=== PATIENT | female | born 1975 | race Caucasian/White ===

== ENCOUNTER → 2024-09-25 | Outpatient (CLI) | payer OTHER, SELFPAY ==
--- NOTE | 2024-09-25 10:03 | RAD_ITS ---
PROCEDURE: SHOULDER MIN 2 VIEWS 09/25/2024 REASON FOR EXAM: SHOULDER INJURY TECHNIQUE: Four views of the left shoulder COMPARISON: None FINDINGS: Bones: Unremarkable. Joints: Mild degree of joint space narrowing. Soft tissues: Soft tissues are unremarkable. Other: RAD/Shoulder min 2 Views IMPRESSION: Mild degree of joint space narrowing of the glenohumeral joint. Reading Location: [facility]
== END | disposition home or self-care (01) ==
LOC: MTRAD 10:02
PROVIDERS: Referring Provider Physician Assistant Surgical; Visit Provider Physician Assistant Surgical
DX: S49.90XA Unspecified injury of shoulder and upper arm, unspecified arm, initial encounter (principal)
CPT/HCPCS: 73030

== ENCOUNTER 2024-12-12 15:30 | Outpatient (RCR) | payer OTHER, SELFPAY ==
--- NOTE | 2024-11-10 14:57 | HP.PTEVAL ---
Patient's Visit Information Visit Information Visit Information: NABIL ROSALES is a 49 year old F referred to Physical Therapy by Dr. Boyd Lopez MD with a diagnosis of rotator cuff or rupture of left shoulder ,primary osteoarthritis ,left. Date of Evaluation: 11/10/24 Physical Therapist: Raffy Trotter, PT, Cert MDT, OCS Visit Plan Frequency: 2-3x /Week Duration: 6 Weeks Plan: SUPRASPINATUS TEAR -MRI PT INTERVENTIONS ROM ,RTC ,SCAPULAR STRENGTHENING ,POSTURAL EX'S ,ACTIVITY MODIFICATION AND MODALITIES Subjective Subjective: This 49 y/o female presents to physical therapy with left shoulder RTC tear. Patient was cooking soup and lifting 12 # bag felt pop and caused pain and paresthesia/tingling in arm. on September. [facility] and recommended MRI showed Moderate supraspinatus tendinosis with rim rent type tear involving the tendon footprint measuring approximately 1 cm time 0.3 cm medial to lateral. There is suspected focal pinhole perforation extended from this with otherwise bursal surface fraying and labral tear. Placed lifting restriction 5# and lifting above below waist. Referred to Boyd Lopez recommended PT and possible surgery but will wait after PT. Medication none and no cortisone injection. C/O paresthesia /tingling. Pain described as ache. Pain affects sleeping. Aggravating factors ADLS ,self hygiene ,activities above 90 degrees lifting and any overhead activities . Patient to RTD after PT. Patient goals to decrease pain and possible surgery SOCIAL: divorce VOCATION: [employer] Left Shoulder: Pain Intensity (Out of 10): 4 Pain Intensity Range: 10 Comment: increasing with activity /10 Objective Objective: POSTURE: rounded shoulders head forward PALAPTION: tender AC NEURO: c/o paresthesia/tingling let shoulder AROM: shoulder flexion 125 degrees ,abduction 125 degrees ,ER 90 degrees ,IR L1 PROM: shoulder flexion/abduction ~150 degrees pain MMT: ( peak force) infraspinatus 5.2 ,supraspinatus 4.2 ,subscapularis 9.9 ,deltoid 4.2 CAPSULAR RESTRICTION: WFL Special Tests L Shoulder External Rotation Lag Test - RC Tear: Negative L Shoulder Lift Off Test - Subscapular Tear: Negative L Shoulder Drop Sign - IS Test: Negative L Shoulder Empty Can - SS: Positive L Shoulder Belly Press - SupScap: Negative L Shoulder Neer - Impingement: Positive L Shoulder Alva Luis Miguel - Impingement: Positive Balance/Special Test Scores Quick DASH Score: 50.0000 Goals Goal 1:: Patient to be I with HEP for shoulder Goal Time Frame: 4-6 Weeks Goal 2:: Patient to improve AROM shoulder flexion/abduction by 150 degrees for ADL and activities above 90 degrees for job demands Goal Time Frame: 4-6 Weeks Goal 3:: Patient to improve peak force RTC by 5-10# to improve function and ADLS /job demands Goal Time Frame: 4-6 Weeks Goal 4:: Patient to quick dash by 5 points to improve QOL and function Goal Time Frame: 4-6 Weeks Goal 5:: Patient to demonstrate 50% improvement with less pain and improved function /ADLS Rehabilitation Potential Physical Therapy Diagnosis: This patient has tear of left supraspinatus with pain ,decrease ROM ,weakness RTC ,impairs ADL's and activities above 90 and self hygiene thus benefit from skilled PT Rehabilitation Potential: Fair Anticipated Interventions Patient/Client Instruction: Educate patient on: Condition and Plan of Care For the Purpose of:: To decrease pain, To increase ROM, To improve muscle performance and motor function, To improve ability to perform ADL's, To increase tolerance to activity/condition/position, To improve ability of physical actions for home/community/work/leisure, To improve health of tissue, To decrease soft tissue restriction, To increase flexibility/ROM and To improve tolerance to ADL's Therapeutic Exercise to Include: Strength training, Postural training, Flexibilty training and Active ROM Comment: RTC For the Purpose of:: To decrease pain, To increase ROM, To improve muscle performance and motor function, To improve ability to perform ADL's, To increase tolerance to activity/condition/position, To improve ability of physical actions for home/community/work/leisure, To improve health of tissue, To decrease soft tissue restriction, To increase flexibility/ROM and To improve tolerance to ADL's TENS: Yes IF ES: Yes Thermo therapy (hot pack): Yes Ultrasound (thermal/non thermal): Yes For the Purpose of:: To decrease pain, To increase ROM, To improve nutrient delivery to tissue, To increase oxygenation perfusion, To improve ability to perform ADL's, To improve health of tissue, To decrease soft tissue restriction and To improve tolerance to ADL's Text: Thank you for the opportunity to evaluate your patient. For Medicare and Medicare HMO plans, please review the plan of care and approve it. It will need to be FAXED BACK to us at [phone] for Medicare purposes. For Medicare only, by signing this I certify the plan of care. Please let me know if there are questions or concerns regarding this plan of care. Physician Signature: Date:
== END 2024-12-12 19:00 | disposition home or self-care (01) ==
LOC: PT 15:30
PROVIDERS: Referring Provider Orthopaedic Surgery Sports Medicine; Visit Provider Orthopaedic Surgery Sports Medicine
DX: M25.812 Other specified joint disorders, left shoulder (principal); M75.102 Unspecified rotator cuff tear or rupture of left shoulder, not specified as traumatic; M19.012 Primary osteoarthritis, left shoulder
CPT/HCPCS: 97014; 97110; 97140; 97162; G0283

== ENCOUNTER 2025-01-02 00:53 | Emergency (ER) | payer OTHER, SELFPAY ==
[2025-01-02 00:54] VITALS: BP 128/87; PULSE 71; RESP 16; TEMP 36.4; O2SAT 100; BMI 30.9
[2025-01-02 00:57] VITALS: BP 128/87; PULSE 71; RESP 16; TEMP 36.4; O2SAT 100
[2025-01-02] MEDS: Lidocaine 2% /Epi 1:100 (20ml) 20 ML VIAL INFILT (01:20)
--- OUTSIDE RECORDS SUMMARY | 2025-01-02 01:32 | XMS RPT_ITS | CCD ---
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 Technician Name Role Phone Cristofer Barraza Unavailable Unavailable Mary Pompa Unavailable Unavailable Cristofer Barraza Unavailable Unavailable CAMILLE MELLO Primary Care Unavailable NELL IRELAND Attending Unavailable Liang THAI MASSEUR - Nathan LINDSEY Primary Care Provid er NATHAN TAVERA Referring Unavailable NATHAN TAVERA Primary Care Unavailable SHALINI ELIZONDO Admitting Unavailable SHALINI ELIZONDO Attending Unavailable NATHAN TAVERA Primary Care Unavailable LIANGNATHAN POLLARD Primary Care Unavailable ADA NEWSOME Attending Unavailable NATHAN TAVERA Primary Care Unavailable CRISTOFER PEDERSON Consulting Unavailable CARLOS OWEN Admitting UnavailCARLOS Oakley Attending UnavailEDINSON Valentin Referring Unavailable NATHAN TAVERA Primary Care Unavailable NATHAN TAVERA Referring Unavailable NATHAN TAVERA Primary Care Unavailable NATHAN TAVERA Referring Unavailable NATHAN TAVERA Primary Care Unavailable NATHAN TAVERA Referring Unavailable NATHAN TAVERA Referring Unavailable NATHAN TAVERA Primary Care Unavailable NATHAN TAVERA Primary Care Unavailable NATHAN TAVERA Referring Unavailable APOORVA RYANYTON B Referring Unavailable NATHAN TAVERA Primary Care Unavailable TAHMINA MENDEZ Admitting Unavailable TAHMINA MENDEZ Attending Unavailable NATHAN TAVERA Primary Care Unavailable NATHAN TAVERA Primary Care Unavailable HECTOR RUVALCABA Attending Unavailable ROSANNE HERRON Attending Unavailable NATHAN TAVERA Primary Care Unavailable JAIDEN OAKLEY Attending Unavailable NATAHN TAVERA Primary Care Unavailable LIANGNATHAN Primary Care Unavailable ORALIA LOPEZ Attending Unavailable SHALINI ELIZONDO Attending Unavailable NATHAN TAVERA Referring Unavailable NATHAN TAVERA Primary Care Unavailable SHALINI ELIZONDO Attending Unavailable NATHAN TAVERA Referring Unavailable LIANG, NATHAN Primary Care Unavailable NADIA LANDON Attending Unavailable LIANG, NATHAN Referring Unavailable LIANG, NATHAN Primary Care Unavailable NADIA LANDON Attending Unavailable LIANG, NATHAN Referring Unavailable LIANG, NATHAN Primary Care Unavailable SHALINI ELIZONDO Attending Unavailable LIANG, NATHAN Referring Unavailable LIANG, NATHAN Primary Care Unavailable NADIA LANDON Attending Unavailable LIANG, NATHAN Referring Unavailable LIANG, NATHAN Primary Care Unavailable Unavailable Primary Care Provider Unavailkhushbu lugo Liang THAI MASSEUR-DRY WALL APPLICATOR, Nathan Primary Care Provider PHYSICIAN, NONE Primary Care Physician Unavailab le PHYSICIAN, NONE Primary Care Unavailable CORONA TEJADA Attending Unavailable Corona Tejada Attending Provider [phone] Care Physician, No Primary Primary Care Provider Unavailable Corona Tejada Referring Provider [phone] Care Physician, No Primary Referring Provider Un available Boyd Lopez MD Attending Provider Boyd Lopez MD Referring Provider Estrella Akbar Attending Provider Unavailable Care Physician, No Primary Primary Care Unava ilable Corona Tejada Referring Unavailable Corona Tejada Attending Unavailable Care Physician, No Primary Referring Unava ilable Corona Tejada Attending Unavailable Care Physician, No Primary Primary Care Unava ilable Boyd Lopez Attending Unavailable Care Physician, No Primary Referring Unava ilable Care Physician, No Primary Primary Care Unava ilBoyd Nolasco Attending Unavailable Care Physician, No Primary Primary Care Unava ilable Care Physician, No Primary Referring Unava ilable Corona Tejada Attending Unavailable Care Physician, No Primary Primary Care Unava ilable Care Physician, No Primary Referring Unava ilable Corona Tejada Attending Unavailable Estrella Akbar Attending Unavailable Care Physician, No Primary Primary Care Unava ilable Corona Tejada Attending Unavailable Care Physician, No Primary Primary Care Unava ilable Care Physician, No Primary Referring Unava ilable Boyd Lopez Referring Unavailable Boyd Lopez Attending Unavailable Care Physician, No Primary Primary Care Unava ilBoyd Nolasco Attending Unavailable Care Physician, No Primary Primary Care Unava ilable Allergies Allergy Classification Reported Allergen(s) Allergy Type Date of Onset Reaction(s) Facility (10 sources) buPROPion; Translations: [BUPROPION] Drug Allergy 5 Anaphylaxis, Hives, Swelling [facility] Repository (19 sources) Cephalexin; Translations: [CEPHALEXIN] Drug Allergy 3 Hives [facility] Repository (1 source) Penicillin; Translations: [PENICILLIN V] Drug Allergy 4 [facility] Repository (19 sources) Penicillins; Translations: [PENICILLINS] Propensity to adverse reactions to drug (disorder) 3 Hives, Intolerance [facility] Repository (9 sources) Promethazine; Translations: [PROMETHAZINE] Drug Allergy 4 Other (See Comments) [facility] Repository (13 sources) Tranexamic Acid; Translations: [TRANEXAMIC ACID] Drug Allergy 3 Hives [facility] Repository (1 source) traZODone; Translations: [TRAZODONE] Drug Allergy 4 [facility] (3 sources) Promethazine Drug Allergy 4 Other (See Comments) [employer] [facility] (3 sources) Trazodone And Nefazodone Propensity to adverse reactions to drug 4 Other (See Comments) [employer] [facility] (9 sources) buPROPion; Translations: [BUPROPION HCL] Drug Allergy 6 Anaphylaxis [facility] Repository Medications Current Medications Medication Drug Class(es) Dates Sig (Normalized) Sig (Original) acetaminophen 500 mg oral tablet (7 sources) Start: 09-25-2024 take 1 tablet by mouth every six hours as needed Acetaminophen (Tylenol Extra Strength) 500 mg tablet Active 500 mg PO EVERY 6 HOURS as needed September 25, 2024 12:00am Start: 06-30-2023 acetaminophen (TYLENOL) tablet 650 mg Start: 06-30-2023 End: 06-30-2023 acetaminophen (TYLENOL) tabl et 1,000 mg Start: 06-21-2023 acetaminophen (TYLENOL) tablet 650 mg acetaminophen 325 mg / HYDROcodone bitartrate 5 mg oral tablet (6 sources) Opioid Agonist take 1 tablet by mouth every six hours as needed for pain HYDROcodone-acetaminophen (NORCO) 5-325 mg per tablet Take 1 tablet by mouth every 6 (six) hours as needed for pain. Active [id number] actuat albuterol 0.09 mg/actuat metered dose inhaler (11 sources) beta2-Adrener gic Agonist Start: 2022 take 2 puff(s) by inhalation every four hours as needed for wheezing albuterol sulfate HFA (VENTOLIN HFA) 108 (90 Base) MCG/ACT inhaler Indications: Mild asthma without complication, unspecified whether persistent Inhale 2 puffs into the lungs every 4 hours as needed for Wheezing or Shortness of Breath 1 each 5 03/16/2023 Active take 2 puff(s) by in halation every six hours as needed albuterol HFA (PROVENTIL HFA, VENTOLIN H FA) 90 mcg/actuation inhaler Inhale 2 Puffs as instructed every 6 hours as needed. Active amitriptyline hydrochloride 75 mg oral tablet (1 source) Tricyclic Antidepressant take 1 tablet by mouth once daily amitriptyline (ELAVIL) 75 mg tablet Indications: migraine prevention Take 75 mg by mouth nightly Indications: Migraine Prevention. Active azithromycin 250 mg oral tablet (1 source) Macrolide Antimicrobial Start: 08-05-19 azithromycin (ZITHROMAX) 250 mg tablet 1 cap daily with food 3 tablet 0 08/05/2015 Active busPIRone hydrochloride 15 mg oral tablet (12 sources) Start: 09-20-19 take 1 tablet by mouth three times daily busPIRone (BUSPAR) 15 MG tablet Indications: Anxiety and depression Take 15 mg by mouth 3 times daily 90 tablet 0 09/20/2023 Active Start: 06-30-2023 take 10 mg by mouth three times daily as needed 10 mg, Oral, 3 TIMES DAILY PRN, Starting on 06/30/23 at 0530, Until Discontinued, anxiety Start: 03-13-2023 busPIRone (BUS PAR) 10 mg tablet Take 15 mg by mouth three times a day. 03/13/2023 Active Start: 03-13-2023 take 1.5 tablets by mouth three times daily as needed busPIRone (BUSPAR) 10 mg tablet Take 1.5 tablets (15 mg total) by mouth Three times daily as needed. 03/13/2023 Active Start: 10-13-2022 take 1 tablet by mariah th three times daily as needed busPIRone (BUSPAR) 10 mg tablet Take 1 tablet (10 mg total) by mouth Three times daily as needed. 03/13/2023 Active butorphanol tartrate 1 mg/actuat metered dose nasal spray (1 source) Opioid Agonist/Antagonist take 1 spray(s) nasal route every four hours as needed for pain butorphanol (STADOL) 10 mg/mL nasal spray 1 spray into each nostril every 4 (four) hours as needed for moderate pain - pain scale 4-6. Active cyclobenzaprine hydrochloride 10 mg oral tablet (9 sources) Muscle Relaxant Start: 2023 take 1 tablet by mouth every twelve hours as needed cyclobenzaprine (FLEXERIL) 10 mg tablet Take 10 mg by mouth two times a day as needed for pain. 08/29/2023 Active Start: 08-29-2023 take 1 tablet by mariah th every eight hours for muscle spasms cyclobenzaprine (FLEXERIL) 10 mg tablet take 1 tablet by mouth every 8 hours if needed for MUSCLE SPASMS 08/29/2023 Active diclofenac sodium 0.01 mg/mg topical gel (3 sources) Nonsteroidal Anti-inflammatory Drug Start: 01-08-2024 diclofenac sodium (VOLTAREN) 1 % gel Indications: S/P carpal tunnel release , Post-op pain Apply 2 g topically in the morning and 2 g at noon and 2 g in the evening and 2 g before bedtime. 100 g 01/08/2024 Active DULoxetine 20 mg delayed release oral capsule (11 sources) Serotonin and Norepinephrine Reuptake Inhibitor Start: 09-20-2023 take 1 capsule by mouth twice daily DULoxetine (CYMBALTA) 20 mg capsule Take 20 mg by mouth two times a day. 09/20/2023 Active Start: 09-20-2023 take 1 capsule by mo [facility] once daily DULoxetine (CYMBALTA) 20 MG extended release capsule Indications: Myalgia, multiple sites , Fibromyalgia syndrome , Anxiety and depression Take 1 capsule by mouth daily 30 capsule 2 09/20/2023 Active Start: 03-16-2023 End: 06-30-2023 take 1 capsule by mouth once daily DULoxetine (CYMBALTA) 20 MG extended release capsule Indications: Anxiety and depression , Myalgia, multiple sites Take 1 capsule by mouth daily 30 capsule 2 03/16/2023 06/30/2023 Discontinued (LIST CLEANUP) fludrocortisone acetate 0.1 mg oral tablet (1 source) take 1 tablet by mouth once daily fludrocortisone (FLORINEF) 0.1 mg tablet Indications: symptomatic orthostatic hypotension Take 0.1 mg by mouth daily Indications: Symptomatic Orthostatic Hypotension. Active folic acid 1 mg oral tablet (9 sources) Start: 07-10-19 24 take 1 tablet by mouth once daily folic acid 1 mg tablet Take 1 mg by mouth once daily. 07/10/2023 Active furosemide 20 mg oral tablet (3 sources) Loop Diuretic Start: 01-13-20 23 take 1 tablet by mouth once daily as needed for edema furosemide (LASIX) 20 MG tablet Take 1 tablet by mouth daily as needed (LE edema) 90 tablet 3 01/12/2023 Active gabapentin 800 mg oral tablet (15 sources) Anti-epileptic Agent Start: 09-26-19 25 take 1 tablet by mouth three times daily Gabapentin 800 mg tablet Active 800 mg PO THREE TIMES A DAY September 25, 2024 12:00am Start: 09-20-2023 End: 10-20-2023 take 1 tablet by mouth three times daily gabapentin (NEURONTIN) 800 MG tablet Indications: Myalgia, multiple sites , Polyneuropathy Take 1 tablet by mouth 3 times daily for 30 days. 90 tablet 0 09/20/2023 10/20/2023 Active Start: 03-15-2023 gabapentin (NE URONTIN) 600 mg tablet Take 800 mg by mouth three times a day. 03/15/2023 Active Start: 03-15-2023 take 0.5 tablet by m outh three times daily gabapentin (NEURONTIN) 600 mg tablet Take 0.5 tablets (300 mg total) by mouth 3 (three) times a day. 03/15/2023 Active Start: 03-15-2023 End: 06-30-2023 gabapentin (NEURONTIN) 600 M G tablet ibuprofen 200 mg oral tablet (4 sources) Nonsteroidal Anti-inflammatory Drug Start: 12-15-2024 take 3 tablets by mouth every six hours as needed Ibuprofen 200 mg tablet Active 600 mg PO EVERY 6 HOURS as needed December 15, 2024 12:00am Start: 06-30-2023 take 400 mg by mouth every six hours as needed for pain 400 mg, Oral, EVERY 6 HOURS PRN, Starting on 06/30/23 at 0530, Until Discontinued, Pain Mild (1-3), Pain Moderate (4-6), Allowed for higher pain score per patient request, Fever Alternate with tylenol lactobacillus acidophilus 16 mg oral capsule (1 source) Start: 07-02-2023 End: 07-12-2023 take 1 tablet by mouth at bedtime Probiotic, Lactobacillus, CAPS Take 1 tablet by mouth in the morning, at noon, and at bedtime for 10 days 30 capsule 0 07/02/2023 07/12/2023 Active loperamide hydrochloride 2 mg oral capsule (1 source) Opioid Agonist Start: 06-30-2023 loperamide (IM ODIUM) capsule 2 mg midodrine hydrochloride 5 mg oral tablet (16 sources) alpha-Adrenerg ic Agonist Start: 09-25-2024 take 1 tablet by mouth once daily at bedtime Midodrine 5 mg tablet Active 5 mg PO THREE TIMES A DAY September 25, 2024 12:00am do not give last dose of day after 6PM or within 4 hrs of bedtime Start: 06-30-2023 5 mg, Oral, 3 TIMES DAILY, First dose on 06/30/23 at 0900, Until Discontinued Do not give after 1800 or within 4 hrs of bedtime. Start: 03-12-2023 take 1 tablet by mariah th three times daily midodrine (PROAMATINE) 5 MG tablet Take 1 tablet by mouth 3 times daily 270 tablet 3 03/12/2023 Active take 1 tablet by mariah th twice daily midodrine (PROAMITINE) 5 mg tablet Take 5 mg by mouth two times a day. Active midodrine (PROAM ATINE) 5 mg tablet Take 2 tablets (10 mg total) by mouth. Active multivitamin (THERAGRAN) tablet (6 sources) take 1 tablet by mouth in the morning multivitamin (THERAGRAN) tablet Take 1 tablet by mouth in the morning. Active multivitamin tablet (1 source) take 1 tablet by mouth once daily multivitamin tablet Take 1 tablet by mouth once daily. Active 24 hr nicotine 0.875 mg/hr transdermal system (2 sources) Cholinergic Nicotinic Agonist Start: 07-02-19 End: 08-13-19 apply 1 dose transdermal route once daily nicotine (NICODERM CQ) 21 MG/24HR Place 1 patch onto the skin daily 42 patch 0 07/02/2023 08/13/2023 Active Start: 06-30-2023 apply 1 dose transde rmal route once daily 1 patch, TransDERmal, Administer over 24 Hours, DAILY, First dose on 06/30/23 at 0900 Apply new patch to nonhairy, clean, dry skin on the upper body or upper outer arm. Rotate patch sites. Notify pharmacy if patient or provider prefers patch to be removed at bedtime and replaced in the morning. Hazardous Medication -- Refer to facility policy for handling and disposal. nitrofurantoin, macrocrystals 25 mg / nitrofurantoin, monohydrate 75 mg oral capsule (4 sources) Nitrofuran Antibacterial Start: 06-30-2023 End: 07-05-2023 take 1 capsule by mouth every twelve hours nitrofurantoin, macrocrystal-monohydrate, (MACROBID) 100 MG capsule Take 1 capsule by mouth every 12 hours for 3 days 6 capsule 0 07/02/2023 07/05/2023 Active omeprazole 40 mg delayed release oral capsule (16 sources) Proton Pump Inhibitor Start: 09-25-2024 take 1 capsule by mouth twice daily Omeprazole 40 mg capsule,delayed release(DR/EC) Active 40 mg PO TWICE A DAY September 25, 2024 12:00am Start: 06-07-2014 End: 06-10-2024 take 1 capsule by mouth once daily omeprazole (PRILOSEC) 40 MG delayed release capsule Indications: Gastroesophageal reflux disease without esophagitis Take 1 capsule by mouth daily 30 capsule 0 07/02/2023 Active ondansetron 4 mg disintegrating oral tablet (10 sources) Serotonin-3 Receptor Antagonist Start: 07-02-2023 take 1 tablet by mouth three times daily as needed for nausea ondansetron (ZOFRAN-ODT) 4 MG disintegrating tablet Take 1 tablet by mouth 3 times daily as needed for Nausea or Vomiting 21 tablet 0 07/02/2023 Active Start: 06-30-2023 End: 06-30-2023 ondansetron (ZOFRAN) injecti on 4 mg Start: 06-29-2023 End: 06-29-2023 ondansetron (ZOFRAN) injecti on 4 mg take 1 tablet by mariah th every eight hours as needed for nausea and vomiting ondansetron (ZOFRAN) 4 mg tablet Take 1 tablet (4 mg total) by mouth every 8 (eight) hours as needed for nausea or vomiting. Active ondansetron (ZOFRAN-ODT) disintegrating tablet 4 mg (1 source) Start: 06-30-2023 ondansetron (ZOFRAN-ODT) disintegrating tablet 4 mg predniSONE 10 mg oral tablet (5 sources) Start: 12-25-2023 predniSONE (DELTASONE) 10 mg tablet Indications: S/P carpal tunnel release Day 1: Take 6 tablets by mouth Day 2: Take 5 tablets by mouth Day 3: Take 4 tablets by mouth Day 4: Take 3 tablets by mouth Day 5: Take 2 tablets by mouth Day 6: Take 1 tablet by mouth 21 tablet 12/25/2023 Active QUEtiapine 25 mg oral tablet (8 sources) Atypical Antipsychotic Start: 09-20-2023 QUEtiapine (SEROquel) 25 mg tablet 1-2 tabs nightly as needed for sleep 09/20/2023 Active SUMAtriptan 50 mg oral tablet (8 sources) Serotonin-1b and Serotonin-1d Receptor Agonist Start: 09-20-2023 take 1 tablet by mouth once as needed SUMAtriptan (IMITREX) 50 mg tablet Take 1 tablet (50 mg total) by mouth once as needed. 09/20/2023 Active take 1 tablet by mouth once as n eeded SUMAtriptan (IMITREX) 50 MG tablet Take 1 tablet by mouth once as needed for Migraine 0 Active thiamine 100 mg oral tablet (9 sources) Start: 07-09-2023 take 1 tablet by mouth once daily thiamine (VITAMIN B1) 100 mg tablet Take 100 mg by mouth once daily. 07/09/2023 Active topiramate 100 mg oral tablet (1 source) take 1 tablet by mouth once daily at bedtime topiramate (TOPAMAX) 100 mg tablet Indications: migraine prevention Take 100 mg by mouth once daily at bedtime Indications: Migraine Prevention. Active traZODone hydrochloride 50 mg oral tablet (1 source) Serotonin Reuptake Inhibitor take 1 tablet by mouth once daily traZODone (DESYREL) 50 mg tablet Take 50 mg by mouth nightly. Active valACYclovir 500 mg oral tablet (1 source) Herpesvirus Nucleoside Analog DNA Polymerase Inhibitor, Herpes Simplex Virus Nucleoside Analog DNA Polymerase Inhibitor, Herpes Zoster Virus Nucleoside Analog DNA Polymerase Inhibitor Start: 12-08-2023 valACYclovir (VALTREX) 500 mg tablet Take 500 mg by mouth as needed (cold sore). 12/08/2023 Active venlafaxine 75 mg oral tablet (1 source) Serotonin and Norepinephrine Reuptake Inhibitor Start: 08-05-2015 take 2 tablets by mouth twice daily at mealtime venlafaxine (EFFEXOR) 75 mg tablet Indications: generalized anxiety disorder , major depressive disorder Take 2 tablets (150 mg total) by mouth 2 (two) times a day with meals Indications: Generalized Anxiety Disorder, Major Depressive Disorder. 120 tablet 0 08/05/2015 Active Completed/Discontinued Medications Medication Drug Class(es) Dates Sig (Normalized) Sig (Original) 10 ml calcium chloride 100 mg/ml prefilled syringe (1 source) Start: 07-01-2023 End: 07-01-2023 calcium chloride 10 % injection celecoxib 200 mg oral capsule (11 sources) Nonsteroidal Anti-inflammatory Drug Start: 09-25-2024 End: 12-15-2024 take 1 capsule by mouth twice daily Celecoxib (Celebrex) 200 mg capsule Discontinued 200 mg PO TWICE A DAY September 25, 2024 12:00am December 15, 2024 8:03am Start: 01-08-2024 End: 02-21-2024 take 1 capsule by mouth once daily celecoxib (CELEBREX) 200 mg capsule Take 200 mg by mouth once daily. 02/21/2024 Active Start: 12-25-2023 End: 12-26-2023 take 1 capsule by mouth in the morning, then take 1 capsule by mouth at bedtime celecoxib (CeleBREX) 200 mg capsule Indications: S/P carpal tunnel release Take 1 capsule (200 mg total) by mouth in the morning and 1 capsule (200 mg total) before bedtime. 60 capsule 1 12/25/2023 12/26/2023 Discontinued clindamycin 300 mg oral capsule (3 sources) Lincosamide Antibacterial Start: 12-26-2024 End: 01-01-2025 take 1 capsule by mouth three times daily Clindamycin Hcl (Cleocin Hcl) 300 mg capsule Discontinued 300 mg PO THREE TIMES A DAY 21 7 0 December 26, 2024 12:00am January 01, 2025 12:00am January 01, 2025 12:21pm Start: 03-29-2024 End: 04-03-2024 take 3 capsules by mouth three times daily clindamycin (CLEOCIN) 150 mg capsule Take 3 capsules by mouth three times a day for 5 days. 45 capsule 03/29/2024 04/03/2024 Active estrogens, conjugated (fci) 0.625 mg / medroxyPROGESTERone acetate 5 mg oral tablet (2 sources) Progestin, Estrogen Start: 08-14-2022 End: 06-30-2023 take 1 tablet by mouth once daily PREMPRO 0.625-5 MG per tablet Take 1 tablet by mouth daily 0 08/14/2022 06/30/2023 Discontinued (LIST CLEANUP) fluconazole 150 mg oral tablet (2 sources) Azole Antifungal Start: 04-02-2023 End: 06-30-2023 fluconazole (DIFLUCAN) 150 MG tablet Indications: Vulvovaginal candidiasis Take 1 tab by mouth now and repeat dose again in 3 days. 2 tablet 0 04/02/2023 06/30/2023 Discontinued (LIST CLEANUP) FLUoxetine 20 mg oral capsule (2 sources) Serotonin Reuptake Inhibitor Start: 04-04-2023 End: 06-30-2023 take 1 capsule by mouth once daily FLUoxetine (PROZAC) 20 MG capsule Take 1 capsule by mouth daily 0 04/04/2023 06/30/2023 Discontinued (LIST CLEANUP) 500 ml glucose 50 mg/ml / potassium chloride 0.02 meq/ml / sodium chloride 4.5 mg/ml injection (1 source) Start: 06-30-2023 End: 07-02-2023 IntraVENous, at 125 mL/hr, CONTINUOUS, Starting on 06/30/23 at 0600, For 48 hours iopamidol (ISOVUE-370) 76 % injection 75 mL (1 source) Start: 06-29-2023 End: 06-29-2023 iopamidol (ISOVUE-370) 76 % injection 75 mL ketorolac tromethamine 10 mg oral tablet (4 sources) Nonsteroidal Anti-inflammatory Drug, Cyclooxygenase Inhibitor Start: 11-14-2023 End: 12-25-2023 take 1 tablet by mouth every six hours as needed for pain ketorolac (TORADOL) 10 mg tablet Take 1 tablet (10 mg total) by mouth every 6 (six) hours as needed for pain. 16 tablet 11/14/2023 12/25/2023 Discontinued Start: 06-30-2023 End: 06-30-2023 ketorolac (TORADOL) injectio n 15 mg Start: 06-29-2023 End: 06-29-2023 ketorolac (TORADOL) injectio n 15 mg Lidocaine (1 source) Antiarrhythmic, Amide Local Anesthetic Start: 01-22-2024 End: 01-22-2024 3 mL, intra-articular, One-Time Injection, Starting on Sun01/22/24 at 1133, For 1 dose 1 ml LORazepam 2 mg/ml injection (1 source) Benzodiazepine Start: 06-21-2023 End: 06-21-2023 LORazepam (ATIVAN) injection 0.5 mg Start: 06-21-2023 End: 06-21-2023 LORazepam (ATIVAN) injection 0.5 mg 100 ml magnesium sulfate 10 mg/ml injection (2 sources) Start: 06-30-2023 End: 06-30-2023 magnesium sulfate 1000 mg in dextrose 5% 100 mL IVPB Start: 06-21-2023 End: 06-21-2023 magnesium sulfate 1000 mg in dextrose 5% 100 mL IVPB meloxicam 15 mg oral tablet (2 sources) Nonsteroidal Anti-inflammatory Drug Start: 12-26-2023 End: 01-08-2024 take 1 tablet by mouth in the morning meloxicam (MOBIC) 15 mg tablet Indications: S/P carpal tunnel release , Right carpal tunnel syndrome Take 1 tablet (15 mg total) by mouth in the morning. 30 tablet 1 12/26/2023 01/08/2024 Discontinued Multiple Vitamins-Minera ls (THERAGRAN-M ADVANCED 50 PLUS PO) (2 sources) End: 06-30-2023 Multiple Vitamins-Minerals (THERAGRAN-M ADVANCED 50 PLUS PO) Take by mouth 0 06/30/2023 Discontinued (LIST CLEANUP) Multiple Vitamin s-Minerals (THERAGRAN-M ADVANCED 50 PLUS PO) Take by mouth 0 Active polyethylene glycol [id number] [id number] mg powder for oral solution (1 source) Osmotic Laxative Start: 06-30-2023 17 g, Oral, D AILY PRN, Starting on 06/30/23 at 0530, Until Discontinued, Constipation First line therapy for constipation potassium bicarbonate 20 meq effervescent oral tablet (2 sources) Start: 06-30-2023 End: 06-30-2023 potassium bicarb-citric acid (EFFER-K) effervescent tablet 40 mEq Start: 06-21-2023 End: 06-21-2023 potassium bicarb-citric acid (EFFER-K) effervescent tablet 40 mEq microencapsulated potassium chloride 20 meq extended release oral tablet (7 sources) Start: 06-30-2023 End: 06-30-2023 potassium chloride (KLOR-CON M) extended release tablet 60 mEq Start: 06-29-2023 End: 06-30-2023 potassium chloride (KLOR-CON ) extended release tablet 40 mEq Start: 06-29-2023 End: 06-30-2023 potassium chloride 10 mEq/10 0 mL IVPB (Peripheral Line) 5 ml sodium chloride 9 mg/ml injection (6 sources) Start: 06-30-2023 take 1 dose intravenously twice daily 5-40 mL, IntraVENous, EVERY 12 HOURS SCHEDULED (2 times per day), First dose on 06/30/23 at 0900, Until Discontinued For Line Patency: Peripheral IV = 5 mL; Midline or Central Line = 10 mL/lumen. If following IV push medication, administer flush at same rate as the IV push. Flush volume is determined by type of infusion therapy being given. For non-viscous solutions use: Peripheral IV = 5 mL Midline or Central Line = 10 mL/lumen For viscous solutions (i.e. blood components, parenteral nutrition, contrast media, or after obtaining blood sample) use: Peripheral IV = 10 mL Midline or Central Line = 20 mL/lumen Start: 06-30-2023 IntraVENous, a t 5-250 mL/hr, PRN, if patient receiving piggyback infusions and maintenance fluids are not ordered OR KVO fluids to protect IV site / prevent frequent line interruptions/ long duration, Starting on 06/30/23 at 0530 For piggyback infusion, administer at same rate as piggyback for a total of 25 mL. Enter 25 mL into dose field and piggyback rate into rate field of order. If piggyback is infusing at a rate less than 100 mL/hr, enter 25 mL into dose field and 100 mL/hr into rate field of order. For KVO fluids, enter rate of 20 mL/hr or less into rate field of order. Start: 06-30-2023 take 5-40 mL intrave nously once as needed 5-40 mL, IntraVENous, PRN, Starting on 06/30/23 at 0530, Until Discontinued, Line Care, After every IV line use For Line Patency: Peripheral IV = 5 mL; Midline or Central Line = 10 mL/lumen. If following IV push medication, administer flush at same rate as the IV push. Flush volume is determined by type of infusion therapy being given. For non-viscous solutions use: Peripheral IV = 5 mL Midline or Central Line = 10 mL/lumen For viscous solutions (i.e. blood components, parenteral nutrition, contrast media, or after obtaining blood sample) use: Peripheral IV = 10 mL Midline or Central Line = 20 mL/lumen Start: 06-29-2023 End: 06-30-2023 sodium chloride 0.9 % bolus 1,000 mL Start: 06-21-2023 End: 06-21-2023 sodium chloride 0.9 % bolus 1,000 mL sucralfate 1000 mg oral tablet (2 sources) Aluminum Complex End: 06-30-2023 take 1 tablet by mouth four times daily sucralfate (CARAFATE) 1 GM tablet Take 1 tablet by mouth 4 times daily 0 06/30/2023 Discontinued (LIST CLEANUP) triamcinolone acetonide 10 mg/ml injectable suspension (1 source) Corticosteroid Start: 01-22-2024 End: 01-22-2024 1 mL, intra-articular, One-Time Injection, Starting on Sun01/22/24 at 1133, For 1 dose Problems Active Problems Problem Classification Problem Date Documented Da te Episodic/Chronic Alcohol-related disorders (3 sources) History of alcohol abuse; Translations: [Alcohol abuse, in remission] Onset: 3 03-16-2023 Chronic Allergic reactions (4 sources) Environmental allergy; Translations: [Other allergy status, other than to drugs and biological substances] 09-25-2024 Episodic Anxiety disorders (7 sources) Anxiety; Translations: [Anxiety disorder, unspecified] Onset: 3 04-04-2013 Chronic Asthma (10 sources) Asthma; Translations: [Unspecified asthma, uncomplicated] Onset: 3 04-04-2013 Chronic Cardiac dysrhythmias (3 sources) Postural orthostatic tachycardia syndrome ; Translations: [POTS (postural orthostatic tachycardia syndrome)] Onset: 3 03-16-2023 Chronic Coagulation and hemorrhagic disorders (20 sources) von Willebrand disorder; Translations: [Von Willebrand disease] Onset: 7 04-04-2013 Chronic Disorders of teeth and jaw (4 sources) Periapical abscess without sinus; Translations: [Infection of tooth] Onset: 4 03-29-2024 Episodic Esophageal disorders (9 sources) Gastroesophageal reflux disease; Translations: [Gastro-esophageal reflux disease without esophagitis] Onset: 3 06-30-2016 Chronic Headache; including migraine (7 sources) Migraine; Translations: [Migraine, unspecified, not intractable, without status migrainosus] Onset: 5 06-26-2014 Chronic Malaise and fatigue (1 source) Chronic fatigue, unspecified; Translations: [Chronic fatigue, unspecified] Onset: 3 Chronic Menopausal disorders (3 sources) Menopausal symptom; Translations: [Menopausal and female climacteric states] Onset: 0 03-16-2023 Chronic Mood disorders (10 sources) Depressive disorder; Translations: [Depression] Onset: 3 06-30-2016 Chronic Osteoarthritis (18 sources) Osteoarthritis; Translations: [Unspecified osteoarthritis, unspecified site] Onset: 3 04-04-2013 Chronic Other connective tissue disease (1 source) Muscle weakness; Translations: [Muscle weakness (generalized)] 10-11-2023 Episodic Other connective tissue disease (3 sources) Unspecified rotator cuff tear or rupture of left shoulder, not specified as traumatic; Translations: [Unspecified rotator cuff tear or rupture of left shoulder, not specified as traumatic] Onset: 5 Episodic Other connective tissue disease (1 source) Other specified disorders of tendon, left shoulder; Translations: [Other specified disorders of tendon, left shoulder] Onset: 5 Episodic Other connective tissue disease (1 source) Bursitis of left shoulder; Translations: [Bursitis of left shoulder] Onset: 5 Episodic Other connective tissue disease (1 source) Other enthesopathies, not elsewhere classified; Translations: [Other enthesopathies, not elsewhere classified] Onset: 5 Episodic Other connective tissue disease (10 sources) Tear of left rotator cuff; Translations: [Unspecified rotator cuff tear or rupture of left shoulder, not specified as traumatic] 10-20-2024 Episodic Other endocrine disorders (3 sources) Polycystic ovary syndrome; Translations: [Polycystic ovarian syndrome] Onset: 3 04-04-2013 Chronic Other gastrointestinal disorders (7 sources) Irritable bowel syndrome; Translations: [Irritable bowel syndrome without diarrhea] Onset: 3 04-04-2013 Chronic Other liver diseases (3 sources) Steatosis of liver; Translations: [Fatty (change of) liver, not elsewhere classified] Onset: 3 03-16-2023 Chronic Other liver diseases (2 sources) Fatty (change of) liver, not elsewhere classified; Translations: [Fatty (change of) liver, not elsewhere classified] Onset: 3 Chronic Other nervous system disorders (3 sources) Carpal tunnel syndrome, right upper limb; Translations: [Carpal tunnel syndrome, right upper limb] Onset: 4 Chronic Other nervous system disorders (1 source) Other chronic pain; Translations: [Other chronic pain] Onset: 4 Chronic Other nervous system disorders (9 sources) Carpal tunnel syndrome of right wrist; Translations: [Carpal tunnel syndrome, right upper limb] Onset: 4 10-23-2023 Chronic Other nervous system disorders (4 sources) Neuropathy; Translations: [Polyneuropathy, unspecified] 09-25-2024 Chronic Other nervous system disorders (1 source) Other acute postprocedural pain; Translations: [Other acute postprocedural pain] Onset: 4 Episodic Other non-traumatic joint disorders (1 source) Multiple joint pain; Translations: [Pain in unspecified joint] 10-11-2023 Episodic Other non-traumatic joint disorders (10 sources) Disorder of shoulder; Translations: [Other specified joint disorders, left shoulder] 10-20-2024 Episodic Other non-traumatic joint disorders (4 sources) Pain in unspecified knee; Translations: [Knee pain] 09-25-2024 Episodic Other non-traumatic joint disorders (1 source) Other specified joint disorders, left shoulder; Translations: [Other specified joint disorders, left shoulder] Onset: 5 Episodic Other nutritional; endocrine; and metabolic disorders (3 sources) Hypomagnesemia; Translations: [Hypomagnesemia] Onset: 4 06-21-2023 Chronic Other nutritional; endocrine; and metabolic disorders (1 source) Hypomagnesemia; Translations: [Hypomagnesemia] Onset: 4 Chronic Residual codes; unclassified (3 sources) Obstructive sleep apnea syndrome; Translations: [Obstructive sleep apnea (adult) (pediatric)] Onset: 3 04-04-2013 Chronic Residual codes; unclassified (2 sources) Other specified postprocedural states; Translations: [Other specified postprocedural states] Onset: 4 Episodic Residual codes; unclassified (1 source) Localized edema; Translations: [Localized edema] Onset: 5 Episodic Sprains and strains (20 sources) Strain of unspecified muscle, fascia and tendon at shoulder and upper arm level, left arm, initial encounter; Translations: [Shoulder strain] Onset: 5 Episodic Tuberculosis (4 sources) Tuberculosis of vertebral column; Translations: [Tuberculosis of spine] 09-25-2024 Episodic Unclassified (1 source) Right carpal tunnel syndrome [G56.01] Onset: 4 Unclassified (1 source) Weakness - Generalized Onset: 4 Unclassified (1 source) Post-op Onset: 4 Unclassified (3 sources) Impingement of left shoulder Unclassified (3 sources) Tear of left rotator cuff Unclassified (3 sources) Primary osteoarthritis of left shoulder Unclassified (3 sources) M25.812 - Other specified joint disorders, left shoulder,M75.102 - Unspecified rotator cuff tear or rupture of left shoulder, not specified as traumatic,M19.012 - Primary osteoarthritis, left shoulder Past or Other Problems Problem Classification Problem Date Documented Date Episodic/Chronic Conditions associated with dizziness or vertigo (1 source) Dizziness and giddiness; Translations: [Dizziness and giddiness] Onset: 05-06-2023 Episodic Deficiency and other anemia (1 source) Other specified anemias; Translations: [Other specified anemias] Onset: 03-16-2023 Episodic Fluid and electrolyte disorders (8 sources) Hypokalemia; Translations: [Hypokalemia] Onset: 06-24-2023 06-21-2023 Episodic Malaise and fatigue (1 source) Weakness; Translations: [Weakness] Onset: 07-02-2023 Episodic Nausea and vomiting (5 sources) Nausea and vomiting; Translations: [Nausea with vomiting, unspecified] Onset: 07-01-2023 06-30-2023 Episodic Nutritional deficiencies (1 source) Deficiency of other specified B group vitamins; Translations: [Deficiency of other specified B group vitamins] Onset: 09-20-2023 Episodic Other connective tissue disease (4 sources) Muscle weakness (generalized); Translations: [Muscle weakness (generalized)] Onset: 10-05-2023 Episodic Other connective tissue disease (1 source) Repeated falls; Translations: [Repeated falls] Onset: 10-11-2023 Episodic Other connective tissue disease (1 source) Myalgia, other site; Translations: [Myalgia, other site] Onset: 03-16-2023 Episodic Other injuries and conditions due to external causes (1 source) Unspecified injury of shoulder and upper arm, unspecified arm, initial encounter; Translations: [Unspecified injury of shoulder and upper arm, unspecified arm, initial encounter] Onset: 09-30-2024 Episodic Other liver diseases (1 source) Abnormal levels of other serum enzymes; Translations: [Abnormal levels of other serum enzymes] Onset: 04-02-2023 Episodic Other nervous system disorders (1 source) Paresthesia of skin; Translations: [Paresthesia of skin] Onset: 07-02-2023 Episodic Other nervous system disorders (1 source) Numbness Onset: 10-23-2023 Episodic Other nervous system disorders (3 sources) Postoperative pain ; Translations: [Other acute postprocedural pain] 01-08-2024 Episodic Other non-traumatic joint disorders (4 sources) Pain in unspecified joint; Translations: [Pain in unspecified joint] Onset: 10-05-2023 Episodic Other non-traumatic joint disorders (1 source) Pain in left knee; Translations: [Pain in left knee] Onset: 10-11-2023 Episodic Other screening for suspected conditions (not mental disorders or infectious disease) (9 sources) Other specified abnormal findings of blood chemistry; Translations: [Other abnormal blood chemistry] Onset: 03-06-2023 03-16-2023 Episodic Residual codes; unclassified (3 sources) Insomnia; Translations: [Insomnia, unspecified] Onset: 04-04-2013 04-04-2013 Episodic Residual codes; unclassified (3 sources) Tobacco use and exposure - finding; Translations: [Tobacco use] Onset: 06-13-2016 06-13-2016 Episodic Residual codes; unclassified (3 sources) History of sleeve gastrectomy; Translations: [Acquired absence of stomach [part of]] Onset: 10-31-2019 03-16-2023 Episodic Suicide and intentional self-inflicted injury (10 sources) Suicide attempt ; Translations: [Suicide attempt, initial encounter] Onset: 08-05-2015 06-30-2016 Episodic Syncope (3 sources) Syncope; Translations: [Syncope and collapse] Onset: 05-25-2015 06-30-2016 Episodic Urinary tract infections (6 sources) Urinary tract infectious disease; Translations: [Urinary tract infection, site not specified] Onset: 06-25-2015 Resolved: 07-30-2023 02-28-2018 Episodic Results Test Name Value Interpretation Reference Range Facility Urgent Care Visit Reporton 0 01-01-2025 Urgent Care Visit Report [facility] [address] , [address] [place], [place] [id number] OFFICE VISIT Date of Service: 01/01/25 MR#: [id number] Acct: [id number] Name: NENITA SAXENA Rep #: [id number] : 1975 Provider: JASSON Oliver Age/Sex: 49/F [place] [facility] [place] [place]: Signed Intake Vital Signs 10/20/24 11:13 Height 5 ft 2 in Intake Visit Reasons: CONCERN FOR TOOTH INFECTION Chief Complaint: right facial swelling Allergies bupropion (From Wellbutrin) Allergy (Mild, Verified 01/01/25 12:21) Rash cephalexin (From Keflex) Allergy (Mild, Verified 01/01/25 12:21) Rash Penicillins (PCN) Allergy (Mild, Verified 01/01/25 12:21) Rash PFSH Medical History Impingement of left shoulder Primary osteoarthritis, left shoulder Left rotator cuff tear Neuropathy Anxiety IBS (irritable bowel syndrome) GERD (gastroesophageal reflux disease) Von Willebrand disease Environmental allergies History of anemia Knee pain Asthma Andrade disease Osteoarthritis Surgical History History of cholecystectomy History of hand surgery History of colonoscopy History of esophagogastroduodenoscop y (EGD) History of appendectomy History of gastric restrictive surgery History of breast augmentation History of arthroscopic knee surgery Family History Other Barretts esophagus Breast cancer Cancer Hypertension Social History Smoking Status: Light Smoker (<10/day) alcohol intake: never substance use type: does not use HPI HPI Chief Complaint: right facial swelling Details: NENITA SAXENA, is a 49 F who presents to the office today for returning dental infection. Patient states that the dental infection seems to be improving from the time she was seen last week about the infection to the left lower molars however now she is having swelling and pain to the right lower molars. Patient is still on clindamycin as prescribed last week. She denies fever, chills or sweats. No nausea, vomiting or diarrhea. No other associated symptoms or alleviating/aggravating factors. ROS Const Constitutional: No other (6 system ROS completed with pertinent findings in the HPI otherwise normal.) Exam Const General: cooperative and healthy appearing [facility] Head: normocephalic and atraumatic Ears: hearing grossly normal bilaterally Nose: external nose normal Face and sinus: normal facial exam and face symmetric Mouth: oral mucosae normal Throat: posterior oropharynx normal Other: Several of the bottom of the right molars mostly missing with fragments of teeth surrounded by gingival erythema. No abscess. Resp Effort Inspection: normal respiratory effort Cardio Rate: regular rate Rhythm: regular rhythm Skin General: no rashes or lesions noted Neuro General: patient alert Psych Appearance: grossly normal Mental Status: mental status grossly normal Coding Level of Care Code Off vis,est,level 3 Diagnoses Dental infection K04.7 Assessment and Plan Assessment and Plan (1) Dental infection: Status: Acute Plan: Doxycycline and viscous lidocaine as prescribed today. Encouraged to get plenty of rest, drink lots of clear liquids, and use Tylenol or Ibuprofen (unless contraindicated) for fever and comfort. Patient also educated on other symptomatic management techniques. To be seen by her dentist next week; sooner if worsening of symptoms. Patient advised of potential red flags and when appropriate to report to the ED. Patient verbalized understanding and agreement with all the above. Medications: New doxycycline monohydrate 100 mg PO BID 20 tabs 0RF 10 days lidocaine HCl 2% (Lidocaine Viscous) 1 applic mucous membrane TID PRN 100 mL 0RF pain 01/01/25 1322 Date Corona SPAULDING Cosigner Signature: Date (if applicable) CC: Normal [facility] Urgent Care Visit Reporton 0 12-26-2024 Urgent Care Visit Report [facility] [address], [address] [place] [address] OFFICE VISIT Date of Service: 12/26/24 MR#: [id number] Acct: [id number] Name: NENITA SAXENA Rep #: [id number] : 1975 Provider: JASSON Oliver Age/Sex: 49/F [place] [facility] [place] Status: Signed Intake Vital Signs 10/20/24 11:13 12/26/24 10:53 Height 5 ft 2 in Weight: 168 lb 4 oz BMI 30.7 BP 104/58 L Blood Pressure Location Lt brachial Position Sitting Respiration 16 Pulse 83 Pulse Source Monitor Temp 98.7 F Temp Source Oral Pulse Oximetry (%) 99 Oxygen Delivery Method room air Intake Visit Reasons: INFECTED TOOTH Chief Complaint: Concern for Infected Tooth Database Marketing Specialist Required: No Accompanied by: Self Is patient in pain?: No Allergies bupropion (From Wellbutrin) Allergy (Mild, Verified 12/26/24 10:54) Rash cephalexin (From Keflex) Allergy (Mild, Verified 12/26/24 10:54) Rash Penicillins (PCN) Allergy (Mild, Verified 12/26/24 10:54) Rash Medications ???Medication ???Instructions ???Recorded ???Confirmed ???Type acetaminophen 500 mg tablet 500 mg PO Q6H PRN 09/25/24 5 History (Tylenol Extra Strength) gabapentin 800 mg tablet 800 mg PO TID 09/25/24 12/26/24 Hi story midodrine 5 mg tablet 5 mg PO TID 09/25/24 12/26/24 Hist ory omeprazole 40 mg capsule,delayed 40 mg PO BID 09/25/24 12/26/24 His tory release ibuprofen 200 mg tablet 600 mg PO Q6H PRN 12/15/24 5 History clindamycin HCl 300 mg capsule 300 mg PO TID 7 days #21 caps 12/0312/26/24 Rx (Cleocin HCl) Nurse's Note: Has pain and swelling around a tooth on the left side of mouth for 2 days. Has been taking tylenol for pain. [facility] Medical History Impingement of left shoulder Primary osteoarthritis, left shoulder Left rotator cuff tear Neuropathy Anxiety IBS (irritable bowel syndrome) GERD (gastroesophageal reflux disease) Von Willebrand disease Environmental allergies History of anemia Knee pain Asthma Andrade disease Osteoarthritis Surgical History History of cholecystectomy History of hand surgery History of colonoscopy History of esophagogastroduodenoscop y (EGD) History of appendectomy History of gastric restrictive surgery History of breast augmentation History of arthroscopic knee surgery Family History Other Barretts esophagus Breast cancer Cancer Hypertension Social History Smoking Status: Light Smoker (<10/day) alcohol intake: never substance use type: does not use HPI HPI Chief Complaint: Concern for Infected Tooth Details: NENITA SAXENA, is a 49 F who presents to the office today for complaint of infected tooth. Patient states that she has several of her molars that are missing the bottom left side. She states that she has an appointment with her dentist in 2 weeks but wants to make sure there is no infection currently. She denies fever, chills or sweats. No nausea, vomiting or diarrhea. No other associated symptoms or alleviating/aggravating factors. ROS Const Constitutional: No other (6 system ROS completed with pertinent findings in the HPI otherwise normal.) Exam Const General: cooperative and healthy appearing [place] Head: normocephalic and atraumatic Ears: hearing grossly normal bilaterally Nose: external nose normal Face and sinus: normal facial exam and face symmetric Mouth: oral mucosae normal Throat: posterior oropharynx normal Other: Several of the bottom of the left molars mostly missing with fragments of teeth surrounded by gingival erythema. No abscess. Resp Effort Inspection: normal respiratory effort Cardio Rate: regular rate Rhythm: regular rhythm Skin General: no rashes or lesions noted Neuro General: patient alert Psych Appearance: grossly normal Mental Status: mental status grossly normal Coding Level of Care Code Off vis,new,level 3 Diagnoses Dental infection K04.7 Assessment and Plan Assessment and Plan (1) Dental infection: Status: Acute Plan: Clindamycin as prescribed today. Encouraged to get plenty of rest, drink lots of clear liquids, and use Tylenol or Ibuprofen (unless contraindicated) for fever and comfort. Patient also educated on other symptomatic management techniques. To be seen in 7-10 days if no improvement; sooner if worsening of symptoms. Patient advised of potential red flags and when appropriate to report to the ED. Patient verbalized understanding and agreement with all the above. Medications: New clindamycin HCl (Cleocin HCl) 300 mg PO TID 21 caps 0RF 7 days (more content not included)... Normal [facility] Orthopedic Visit Reporton Orthopedic Visit Report [facility] [address] [place] [id number] OFFICE VISIT Date of Service: 12/15/24 MR#: [id number] Acct: [id number] Name: NENITA SAXENA Rep #: [id number] : 1975 Provider: Dr. Boyd iyer MD Age/Sex: 49/F Location: [facility] Status: Signed Intake Vital Signs 10/20/24 11:13 Height 5 ft 2 in Weight: 168 lb 4 oz BMI 30.7 Intake Visit Reasons: LEFT SHOULDER Chief Complaint: WC f/u left shoulder injury Accompanied by: Self Is patient in pain?: Yes (left shoulder) Pain scale (1-10): 4 Allergies bupropion (From Wellbutrin) Allergy (Mild, Verified 12/15/24 08:03) Rash cephalexin (From Keflex) Allergy (Mild, Verified 12/15/24 08:03) Rash Penicillins (PCN) Allergy (Mild, Verified 12/15/24 08:03) Rash Medications ???Medication ???Instructions ???Recorded ???Confirmed ???Type acetaminophen 500 mg tablet 500 mg PO Q6H PRN 09/25/24 5 History (Tylenol Extra Strength) gabapentin 800 mg tablet 800 mg PO TID 09/25/24 12/15/24 Hi story midodrine 5 mg tablet 5 mg PO TID 09/25/24 12/15/24 Hist ory omeprazole 40 mg capsule,delayed 40 mg PO BID 09/25/24 12/15/24 His tory release ibuprofen 200 mg tablet 600 mg PO Q6H PRN 12/15/24 5 History PFSH Medical History Impingement of left shoulder Primary osteoarthritis, left shoulder Left rotator cuff tear Neuropathy Anxiety IBS (irritable bowel syndrome) GERD (gastroesophageal reflux disease) Von Willebrand disease Environmental allergies History of anemia Knee pain Asthma Andrade disease Osteoarthritis Surgical History History of cholecystectomy History of hand surgery History of colonoscopy History of esophagogastroduodenoscop y (EGD) History of appendectomy History of gastric restrictive surgery History of breast augmentation History of arthroscopic knee surgery Family History Other Barretts esophagus Breast cancer Cancer Hypertension Social History Smoking Status: Light Smoker (<10/day) alcohol intake: never substance use type: does not use HPI LEFT SHOULDER Details: This documentation accurately reflects the service provided and the decisions made by me, Dr. Boyd Lopez MD 12/15/24 0756. Part of today???s visit was documented by [ ], acting as scribe. NENITA SAXENA is a 49 year old F here today for follow-up left shoulder pain. Worker's Compensation claim. 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 Still having nighttime pain pain with lifting and pain with reaching across the body mostly pain laterally going down the arm as well as anteriorly as a sharp pain patient tried physical therapy but that failed making it worse and not any better. Ortho Exam General General: Yes no acute distress Neurologic: Yes alert and Yes oriented x3 Psychologic: Yes reasonable and appropriate Left Shoulder Skin/Wound: Yes CDI, No ecchymosis, No erythema and No swelling Testing: Yes Hawkin's, Yes Neer's, No Speed's, Yes TTP Biceps, No TTP AC Joint, Yes AROM-External Rotation at side 0-60, Yes empty can, No cross arm and No scapular winging SHOULDER: normal motor and sens to axillary N, MRU and AIN/PIN. pain at GT. painful arc. Hand warm well perfused normal radial pulse Strength in forward elevation 4+/5. Strength in external rotation 5/5. Active forward elevation 145 degrees passively 170 degrees. Supplemental Info Previous MRI of the left shoulder demonstrated a rim rent 1 cm tear of the supraspinatus tendon and signs of impingement Coding Level of Care Code Off vis,est,level 4 Diagnoses Impingement of left shoulder M25.812 Primary osteoarthritis, left shoulder M19.012 Left rotator cuff tear M75.102 Assessment and Plan Assessment and Plan (1) Impingement of left shoulder: Status: Acute Plan: 49-year-old female with a small rotator cuff tear on the left shoulder. Failed conservative management including physical therapy. Is not interested in cortisone injections or ongoing conservative management. We discussed the pros and cons risks and benefits of going ahead with a left shoulder arthroscopy, subacromial decompression, rotator cuff repair. We also discussed the recovery for the associate with that 2 weeks in a sling 3 to 6 months for full recovery including heavy lifting. Patient understands wished to go ahead with surgery no further questions or concerns. Pros and cons risks and benefits were discussed with the patient including but not limited to infection, (more content not included)... Normal [facility] Inital Evaluation (1) - PTon 11-10-2024 Inital Evaluation (1) - PT [facility] Physical Therapy [facility] [address] [place] [address] / REHABILITATION SERVICES INITIAL EVALUATION MR#: [id number] Acct: [id number] Name: NENITA ROSALES Rep #: [id number] : 1975 49 From: Raffy Trotter PT, Satya. T, OCS Referring Dr.: Dr. Boyd Lopez MD Status: R EG RCR Insurance: [facility] SELF PAY INSURANCE Patient's Visit Information Visit Information Visit Information: NENITA ROSALES is a 49 year old F referred to Physical Therapy by Dr. Boyd Lopez MD with a diagnosis of rotator cuff or rupture of left shoulder ,primary osteoarthritis ,left. Date of Evaluation: 11/10/24 Physical Therapist: Raffy Trotter PT, Cert T, OCS Visit Plan Frequency: 2-3x /Week Duration: 6 Weeks Plan: SUPRASPINATUS TEAR -MRI PT INTERVENTIONS ROM ,RTC ,SCAPULAR STRENGTHENING ,POSTURAL EX'S ,ACTIVITY MODIFICATION AND MODALITIES Subjective Subjective: This 49 y/o female presents to physical therapy with left shoulder RTC tear. Patient was cooking soup and lifting 12 # bag felt pop and caused pain and paresthesia/tingling in arm. on September. [facility] and recommended MRI showed Moderate supraspinatus tendinosis with rim rent type tear involving the tendon footprint measuring approximately 1 cm time 0.3 cm medial to lateral. There is suspected focal pinhole perforation extended from this with otherwise bursal surface fraying and labral tear. Placed lifting restriction 5# and lifting above below waist. Referred to Boyd Lopez recommended PT and possible surgery but will wait after PT. Medication none and no cortisone injection. C/O paresthesia /tingling. Pain described as ache. Pain affects sleeping. Aggravating factors ADLS ,self hygiene ,activities above 90 degrees lifting and any overhead activities . Patient to RTD after PT. Patient goals to decrease pain and possible surgery SOCIAL: divorce VOCATION: [employer] Pain Left Shoulder: Pain Intensity (Out of 10): 4 Pain Intensity Range: 10 Comment: increasing with activity 01/11 Objective Objective: POSTURE: rounded shoulders head forward PALAPTION: tender AC NEURO: c/o paresthesia/tingling let shoulder AROM: shoulder flexion 125 degrees ,abduction 125 degrees ,ER 90 degrees ,IR L1 PROM: shoulder flexion/abduction 150 degrees pain MMT: ( peak force) infraspinatus 5.2 ,supraspinatus 4.2 ,subscapularis 9.9 ,deltoid 4.2 CAPSULAR RESTRICTION: WFL Special Tests L Shoulder External Rotation Lag Test - RC Tear: Negative L Shoulder Lift Off Test - Subscapular Tear: Negative L Shoulder Drop Sign - IS Test: Negative L Shoulder Empty Can - SS: Positive L Shoulder Belly Press - SupScap: Negative L Shoulder Neer - Impingement: Positive L Shoulder Alva Luis Miguel - Impingement: Positive Balance/Special Test Scores Quick DASH Score: 50.0000 Goals Goal 1:: Patient to be I with HEP for shoulder Goal Time Frame: 4-6 Weeks Goal 2:: Patient to improve AROM shoulder flexion/abduction by 150 degrees for ADL and activities above 90 degrees for job demands Goal Time Frame: 4-6 Weeks Goal 3:: Patient to improve peak force RTC by 5-10# to improve function and ADLS /job demands Goal Time Frame: 4-6 Weeks Goal 4:: Patient to quick dash by 5 points to improve QOL and function Goal Time Frame: 4-6 Weeks Goal 5:: Patient to demonstrate 50% improvement with less pain and improved function /ADLS Rehabilitation Potential Physical Therapy Diagnosis: This patient has tear of left supraspinatus with pain ,decrease ROM ,weakness RTC ,impairs ADL's and activities above 90 and self hygiene thus benefit from skilled PT Rehabilitation Potential: Fair Anticipated Interventions Patient/Client Instruction: Educate patient on: Condition and Plan of Care For the Purpose of:: To decrease pain, To increase ROM, To improve muscle performance and motor function, To improve ability to perform ADL's, To increase tolerance to activity/condition/positi on, To improve ability of physical actions for home/community/work/leisu re, To improve health of tissue, To decrease soft tissue restriction, To increase flexibility/ROM and To improve tolerance to ADL's Therapeutic Exercise to Include: Strength training, Postural training, Flexibilty training and Active ROM Comment: RTC For the Purpose of:: To decrease pain, To increase ROM, To improve muscle performance and motor function, To improve ability to perform ADL's, To increase tolerance to activity/condition/positi on, To improve ability of physical actions for home/community/work/leisu re, To improve health of tissue, To decrease soft tissue restriction, To increase flexibility/ROM and To improve tolerance to ADL's TENS: Yes IF ES: Yes Thermo therapy (hot pack): Yes Ultrasound (thermal/non thermal): Yes For the Purpose of:: To decrease pain, To increase ROM (more content not included)... Normal [facility] Orthopedic Visit Reporton Orthopedic Visit Report [facility] [address] [place] [address] OFFICE VISIT Date of Service: 10/20/24 MR#: [id number] Acct: [id number] Name: NENITA ROSALES Rep #: [id number] : 1975 Provider: Dr. Boyd iyer MD Age/Sex: 49/F [place] [facility] [place]: Signed Intake Vital Signs 09/25/24 10:16 10/20/24 11:13 Height 5 ft 2 in 5 ft 2 in Weight: 167 lb 168 lb 4 oz BMI 30.5 30.7 BP 126/82 H Blood Pressure Location Rt brachial Position Sitting Respiration 16 Pulse 67 Pulse Source NIBP Temp 98.4 F Temp Source Oral Pulse Oximetry (%) 96 Oxygen Delivery Method room air Intake Visit Reasons: LEFT SHOULDER Chief Complaint: WC f/u left shoulder injury Accompanied by: Self Is patient in pain?: Yes Pain scale (1-10): 6 Allergies bupropion (From Wellbutrin) Allergy (Mild, Verified 10/20/24 11:14) Rash cephalexin (From Keflex) Allergy (Mild, Verified 10/20/24 11:14) Rash Penicillins (PCN) Allergy (Mild, Verified 10/20/24 11:14) Rash Medications ???Medication ???Instructions ???Recorded ???Confirmed ???Type acetaminophen 500 mg tablet 500 mg PO Q6H PRN 09/25/24 5 History (Tylenol Extra Strength) celecoxib 200 mg capsule (Celebrex) 200 mg PO BID 09/25/24 10/20/24 History gabapentin 800 mg tablet 800 mg PO TID 09/25/24 10/20/24 Hi story midodrine 5 mg tablet 5 mg PO TID 09/25/24 10/20/24 Hist ory omeprazole 40 mg capsule,delayed 40 mg PO BID 09/25/24 10/20/24 His tory release PFSH Medical History Impingement of left shoulder Primary osteoarthritis, left shoulder Left rotator cuff tear Neuropathy Anxiety IBS (irritable bowel syndrome) GERD (gastroesophageal reflux disease) Von Willebrand disease Environmental allergies History of anemia Knee pain Asthma Andrade disease Osteoarthritis Surgical History History of cholecystectomy History of hand surgery History of colonoscopy History of esophagogastroduodenoscop y (EGD) History of appendectomy History of gastric restrictive surgery History of breast augmentation History of arthroscopic knee surgery Family History Other Barretts esophagus Breast cancer Cancer Hypertension Social History Smoking Status: Light Smoker (<10/day) alcohol intake: never substance use type: does not use HPI LEFT SHOULDER Details: This documentation accurately reflects the service provided and the decisions made by me, Dr. Boyd Lopez MD 10/20/24 1028. Part of today???s visit was documented by [ ], acting as scribe. NENITA ROSALES is a 49 year old F here today for L shoulder pain. WCB claim. lifting heavy soup above shoulder height. DOI 09/25/24. works for [employer]. 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 stabbing pain with lifting anteriorly inside and posteriorly. feels weaker now and hurts quite often after getting off work. 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 no PT, no injections. work now - per referral 49 F who presents to the office today for complaint of left shoulder pain a few injury at work 3 days ago. Patient states that she was picking up a large bag of soup and feeling a pop in her left shoulder. Patient denies numbness, loss range of motion to the arm or shoulder however does state that she has had some tingling going into her hand. No previous injuries to same. No other associated symptoms or alleviating/aggravating factors. Supplemental Info [facility] Imaging Services [address] [place] [address] Shoulder min 2 Views MR#: [id number] Acct: [id number] Name: NENITA ROSALES Rep #: [id number] : 1975 F 49 From: Yehuda Lyle MD PCP: Care Physician,No Primary Status: REG CLI Study: Shoulder min 2 Views Date of Exam: 09/25/24 Exam# [id number] Ordering Dr: Corona Frank PROCEDURE: SHOULDER MIN 2 VIEWS 09/25/2024 REASON FOR EXAM: SHOULDER INJURY TECHNIQUE: Four views of the left shoulder COMPARISON: None FINDINGS: Bones: Unremarkable. Joints: Mild degree of joint space narrowing. Soft tissues: Soft tissues are unremarkable. Other: RAD/Shoulder min 2 Views IMPRESSION: Mild degree of joint space narrowing of the glenohumeral joint. Reading Location: [facility] (more content not included)... Normal [facility] Urgent Care Visit Reporton 0 10-09-2024 Urgent Care Visit Report [facility] [address], [address] [place] [address] OFFICE VISIT Date of Service: 10/09/24 MR#: [id number] Acct: [id number] Name: NENITA ROSALES Rep #: [id number] : 1975 Provider: JASSON Oliver Age/Sex: 49/F [place] [facility] [place] Status: Signed Intake Vital Signs 09/25/24 10:16 10/09/24 09:40 Height 5 ft 2 in Weight: 167 lb BMI 30.5 BP 126/82 H 122/74 H Blood Pressure Location Rt brachial Rt brachial Position Sitting Sitting Respiration 16 16 Pulse 67 92 Pulse Source NIBP NIBP Temp 98.4 F 98.4 F Temp Source Oral Oral Pulse Oximetry (%) 96 99 Oxygen Delivery Method room air room air Intake Visit Reasons: L SHOULDER INJURY/ [employer] Chief Complaint: WC f/u left shoulder injury Database Marketing Specialist Required: No Is patient in pain?: Yes Allergies bupropion (From Wellbutrin) Allergy (Mild, Verified 10/09/24 09:41) Rash cephalexin (From Keflex) Allergy (Mild, Verified 10/09/24 09:41) Rash Penicillins (PCN) Allergy (Mild, Verified 10/09/24 09:41) Rash Is last menstrual period known: No Post menopausal: No Patient : No Have you fallen in the past year?: No PFSH Medical History (Updated 09/25/24 @ 10:23 by Estrella Akbar) Neuropathy Anxiety IBS (irritable bowel syndrome) GERD (gastroesophageal reflux disease) Von Willebrand disease Environmental allergies History of anemia Knee pain Asthma Andrade disease Osteoarthritis Surgical History (Updated 09/25/24 @ 10:22 by Estrella Akbar) History of cholecystectomy History of hand surgery History of colonoscopy History of esophagogastroduodenoscop y (EGD) History of appendectomy History of gastric restrictive surgery History of breast augmentation History of arthroscopic knee surgery Family History (Updated 09/25/24 @ 10:22 by Estrella Akbar) Other Barretts esophagus Breast cancer Cancer Hypertension Social History (Updated 09/25/24 @ 10:20 by Estrella Akbar) Smoking Status: Light Smoker (<10/day) alcohol intake: never substance use type: does not use HPI HPI Chief Complaint: WC f/u left shoulder injury Details: NENITA ROSALES, is a 49 F who presents to the office today for follow-up of a work-related injury to the left shoulder. Patient did just previously get a MRI of the left shoulder. The MRI does show a supraspinatus tear as well as some other arthritic changes and other potential tears. Patient states that her symptoms have not improved and she continues to have loss of range of motion to the left shoulder. She denies numbness or tingling. No other associated symptoms or alleviating/aggravating factors. ROS Const Constitutional: No other (6 system ROS completed with pertinent findings in the HPI otherwise normal.) Exam Const General: cooperative and healthy appearing Resp Effort Inspection: normal respiratory effort Cardio Rate: regular rate Skin General: no rashes or lesions noted Neuro General: patient alert Extrem General: full ROM Other: Pain to palpation left anterior shoulder with negative crossarm and Apley scratch testing. Psych Appearance: grossly normal Mental Status: mental status grossly normal Coding Level of Care Code Off vis,est,level 3 Diagnoses Left shoulder strain S46.912A Assessment and Plan Assessment and Plan (1) Left shoulder strain: Status: Acute Plan [employer] 14 filled out releasing patient back to work today with restrictions as previous. Form C9 filled out requesting orthopedic referral. Patient advised to continue with ice tolerating with heat as well as use of ibuprofen or Tylenol as needed for pain unless contraindicated. Patient verbalized understanding and agreement with all the above. Clinical Quality Measures Falls Risk Screening/Assistive Devices Have you fallen in the past year?: No 10/09/24 1354 Date Corona Grimaldo Signature: Date (if applicable) CC: Normal [facility] MRI SHOULDER W/O CONTRAST [facility] 10-06-2024 MRI SHOULDER W/O CONTRAST LEFT ORIGINAL EXAMINATION: MRI OF THE LEFT SHOULDER WITHOUT CONTRAST 10/03/2024 1:56 pm TECHNIQUE: Multiplanar multisequence MRI of the left shoulder was performed without the administration of intravenous contrast. COMPARISON: None. HISTORY: ORDERING SYSTEM PROVIDED HISTORY: Reason for Exam: unspecified injury of the shoulder and upper arm, unspecified arm, initial encounter Anterior shoulder pain FINDINGS: There is no evidence of acute fracture, osteonecrosis or suspicious marrow lesion. Mild AC joint degenerative change. Fragmented appearance of the tip of the acromion favored sequela of remote injury versus enthesopathy. There is subjacent mild marrow edema in the humeral head. There is mild edema within the distal clavicle with trivial AC joint fluid. A type 2 acromial undersurface is seen. The coracoclavicular and coracoacromial ligaments are intact. There is subdeltoid subacromial bursitis. Enthesopathy at the greater tuberosity. Mild infraspinatus tendinosis. The teres minor is intact. Moderate supraspinatus tendinosis with rim rent type tear involving the tendon footprint measuring approximately 1 cm x 0.3 cm medial to lateral. There is suspected focal pinhole perforation with otherwise bursal surface fraying. Moderate subscapularis tendinosis. The long head of the biceps tendon is maintained in anatomic location. The proximal horizontal portion is suboptimally visualized. There is no biceps tenosynovitis. There is no acute Hill-Sacks or Bankart lesion. Suboptimal evaluation of the labrum with lack of intra-articular contrast. Posterosuperior labrum with irregular signal and morphology, suspect tear. The anterior and anterior inferior labroligamentous structures are attenuated and thickened. No high-grade chondral lesions are present in the glenohumeral joint. Trivial glenohumeral joint fluid. The suprascapular and spinoglenoid notches as well as the quadrilateral space have preserved fat planes. There is no evidence of muscle atrophy or acute muscle denervation. IMPRESSION: 1. Moderate supraspinatus tendinosis with rim rent type tear involving the tendon footprint measuring approximately 1 cm x 0.3 cm medial to lateral. There is suspected focal pinhole perforation extending from this with otherwise bursal surface fraying. There is subacromial subdeltoid bursitis. 2. Mild infraspinatus and moderate subscapularis tendinosis. 3. Suboptimal evaluation of the labrum with lack of intra-articular contrast. Posterosuperior labrum with irregular signal and morphology, suspect tear. The anterior and anterior inferior labroligamentous structures are attenuated and thickened, sequela of prior injury. 4. Subacromial spurring and fragmentation of the lateral acromion with mild edema and subjacent edema in the humeral head, findings may be related to chronic overhead use injury/impingement. Additional incidental findings as detailed above. Interpreted by: Marry Peterson Preliminary Report By: Marry Peterson Electronically signed By Marry Peterson Dictated Date: 10/06/2024 1:14:00 PM Prelim Date: 10/06/2024 5:55:00 PM Sign Date: 10/06/2024 5:55:00 PM Ordering Provider: CORONA Ogden [facility] Shoulder min 2 Viewson 09-25 Shoulder min 2 Views [facility] Imaging Services [address] [place] [address] Shoulder min 2 Views MR#: [id number] Acct: [id number] Name: NENIAT ROSALES Rep #: [id number] : 1975 F 49 From: Yehuda camejo MD PCP: Care Physician,No Primary Status: REG CLI Study: Shoulder min 2 Views Date of Exam: 09/25/24 Exam# [id number] Ordering Dr: Corona Frank PROCEDURE: SHOULDER MIN 2 VIEWS 09/25/2024 REASON FOR EXAM: SHOULDER INJURY TECHNIQUE: Four views of the left shoulder COMPARISON: None FINDINGS: Bones: Unremarkable. Joints: Mild degree of joint space narrowing. Soft tissues: Soft tissues are unremarkable. Other: RAD/Shoulder min 2 Views IMPRESSION: Mild degree of joint space narrowing of the glenohumeral joint. Reading Location: [place] [address] CC: JASSON Oliver; No Primary Care Physician Battery Test Engineer: Signed Normal [facility] Urgent Care Visit Reporton 0 09-25-2024 Urgent Care Visit Report [facility] [address], [address] [place] [address] OFFICE VISIT Date of Service: 09/25/24 MR#: [id number] Acct: [id number] Name: NENITA ROSALES Rep #: [id number] : 1975 Provider: JASSON Oliver Age/Sex: 49/F [place] [facility] [place] Status: Signed Intake Vital Signs 09/25/24 10:16 Height 5 ft 2 in Weight: 167 lb BMI 30.5 BP 126/82 H Blood Pressure Location Rt brachial Position Sitting Respiration 16 Pulse 67 Pulse Source NIBP Temp 98.4 F Temp Source Oral Pulse Oximetry (%) 96 Oxygen Delivery Method room air Intake Visit Reasons: L SHOULDER INJURY/ [employer] Chief Complaint: WC- NEW left shoulder injury Database Marketing Specialist Required: No Is patient in pain?: Yes Allergies bupropion (From Wellbutrin) Allergy (Mild, Verified 09/25/24 10:18) Rash cephalexin (From Keflex) Allergy (Mild, Verified 09/25/24 10:18) Rash Penicillins (PCN) Allergy (Mild, Verified 09/25/24 10:18) Rash Medications ???Medication ???Instructions ???Recorded ???Confirmed ???Type acetaminophen 500 mg tablet 500 mg PO Q6H PRN 09/25/24 5 History (Tylenol Extra Strength) celecoxib 200 mg capsule (Celebrex) 200 mg PO BID 09/25/24 09/25/24 History gabapentin 800 mg tablet 800 mg PO TID 09/25/24 09/25/24 Hi story midodrine 5 mg tablet 5 mg PO TID 09/25/24 09/25/24 Hist ory omeprazole 40 mg capsule,delayed 40 mg PO BID 09/25/24 09/25/24 His tory release Is last menstrual period known: No Post menopausal: Yes Patient : No Have you fallen in the past year?: No PFSH Medical History (Updated 09/25/24 @ 10:23 by Estrella Akbar) Neuropathy Anxiety IBS (irritable bowel syndrome) GERD (gastroesophageal reflux disease) Von Willebrand disease Environmental allergies History of anemia Knee pain Asthma Andrade disease Osteoarthritis Surgical History (Updated 09/25/24 @ 10:22 by Estrella Akbar) History of cholecystectomy History of hand surgery History of colonoscopy History of esophagogastroduodenoscop y (EGD) History of appendectomy History of gastric restrictive surgery History of breast augmentation History of arthroscopic knee surgery Family History (Updated 09/25/24 @ 10:22 by Estrella Akbar) Other Barretts esophagus Breast cancer Cancer Hypertension Social History (Updated 09/25/24 @ 10:20 by Estrella Akbar) Smoking Status: Light Smoker (<10/day) alcohol intake: never substance use type: does not use HPI HPI Chief Complaint: WC- NEW left shoulder injury Details: NENITA ROSALES, is a 49 F who presents to the office today for complaint of left shoulder pain a few injury at work 3 days ago. Patient states that she was picking up a large bag of soup and feeling a pop in her left shoulder. Patient denies numbness, loss range of motion to the arm or shoulder however does state that she has had some tingling going into her hand. No previous injuries to same. No other associated symptoms or alleviating/aggravating factors. ROS Const Constitutional: No other (6 system ROS completed with pertinent findings in the HPI otherwise normal.) Exam Const General: cooperative and healthy appearing Resp Effort Inspection: normal respiratory effort Cardio Rate: regular rate Skin General: no rashes or lesions noted Neuro General: patient alert Extrem General: full ROM Other: Pain to palpation left anterior shoulder with negative crossarm and Apley scratch testing. Psych Appearance: grossly normal Mental Status: mental status grossly normal Coding Level of Care Code Off vis,new,level 4 Diagnoses Left shoulder strain S46.912A Assessment and Plan Assessment and Plan (1) Left shoulder strain: Status: Acute Orders: Orders Shoulder min 2 Views Today S49.90XA - Unspecified injury of shoulder and upper arm, unspecified arm, initial encounter Plan 2 view left shoulder x-ray read and interpreted by myself find no acute osseous abnormalities, awaiting radiology interpretation at time of patient discharge. First report of injury form as well as [employer] 14 filled out releasing patient back to work today with restrictions of no lifting/pushing/pulling greater than 5 pounds and no over shoulder height or below knee level work. Form C9 filled out requesting MRI of the left shoulder. Patient advised to use ibuprofen or Tylenol as needed for pain as well as ice alternating with heat. Patient advised to follow-up here in 2 weeks for reevaluation or sooner should she have any worsening symptoms or new concerns. Patient verbalized understanding and agreement with all the above. Clinical Quality Measures Falls Risk Screening/Assistive Devices Have you fallen in the past year?: No 09/25/24 1039 Date ___ (more content not included)... Normal [facility] 03-29-2024 CNOV Office Visit ([facility] ) ----- NENITA ROSALES ([id number]) 1975 F Date Time Provider Department 03/29/24 11:15 AM ECHO [facility] During your visit today, we recorded the following information about you: Temperature Pulse Respiration Blood pressure 98.4 degrees 84/minute 18/minute 128/82 Weight 74 kg Echo Leonard PA 03/29/2024 11:18 AM Signed This note was created using [employer]. Subjective Nenita Rosales is a 48 year old female. HPI 48-year-old female presents for dental problem. Patient states that she is visiting from out of town. She broke her tooth recently and does not have a dentist appointment for 2 weeks. She states that she noticed yesterday she was having some swelling and pain around the area and today swelling is worse. She is concerned about infection. She has been taking ibuprofen with minimal improvement. No fevers. No difficulty breathing or swallowing. No other complaint. No past medical history on file. No past surgical history on file. ALLERGIES Bupropion, Cephalexin, and Penicillins MEDICATIONS midodrine (PROAMITINE) 5 mg tablet Take 5 mg by mouth two times a day. albuterol HFA (PROVENTIL HFA, VENTOLIN HFA) 90 mcg/actuation inhaler Inhale 2 Puffs as instructed every 6 hours as needed. busPIRone (BUSPAR) 10 mg tablet Take 15 mg by mouth three times a day. celecoxib (CELEBREX) 200 mg capsule Take 200 mg by mouth once daily. cyclobenzaprine (FLEXERIL) 10 mg tablet Take 10 mg by mouth two times a day as needed for pain. DULoxetine (CYMBALTA) 20 mg capsule Take 20 mg by mouth two times a day. folic acid 1 mg tablet Take 1 mg by mouth once daily. gabapentin (NEURONTIN) 600 mg tablet Take 800 mg by mouth three times a day. multivitamin tablet Take 1 tablet by mouth once daily. omeprazole (PRILOSEC) 40 mg capsule Take 40 mg by mouth once daily. thiamine (VITAMIN B1) 100 mg tablet Take 100 mg by mouth once daily. valACYclovir (VALTREX) 500 mg tablet Take 500 mg by mouth as needed (cold sore). clindamycin (CLEOCIN) 150 mg capsule Take 3 capsules by mouth three times a day for 5 days. No family history on file. Social History Tobacco Use Smoking status: Every Day Types: Cigarettes Smokeless tobacco: Never Review of Systems Constitutional: Negative for chills and fever. HENT: Positive for dental problem. Negative for congestion, ear pain and sore throat. Respiratory: Negative for cough and shortness of breath. Cardiovascular: Negative for chest pain. Gastrointestinal: Negative for diarrhea and vomiting. Objective BP 128/82 Pulse 84 Temp 36.9 ?C (98.4 ?F) Resp 18 Wt 74 kg (163 lb 2.3 oz) SpO2 99% Physical Exam Vitals and nursing note reviewed. Constitutional: General: She is not in acute distress. Appearance: Normal appearance. She is not toxic-appearing. HENT: Right Ear: Tympanic membrane and ear canal normal. Left Ear: Tympanic membrane and ear canal normal. Nose: Nose normal. Mouth/Throat: Mouth: Mucous membranes are moist. Dentition: Abnormal dentition. Dental tenderness and gingival swelling present. Comments: Broken tooth #30. Patient has tenderness and gingival swelling around this area. No abscess. No tongue or floor mouth swelling. Handling secretions. She does have some jaw swelling over this area externally as well. Eyes: Conjunctiva/sclera: Conjunctivae normal. Cardiovascular: Rate and Rhythm: Normal rate and regular rhythm. Pulmonary: Effort: Pulmonary effort is normal. Breath sounds: Normal breath sounds. Skin: General: Skin is warm and dry. Neurological: Mental Status: She is alert. Assessment and Plan ASSESSMENT/PLAN: 1. Dental infection - ICD9: 522.4, ICD10: K04.7 -Rx for clindamycin due to allergies. Patient has tolerated this in the past -Tylenol/Motrin as needed for pain -Follow-up with dentist as scheduled Diagnosis and treatment plan were discussed and questions were answered to the patient's satisfaction. Pt acknowledged understanding of concepts and follow up plan. Specific signs and symptoms that would indicate the need for higher level of care were discussed in detail warranting prompt ER evaluation. JASSON Pabon Allergies As of Date: 03/29/2024 Noted Allergy Reaction BUPROPION 08/04/2014 10 - Anaphylaxis 4 - Hives 7 - Swelling Comments: Swelling of throat. CEPHALEXIN 03/02/2014 4 - Hives PENICILLINS 03/19/2013 4 - Hives 5 - Intolerance Date Reviewed: 03/29/2024 Reviewed by: Dyana Barrios LPN - Fully Assessed Reason for Visit: Dental Problem [31] Cmt: R side lower tooth x 1 day, states same has broken off has dentist appt next week, swelling and pain Primary Visit Diagnosis:Dental infection [K04.7] Order(s):clindamycin (CLEOCIN) 150 mg capsuleTake 3 capsules by mouth three times a day for 5 days.Disp: 45 capsuleRfl: 0 Prescriptions a (more content not included)... Normal [facility] $ Carpal Tunnel Injection: R carpal tunnelon 01-22-2024 Shalini Elizondo MD 01/22/2024 4:10 PM $ Carpal Tunnel Injection: R carpal tunnel on 01/22/2024 11:33 AM Indications: pain Details: 25 G needle, volar approach Medications: 1 mL triamcinolone acetonide 10 mg/mL; 3 mL lidocaine 10 mg/mL (1 %) Outcome: tolerated well, no immediate complications 3 mL kenalog 10 1 mL Lidocaine 1% Procedure, treatment alternatives, risks and benefits explained, specific risks discussed. Consent was given by the patient. MANUALLY TRANSCRIBED RESULTS [facility] Miscel, Refrigeratedon 10-24 Send Out Report SEE NOTE Normal [facility] Comment on above: Result Comment: (NOT E) Test name Result Flag Units RefIntvl SAE1 (SUMO activating enzyme) Ab Negative Negative NXP2 (Nuclear matrix protein-2) Ab Negative Negative MDA5 (CADM-140) Ab Negative Negative TIF-1 gamma (155 kDa) Ab Negative Negative Myositis Panel Interpretive Data See Note INTERPRETIVE INFORMATION: Extended Myositis Panel If present, myositis-specific antibodies (MSA) are specific for myositis, and may be useful in establishing diagnosis as well as prognosis. MSAs are generally regarded as mutually exclusive with rare exceptions; the occurrence of two or more MSAs should be carefully evaluated in the context of patient's clinical presentation. Myositis-associated antibodies (MAA) may be found in patients with CTD including overlap syndromes, and are generally not specific for myositis. The following table will help in identifying the association of any antibodies found as either MSAs or Sandrita. Antibody Specificity . . . . . . . . . . . . MSA . . . . MAA SSA 52 (Ro) (DANY) Antibody IgG . . . . . . . . . . . . . X SSA 60 (Ro) (DANY) Antibody IgG . . . . . . . . . . . . . X Landry/BANQUET LINE COOK (DANY) Ab, IgG . . . . . . . . . . . . . . . . X Cathy-1 (histidyl-tRNA synthetase) Ab, IgG . . X PL-12 (alanyl-tRNA synthetase) Antibody . . X PL-7 (threonyl-tRNA synthetase) Antibody . . X EJ (glycyl-tRNA synthetase) Antibody . . . . X OJ (isoleucyl-tRNA synthetase) Antibody . . X SRP (Signal Recognition Particle) Ab . . . . X Ku Antibody . . . . . . . . . . . . . . . . . . . . . . X PM/SCL 100 Antibody, IgG . . . . . . . . . . . . . . . . X Fibrillarin (U3 BANQUET LINE COOK) Ab, IgG . . . . . . . . . . . . . . X Mi-2 (nuclear helicase protein) Antibody . . X P155/140 Antibody . . . . . . . . . . . . . X TIF-1 gamma (155 kDa) Ab . . . . . . . . . . X SAE1 (SUMO activating enzyme) Ab . . . . . . X MDA5 (CADM-140) Ab . . . . . . . . . . . . X NXP2 (Nuclear matrix proten-2)Ab . . . . . . X This test was developed and its performance characteristics determined by [facility]. It has not been cleared or approved by the US Food and Drug Administration. This test was performed in a CLIA certified laboratory and is intended for clinical purposes. Mi-2 (nuclear helicase protein) Antibody Negative Negative P155/[address]-12 (alanyl-tRNA synthetase) Antibody Negative Negative PL-7 (threonyl-tRNA synthetase) Antibody Negative Negative OJ (isoleucyl-tRNA synthetase) Antibody Negative Negative EJ (glycyl-tRNA synthetase) Antibody Negative Negative SRP (Signal Recognition Particle) Ab Negative Negative Cathy-1 (Histidyl-tRNA Synthetase) Ab, IgG 2 AU/mL 0-40 INTERPRETIVE INFORMATION: Cathy-1 Antibody, IgG 29 AU/mL or less.........Negative 30-40 AU/mL..............Equivocal 41 AU/mL or greater......Positive Presence of Cathy-1 (antihistidyl transfer RNA [t-RNA] synthetase) antibody is associated with polymyositis and may also be seen in patients with dermatomyositis. Cathy-1 antibody is associated with pulmonary involvement (interstitial lung disease), Raynaud phenomenon, arthritis, and electronics system mechanic's hands (implicated in antisynthetase syndrome). Ku Antibody Negative Negative Landry/BANQUET LINE COOK (DANY) Ab, IgG 4 Units 0-19 INTERPRETIVE INFORMATION: Landry/BANQUET LINE COOK (DANY) Antibody, IgG 19 Units or Less ............. Negative 20 to 39 Units ............... Weak Positive 40 to 80 Units ............... Moderate Positive 81 Units or greater .......... Strong Positive Landry/BANQUET LINE COOK antibodies are frequently seen in patients with mixed connective tissue disease (MCTD) and are also associated with other systemic autoimmune rheumatic diseases (SARDs) such as systemic lupus erythematosus (SLE), systemic sclerosis, and myositis. Antibodies targeting the Landry/BANQUET LINE COOK antigenic complex also recognize Landry antigens, therefore, the Landry antibody response must be considered when interpreting these results. PM/Scl 100 Antibody, IgG Negative Negative INTERPRETIVE INFORMATION: PM/Scl-100 Antibody, IgG by Immunoblot The presence of PM/Scl-100 IgG antibody along with a positive MAUREEN IFA nucleolar pattern is associated with connective tissue diseases such as polymyositis (PM), dermatomyositis (DM), systemic sclerosis (SSc), and polymyositis/systemic sclerosis overlap syndrome. The clinical relevance of PM/Scl-100 IgG antibody with a negative MAUREEN IFA nucleolar pattern is unknown. PM/Scl-100 is the main target epitope of the PM/Scl complex, although antibodies to other targets not detected by this assay may occur. This test was developed and its performance characteristics determined by [facility]. It has not been cleared or approved by the US Food and Drug Administration. This test was performed in a CLIA certified laboratory and is intended for clinical purposes. SSA-52 (Ro52) (DANY) Antibody, IgG 4 AU/mL 0-40 INTERPR (more content not included)... Performed By: #### Sujey STEVENSON UAX #### [facility] [address] [place] [address] Substation Electrician: Kj Lowry MD Aldolaseon 10-21-2023 Aldolase 3.2 U/L Normal 1.2-7.6 [facility] Comment on above: Result Comment: (NOT E) REFERENCE INTERVAL: Aldolase Access complete set of age- and/or gender-specific reference intervals for this test in the [facility] Test Directory ([employer]). Performed By: [facility] [address] [place] [id number] Charge Nurse: Reza Good MD, PhD CLIA Number: [id number] Performed By: #### Perlita Chopra #### [facility] [place] [facility] [address] [place] [address] Substation Electrician: Kj Lowry MD Specimen Rejectionon 024 Reason for rejection Unable to perform testing: Incorrect test ordered. [facility] Comment on above: Performed By: #### Sujey STEVENSON UAX #### [facility] [place] [facility] [address] [place] [address] [phone] Substation Electrician: Kj Lowry MD Source of sample BLOOD [facility] Comment on above: Performed By: #### ANISH DALEX #### [facility] [place] [facility] [address] [place] [address] Substation Electrician: Kj Lowry MD Test ordered AALD [facility] Comment on above: Performed By: #### Sujey STEVENSON UAX #### [facility] [place] [facility] [address] [facility] [place] [address] Substation Electrician: Kj Lowry MD Specimen Rejectionon Reason for rejection Unable to perform testing: Specimen quantity not sufficient. [facility] Comment on above: Performed By: #### M Marcela, K #### [facility] [place] [facility] [address] [place] [address] Substation Electrician: Kj Lowry MD Source of sample .BLOOD [facility] Comment on above: Performed By: #### M G, K #### [facility] [address] [place] [address], [place] [address] Substation Electrician: Kj Lowry MD Test ordered AALDO [facility] Comment on above: Performed By: #### Elvis Malone, K #### [facility] [place] [facility] [address] [place] [address] Substation Electrician: Kj Lowry MD SSAon 10-16-2023 SSA <0.3 Normal <7.0 [facility] Comment on above: Result Comment: Reference Range: <7.0 Negative 7.0-10.0 Equivocal >10.0 Positive Performed By: #### U RC #### [facility] [address] [place] [address], [place] [address] Substation Electrician: Kj Lowry MD [facility] [employer] [address] [place] [address] [phone] Substation Electrician: Kj Lowry MD SSBon 10-16-2023 SSB 0.4 U/mL Normal <7.0 [facility] Comment on above: Result Comment: Reference Range: <7.0 Negative 7.0-10.0 Equivocal >10.0 Positive Performed By: #### U RC #### [facility] [place] [facility] [address] [place] [address] Substation Electrician: Kj Lowry MD [facility] [employer] [address] [place] [address] [id number] Substation Electrician: Kj Lowry MD Sm Muscle Titer,IgGon 2023 Sm Muscle Titer,IgG 1:40 Abnormal <1:20 [facility] Comment on above: Result Comment: (NOT E) INTERPRETIVE INFORMATION: Smooth Muscle Ab, IgG Titer Less than 1:20 ........ Negative - No antibody detected. 1:20 - 1:80 .......... Weak Positive - Suggest repeat in two to three weeks with fresh specimen. 1:160 or greater ...... Positive - Suggestive of autoimmune hepatitis or chronic active hepatitis. Performed By: [facility] [address] [place] [address] Charge Nurse: Reza Good MD, PhD CLIA Number: [id number] Performed By: #### U RC #### [facility] [place] [facility] [address] [place] [address] Substation Electrician: Kj Lowry MD [place] [phone] Substation Electrician: Kj Lowry MD Smooth Muscle Abon Smooth Muscle Ab 23 Units High 0-19 [facility] Comment on above: Result Comment: (NOT E) REFERENCE INTERVAL: F-Actin (Smooth Muscle) Antibody, IgG by DORA 19 Units or less ....... Negative 20 - 30 Units .......... Weak Positive-Suggest repeat testing in two to three weeks with fresh specimen. 31 Units or greater..... Positive-Suggestive of autoimmune hepatitis type 1 or chronic active hepatitis. F-actin IgG antibodies have been shown to have increased sensitivity for autoimmune hepatitis (AIH) but lower specificity than smooth muscle antibodies (SMA). F-actin IgG antibodies can also be seen in SMA-negative disease controls (non-AIH), especially in patients with primary biliary cirrhosis and chronic hepatitis C infections. Some patients with AIH may be SMA-positive but negative for F-actin IgG. Consider testing for SMA by IFA if suspicion for AIH is strong. Performed By: [facility] [address] [place] [address] Charge Nurse: Reza Good MD, PhD CLIA Number: [id number] Performed By: #### U RC #### [facility] [place] [facility] [address] [place], [place] [id number] Substation Electrician: Kj Lowry MD [employer] [address] [place] [id number] Substation Electrician: Kj Lowry MD Anti-Mitochondrial Abon 05-1 Anti-Mitochondrial Ab 1.0 U/mL Normal 0.0-4.0 [facility] Comment on above: Result Comment: Reference Range: <4.0 Negative 4.0-6.0 Equivocal >6.0 Positive When results are Equivocal, it is recommended to retest after 8-12 weeks. Performed By: #### M G, K #### [facility] [place] [facility] [address] [place] [address] Substation Electrician: Kj Lowry MD MRI KNEE LEFT WO CONTRASTon 10-12-2023 MRI KNEE LEFT WO CONTRAST EXAMINATION: MRI OF THE LEFT KNEE WITHOUT CONTRAST, 10/11/2023 3:24 pm TECHNIQUE: Multiplanar multisequence MRI of the left knee was performed without the administration of intravenous contrast. COMPARISON: 07/06/2011 HISTORY: ORDERING SYSTEM PROVIDED HISTORY: Recurrent falls 48-year-old female with history of recurrent falls. FINDINGS: MENISCI: Lateral meniscus demonstrates normal morphology and signal characteristics. No lateral meniscus tear. Partial tearing and volume loss of the root ligament of the posterior horn medial meniscus. Degenerative oblique undersurface tearing in the posterior horn medial meniscus. CRUCIATE LIGAMENTS: Anterior and posterior cruciate ligaments appear continuous/intact. EXTENSOR MECHANISM: Mild inferior patellar tendinosis. Distal quadriceps tendon and patellar retinacula appear intact. LATERAL COLLATERAL LIGAMENT COMPLEX: Popliteus muscle/tendon, iliotibial band, lateral collateral ligament, and biceps femoris appear intact. MEDIAL COLLATERAL LIGAMENT COMPLEX: Medial collateral ligament complex appears continuous/intact. KNEE JOINT: No sizable joint effusion. Articular cartilage of the medial and lateral compartment appears grossly intact without focal chondral defect. Mild tricompartmental osteophyte spurring. Osseous alignment is normal. No acute fracture or dislocation. 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 Grade 2-3 chondromalacia of the remainder of the patellofemoral compartment articular cartilage. BONE MARROW: Red marrow reconversion. SOFT TISSUES: Small Haider's cyst. Visualized popliteal neurovascular bundle grossly unremarkable. Mild edema in the subcutaneous fat about the knee. IMPRESSION: 1. Partial tearing and volume loss of the root ligament of the posterior horn medial meniscus. Degenerative oblique undersurface tearing in the posterior horn medial meniscus. 2. Mild inferior patellar tendinosis. 3. Mild tricompartmental osteoarthrosis. 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 [id number] chondromalacia of the remainder of the patellofemoral compartment articular cartilage. 4. Red marrow reconversion. 5. Small Haider's cyst. Interpreted by: Johnathon Baird MD Signed by: Johnathon Baird MD 10/12/23 Final result Normal [facility] Miscel, Refrigeratedon 10-11 Test Name EXTENDED MYOSITIS PANEL,ARUP [id number] Normal [facility] Comment on above: Performed By: #### U NETO STEVENSON #### [facility] [place] [facility] [address] [place] [address] Substation Electrician: Kj Lowry MD XR FOOT RIGHT (MIN 3 VIEWS)o n 10-12-2023 XR FOOT RIGHT (MIN 3 VIEWS) EXAMINATION: THREE XRAY VIEWS OF THE RIGHT FOOT 10/11/2023 3:07 pm COMPARISON: None. HISTORY: ORDERING SYSTEM PROVIDED HISTORY: Muscle weakness TECHNOLOGIST PROVIDED HISTORY: BASELINE EVALUATION FOR INFLAMATORY ARTHRITIS Reason for Exam: RT foot pain, FINDINGS: No fracture. No dislocation. Mild interphalangeal joint space narrowing and mild degenerative change of the midfoot Bone mineralization normal. Small calcaneal spur. IMPRESSION: Mild degenerative change. Interpreted by: Kaleb Cohen MD Signed by: Kaleb Cohen MD 10/12/23 Final result Normal [facility] XR Foot - right 3 Viewson Mild degenerative ch chris. [facility] RIS CONSOLIDATED EXAMINATION: THREE XRAY VIEWS OF THE RIGHT FOOT 10/11/2023 3:07 pm COMPARISON: None. HISTORY: ORDERING SYSTEM PROVIDED HISTORY: Muscle weakness TECHNOLOGIST PROVIDED HISTORY: BASELINE EVALUATION FOR INFLAMATORY ARTHRITIS Reason for Exam: RT foot pain, FINDINGS: No fracture. No dislocation. Mild interphalangeal joint space narrowing and mild degenerative change of the midfoot Bone mineralization normal. Small calcaneal spur. [facility] Kaleb Arguello MD - 10/12/2023 EXAMINATION: THREE XRAY VIEWS OF THE RIGHT FOOT 10/11/2023 3:07 pm COMPARISON: None. HISTORY: ORDERING SYSTEM PROVIDED HISTORY: Muscle weakness TECHNOLOGIST PROVIDED HISTORY: BASELINE EVALUATION FOR INFLAMATORY ARTHRITIS Reason for Exam: RT foot pain, FINDINGS: No fracture. No dislocation. Mild interphalangeal joint space narrowing and mild degenerative change of the midfoot Bone mineralization normal. Small calcaneal spur. IMPRESSION: Mild degenerative change. [facility] XR Foot - right 3 ViewsOrder ed By: Kaleb Cohen on 10-12-2023 [facility] Work Phone: C-Reactive Proteinon 024 CRP [Mass/Vol] mg/L Normal 0.0-5.0 [facility] Comment on above: Performed By: #### Elvis Malone, K #### [facility] [place] [facility] [address] [place] [address] Substation Electrician: Kj Lowry MD Comp Metabolic Profon 6 Albumin [Mass/Vol] 4.4 g/dL Normal 3.5-5.2 [facility] Comment on above: Performed By: #### Elvis Malone, K #### [facility] [place] [facility] [address] [place], [place] [id number] Substation Electrician: Kj Lowry MD Albumin/Glob Ratio 1.3 Normal 1.0-2.5 [facility] Comment on above: Performed By: #### Elvis Malone K #### [facility] [place] [facility] [address] [place] [address] Substation Electrician: Kj Lowry MD Alkaline Phos 116 U/L High 35-104 [facility] Comment on above: Performed By: #### Elvis Malone, K #### [facility] [place] [facility] [address] [place] [address] Substation Electrician: Kj Lowry MD ALT [Catalytic activity/Vol] 14 U/L Normal 5-33 [facility] Comment on above: Performed By: #### Elvis Malone, K #### [facility] [place] [facility] [address] [place] [address] Substation Electrician: Kj Lowry MD Anion gap [Moles/Vol] 9 mmol/L Normal 9-17 [facility] Comment on above: Performed By: #### Elvis Malone, K #### [facility] [place] [facility] [address] [place] [address] Substation Electrician: Kj Lowry MD AST [Catalytic activity/Vol] 20 U/L Normal <32 [facility] Comment on above: Performed By: #### Elvis Malone, K #### [facility] [place] [facility] [address] [place] [address] Substation Electrician: Kj Lowry MD Bilirubin [Mass/Vol] 0.7 mg/dL Normal 0.3-1.2 [facility] Comment on above: Performed By: #### Elvis Malone, K #### [facility] [place] [facility] [address] [place] [address] Substation Electrician: Kj Lowry MD BUN/CRE Ratio 18 Normal 9-20 [facility] Comment on above: Performed By: #### Elvis Malone, K #### [facility] [place] [facility] [address] [place] [address], [place] [address] Substation Electrician: Kj Lowry MD Calcium [Mass/Vol] 9.7 mg/dL Normal 8.6-10.4 [facility] Comment on above: Performed By: #### Elvis Malone, K #### [facility] [place] [facility] [address] [place] [address] Substation Electrician: Kj Lowry MD Chloride [Moles/Vol] 103 mmol/L Normal 98-107 [facility] Comment on above: Performed By: #### Elvis Malone, K #### [facility] [place] [facility] [address] [place] [address] [phone] Substation Electrician: Kj Lowry MD CO2 [Moles/Vol] 27 mmol/L Normal 20-31 [facility] Comment on above: Performed By: #### Elvis Malone, K #### [facility] [place] [facility] [address] [place] [address] Substation Electrician: Kj Lowry MD Creatinine [Mass/Vol] 0.6 mg/dL Normal 0.5-0.9 [facility] Comment on above: Performed By: #### Elvis Malone, K #### [facility] [place] [facility] [address] [place] [address] Substation Electrician: Kj Lowry MD GFR/1.73 sq M.predicted among non-blacks MDRD (S/P/Bld) [Vol rate/Area] mL/min/{1.73_m2} Normal >60 [facility] Comment on above: Result Comment: These results are not intended for use in patients <18 years of age. eGFR results are calculated without a race factor using the 2020 CKD-EPI equation. Careful clinical correlation is recommended, particularly when comparing to results calculated using previous equations. The CKD-EPI equation is less accurate in patients with extremes of muscle mass, extra-renal metabolism of creatine, excessive creatine ingestion, or following therapy that affects renal tubular secretion. Performed By: #### Elvis Malone, K #### [facility] [address] [place] [address] [employer]station Electrician: Kj Lowry MD Glucose [Mass/Vol] 96 mg/dL Normal 70-99 [facility] Comment on above: Performed By: #### Elvis Malone, K #### [facility] [place] [facility] [address] [place] [address] [employer]station Electrician: Kj Lowry MD Potassium [Moles/Vol] 4.0 mmol/L Normal 3.7-5.3 [facility] Comment on above: Performed By: #### Elvis Malone, K #### [facility] [address] [place] [address], [place] [address] [employer]station Electrician: Kj Lowry MD Protein [Mass/Vol] 7.7 g/dL Normal 6.4-8.3 [facility] Comment on above: Performed By: #### Elvis Malone, K #### [facility] [address] [place] [address] [employer]station Electrician: Kj Lowry MD Sodium [Moles/Vol] 139 mmol/L Normal 135-144 [facility] Comment on above: Performed By: #### Elvis Malone, K #### [facility] [address] [place] [address] [employer]station Electrician: Kj Lowry MD Urea nitrogen [Mass/Vol] 11 mg/dL Normal 6-20 [facility] Comment on above: Performed By: #### Elvis Malone, K #### [facility] [address] [place] [address] Substation Electrician: Kj Lowry MD Creatine Kinaseon 10-11-2023 CK [Catalytic activity/Vol] 61 U/L Normal 26-192 [facility] Comment on above: Performed By: #### Elvis Malone, K #### [facility] [address] [place] [address] Substation Electrician: Kj Lowry MD Lactate Dehydrogenaseon LDH [Catalytic activity/Vol] 190 U/L Normal 135-214 [facility] Comment on above: Performed By: #### Elvis Malone, K #### [facility] [address] [place] [address] [employer]station Electrician: Kj Lowry MD Sedimentation Rateon 024 Sedimentation Rate 5 mm/Hr Normal 0-20 [facility] Comment on above: Result Comment: Note new reference ranges. This automated method replaces the manual method, results may vary from previously resulted. If following the patient ESR, this result should be the new baseline. Performed By: #### M G, K #### [facility] [address] [place] [address] [employer]station Electrician: Kj Lowry MD XR Foot - right 3 [facility] Radiology Study observation (narrative) URIEL PALACIOS [facility] Vitamin B1on 09-26-2023 Vitamin B1 152 nmol/L Normal 70-180 [facility] Comment on above: Result Comment: (NOT E) INTERPRETIVE INFORMATION: Vitamin B1, Whole Blood This assay measures the concentration of thiamine diphosphate (TDP), the primary active form of vitamin B1. Approximately 90 percent of vitamin B1 present in whole blood is TDP. Thiamine and thiamine monophosphate, which comprise the remaining 10 percent, are not measured. This test was developed and its performance characteristics determined by [facility]. It has not been cleared or approved by the [place] Food and Drug Administration. This test was performed in a CLIA certified laboratory and is intended for clinical purposes. Performed By: [facility] [address] [place] [id number] Charge Nurse: Reza Good MD, PhD CLIA Number: [id number] Performed By: #### NETO DALE #### [facility] [address] [place] [address] [employer]station Electrician: Kj Lowry MD B12/Folate Panelon Cobalamin (Vitamin B12) [Mass/Vol] 382 pg/mL Normal 232-1245 [facility] Comment on above: Performed By: #### NETO DALE #### [facility] [address] [place] [address] [employer]station Electrician: Kj Lowry MD Folic Acid 17.7 ng/mL Normal 4.8-24.2 [facility] Comment on above: Performed By: #### ANISH DALEX #### [facility] [address] [place] [address] Substation Electrician: Kj Lowry MD Basic Metabolic Profon 09-198 Anion gap [Moles/Vol] 8 mmol/L Low 9-17 [facility] Comment on above: Performed By: #### U GRAHAM UAX #### [facility] [address] [place] [address] Substation Electrician: Kj Lowry MD BUN/CRE Ratio 13 Normal 9-20 [facility] Comment on above: Performed By: #### Sujey STEVENSON UAX #### [facility] [address] [place] [address] Substation Electrician: Kj Lowry MD Calcium [Mass/Vol] 9.8 mg/dL Normal 8.6-10.4 [facility] Comment on above: Performed By: #### Sujey STEVENSON UAX #### [facility] [address] [place] [address] [employer]station Electrician: Kj Lowry MD Chloride [Moles/Vol] 104 mmol/L Normal 98-107 [facility] Comment on above: Performed By: #### Sujey STEVENSON UAX #### [facility] [address] [place] [address] [employer]station Electrician: Kj Lowry MD CO2 [Moles/Vol] 29 mmol/L Normal 20-31 [facility] Comment on above: Performed By: #### Sujey STEVENSON UAX #### [facility] [address] [place] [address] [employer]station Electrician: Kj Lowry MD Creatinine [Mass/Vol] 0.7 mg/dL Normal 0.5-0.9 [facility] Comment on above: Performed By: #### Sujey STEVENSON UAX #### [facility] [place] [facility] [address] [place] [address] [employer]station Electrician: Kj Lowry MD GFR/1.73 sq M.predicted among non-blacks MDRD (S/P/Bld) [Vol rate/Area] mL/min/{1.73_m2} Normal >60 [facility] Comment on above: Result Comment: These results are not intended for use in patients <18 years of age. eGFR results are calculated without a race factor using the 2020 CKD-EPI equation. Careful clinical correlation is recommended, particularly when comparing to results calculated using previous equations. The CKD-EPI equation is less accurate in patients with extremes of muscle mass, extra-renal metabolism of creatine, excessive creatine ingestion, or following therapy that affects renal tubular secretion. Performed By: #### Sujey STEVENSON UAX #### [facility] [address] [place] [address] Substation Electrician: Kj Lowry MD Glucose [Mass/Vol] 79 mg/dL Normal 70-99 [facility] Comment on above: Performed By: #### Sujey STEVENSON UAX #### [facility] [address] [place] [address] [employer]station Electrician: Kj Lowry MD Potassium [Moles/Vol] 4.0 mmol/L Normal 3.7-5.3 [facility] Comment on above: Performed By: #### Sujey STEVENSON UAX #### [facility] [address] [place] [address] [employer]station Electrician: Kj Lowry MD Sodium [Moles/Vol] 141 mmol/L Normal 135-144 [facility] Comment on above: Performed By: #### Sujey STEVENSON UAX #### [facility] [address] [place] [address] Substation Electrician: Kj Lowry MD Urea nitrogen [Mass/Vol] 9 mg/dL Normal 6-20 [facility] Comment on above: Performed By: #### Sujey STEVENSON UAX #### [facility] [address] [place] [address] Substation Electrician: Kj Lowry MD CBC with Diffon 09-20-2023 Abs. Basophil 0.06 k/uL Normal 0.00-0.20 [facility] Comment on above: Performed By: #### Sujey STEVENSON UAX #### [facility] [address] [place] [address], [place] [address] Substation Electrician: Kj Lowry MD Abs.Imm.Granulocyte <0.03 Normal 0.00-0.30 [facility] Comment on above: Performed By: #### Sujey STEVENSON UAX #### [facility] [address] [place] [address] Substation Electrician: Kj Lowry MD Abs.Neutrophil (Seg) 2.76 k/uL Normal 1.50-8.10 [facility] Comment on above: Performed By: #### ANISH DALEX #### [facility] [address] [place] [address] Substation Electrician: Kj Lowry MD Basophils/100 WBC (Bld) 1 % Normal 0-2 [facility] Comment on above: Performed By: #### ANISH DALEX #### [facility] [address] [place] [address] Substation Electrician: Kj Lowry MD Eosinophils (Bld) [#/Vol] 0.69 10*3/uL High 0.00-0.44 [facility] Comment on above: Performed By: #### Sujey STEVENSON UAX #### [facility] [address] [place] [address] Substation Electrician: Kj Lowry MD Eosinophils/100 WBC (Bld) 10 % High 1-4 [facility] Comment on above: Performed By: #### Sujey STEVENSON UAX #### [facility] [address] [place] [address] Substation Electrician: Kj Lowry MD Erythrocyte distribution width (RBC) [Ratio] 11.3 % Low 11.8-14.4 [facility] Comment on above: Performed By: #### Sujey STEVENSON UAX #### [facility] [address] [place] [address] Substation Electrician: Kj Lowry MD Hematocrit (Bld) [Volume fraction] 39.2 % Normal 36.3-47.1 [facility] Comment on above: Performed By: #### Sujey STEVENSON UAX #### [facility] [address] [place] [address] Substation Electrician: Kj Lowry MD Hemoglobin (Bld) [Mass/Vol] 12.9 g/dL Normal 11.9-15.1 [facility] Comment on above: Performed By: #### U GRAHAM UAX #### [facility] [address] [place] [address] Substation Electrician: Kj Lowry MD Immature granulocytes/100 WBC (Bld) 0 % Normal 0 [facility] Comment on above: Performed By: #### Sujey STEVENSON UAX #### [facility] [address] [place] [address] Substation Electrician: Kj Lowry MD Lymphocytes (Bld) [#/Vol] 2.56 10*3/uL Normal 1.10-3.70 [facility] Comment on above: Performed By: #### U GRAHAM UAX #### [facility] [address] [place] [address] Substation Electrician: Kj Lowry MD Lymphocytes/100 WBC (Bld) 39 % Normal 24-43 [facility] Comment on above: Performed By: #### U GRAHAM UAX #### [facility] [address] [place] [address], [place] [address] Substation Electrician: Kj Lowry MD MCH (RBC) [Entitic mass] 32.4 pg Normal 25.2-33.5 [facility] Comment on above: Performed By: #### Sujey STEVENSON UAX #### [facility] [address] [place] [address] Substation Electrician: Kj Lowry MD MCHC (RBC) [Mass/Vol] 32.9 g/dL Normal 25.2-33.5 [facility] Comment on above: Performed By: #### ANISH DALEX #### [facility] [address] [place] [address] Substation Electrician: Kj Lowry MD MCV (RBC) [Entitic vol] 98.5 fL Normal 82.6-102.9 [facility] Comment on above: Performed By: #### Sujey STEVENSON UAX #### [facility] [address] [place] [address] Substation Electrician: Kj Lowry MD Monocytes (Bld) [#/Vol] 0.54 10*3/uL Normal 0.10-1.20 [facility] Comment on above: Performed By: #### NETO DALE #### [facility] [address] [place] [address] Substation Electrician: Kj Lowry MD Monocytes/100 WBC (Bld) 8 % Normal 3-12 [facility] Comment on above: Performed By: #### ANISH DALEX #### [facility] [address] [place] [address] Substation Electrician: Kj Lowry MD Neutrophil (Seg) 42 % Normal 36-65 [facility] Comment on above: Performed By: #### NETO DALE #### [facility] [address] [place] [address] Substation Electrician: Kj Lowry MD NRBC Automated 0.0 per 100 WBC Normal 0.0 [facility] Comment on above: Performed By: #### ANISH DALEX #### [facility] [address] [place] [address] Substation Electrician: Kj Lowry MD Platelet mean volume (Bld) [Entitic vol] 9.7 fL Normal 8.1-13.5 [facility] Comment on above: Performed By: #### Sujey STEVENSON UAX #### [facility] [address] [place] [address] Substation Electrician: Kj Lowry MD Platelets (Bld) [#/Vol] 343 10*3/uL Normal 138-453 [facility] Comment on above: Performed By: #### Sujey STEVENSON UAX #### [facility] [address] [place] [address] Substation Electrician: Kj Lowry MD RBC (Bld) [#/Vol] 3.98 10*6/uL Normal 3.95-5.11 [facility] Comment on above: Performed By: #### Sujey STEVENSON UAX #### [facility] [address] [place] [address] Substation Electrician: Kj Lowry MD WBC (Bld) [#/Vol] 6.6 10*3/uL Normal 3.5-11.3 [facility] Comment on above: Performed By: #### ANISH DALEX #### [facility] [address] [place] [address] Substation Electrician: Kj Lowry MD Magnesiumon 09-20-2023 Magnesium [Mass/Vol] 1.8 mg/dL Normal 1.6-2.6 [facility] Comment on above: Performed By: #### Sujey STEVENSON UAX #### [facility] [address] [place] [address], [place] [address] Substation Electrician: Kj Lowyr MD Phosphorus, Inorg.on 024 Phosphorus, Inorg. 4.8 mg/dL High 2.6-4.5 [facility] Comment on above: Performed By: #### Sujey STEVENSON UAX #### [facility] [address] [place] [address] Substation Electrician: Kj Lowry MD Albuminon 07-02-2023 Albumin [Mass/Vol] 2.6 g/dL Low 3.5 - 5.2 g/dL [facility] Interpretation and review of laboratory results Abnormal [facility] Albumin [Mass/Vol] 2.6 g/dL Low 3.5-5.2 [facility] Comment on above: Performed By: #### A LB #### [facility] [address] [place] [address] Substation Electrician: Kj Lowry MD Basic Metabolic Panelon 06-05 Anion gap [Moles/Vol] 9 mmol/L 9 - 17 mmol/L [facility] Calcium [Mass/Vol] 8.0 mg/dL Low 8.6 - 10. 4 mg/dL [facility] Chloride [Moles/Vol] 103 mmol/L 98 - 10 7 mmol/L [facility] CO2 [Moles/Vol] 26 mmol/L 20 - 31 mmol/L [facility] Creatinine [Mass/Vol] 0.5 mg/dL 0.5 - 0.9 mg/dL [facility] GFR/1.73 sq M.predicted MDRD (S/P/Bld) [Vol rate/Area] - PINF [facility] Comment on above: These results are not intended for use in patients <18 years of age. eGFR results are calculated without a race factor using the 2020 CKD-EPI equation. Careful clinical correlation is recommended, particularly when comparing to results calculated using previous equations. The CKD-EPI equation is less accurate in patients with extremes of muscle mass, extra-renal metabolism of creatine, excessive creatine ingestion, or following therapy that affects renal tubular secretion. Glucose [Mass/Vol] 81 mg/dL 70 - 99 mg/dL [facility] Interpretation and review of laboratory results Abnormal [facility] Potassium [Moles/Vol] 4.2 mmol/L 3.7 - 5.3 mmol/L [facility] Sodium [Moles/Vol] 138 mmol/L 135 - 144 mmol/L [facility] Urea nitrogen [Mass/Vol] mg/dL Low 6 - 20 mg/dL [facility] Urea nitrogen/Creatinine [Mass ratio] Can not be calculated - [facility] Basic Metabolic Profon 07-02 Anion gap [Moles/Vol] 9 mmol/L Normal 9-17 [facility] Comment on above: Performed By: #### A LB #### [facility] [address] [place] [address] Substation Electrician: Kj Lowry MD BUN/CRE Ratio Can not be calculated Normal - [facility] Comment on above: Performed By: #### A LB #### [facility] [address] [place] [address] Substation Electrician: Kj Lowry MD Calcium [Mass/Vol] 8.0 mg/dL Low 8.6-10.4 [facility] Comment on above: Performed By: #### A LB #### [facility] [address] [place] [address] Substation Electrician: Kj Lowry MD Chloride [Moles/Vol] 103 mmol/L Normal 98-107 [facility] Comment on above: Performed By: #### A LB #### [facility] [address] [place] [address] Substation Electrician: Kj Lowry MD CO2 [Moles/Vol] 26 mmol/L Normal 20-31 [facility] Comment on above: Performed By: #### A LB #### [facility] [address] [place] [address] Substation Electrician: Kj Lowry MD Creatinine [Mass/Vol] 0.5 mg/dL Normal 0.5-0.9 [facility] Comment on above: Performed By: #### A LB #### [facility] [address] [place] [address] Substation Electrician: Kj Lowry MD GFR/1.73 sq M.predicted among non-blacks MDRD (S/P/Bld) [Vol rate/Area] mL/min/{1.73_m2} Normal >60 [facility] Comment on above: Result Comment: These results are not intended for use in patients <18 years of age. eGFR results are calculated without a race factor using the 2020 CKD-EPI equation. Careful clinical correlation is recommended, particularly when comparing to results calculated using previous equations. The CKD-EPI equation is less accurate in patients with extremes of muscle mass, extra-renal metabolism of creatine, excessive creatine ingestion, or following therapy that affects renal tubular secretion. Performed By: #### A LB #### [facility] [address] [place] [address] Substation Electrician: Kj Lowry MD Glucose [Mass/Vol] 81 mg/dL Normal 70-99 [facility] Comment on above: Performed By: #### A LB #### [facility] [address] [place] [address] Substation Electrician: Kj Lowry MD Potassium [Moles/Vol] 4.2 mmol/L Normal 3.7-5.3 [facility] Comment on above: Performed By: #### A LB #### [facility] [address] [place] [address] Substation Electrician: Kj Lowry MD Sodium [Moles/Vol] 138 mmol/L Normal 135-144 [facility] Comment on above: Performed By: #### A LB #### [facility] [address] [place] [address] Substation Electrician: Kj Lowry MD Urea nitrogen [Mass/Vol] mg/dL Low 6-20 [facility] Comment on above: Performed By: #### A LB #### [facility] [address] [place] [address] Substation Electrician: Kj Lowry MD CBC with Auto Differentialon 07-02-2023 Basophils (Bld) [#/Vol] 0.05 10*3/uL [facility] Basophils/100 WBC (Bld) 1 % 0 - 2 % [facility] Eosinophils (Bld) [#/Vol] 0.13 10*3/uL [facility] Eosinophils/100 WBC (Bld) 3 % 1 - 4 % [facility] Erythrocyte distribution width (RBC) [Ratio] 13.2 % 11.8 - 14.4 % [facility] Hematocrit (Bld) [Volume fraction] 32.3 % Low 36.3 - 47.1 % [facility] Hemoglobin (Bld) [Mass/Vol] 11.3 g/dL Low 11.9 - 15.1 g/dL [facility] Immature granulocytes (Bld) [#/Vol] [facility] Immature granulocytes/100 WBC (Bld) 0 % 0 [facility] Interpretation and review of laboratory results Abnormal [facility] Lymphocytes/100 WBC (Bld) 38 % 24 - 43 % [facility] Lymphocytes/100 WBC (Bld) 1.84 % [facility] MCH (RBC) [Entitic mass] 38.0 pg High 25.2 - 33.5 pg [facility] MCHC (RBC) [Mass/Vol] 35.0 g/dL High 25.2 - 33.5 g/dL [facility] MCV (RBC) [Entitic vol] 108.8 fL High 82.6 - 102.9 fL [facility] Monocytes/100 WBC (Bld) 9 % 3 - 12 % [facility] Monocytes/100 WBC (Bld) 0.44 % [facility] Neutrophils/100 WBC (Bld) 49 % 36 - 65 % [facility] Nucleated RBC/100 WBC (Bld) [Ratio] 0.0 % 0.0 per 100 WBC [facility] Platelet mean volume (Bld) [Entitic vol] 10.6 fL 8.1 - 13.5 fL [facility] Platelets (Bld) [#/Vol] 237 10*3/uL [facility] RBC (Bld) [#/Vol] 2.97 10*6/uL Low 3.95 - 5.11 m/uL [facility] RBC (Bld) [#/Vol] MACROCYTOSIS PRESENT [facility] Segmented neutrophils/100 WBC (Bld) 2.39 % [facility] WBC other (Bld) [#/Vol] 4.9 [facility] CBC with Diffon 07-02-2023 Abs. Basophil 0.05 k/uL Normal 0.00-0.20 [facility] Comment on above: Performed By: #### A LB #### [facility] [address] [place] [address] Substation Electrician: Kj Lowry MD Abs.Imm.Granulocyte <0.03 Normal 0.00-0.30 [facility] Comment on above: Performed By: #### A LB #### [facility] [address] [place] [address] Substation Electrician: Kj Lowry MD Abs.Neutrophil (Seg) 2.39 k/uL Normal 1.50-8.10 [facility] Comment on above: Performed By: #### A LB #### [facility] [address] [place] [address] Substation Electrician: Kj Lowry MD Basophils/100 WBC (Bld) 1 % Normal 0-2 [facility] Comment on above: Performed By: #### A LB #### [facility] [place] [facility] [address] [place] [address] [employer]station Electrician: Kj Lowry MD Eosinophils (Bld) [#/Vol] 0.13 10*3/uL Normal 0.00-0.44 [facility] Comment on above: Performed By: #### A LB #### [facility] [place] [facility] [address] [place] [address] [employer]station Electrician: Kj Lowry MD Eosinophils/100 WBC (Bld) 3 % Normal 1-4 [facility] Comment on above: Performed By: #### A LB #### [facility] [place] [facility] [address] [place] [address] [employer]station Electrician: Kj Lowry MD Erythrocyte distribution width (RBC) [Ratio] 13.2 % Normal 11.8-14.4 [facility] Comment on above: Performed By: #### A LB #### [facility] [place] [facility] [address] [place] [address] [employer]station Electrician: Kj Lowry MD Hematocrit (Bld) [Volume fraction] 32.3 % Low 36.3-47.1 [facility] Comment on above: Performed By: #### A LB #### [facility] [place] [facility] [address] [place] [address] [employer]station Electrician: Kj Lowry MD Hemoglobin (Bld) [Mass/Vol] 11.3 g/dL Low 11.9-15.1 [facility] Comment on above: Performed By: #### A LB #### [facility] [place] [facility] [address] [place] [address] [employer]station Electrician: Kj Lowry MD Immature granulocytes/100 WBC (Bld) 0 % Normal 0 [facility] Comment on above: Performed By: #### A LB #### [facility] [place] [facility] [address] [place] [address] [employer]station Electrician: Kj Lowry MD Lymphocytes (Bld) [#/Vol] 1.84 10*3/uL Normal 1.10-3.70 [facility] Comment on above: Performed By: #### A LB #### [facility] [place] [facility] [address] [place] [address] [employer]station Electrician: Kj Lowry MD Lymphocytes/100 WBC (Bld) 38 % Normal 24-43 [facility] Comment on above: Performed By: #### A LB #### [facility] [place] [facility] [address] [place] [address] [employer]station Electrician: Kj Lowry MD MCH (RBC) [Entitic mass] 38.0 pg High 25.2-33.5 [facility] Comment on above: Performed By: #### A LB #### [facility] [place] [facility] [address] [place] [address] [employer]station Electrician: Kj Lowry MD MCHC (RBC) [Mass/Vol] 35.0 g/dL High 25.2-33.5 [facility] Comment on above: Performed By: #### A LB #### [facility] [place] [facility] [address] [place] [address] [employer]station Electrician: Kj Lowry MD MCV (RBC) [Entitic vol] 108.8 fL High 82.6-102.9 [facility] Comment on above: Performed By: #### A LB #### [facility] [place] [facility] [address] [place] [address] [employer]station Electrician: Kj Lowry MD Monocytes (Bld) [#/Vol] 0.44 10*3/uL Normal 0.10-1.20 [facility] Comment on above: Performed By: #### A LB #### [facility] [place] [facility] [address] [place] [address] [employer]station Electrician: Kj Lowry MD Monocytes/100 WBC (Bld) 9 % Normal 3-12 [facility] Comment on above: Performed By: #### A LB #### [facility] [place] [facility] [address] [place] [address] [employer]station Electrician: Kj Lowry MD Neutrophil (Seg) 49 % Normal 36-65 [facility] Comment on above: Performed By: #### A LB #### [facility] [place] [facility] [address] [place] [address] [employer]station Electrician: Kj Lowry MD NRBC Automated 0.0 per 100 WBC Normal 0.0 [facility] Comment on above: Performed By: #### A LB #### [facility] [place] [facility] [address] [place] [address] [employer]station Electrician: Kj Lowry MD Platelet mean volume (Bld) [Entitic vol] 10.6 fL Normal 8.1-13.5 [facility] Comment on above: Performed By: #### A LB #### [facility] [place] [facility] [address] [place] [address] [employer]station Electrician: Kj Lowry MD Platelets (Bld) [#/Vol] 237 10*3/uL Normal 138-453 [facility] Comment on above: Performed By: #### A LB #### [facility] [place] [facility] [address] [place] [address] [employer]station Electrician: Kj Lowry MD RBC (Bld) [#/Vol] 2.97 10*6/uL Low 3.95-5.11 [facility] Comment on above: Performed By: #### A LB #### [facility] [place] [facility] [address] [place] [address] [employer]station Electrician: Kj Lowry MD RBC morphology finding Nom (Bld) MACROCYTOSIS PRESENT Normal [facility] Comment on above: Performed By: #### A LB #### [facility] [address] [place] [address], [place] [address] [employer]station Electrician: Kj Lowry MD WBC (Bld) [#/Vol] 4.9 10*3/uL Normal 3.5-11.3 [facility] Comment on above: Performed By: #### A LB #### [facility] [place] [facility] [address] [place] [address] [employer]station Electrician: Kj Lowry MD Cult,Urineon 07-02-2023 Cult,Urine Specimen Description .CLEAN CATCH URINE Culture ESCHERICHIA COLI 10 to 50,000 CFU/ML Report Status FINAL 07/02/2023 SUSCEPTIBILITY Organism ESCHERICHIA COLI Method CELIA Ampicillin 8 SUSCEPTIBLE Cefazolin <=4 SUSCEPTIBLE Cefazolin sensitivity results can be used to predict the effectiveness of oral cephalosporins (eg. Cephalexin) in uncomplicated Urinary Tract Infections due to E. coli, K. pneumoniae, and P. mirabilis Ceftriaxone <=0.25 SUSCEPTIBLE ESBL NEGATIVE Gentamicin <=1 SUSCEPTIBLE Levofloxacin <=0.12 SUSCEPTIBLE Nitrofurantoin <=16 SUSCEPTIBLE Piperacillin/Tazobactam <=4 SUSCEPTIBLE Tobramycin <=1 SUSCEPTIBLE Trimethoprim/Sulfa <=20 SUSCEPTIBLE Susceptible [facility] Comment on above: Performed By: #### U #### [facility] [place] [facility] [address] [place] [address] Substation Electrician: Kj Lowry MD [facility] [employer] [address] [place] [address] Substation Electrician: Kj Lowry MD Culture, Urineon 07-02-2023 Interpretation and review of laboratory results Abnormal [facility] Microorganism identified Cx Nom (Unsp spec) ESCHERICHIA COLI 10 to 50,000 CFU/ML Abnormal [facility] Specimen Description .CLEAN CATCH URINE [facility] Basic Metabolic Panelon 06-05 Anion gap [Moles/Vol] 13 mmol/L 9 - 17 mmol/L [facility] Calcium [Mass/Vol] 7.5 mg/dL Low 8.6 - 10. 4 mg/dL [facility] Chloride [Moles/Vol] 102 mmol/L 98 - 10 7 mmol/L [facility] CO2 [Moles/Vol] 23 mmol/L 20 - 31 mmol/L [facility] Creatinine [Mass/Vol] 0.5 mg/dL 0.5 - 0.9 mg/dL [facility] GFR/1.73 sq M.predicted MDRD (S/P/Bld) [Vol rate/Area] - PINF [facility] Comment on above: These results are not intended for use in patients <18 years of age. eGFR results are calculated without a race factor using the 2020 CKD-EPI equation. Careful clinical correlation is recommended, particularly when comparing to results calculated using previous equations. The CKD-EPI equation is less accurate in patients with extremes of muscle mass, extra-renal metabolism of creatine, excessive creatine ingestion, or following therapy that affects renal tubular secretion. Glucose [Mass/Vol] 124 mg/dL High 70 - 99 mg/dL [facility] Interpretation and review of laboratory results Abnormal [facility] Potassium [Moles/Vol] 3.7 mmol/L 3.7 - 5.3 mmol/L [facility] Sodium [Moles/Vol] 138 mmol/L 135 - 144 mmol/L [facility] Urea nitrogen [Mass/Vol] 2 mg/dL Low 6 - 20 mg/dL [facility] Urea nitrogen/Creatinine [Mass ratio] 4 mg/mg Low 9 - 20 [facility] Basic Metabolic Profon 07-01 Anion gap [Moles/Vol] 13 mmol/L Normal 9-17 [facility] Comment on above: Performed By: #### U RC #### [facility] [place] [facility] [address] [place] [address] Substation Electrician: Kj Lowry MD [employer] [address] [place] [address] [phone] Substation Electrician: Kj Lowry MD BUN/CRE Ratio 4 Low 9-20 [facility] Comment on above: Performed By: #### U RC #### [facility] [place] [facility] [address] [place] [address] Substation Electrician: Kj Lowry MD [employer] [address] [place], [place] [phone] Substation Electrician: Kj Lowry MD Calcium [Mass/Vol] 7.5 mg/dL Low 8.6-10.4 [facility] Comment on above: Performed By: #### U RC #### [facility] [place] [facility] [address] [place] [address] Substation Electrician: Kj Lowry MD [employer] [address] [place] [address] [phone] Substation Electrician: Kj Lowry MD Chloride [Moles/Vol] 102 mmol/L Normal 98-107 [facility] Comment on above: Performed By: #### U RC #### [facility] [place] [facility] [address] [place] [address] Substation Electrician: Kj Lowry MD [facility] [employer] [address] [place] [phone] Substation Electrician: Kj Lowry MD CO2 [Moles/Vol] 23 mmol/L Normal 20-31 [facility] Comment on above: Performed By: #### U RC #### [facility] [place] [facility] [address] [place] [address] Substation Electrician: Kj Lowry MD [address] [address] Substation Electrician: Kj Lowry MD Creatinine [Mass/Vol] 0.5 mg/dL Normal 0.5-0.9 [facility] Comment on above: Performed By: #### U RC #### [facility] [place] [facility] [address] [place] [address] Substation Electrician: Kj Lowry MD [address] [phone] Substation Electrician: Kj Lowry MD GFR/1.73 sq M.predicted among non-blacks MDRD (S/P/Bld) [Vol rate/Area] mL/min/{1.73_m2} Normal >60 [facility] Comment on above: Result Comment: These results are not intended for use in patients <18 years of age. eGFR results are calculated without a race factor using the 2020 CKD-EPI equation. Careful clinical correlation is recommended, particularly when comparing to results calculated using previous equations. The CKD-EPI equation is less accurate in patients with extremes of muscle mass, extra-renal metabolism of creatine, excessive creatine ingestion, or following therapy that affects renal tubular secretion. Performed By: #### U RC #### [facility] [place] [facility] [address] [place] [address] Substation Electrician: Kj Lowry MD [facility] [employer] [address] [place] [phone] Substation Electrician: Kj Lowry MD Glucose [Mass/Vol] 124 mg/dL High 70-99 [facility] Comment on above: Performed By: #### U RC #### [facility] [place] [facility] [address] [place] [address] Substation Electrician: Kj Lowry MD [facility] [employer] [address] [place] [address] [phone] Substation Electrician: Kj Lowry MD Potassium [Moles/Vol] 3.7 mmol/L Normal 3.7-5.3 [facility] Comment on above: Performed By: #### U RC #### [facility] [place] [facility] [address] [place] [address] Substation Electrician: Kj Lowry MD [facility] [employer] [address] [place] [address] [phone] Substation Electrician: Kj Lowry MD Sodium [Moles/Vol] 138 mmol/L Normal 135-144 [facility] Comment on above: Performed By: #### U RC #### [facility] [place] [facility] [address] [place] [address] Substation Electrician: Kj Lowry MD [facility] [employer] [address] [place] [address] [phone] Substation Electrician: Kj Lowry MD Urea nitrogen [Mass/Vol] 2 mg/dL Low 6-20 [facility] Comment on above: Performed By: #### U RC #### [facility] [place] [facility] [address] [place] [address] [employer]station Electrician: [facility] [address] [place] [phone] Substation Electrician: Kj Lowry MD CBC with Auto Differentialon 07-01-2023 Basophils (Bld) [#/Vol] 0.04 10*3/uL [facility] Basophils/100 WBC (Bld) 1 % 0 - 2 % [facility] Eosinophils (Bld) [#/Vol] 0.09 10*3/uL [facility] Eosinophils/100 WBC (Bld) 2 % 1 - 4 % [facility] Erythrocyte distribution width (RBC) [Ratio] 13.2 % 11.8 - 14.4 % [facility] Hematocrit (Bld) [Volume fraction] 30.2 % Low 36.3 - 47.1 % [facility] Hemoglobin (Bld) [Mass/Vol] 10.8 g/dL Low 11.9 - 15.1 g/dL [facility] Immature granulocytes (Bld) [#/Vol] [facility] Immature granulocytes/100 WBC (Bld) 0 % 0 [facility] Interpretation and review of laboratory results Abnormal [facility] Lymphocytes/100 WBC (Bld) 40 % 24 - 43 % [facility] Lymphocytes/100 WBC (Bld) 1.64 % [facility] MCH (RBC) [Entitic mass] 38.8 pg High 25.2 - 33.5 pg [facility] MCHC (RBC) [Mass/Vol] 35.8 g/dL High 25.2 - 33.5 g/dL [facility] MCV (RBC) [Entitic vol] 108.6 fL High 82.6 - 102.9 fL [facility] Monocytes/100 WBC (Bld) 8 % 3 - 12 % [facility] Monocytes/100 WBC (Bld) 0.34 % [facility] Neutrophils/100 WBC (Bld) 49 % 36 - 65 % [facility] Nucleated RBC/100 WBC (Bld) [Ratio] 0.0 % 0.0 per 100 WBC [facility] Platelet mean volume (Bld) [Entitic vol] 10.3 fL 8.1 - 13.5 fL [facility] Platelets (Bld) [#/Vol] 215 10*3/uL [facility] RBC (Bld) [#/Vol] 2.78 10*6/uL Low 3.95 - 5.11 m/uL [facility] RBC (Bld) [#/Vol] MACROCYTOSIS PRESENT [facility] Segmented neutrophils/100 WBC (Bld) 1.95 % [facility] WBC other (Bld) [#/Vol] 4.1 [facility] CBC with Diffon 07-01-2023 Abs. Basophil 0.04 k/uL Normal 0.00-0.20 [facility] Comment on above: Performed By: #### U RC #### [facility] [place] [facility] [address] [place] [address] Substation Electrician: Kj Lowry MD [facility] [employer] [address] [place] [address] [phone] Substation Electrician: Kj Lowry MD Abs.Imm.Granulocyte <0.03 Normal 0.00-0.30 [facility] Comment on above: Performed By: #### U RC #### [facility] [place] [facility] [address] [place] [address] [employer]station Electrician: Kj Lowry MD [facility] [employer] [address] [place] [address] Substation Electrician: Kj Lowry MD Abs.Neutrophil (Seg) 1.95 k/uL Normal 1.50-8.10 [facility] Comment on above: Performed By: #### U RC #### [facility] [place] [facility] [address] [place] [address] [employer]station Electrician: Kj Low[facility] [address] [place] [address] Substation Electrician: Kj Lowry MD Basophils/100 WBC (Bld) 1 % Normal 0-2 [facility] Comment on above: Performed By: #### U RC #### [facility] [place] [facility] [address] [place] [address] Substation Electrician: Kj Lowry MD [facility] [employer] [address] [place] [phone] Substation Electrician: Kj Lowry MD Eosinophils (Bld) [#/Vol] 0.09 10*3/uL Normal 0.00-0.44 [facility] Comment on above: Performed By: #### U RC #### [facility] [place] [facility] [address] [place] [address] [employer]station Electrician: Kj Lowry MD [facility] [employer] [address] [place] [phone] Substation Electrician: Kj Lowry MD Eosinophils/100 WBC (Bld) 2 % Normal 1-4 [facility] Comment on above: Performed By: #### U RC #### [facility] [place] [facility] [address] [place] [address] [employer] Electrician: Kj Lowry MD [facility] [employer] [address] [place] [phone] Substation Electrician: Kj Lowry MD Erythrocyte distribution width (RBC) [Ratio] 13.2 % Normal 11.8-14.4 [facility] Comment on above: Performed By: #### U RC #### [facility] [place] [facility] [address] [place] [address] [employer]station Electrician: Kj Lowry MD [facility] [employer] [address] [place] [phone] [employer]station Electrician: Kj Lowry MD Hematocrit (Bld) [Volume fraction] 30.2 % Low 36.3-47.1 [facility] Comment on above: Performed By: #### U RC #### [facility] [place] [facility] [address] [place] [address] [employer]station Electrician: Kj Lowry MD [facility] [employer] [address] [place] [phone] Substation Electrician: Kj Lowry MD Hemoglobin (Bld) [Mass/Vol] 10.8 g/dL Low 11.9-15.1 [facility] Comment on above: Performed By: #### U RC #### [facility] [place] [facility] [address] [place] [address] [employer]station Electrician: Kj Lowry MD [facility] [employer] [address] [place] [phone] Substation Electrician: Kj Lowry MD Immature granulocytes/100 WBC (Bld) 0 % Normal 0 [facility] Comment on above: Performed By: #### U RC #### [facility] [place] [facility] [address] [place] [address] Substation Electrician: Kj Lowry MD [facility] [employer] [address] [place] [phone] Substation Electrician: Kj Lowry MD Lymphocytes (Bld) [#/Vol] 1.64 10*3/uL Normal 1.10-3.70 [facility] Comment on above: Performed By: #### U RC #### [facility] [place] [facility] [address] [place] [address] Substation Electrician: Kj Lowry MD [facility] [employer] [address] [place] [phone] Substation Electrician: Kj Lowry MD Lymphocytes/100 WBC (Bld) 40 % Normal 24-43 [facility] Comment on above: Performed By: #### U RC #### [facility] [place] [facility] [address] [place] [address] [employer]station Electrician: Kj Lowry MD [facility] [employer] [address] [place] [phone] [employer]station Electrician: Kj Lowry MD MCH (RBC) [Entitic mass] 38.8 pg High 25.2-33.5 [facility] Comment on above: Performed By: #### U RC #### [facility] [place] [facility] [address] [place] [phone] [employer]station Electrician: Kj Lowry [facility] [address] [place] [phone] [employer]station Electrician: Kj Lowry MD MCHC (RBC) [Mass/Vol] 35.8 g/dL High 25.2-33.5 [facility] Comment on above: Performed By: #### U RC #### [facility] [place] [facility] [address] [place] [address] [employer]station Electrician: Kj Lowry MD [facility] [employer] [address] [place] [phone] Substation Electrician: Kj Lowry MD MCV (RBC) [Entitic vol] 108.6 fL High 82.6-102.9 [facility] Comment on above: Performed By: #### U RC #### [facility] [place] [facility] [address] [place] [address] [employer]station Electrician: Kj Low[facility] [address] [place] [phone] [employer]station Electrician: Kj Lowry MD Monocytes (Bld) [#/Vol] 0.34 10*3/uL Normal 0.10-1.20 [facility] Comment on above: Performed By: #### U RC #### [facility] [place] [facility] [address] [place] [address] [employer]station Electrician: Kj Lowry MD [facility] [employer] [address] [place] [phone] Substation Electrician: Kj Lowry MD Monocytes/100 WBC (Bld) 8 % Normal 3-12 [facility] Comment on above: Performed By: #### U RC #### [facility] [place] [facility] [address] [place] [address] [employer] Electrician: Kj Lowry [facility] [address] [place] [phone] Substation Electrician: Kj Lowry MD Neutrophil (Seg) 49 % Normal 36-65 [facility] Comment on above: Performed By: #### U RC #### [facility] [place] [facility] [address] [place] [address] [employer]station Electrician: Kj Lowry MD [facility] [employer] [address] [place] [phone] Substation Electrician: Kj Lowry MD NRBC Automated 0.0 per 100 WBC Normal 0.0 [facility] Comment on above: Performed By: #### U RC #### [facility] [place] [facility] [address] [place] [address] [employer] Electrician: Kj Lowry MD [address] [phone] Substation Electrician: Kj Lowry MD Platelet mean volume (Bld) [Entitic vol] 10.3 fL Normal 8.1-13.5 [facility] Comment on above: Performed By: #### U RC #### [facility] [place] [facility] [address] [place] [address] [employer]station Electrician: Kj Lowry MD [address] [phone] Substation Electrician: Kj Lowry MD Platelets (Bld) [#/Vol] 215 10*3/uL Normal 138-453 [facility] Comment on above: Performed By: #### U RC #### [facility] [place] [facility] [address] [place] [address] [employer]station Electrician: Kj Lowry MD [address] [phone] Substation Electrician: Kj Lowry MD RBC (Bld) [#/Vol] 2.78 10*6/uL Low 3.95-5.11 [facility] Comment on above: Performed By: #### U RC #### [facility] [place] [facility] [address] [place] [address] [employer]station Electrician: Kj Lowry MD [address] [phone] Substation Electrician: Kj Lowry MD RBC morphology finding Nom (Bld) MACROCYTOSIS PRESENT Normal [facility] Comment on above: Performed By: #### U RC #### [facility] [place] [facility] [address] [place] [address] [employer]station Electrician: Kj Lowry MD [facility] [employer] [address] [place] [phone] [employer]station Electrician: Kj Lowry MD WBC (Bld) [#/Vol] 4.1 10*3/uL Normal 3.5-11.3 [facility] [facility] Comment on above: Performed By: #### U #### [facility] [place] [facility] [address] [place] [address] Substation Electrician: Kj Lowry MD [facility] [employer] [address] [place] [address] Substation Electrician: Kj Lowry MD EKG 12 Leadon 07-01-2023 Atrial Rate 66 BPM [facility] P [place] 57 degrees [facility] P-R Interval 156 ms [facility] Q-T Interval 462 ms [facility] QRS Duration 86 ms [facility] QTc Calculation (Bazett) 484 ms [facility] R [place] 41 degrees [facility] T [place] 3 degrees [facility] Ventricular Rate 66 BPM [facility] Normal sinus rhythm Low voltage QRS T wave abnormality, consider anterolateral ischemia Prolonged QT Abnormal ECG [facility] MUSE Result, Unknown Prov ider - 07/01/2023 Normal sinus rhythm Low voltage QRS T wave abnormality, consider anterolateral ischemia Prolonged QT Abnormal ECG [facility] Normal sinus rhythm T wave abnormality, consider inferior ischemia T wave abnormality, consider anterior ischemia Abnormal ECG [facility] MUSE Result, Unknown Prov ider - 07/01/2023 Normal sinus rhythm T wave abnormality, consider inferior ischemia T wave abnormality, consider anterior ischemia Abnormal ECG [facility] EKG 12 LeadOrdered By: Unkno wn Result on 07-01-2023 Atrial Rate 76 BPM [facility] P [place] 58 degrees [facility] P-R Interval 144 ms [facility] Q-T Interval 436 ms [facility] QRS Duration 82 ms [facility] QTc Calculation (Bazett) 490 ms [facility] R [place] 36 degrees [facility] T [place] -22 degrees [facility] Ventricular [facility] 76 BPM [facility] Basic Metab w/rfx MGon 06-30 Anion gap [Moles/Vol] 12 mmol/L Normal 9-17 [facility] Comment on above: Performed By: #### Elvis Malone, K #### [facility] [place] [facility] [address] [place] [address] Substation Electrician: Kj Lowry MD BUN/CRE Ratio 3 Low 9-20 [facility] Comment on above: Performed By: #### Elvis Malone, K #### [facility] [place] [facility] [address] [place] [address] Substation Electrician: Kj Lowry MD Calcium [Mass/Vol] 8.0 mg/dL Low 8.6-10.4 [facility] Comment on above: Performed By: #### Elvis Malone, K #### [facility] [place] [facility] [address] [place] [address] Substation Electrician: Kj Lowry MD Chloride [Moles/Vol] 100 mmol/L Normal 98-107 [facility] Comment on above: Performed By: #### Elvis Malone, K #### [facility] [place] [facility] [address] [place] [address] Substation Electrician: Kj Lowry MD CO2 [Moles/Vol] 27 mmol/L Normal 20-31 [facility] Comment on above: Performed By: #### Elvis Malone, K #### [facility] [place] [facility] [address] [place] [address] Substation Electrician: Kj Lowry MD Creatinine [Mass/Vol] 0.6 mg/dL Normal 0.5-0.9 [facility] Comment on above: Performed By: #### Elvis Malone, K #### [facility] [place] [facility] [address] [place] [address] Substation Electrician: Kj Lowry MD GFR/1.73 sq M.predicted among non-blacks MDRD (S/P/Bld) [Vol rate/Area] mL/min/{1.73_m2} Normal >60 [facility] Comment on above: Result Comment: These results are not intended for use in patients <18 years of age. eGFR results are calculated without a race factor using the 2020 CKD-EPI equation. Careful clinical correlation is recommended, particularly when comparing to results calculated using previous equations. The CKD-EPI equation is less accurate in patients with extremes of muscle mass, extra-renal metabolism of creatine, excessive creatine ingestion, or following therapy that affects renal tubular secretion. Performed By: #### Elvis Malone, K #### [facility] [place] [facility] [address] [place] [address] Substation Electrician: Kj Lowry MD Glucose [Mass/Vol] 94 mg/dL Normal 70-99 [facility] Comment on above: Performed By: #### Elvis Malone, K #### [facility] [place] [facility] [address] [place] [address] Substation Electrician: Kj Lowry MD Potassium [Moles/Vol] 3.3 mmol/L Low 3.7-5.3 [facility] Comment on above: Performed By: #### Elvis Malone, K #### [facility] [place] [facility] [address] [place] [address] Substation Electrician: Kj Lowry MD Sodium [Moles/Vol] 139 mmol/L Normal 135-144 [facility] Comment on above: Performed By: #### Elvis Malone, K #### [facility] [place] [facility] [address] [place] [address] Substation Electrician: Kj Lowry MD Urea nitrogen [Mass/Vol] 2 mg/dL Low 6-20 [facility] Comment on above: Performed By: #### Elvis Malone, K #### [facility] [place] [facility] [address] [place] [address] Substation Electrician: Kj Lowry MD Basic Metabolic Panel w/ Ref kemar to MGon 06-30-2023 Anion gap [Moles/Vol] 12 mmol/L 9 - 17 mmol/L [facility] Calcium [Mass/Vol] 8.0 mg/dL Low 8.6 - 10. 4 mg/dL [facility] Chloride [Moles/Vol] 100 mmol/L 98 - 10 7 mmol/L [facility] CO2 [Moles/Vol] 27 mmol/L 20 - 31 mmol/L [facility] Creatinine [Mass/Vol] 0.6 mg/dL 0.5 - 0.9 mg/dL [facility] GFR/1.73 sq M.predicted MDRD (S/P/Bld) [Vol rate/Area] - PINF [facility] Comment on above: These results are not intended for use in patients <18 years of age. eGFR results are calculated without a race factor using the 2020 CKD-EPI equation. Careful clinical correlation is recommended, particularly when comparing to results calculated using previous equations. The CKD-EPI equation is less accurate in patients with extremes of muscle mass, extra-renal metabolism of creatine, excessive creatine ingestion, or following therapy that affects renal tubular secretion. Glucose [Mass/Vol] 94 mg/dL 70 - 99 mg/dL [facility] Interpretation and review of laboratory results Abnormal [facility] Potassium [Moles/Vol] 3.3 mmol/L Low 3.7 - 5.3 mmol/L [facility] Sodium [Moles/Vol] 139 mmol/L 135 - 144 mmol/L [facility] Urea nitrogen [Mass/Vol] 2 mg/dL Low 6 - 20 mg/dL [facility] Urea nitrogen/Creatinine [Mass ratio] 3 mg/mg Low 9 - 20 [facility] CBC with Auto Differentialon 06-30-2023 Basophils (Bld) [#/Vol] 0.05 10*3/uL [facility] Basophils/100 WBC (Bld) 1 % 0 - 2 % [facility] Eosinophils (Bld) [#/Vol] 0.03 10*3/uL [facility] Eosinophils/100 WBC (Bld) 1 % 1 - 4 % [facility] Erythrocyte distribution width (RBC) [Ratio] 13.5 % 11.8 - 14.4 % [facility] Hematocrit (Bld) [Volume fraction] 32.4 % Low 36.3 - 47.1 % [facility] Hemoglobin (Bld) [Mass/Vol] 11.6 g/dL Low 11.9 - 15.1 g/dL [facility] Immature granulocytes (Bld) [#/Vol] 0.03 10*3/uL [facility] Immature granulocytes/100 WBC (Bld) 1 % High 0 [facility] Interpretation and review of laboratory results Abnormal [facility] Lymphocytes/100 WBC (Bld) 26 % 24 - 43 % [facility] Lymphocytes/100 WBC (Bld) 1.27 % [facility] MCH (RBC) [Entitic mass] 38.5 pg High 25.2 - 33.5 pg [facility] MCHC (RBC) [Mass/Vol] 35.8 g/dL High 25.2 - 33.5 g/dL [facility] MCV (RBC) [Entitic vol] 107.6 fL High 82.6 - 102.9 fL [facility] Monocytes/100 WBC (Bld) 10 % 3 - 12 % [facility] Monocytes/100 WBC (Bld) 0.48 % [facility] Neutrophils/100 WBC (Bld) 62 % 36 - 65 % [facility] Nucleated RBC/100 WBC (Bld) [Ratio] 0.0 % 0.0 per 100 WBC [facility] Platelet mean volume (Bld) [Entitic vol] 10.0 fL 8.1 - 13.5 fL [facility] Platelets (Bld) [#/Vol] 218 10*3/uL [facility] RBC (Bld) [#/Vol] 3.01 10*6/uL Low 3.95 - 5.11 m/uL [facility] RBC (Bld) [#/Vol] MACROCYTOSIS PRESENT [facility] Segmented neutrophils/100 WBC (Bld) 2.96 % [facility] WBC other (Bld) [#/Vol] 4.8 [facility] CBC with Diffon 06-30-2023 Abs. Basophil 0.05 k/uL Normal 0.00-0.20 [facility] Comment on above: Performed By: #### Elvis Malone, K #### [facility] [place] [facility] [address] [place] [address] Substation Electrician: Kj Lowry MD Abs.Imm.Granulocyte 0.03 k/uL Normal 0.00-0.30 [facility] Comment on above: Performed By: #### Elvis Malone, K #### [facility] [place] [facility] [address] [place] [address] Substation Electrician: Kj Lowry MD Abs.Neutrophil (Seg) 2.96 k/uL Normal 1.50-8.10 [facility] Comment on above: Performed By: #### Elvis Malone, K #### [facility] [place] [facility] [address] [place] [address] Substation Electrician: Kj Lowry MD Basophils/100 WBC (Bld) 1 % Normal 0-2 [facility] Comment on above: Performed By: #### Elvis Malone, K #### [facility] [place] [facility] [address] [place] [address] Substation Electrician: Kj Lowry MD Eosinophils (Bld) [#/Vol] 0.03 10*3/uL Normal 0.00-0.44 [facility] Comment on above: Performed By: #### Elvis Malone, K #### [facility] [place] [facility] [address] [place] [address] Substation Electrician: Kj Lowry MD Eosinophils/100 WBC (Bld) 1 % Normal 1-4 [facility] Comment on above: Performed By: #### Elvis Malone, K #### [facility] [place] [facility] [address] [place] [address] Substation Electrician: Kj Lowry MD Erythrocyte distribution width (RBC) [Ratio] 13.5 % Normal 11.8-14.4 [facility] Comment on above: Performed By: #### Elvis Malone, K #### [facility] [place] [facility] [address] [place] [address] Substation Electrician: Kj Lowry MD Hematocrit (Bld) [Volume fraction] 32.4 % Low 36.3-47.1 [facility] Comment on above: Performed By: #### Elvis Maloen, K #### [facility] [place] [facility] [address] [place] [address] Substation Electrician: Kj Lowry MD Hemoglobin (Bld) [Mass/Vol] 11.6 g/dL Low 11.9-15.1 [facility] Comment on above: Performed By: #### Elvis Malone, K #### [facility] [place] [facility] [address] [place] [address] Substation Electrician: Kj Lowry MD Immature granulocytes/100 WBC (Bld) 1 % High 0 [facility] Comment on above: Performed By: #### Elvis Malone, K #### [facility] [place] [facility] [address] [place] [address] Substation Electrician: Kj Lowry MD Lymphocytes (Bld) [#/Vol] 1.27 10*3/uL Normal 1.10-3.70 [facility] Comment on above: Performed By: #### Elvis Malone, K #### [facility] [place] [facility] [address] [place] [address] Substation Electrician: Kj Lowry MD Lymphocytes/100 WBC (Bld) 26 % Normal 24-43 [facility] Comment on above: Performed By: #### Elvis Malone, K #### [facility] [place] [facility] [address] [place] [address] Substation Electrician: Kj Lowry MD MCH (RBC) [Entitic mass] 38.5 pg High 25.2-33.5 [facility] Comment on above: Performed By: #### Elvis Malone, K #### [facility] [place] [facility] [address] [place] [address] Substation Electrician: Kj Lowry MD MCHC (RBC) [Mass/Vol] 35.8 g/dL High 25.2-33.5 [facility] Comment on above: Performed By: #### Elvis Malone, K #### [facility] [place] [facility] [address] [place] [address] Substation Electrician: Kj Lowry MD MCV (RBC) [Entitic vol] 107.6 fL High 82.6-102.9 [facility] Comment on above: Performed By: #### Elvis Malone, K #### [facility] [place] [facility] [address] [place] [address] Substation Electrician: Kj Lowry MD Monocytes (Bld) [#/Vol] 0.48 10*3/uL Normal 0.10-1.20 [facility] Comment on above: Performed By: #### Elvis Malone, K #### [facility] [place] [facility] [address] [place] [address] Substation Electrician: Kj Lowry MD Monocytes/100 WBC (Bld) 10 % Normal 3-12 [facility] Comment on above: Performed By: #### Elvis Malone, K #### [facility] [place] [facility] [address] [place] [address] Substation Electrician: Kj Lowry MD Neutrophil (Seg) 62 % Normal 36-65 [facility] Comment on above: Performed By: #### Elvis Malone, K #### [facility] [place] [facility] [address] [place] [address] Substation Electrician: Kj Lowry MD NRBC Automated 0.0 per 100 WBC Normal 0.0 [facility] Comment on above: Performed By: #### Elvis Malone, K #### [facility] [place] [facility] [address] [place] [address] Substation Electrician: Kj Lowry MD Platelet mean volume (Bld) [Entitic vol] 10.0 fL Normal 8.1-13.5 [facility] Comment on above: Performed By: #### M G, K #### [facility] [place] [facility] [address] [place] [address] Substation Electrician: Kj Lowry MD Platelets (Bld) [#/Vol] 218 10*3/uL Normal 138-453 [facility] Comment on above: Performed By: #### Elvis Malone K #### [facility] [place] [facility] [address] [place] [address] Substation Electrician: Kj Lowry MD RBC (Bld) [#/Vol] 3.01 10*6/uL Low 3.95-5.11 [facility] Comment on above: Performed By: #### Elvis Malone K #### [facility] [place] [facility] [address] [place] [address], [place] [address] Substation Electrician: Kj Lowry MD RBC morphology finding Nom (Bld) MACROCYTOSIS PRESENT Normal [facility] Comment on above: Performed By: #### Elvis Malone K #### [facility] [place] [facility] [address] [place] [address], [place] [address] Substation Electrician: Kj Lowry MD WBC (Bld) [#/Vol] 4.8 10*3/uL Normal 3.5-11.3 [facility] Comment on above: Performed By: #### Elvis Malone K #### [facility] [place] [facility] [address] [place] [address], [place] [address] Substation Electrician: Kj Lowry MD K (Potassium)on 06-30-2023 Potassium [Moles/Vol] 3.5 mmol/L Low 3.7-5.3 [facility] Comment on above: Performed By: #### Perlita Chopra #### [facility] [place] [facility] [address] [place] [address], [place] [address] Substation Electrician: Kj Lowry MD Potassium [Moles/Vol] 2.7 mmol/L Critically low 3.7-5.3 [facility] Comment on above: Performed By: #### K #### [facility] [place] [facility] [address] [place] [address] Substation Electrician: Kj Lowry MD Potassium [Moles/Vol] 2.6 mmol/L Critically low 3.7-5.3 [facility] Comment on above: Performed By: #### U DINORAHO UAX #### [facility] [place] [facility] [address] [place] [address] Substation Electrician: Kj Lowry MD Magnesiumon 06-30-2023 Magnesium [Mass/Vol] 1.8 mg/dL 1.6 - 2 .6 mg/dL [facility] Magnesium [Mass/Vol] 1.8 mg/dL Normal 1.6-2.6 [facility] Comment on above: Performed By: #### M Marcela, K #### [facility] [place] [facility] [address] [place] [address] Substation Electrician: Kj Lowry MD Interpretation and review of laboratory results Abnormal [facility] Magnesium [Mass/Vol] 1.5 mg/dL Low 1.6 - 2 .6 mg/dL [facility] Magnesium [Mass/Vol] 1.5 mg/dL Low 1.6-2.6 [facility] Comment on above: Performed By: #### Elvis Malone, K #### [facility] [place] [facility] [address] [place] [address] Substation Electrician: Kj Lowry MD No Panel Informationon 06-30 [facility] Potassiumon 06-30-2023 Interpretation and review of laboratory results Abnormal [facility] Potassium [Moles/Vol] 3.5 mmol/L Low 3.7 - 5.3 mmol/L [facility] Interpretation and review of laboratory results Abnormal [facility] Interpretation and review of laboratory results Abnormal [facility] Potassium [Moles/Vol] 2.6 mmol/L Critically low 3.7 - 5.3 mmol/L [facility] CBC with Auto Differentialon 06-29-2023 Basophils (Bld) [#/Vol] 0.06 10*3/uL [facility] Basophils/100 WBC (Bld) 1 % 0 - 2 % [facility] Eosinophils (Bld) [#/Vol] 0.03 10*3/uL [facility] Eosinophils/100 WBC (Bld) 0 % Low 1 - 4 % [facility] Erythrocyte distribution width (RBC) [Ratio] 13.2 % 11.8 - 14.4 % [facility] Hematocrit (Bld) [Volume fraction] 35.4 % Low 36.3 - 47.1 % [facility] Hemoglobin (Bld) [Mass/Vol] 12.8 g/dL 11.9 - 15.1 g/dL [facility] Immature granulocytes (Bld) [#/Vol] 0.04 10*3/uL [facility] Immature granulocytes/100 WBC (Bld) 1 % High 0 [facility] Interpretation and review of laboratory results Abnormal [facility] Lymphocytes/100 WBC (Bld) 44 % High 24 - 43 % [facility] Lymphocytes/100 WBC (Bld) 3.38 % [facility] MCH (RBC) [Entitic mass] 38.3 pg High 25.2 - 33.5 pg [facility] MCHC (RBC) [Mass/Vol] 36.2 g/dL High 25.2 - 33.5 g/dL [facility] MCV (RBC) [Entitic vol] 106.0 fL High 82.6 - 102.9 fL [facility] Monocytes/100 WBC (Bld) 8 % 3 - 12 % [facility] Monocytes/100 WBC (Bld) 0.58 % [facility] Neutrophils/100 WBC (Bld) 46 % 36 - 65 % [facility] Nucleated RBC/100 WBC (Bld) [Ratio] 0.0 % 0.0 per 100 WBC [facility] Platelet mean volume (Bld) [Entitic vol] 9.9 fL 8.1 - 13.5 fL [facility] Platelets (Bld) [#/Vol] 305 10*3/uL [facility] RBC (Bld) [#/Vol] 3.34 10*6/uL Low 3.95 - 5.11 m/uL [facility] RBC (Bld) [#/Vol] MACROCYTOSIS PRESENT [facility] Segmented neutrophils/100 WBC (Bld) 3.65 % [facility] WBC other (Bld) [#/Vol] 7.7 [facility] CBC with Diffon 06-29-2023 Abs. Basophil 0.06 k/uL Normal 0.00-0.20 [facility] Comment on above: Performed By: #### Sujey STEVENSON UAX #### [facility] [place] [facility] [address] [place] [address] Substation Electrician: Kj Lowry MD Abs.Imm.Granulocyte 0.04 k/uL Normal 0.00-0.30 [facility] Comment on above: Performed By: #### Sujey STEVENSON UAX #### [facility] [place] [facility] [address] [place] [address] Substation Electrician: Kj Lowry MD Abs.Neutrophil (Seg) 3.65 k/uL Normal 1.50-8.10 [facility] Comment on above: Performed By: #### Sujey STEVENSON UAX #### [facility] [place] [facility] [address] [place] [address] Substation Electrician: Kj Lowry MD Basophils/100 WBC (Bld) 1 % Normal 0-2 [facility] Comment on above: Performed By: #### U GRAHAM UAX #### [facility] [place] [facility] [address] [place] [address] Substation Electrician: Kj Lowry MD Eosinophils (Bld) [#/Vol] 0.03 10*3/uL Normal 0.00-0.44 [facility] Comment on above: Performed By: #### Sujey STEVENSON UAX #### [facility] [place] [facility] [address] [place] [address] Substation Electrician: Kj Lowry MD Eosinophils/100 WBC (Bld) 0 % Low 1-4 [facility] Comment on above: Performed By: #### Sujey STEVENSON UAX #### [facility] [place] [facility] [address] [place] [address] Substation Electrician: Kj Lowry MD Erythrocyte distribution width (RBC) [Ratio] 13.2 % Normal 11.8-14.4 [facility] Comment on above: Performed By: #### Sujey STEVENSON UAX #### [facility] [place] [facility] [address] [place] [address] Substation Electrician: Kj Lowry MD Hematocrit (Bld) [Volume fraction] 35.4 % Low 36.3-47.1 [facility] Comment on above: Performed By: #### Sujey STEVENSON UAX #### [facility] [place] [facility] [address] [place] [address] Substation Electrician: Kj Lowry MD Hemoglobin (Bld) [Mass/Vol] 12.8 g/dL Normal 11.9-15.1 [facility] Comment on above: Performed By: #### Sujey STEVENSON UAX #### [facility] [place] [facility] [address] [place] [address] Substation Electrician: Kj Lowry MD Immature granulocytes/100 WBC (Bld) 1 % High 0 [facility] Comment on above: Performed By: #### Sujey STEVENSON UAX #### [facility] [place] [facility] [address] [place] [address] Substation Electrician: Kj Lowry MD Lymphocytes (Bld) [#/Vol] 3.38 10*3/uL Normal 1.10-3.70 [facility] Comment on above: Performed By: #### Sujey STEVENSON UAX #### [facility] [place] [facility] [address] [place] [address] Substation Electrician: Kj Lowry MD Lymphocytes/100 WBC (Bld) 44 % High 24-43 [facility] Comment on above: Performed By: #### Sujey STEVENSON UAX #### [facility] [place] [facility] [address] [place] [address] Substation Electrician: Kj Lowry MD MCH (RBC) [Entitic mass] 38.3 pg High 25.2-33.5 [facility] Comment on above: Performed By: #### Sujey STEVENSON UAX #### [facility] [place] [facility] [address] [place] [address] Substation Electrician: Kj Lowry MD MCHC (RBC) [Mass/Vol] 36.2 g/dL High 25.2-33.5 [facility] Comment on above: Performed By: #### Sujey STEVENSON UAX #### [facility] [place] [facility] [address] [place] [address] Substation Electrician: Kj Lowry MD MCV (RBC) [Entitic vol] 106.0 fL High 82.6-102.9 [facility] Comment on above: Performed By: #### Sujey STEVENSON UAX #### [facility] [place] [facility] [address] [place] [address] Substation Electrician: Kj Lowry MD Monocytes (Bld) [#/Vol] 0.58 10*3/uL Normal 0.10-1.20 [facility] Comment on above: Performed By: #### Sujey STEVENSON UAX #### [facility] [place] [facility] [address] [place] [address] Substation Electrician: Kj Lowry MD Monocytes/100 WBC (Bld) 8 % Normal 3-12 [facility] Comment on above: Performed By: #### Sujey STEVENSON UAX #### [facility] [place] [facility] [address] [place] [address] Substation Electrician: Kj Lowry MD Neutrophil (Seg) 46 % Normal 36-65 [facility] Comment on above: Performed By: #### Sujey STEVENSON UAX #### [facility] [place] [facility] [address] [place] [address], [place] [address] Substation Electrician: Kj Lowry MD NRBC Automated 0.0 per 100 WBC Normal 0.0 [facility] Comment on above: Performed By: #### U GRAHAM UAX #### [facility] [place] [facility] [address] [place] [address] Substation Electrician: Kj Lowry MD Platelet mean volume (Bld) [Entitic vol] 9.9 fL Normal 8.1-13.5 [facility] Comment on above: Performed By: #### Sujey STEVENSON UAX #### [facility] [place] [facility] [address] [place] [address] Substation Electrician: Kj Lowry MD Platelets (Bld) [#/Vol] 305 10*3/uL Normal 138-453 [facility] Comment on above: Performed By: #### Sujey STEVENSON UAX #### [facility] [place] [facility] [address] [place] [address], [place] [address] Substation Electrician: Kj Lowry MD RBC (Bld) [#/Vol] 3.34 10*6/uL Low 3.95-5.11 [facility] Comment on above: Performed By: #### Sujey STEVENSON UAX #### [facility] [place] [facility] [address] [place] [address], [place] [address] Substation Electrician: Kj Lowry MD RBC morphology finding Nom (Bld) MACROCYTOSIS PRESENT Normal [facility] Comment on above: Performed By: #### Sujey STEVENSON UAX #### [facility] [place] [facility] [address] [place] [address] Substation Electrician: Kj Lowry MD WBC (Bld) [#/Vol] 7.7 10*3/uL Normal 3.5-11.3 [facility] Comment on above: Performed By: #### Sujey STEVENSON UAX #### [facility] [place] [facility] [address] [place] [address] Substation Electrician: Kj Lowry MD CTA CHEST W CONTRASTon 06-29 CTA CHEST W CONTRAST EXAMINATION: CTA OF THE CHEST 06/29/2023 9:41 pm TECHNIQUE: CTA of the chest was performed after the administration of intravenous contrast. Multiplanar reformatted images are provided for review. MIP images are provided for review. Automated exposure control, iterative reconstruction, and/or weight based adjustment of the mA/kV was utilized to reduce the radiation dose to as low as reasonably achievable. COMPARISON: None. HISTORY: ORDERING SYSTEM PROVIDED HISTORY: chest pain through to back / eval aorta TECHNOLOGIST PROVIDED HISTORY: chest pain through to back / eval aorta Additional Contrast?->1 Reason for Exam: chest pain through to back / eval aorta FINDINGS: Aorta: No evidence of thoracic aortic aneurysm or dissection. No acute abnormality of the aorta. Mediastinum: No evidence of mediastinal lymphadenopathy. The heart and pericardium demonstrate no acute abnormality. There is a small hiatal hernia and there has been prior sleeve gastrectomy. Lungs/Pleura: The lungs are without acute process. No focal consolidation or pulmonary edema. No evidence of pleural effusion or pneumothorax. Upper Abdomen: Limited images of the upper abdomen disclose marked hypodensity of the liver and prior cholecystectomy. Soft Tissues/Bones: No acute bone or soft tissue abnormality. IMPRESSION: 1. No evidence of thoracic aortic aneurysm or dissection. 2. No acute cardiopulmonary process is identified. 3. Status post sleeve gastrectomy with small hiatal hernia. 4. Marked fatty infiltration of the liver. 5. Status post cholecystectomy. Interpreted by: Raffy Toth MD Signed by: Raffy Toth MD 06/29/23 Final result Normal [facility] CTA Chest vessels W contrast [place] 06-29-2023 1. No evidence of thoracic aortic aneurysm or dissection. 2. No acute cardiopulmonary process is identified. 3. Status post sleeve gastrectomy with small hiatal hernia. 4. Marked fatty infiltration of the liver. 5. Status post cholecystectomy. [facility]IS CONSOL[facility] EXAMINATION: CTA OF THE CHEST 06/29/2023 9:41 pm TECHNIQUE: CTA of the chest was performed after the administration of intravenous contrast. Multiplanar reformatted images are provided for review. MIP images are provided for review. Automated exposure control, iterative reconstruction, and/or weight based adjustment of the mA/kV was utilized to reduce the radiation dose to as low as reasonably achievable. COMPARISON: None. HISTORY: ORDERING SYSTEM PROVIDED HISTORY: chest pain through to back / eval aorta TECHNOLOGIST PROVIDED HISTORY: chest pain through to back / eval aorta Additional Contrast?->1 Reason for Exam: chest pain through to back / eval aorta FINDINGS: Aorta: No evidence of thoracic aortic aneurysm or dissection. No acute abnormality of the aorta. Mediastinum: No evidence of mediastinal lymphadenopathy. The heart and pericardium demonstrate no acute abnormality. There is a small hiatal hernia and there has been prior sleeve gastrectomy. Lungs/Pleura: The lungs are without acute process. No focal consolidation or pulmonary edema. No evidence of pleural effusion or pneumothorax. Upper Abdomen: Limited images of the upper abdomen disclose marked hypodensity of the liver and prior cholecystectomy. Soft Tissues/Bones: No acute bone or soft tissue abnormality. [facility] Raffy Toth MD - 06/29/2023 EXAMINATION: CTA OF THE CHEST 06/29/2023 9:41 pm TECHNIQUE: CTA of the chest was performed after the administration of intravenous contrast. Multiplanar reformatted images are provided for review. MIP images are provided for review. Automated exposure control, iterative reconstruction, and/or weight based adjustment of the mA/kV was utilized to reduce the radiation dose to as low as reasonably achievable. COMPARISON: None. HISTORY: ORDERING SYSTEM PROVIDED HISTORY: chest pain through to back / eval aorta TECHNOLOGIST PROVIDED HISTORY: chest pain through to back / eval aorta Additional Contrast?->1 Reason for Exam: chest pain through to back / eval aorta FINDINGS: Aorta: No evidence of thoracic aortic aneurysm or dissection. No acute abnormality of the aorta. Mediastinum: No evidence of mediastinal lymphadenopathy. The heart and pericardium demonstrate no acute abnormality. There is a small hiatal hernia and there has been prior sleeve gastrectomy. Lungs/Pleura: The lungs are without acute process. No focal consolidation or pulmonary edema. No evidence of pleural effusion or pneumothorax. Upper Abdomen: Limited images of the upper abdomen disclose marked hypodensity of the liver and prior cholecystectomy. Soft Tissues/Bones: No acute bone or soft tissue abnormality. IMPRESSION: 1. No evidence of thoracic aortic aneurysm or dissection. 2. No acute cardiopulmonary process is identified. 3. Status post sleeve gastrectomy with small hiatal hernia. 4. Marked fatty infiltration of the liver. 5. Status post cholecystectomy. [facility] Radiology Study observation (narrative) [facility] CTA Chest vessels W contrast IVOrdered By: Raffy Toth on 06-29-2023 [facility] Work Phone: Comp Metabolic Profon 2023 Potassium [Moles/Vol] 2.2 mmol/L Critically low 3.7-5.3 [facility] Comment on above: Performed By: #### U GRAHAM UAX #### [facility] [place] [facility] [address] [place] [address] Substation Electrician: Kj Lowry MD Albumin [Mass/Vol] 3.2 g/dL Low 3.5-5.2 [facility] Comment on above: Performed By: #### U GRAHAM UAX #### [facility] [place] [facility] [address] [place] [address] Substation Electrician: Kj Lowry MD Albumin/Glob Ratio 1.1 Normal 1.0-2.5 [facility] Comment on above: Performed By: #### U DINORAHO, UAX #### [facility] [place] [facility] [address] [place] [address] Substation Electrician: Kj Lowry MD Alkaline Phos 189 U/L High 35-104 [facility] Comment on above: Performed By: #### U DINORAHO, UAX #### [facility] [place] [facility] [address] [place] [address] Substation Electrician: Kj Lowry MD ALT [Catalytic activity/Vol] 125 U/L High 5-33 [facility] Comment on above: Performed By: #### U DINORAHO, UAX #### [facility] [place] [facility] [address] [place] [address] Substation Electrician: Kj Lowry MD Anion gap [Moles/Vol] 14 mmol/L Normal 9-17 [facility] Comment on above: Performed By: #### Sujey STEVENSON UAX #### [facility] [place] [facility] [address] [place] [address] Substation Electrician: Kj Lowry MD AST [Catalytic activity/Vol] 241 U/L High <32 [facility] Comment on above: Performed By: #### Sujey STEVENSON UAX #### [facility] [place] [facility] [address] [place] [address] Substation Electrician: Kj Lowry MD Bilirubin [Mass/Vol] 1.7 mg/dL High 0.3-1.2 [facility] Comment on above: Performed By: #### Sujey STEVENSON UAX #### [facility] [place] [facility] [address] [place] [address] Substation Electrician: Kj Lowry MD BUN/CRE Ratio 6 Low 9-20 [facility] Comment on above: Performed By: #### Sujey STEVENSON UAX #### [facility] [place] [facility] [address] [place] [address] Substation Electrician: Kj Lowry MD Calcium [Mass/Vol] 8.9 mg/dL Normal 8.6-10.4 [facility] Comment on above: Performed By: #### Sujey STEVENSON UAX #### [facility] [place] [facility] [address] [place] [address], [place] [address] Substation Electrician: Kj Lowry MD Chloride [Moles/Vol] 90 mmol/L Low 98-107 [facility] Comment on above: Performed By: #### Sujey STEVENSON UAX #### [facility] [place] [facility] [address] [place] [address], [place] [address] Substation Electrician: Kj Lowry MD CO2 [Moles/Vol] 30 mmol/L Normal 20-31 [facility] Comment on above: Performed By: #### Sujey STEVENSON UAX #### [facility] [place] [facility] [address] [place] [address] Substation Electrician: Kj Lowry MD Creatinine [Mass/Vol] 0.5 mg/dL Normal 0.5-0.9 [facility] Comment on above: Performed By: #### Sujey STEVENSON, UAX #### [facility] [place] [facility] [address] [place] [address] Substation Electrician: Kj Lowry MD GFR/1.73 sq M.predicted among non-blacks MDRD (S/P/Bld) [Vol rate/Area] mL/min/{1.73_m2} Normal >60 [facility] Comment on above: Result Comment: These results are not intended for use in patients <18 years of age. eGFR results are calculated without a race factor using the 2020 CKD-EPI equation. Careful clinical correlation is recommended, particularly when comparing to results calculated using previous equations. The CKD-EPI equation is less accurate in patients with extremes of muscle mass, extra-renal metabolism of creatine, excessive creatine ingestion, or following therapy that affects renal tubular secretion. Performed By: #### Sujey STEVENSON UAX #### [facility] [place] [facility] [address] [place] [address] Substation Electrician: Kj Lowry MD Glucose [Mass/Vol] 109 mg/dL High 70-99 [facility] Comment on above: Performed By: #### Sujey STEVENSON UAX #### [facility] [place] [facility] [address] [place] [address] Substation Electrician: Kj Lowry MD Protein [Mass/Vol] 6.0 g/dL Low 6.4-8.3 [facility] Comment on above: Performed By: #### Sujey STEVENSON UAX #### [facility] [place] [facility] [address] [place] [address] Substation Electrician: Kj Lowry MD Sodium [Moles/Vol] 134 mmol/L Low 135-144 [facility] Comment on above: Performed By: #### Sujey STEVENSON UAX #### [facility] [place] [facility] [address] [facility] [place] [address] Substation Electrician: Kj Lowry MD Urea nitrogen [Mass/Vol] 3 mg/dL Low 6-20 [facility] Comment on above: Performed By: #### U NETO STEVENSON #### [facility] [place] [facility] [address] [place] [address] Substation Electrician: Kj Lowry MD [facility] Metabolic Pane [facility] 06-29-2023 Albumin [Mass/Vol] 3.2 g/dL Low 3.5 - 5.2 g/dL [facility] Albumin/Globulin [Mass ratio] 1.1 {ratio} 1.0 - 2.5 [facility] ALP [Catalytic activity/Vol] 189 U/L High 35 - 104 U/L [facility] ALT [Catalytic activity/Vol] 125 U/L High 5 - 33 U/L [facility] Anion gap [Moles/Vol] 14 mmol/L 9 - 17 mmol/L [facility] AST [Catalytic activity/Vol] 241 U/L High NINF - 32 U/L [facility] Bilirubin [Mass/Vol] 1.7 mg/dL High 0.3 - 1 .2 mg/dL [facility] Calcium [Mass/Vol] 8.9 mg/dL 8.6 - 10. 4 mg/dL [facility] Chloride [Moles/Vol] 90 mmol/L Low 98 - 10 7 mmol/L [facility] CO2 [Moles/Vol] 30 mmol/L 20 - 31 mmol/L [facility] Creatinine [Mass/Vol] 0.5 mg/dL 0.5 - 0.9 mg/dL [facility] GFR/1.73 sq M.predicted MDRD (S/P/Bld) [Vol rate/Area] - PINF [facility] Comment on above: These results are not intended for use in patients <18 years of age. eGFR results are calculated without a race factor using the 2020 CKD-EPI equation. Careful clinical correlation is recommended, particularly when comparing to results calculated using previous equations. The CKD-EPI equation is less accurate in patients with extremes of muscle mass, extra-renal metabolism of creatine, excessive creatine ingestion, or following therapy that affects renal tubular secretion. Glucose [Mass/Vol] 109 mg/dL High 70 - 99 mg/dL [facility] Interpretation and review of laboratory results Abnormal [facility] Potassium [Moles/Vol] 2.2 mmol/L Critically low 3.7 - 5.3 mmol/L [facility] Protein [Mass/Vol] 6.0 g/dL Low 6.4 - 8.3 g/dL [facility] Sodium [Moles/Vol] 134 mmol/L Low 135 - 144 mmol/L [facility] Urea nitrogen [Mass/Vol] 3 mg/dL Low 6 - 20 mg/dL [facility] Urea nitrogen/Creatinine [Mass ratio] 6 mg/mg Low 9 - 20 [facility] Magnesiumon 06-29-2023 Magnesium [Mass/Vol] 1.7 mg/dL 1.6 - 2 .6 mg/dL [facility] Magnesium [Mass/Vol] 1.7 mg/dL Normal 1.6-2.6 [facility] Comment on above: Performed By: #### U NETO STEVENSON #### [facility] [place] [facility] [address] [place] [address] Substation Electrician: Kj Lowry MD Microscopic Urinalysison Bacteria LM Ql (Urine sed) MODERATE Abnormal None [facility] Character (U) Culture ordered base d on defined criteria. Abnormal NOT REQ. [facility] Epithelial cells LM.HPF (Urine sed) [#/Area] 5 TO 10 [facility] Interpretation and review of laboratory results Abnormal [facility] RBC LM.HPF (Urine sed) [#/Area] 2 TO 5 [facility] WBC LM.HPF (Urine sed) [#/Area] 10 TO 20 [facility] Troponinon 06-29-2023 Troponin I.cardiac High sensitivity method [Mass/Vol] 8 ng/L 0 - 14 ng/L [facility] Comment on above: High Sensitivity Tro ponin values cannot be compared with other Troponin methodologies. [facility] Troponin, High Sens 8 ng/L Normal 0-14 [facility] Comment on above: Result Comment: High Sensitivity Troponin values cannot be compared with other Troponin methodologies. Performed By: #### T ROPI #### [facility] [place] [facility] [address] [place] [address] Substation Electrician: Kj Lowry MD Troponin I.cardiac High sensitivity method [Mass/Vol] 7 ng/L 0 - 14 ng/L [facility] Comment on above: High Sensitivity Tro ponin values cannot be compared with other Troponin methodologies. [facility] Troponin, High Sens 7 ng/L Normal 0-14 [facility] Comment on above: Result Comment: High Sensitivity Troponin values cannot be compared with other Troponin methodologies. Performed By: #### U DINORAHO, UAX #### [facility] [place] [facility] [address] [place] [address] Substation Electrician: Kj Lowry MD UA w/Reflex Cultureon 2023 Bilirubin, SemiQt,Ur Negative Normal NEG [facility] Comment on above: Performed By: #### U DINORAHO, UAX #### [facility] [place] [facility] [address] [place] [address] Substation Electrician: Kj Lowry MD Blood, Urine TRACE Abnormal NEG [facility] Comment on above: Performed By: #### U DINORAHO, UAX #### [facility] [place] [facility] [address] [place] [address] Substation Electrician: Kj Lowry MD Clarity (U) Clear Normal CLEAR [facility] Comment on above: Performed By: #### U DINORAHO, UAX #### [facility] [place] [facility] [address] [place] [address] Substation Electrician: Kj Lowry MD Color (U) Yellow Normal YEL [facility] Comment on above: Performed By: #### U DINROAHO, UAX #### [facility] [place] [facility] [address] [place] [address], [place] [address] Substation Electrician: Kj Lowry MD Glucose Ql (U) Negative Normal NEG [facility] Comment on above: Performed By: #### U MICAO, UAX #### [facility] [place] [facility] [address] [place] [address] Substation Electrician: Kj Lowry MD Ketones Ql (U) Negative Normal NEG [facility] Comment on above: Performed By: #### U MICAO, UAX #### [facility] [place] [facility] [address] [place] [address], [place] [address] Substation Electrician: Kj Lowry MD Leukocyte esterase Test strip Ql (U) MODERATE Abnormal NEG [facility] Comment on above: Performed By: #### U MICAO, UAX #### [facility] [place] [facility] [address] [place] [address], [place] [address] Substation Electrician: Kj Lowry MD Nitrite,Ur Negative Normal NEG [facility] Comment on above: Performed By: #### U MICAO, UAX #### [facility] [place] [facility] [address] [place] [address], [place] [address] Substation Electrician: Kj Lowry MD PH,Ur 6.5 High 5.0-6.0 [facility] Comment on above: Performed By: #### U MICAO, UAX #### [facility] [place] [facility] [address] [place] [address], [place] [address] Substation Electrician: Kj Lowry MD Protein Ql (U) Negative Normal NEG [facility] Comment on above: Performed By: #### U MICAO, UAX #### [facility] [place] [facility] [address] [place] [address] Substation Electrician: Kj Lowry MD Spec. [place],Ur 1.005 Low 1.010-1.02 5 [facility] Comment on above: Performed By: #### U MICAO, UAX #### [facility] [place] [facility] [address] [place] [address] Substation Electrician: Kj Lowry MD Urobilinogen,Ur Normal Normal 0.0-1.0 [facility] Comment on above: Performed By: #### U GRAHAM UAX #### [facility] [place] [facility] [address] [place] [address] Substation Electrician: Kj Lowry MD Urinalysis with Reflex to Cu ltureon 06-29-2023 Bilirubin Ql (U) Negative NEGATIVE [facility] Clarity (U) Clear Clear [facility] Color (U) Yellow Yellow [facility] Glucose Test strip (U) [Mass/Vol] Negative NEGATIVE mg/dL [facility] Hemoglobin Auto test strip Ql (U) TRACE Abnormal NEGATIVE [facility] Interpretation and review of laboratory results Abnormal [facility] Ketones (U) [Mass/Vol] Negative NEGAT SHERRY mg/dL [facility] Leukocyte esterase Test strip Ql (U) MODERATE Abnormal NEGATIVE [facility] Nitrite Ql (U) Negative NEGATIVE [facility] pH (U) 6.5 [pH] High 5.0 - 6.0 [facility] Protein (U) [Mass/Vol] Negative NEGAT SHERRY mg/dL [facility] Specific gravity (U) [Rel density] 1.005 Low 1.010 - 1.025 [facility] Urobilinogen Qn (U) Normal 0.0 - 1. 0 EU/dL [facility] Urinalysis,Microon 4 Bacteria MODERATE Abnormal NONE [facility] Comment on above: Performed By: #### U ANISH STEVENSONX #### [facility] [place] [facility] [address] [place] [address] Substation Electrician: Kj Lowry MD Epithelial cells LM Ql (Urine sed) 5 TO 10 Normal 0-5 [facility] Comment on above: Performed By: #### U GRAHAM UAX #### [facility] [place] [facility] [address] [facility] [place] [address] Substation Electrician: Kj Lowry MD Other Observations Culture ordered base d on defined criteria. Abnormal NREQ [facility] Comment on above: Performed By: #### U MICAO, UAX #### [facility] [place] [facility] [address] [place] [address] Substation Electrician: Kj Lowry MD Urine RBC's 2 TO 5 Normal 04 [facility] Comment on above: Performed By: #### U MICAO, UAX #### [facility] [address] [facility] [place] [address] Substation Electrician: Kj Lowry MD Urine WBC's 10 TO 20 Normal 04 [facility] Comment on above: Performed By: #### U MICAO, UAX #### [facility] [address] [place] [address], [place] [address] Substation Electrician: Kj Lowry MD CBC with Auto Differentialon 06-21-2023 Basophils (Bld) [#/Vol] 0.04 10*3/uL [facility] Basophils/100 WBC (Bld) 1 % 0 - 2 % [facility] Eosinophils (Bld) [#/Vol] 0.05 10*3/uL [facility] Eosinophils/100 WBC (Bld) 1 % 1 - 4 % [facility] Erythrocyte distribution width (RBC) [Ratio] 13.2 % 11.8 - 14.4 % [facility] Hematocrit (Bld) [Volume fraction] 37.6 % 36.3 - 47.1 % [facility] Hemoglobin (Bld) [Mass/Vol] 13.3 g/dL 11.9 - 15.1 g/dL [facility] Immature granulocytes (Bld) [#/Vol] [facility] Immature granulocytes/100 WBC (Bld) 0 % 0 [facility] Interpretation and review of laboratory results Abnormal [facility] Lymphocytes/100 WBC (Bld) 31 % 24 - 43 % [facility] Lymphocytes/100 WBC (Bld) 1.93 % [facility] MCH (RBC) [Entitic mass] 38.0 pg High 25.2 - 33.5 pg [facility] MCHC (RBC) [Mass/Vol] 35.4 g/dL High 25.2 - 33.5 g/dL [facility] MCV (RBC) [Entitic vol] 107.4 fL High 82.6 - 102.9 fL [facility] Monocytes/100 WBC (Bld) 8 % 3 - 12 % [facility] Monocytes/100 WBC (Bld) 0.50 % [facility] Neutrophils/100 WBC (Bld) 59 % 36 - 65 % [facility] Nucleated RBC/100 WBC (Bld) [Ratio] 0.0 % 0.0 per 100 WBC [facility] Platelet mean volume (Bld) [Entitic vol] 10.1 fL 8.1 - 13.5 fL [facility] Platelets (Bld) [#/Vol] 226 10*3/uL [facility] RBC (Bld) [#/Vol] 3.50 10*6/uL Low 3.95 - 5.11 m/uL [facility] RBC (Bld) [#/Vol] MACROCYTOSIS PRESENT [facility] Segmented neutrophils/100 WBC (Bld) 3.68 % [facility] WBC other (Bld) [#/Vol] 6.2 [facility] CBC with Diffon 06-21-2023 Abs. Basophil 0.04 k/uL Normal 0.00-0.20 [facility] Comment on above: Performed By: #### ANISH DALEX #### [facility] [address] [place] [address] Substation Electrician: Kj Lowry MD Abs.Imm.Granulocyte <0.03 Normal 0.00-0.30 [facility] Comment on above: Performed By: #### Sujey STEVENSON UAX #### [facility] [address] [place] [address] Substation Electrician: Kj Lowry MD Abs.Neutrophil (Seg) 3.68 k/uL Normal 1.50-8.10 [facility] Comment on above: Performed By: #### Sujey STEVENSON UAX #### [facility] [address] [place] [address] Substation Electrician: Kj Lowry MD Basophils/100 WBC (Bld) 1 % Normal 0-2 [facility] Comment on above: Performed By: #### Sujey STEVENSON UAX #### [facility] [address] [place] [address] Substation Electrician: Kj Lowry MD Eosinophils (Bld) [#/Vol] 0.05 10*3/uL Normal 0.00-0.44 [facility] Comment on above: Performed By: #### Sujey STEVENSON UAX #### [facility] [address] [place] [address] Substation Electrician: Kj Lowry MD Eosinophils/100 WBC (Bld) 1 % Normal 1-4 [facility] Comment on above: Performed By: #### Sujey STEVENSON UAX #### [facility] [address] [place] [address] Substation Electrician: Kj Lowry MD Erythrocyte distribution width (RBC) [Ratio] 13.2 % Normal 11.8-14.4 [facility] Comment on above: Performed By: #### Sujey STEVENSON UAX #### [facility] [address] [place] [address] Substation Electrician: Kj Lowry MD Hematocrit (Bld) [Volume fraction] 37.6 % Normal 36.3-47.1 [facility] Comment on above: Performed By: #### Sujey STEVENSON UAX #### [facility] [address] [place] [address] Substation Electrician: Kj Lowry MD Hemoglobin (Bld) [Mass/Vol] 13.3 g/dL Normal 11.9-15.1 [facility] Comment on above: Performed By: #### Sujey STEVENSON UAX #### [facility] [address] [place] [address] Substation Electrician: Kj Lowry MD Immature granulocytes/100 WBC (Bld) 0 % Normal 0 [facility] Comment on above: Performed By: #### Sujey STEVENSON UAX #### [facility] [address] [place] [address] Substation Electrician: Kj Lowry MD Lymphocytes (Bld) [#/Vol] 1.93 10*3/uL Normal 1.10-3.70 [facility] Comment on above: Performed By: #### Sujey STEVENSON UAX #### [facility] [address] [place] [address] Substation Electrician: Kj Lowry MD Lymphocytes/100 WBC (Bld) 31 % Normal 24-43 [facility] Comment on above: Performed By: #### Sujey STEVENSON UAX #### [facility] [address] [place] [address] Substation Electrician: Kj Lowry MD MCH (RBC) [Entitic mass] 38.0 pg High 25.2-33.5 [facility] Comment on above: Performed By: #### Sujey STEVENSON UAX #### [facility] [address] [place] [address] Substation Electrician: Kj Lowry MD MCHC (RBC) [Mass/Vol] 35.4 g/dL High 25.2-33.5 [facility] Comment on above: Performed By: #### Sujey STEVENSON UAX #### [facility] [address] [place] [address] Substation Electrician: Kj Lowry MD MCV (RBC) [Entitic vol] 107.4 fL High 82.6-102.9 [facility] Comment on above: Performed By: #### U GRAHAM UAX #### [facility] [address] [place] [address] Substation Electrician: Kj Lowry MD Monocytes (Bld) [#/Vol] 0.50 10*3/uL Normal 0.10-1.20 [facility] Comment on above: Performed By: #### U GRAHAM UAX #### [facility] [address] [place] [address] Substation Electrician: Kj Lowry MD Monocytes/100 WBC (Bld) 8 % Normal 3-12 [facility] Comment on above: Performed By: #### U GRAHAM UAX #### [facility] [address] [place] [address] Substation Electrician: Kj Lowry MD Neutrophil (Seg) 59 % Normal 36-65 [facility] Comment on above: Performed By: #### U GRAHAM UAX #### [facility] [address] [place] [address] Substation Electrician: Kj Lowry MD NRBC Automated 0.0 per 100 WBC Normal 0.0 [facility] Comment on above: Performed By: #### U GRAHAM UAX #### [facility] [address] [place] [address] Substation Electrician: Kj Lowry MD Platelet mean volume (Bld) [Entitic vol] 10.1 fL Normal 8.1-13.5 [facility] Comment on above: Performed By: #### U GRAHAM UAX #### [facility] [address] [place] [address] Substation Electrician: Kj Lowry MD Platelets (Bld) [#/Vol] 226 10*3/uL Normal 138-453 [facility] Comment on above: Performed By: #### U GRAHAM UAX #### [facility] [address] [place] [address] Substation Electrician: Kj Lowry MD RBC (Bld) [#/Vol] 3.50 10*6/uL Low 3.95-5.11 [facility] Comment on above: Performed By: #### U GRAHAM, UAX #### [facility] [address] [place] [address], [place] [address] Substation Electrician: Kj Lowry MD RBC morphology finding Nom (Bld) MACROCYTOSIS PRESENT Normal [facility] Comment on above: Performed By: #### Sujey STEVENSON UAX #### [facility] [address] [place] [address] Substation Electrician: Kj Lowry MD WBC (Bld) [#/Vol] 6.2 10*3/uL Normal 3.5-11.3 [facility] Comment on above: Performed By: #### Sujey STEVENSON UAX #### [facility] [address] [place] [address] Substation Electrician: Kj Lowry MD Comp Metabolic Profon 2023 BUN/CRE Ratio 8 Low 9-20 [facility] Comment on above: Performed By: #### Sujey STEVENSON UAX #### [facility] [address] [place] [address] Substation Electrician: Kj Lowry MD Creatinine [Mass/Vol] 0.5 mg/dL Normal 0.5-0.9 [facility] Comment on above: Result Comment: ICTE SANDRINE SPECIMEN Performed By: #### Sujey STEVENSON UAX #### [facility] [address] [place] [address] Substation Electrician: Kj Lowry MD GFR/1.73 sq M.predicted among non-blacks MDRD (S/P/Bld) [Vol rate/Area] mL/min/{1.73_m2} Normal >60 [facility] Comment on above: Result Comment: These results are not intended for use in patients <18 years of age. eGFR results are calculated without a race factor using the 2020 CKD-EPI equation. Careful clinical correlation is recommended, particularly when comparing to results calculated using previous equations. The CKD-EPI equation is less accurate in patients with extremes of muscle mass, extra-renal metabolism of creatine, excessive creatine ingestion, or following therapy that affects renal tubular secretion. Performed By: #### U GRAHAM UAX #### [facility] [address] [place] [address] Substation Electrician: Kj Lowry MD Potassium [Moles/Vol] 3.0 mmol/L Low 3.7-5.3 [facility] Comment on above: Performed By: #### Sujey STEVENSON UAX #### [facility] [address] [place] [address] Substation Electrician: Kj Lowry MD Albumin [Mass/Vol] 3.0 g/dL Low 3.5-5.2 [facility] Comment on above: Performed By: #### Sujey STEVENSON UAX #### [facility] [address] [place] [address] Substation Electrician: Kj Lowry MD Albumin/Glob Ratio 1.1 Normal 1.0-2.5 [facility] Comment on above: Performed By: #### Sujey STEVENSON UAX #### [facility] [address] [place] [address] Substation Electrician: Kj Lowry MD Alkaline Phos 189 U/L High 35-104 [facility] Comment on above: Performed By: #### Sujey STEVENSON UAX #### [facility] [address] [place] [address] Substation Electrician: Kj Lowry MD ALT [Catalytic activity/Vol] 104 U/L High 5-33 [facility] Comment on above: Performed By: #### U GRAHAM UAX #### [facility] [address] [place] [address] Substation Electrician: Kj Lowry MD Anion gap [Moles/Vol] 13 mmol/L Normal 9-17 [facility] Comment on above: Performed By: #### U GRAHAM, UAX #### [facility] [address] [place] [address] Substation Electrician: Kj Lowry MD AST [Catalytic activity/Vol] 197 U/L High <32 [facility] Comment on above: Performed By: #### U GRAHAM UAX #### [facility] [address] [place] [address] Substation Electrician: Kj Lowry MD Bilirubin [Mass/Vol] 2.9 mg/dL High 0.3-1.2 [facility] Comment on above: Performed By: #### Sujey STEVENSON UAX #### [facility] [address] [place] [address] Substation Electrician: Kj Lowry MD Calcium [Mass/Vol] 8.1 mg/dL Low 8.6-10.4 [facility] Comment on above: Performed By: #### U GRAHAM UAX #### [facility] [address] [place] [address] Substation Electrician: Kj Lowry MD Chloride [Moles/Vol] 95 mmol/L Low 98-107 [facility] Comment on above: Performed By: #### U GRAHAM UAX #### [facility] [address] [place] [address], [place] [address] Substation Electrician: Kj Lowry MD CO2 [Moles/Vol] 32 mmol/L High 20-31 [facility] Comment on above: Performed By: #### U GRAHAM UAX #### [facility] [address] [place] [address] Substation Electrician: Kj Lowry MD Glucose [Mass/Vol] 113 mg/dL High 70-99 [facility] Comment on above: Performed By: #### Sujey STEVENSON UAX #### [facility] [address] [place] [address] Substation Electrician: Kj Lowry MD Protein [Mass/Vol] 5.8 g/dL Low 6.4-8.3 [facility] Comment on above: Performed By: #### Sujey STEVENSON UAX #### [facility] [address] [place] [address] Substation Electrician: Kj Lowry MD Sodium [Moles/Vol] 140 mmol/L Normal 135-144 [facility] Comment on above: Performed By: #### Sujey STEVENSON UAX #### [facility] [address] [place] [address] Substation Electrician: Kj Lowry MD Urea nitrogen [Mass/Vol] 4 mg/dL Low 6-20 [facility] Comment on above: Performed By: #### Sujey STEVENSON UAX #### [facility] [address] [place] [address] Substation Electrician: Kj Lowry MD Comprehensive Metabolic Pane [facility] 06-21-2023 Albumin [Mass/Vol] 3.0 g/dL Low 3.5 - 5.2 g/dL [facility] Albumin/Globulin [Mass ratio] 1.1 {ratio} 1.0 - 2.5 [facility] ALP [Catalytic activity/Vol] 189 U/L High 35 - 104 U/L [facility] ALT [Catalytic activity/Vol] 104 U/L High 5 - 33 U/L [facility] Anion gap [Moles/Vol] 13 mmol/L 9 - 17 mmol/L [facility] AST [Catalytic activity/Vol] 197 U/L High NINF - 32 U/L [facility] Bilirubin [Mass/Vol] 2.9 mg/dL High 0.3 - 1 .2 mg/dL [facility] Calcium [Mass/Vol] 8.1 mg/dL Low 8.6 - 10. 4 mg/dL [facility] Chloride [Moles/Vol] 95 mmol/L Low 98 - 10 7 mmol/L [facility] CO2 [Moles/Vol] 32 mmol/L High 20 - 31 mmol/L [facility] Creatinine [Mass/Vol] 0.5 mg/dL 0.5 - 0.9 mg/dL [facility] Comment on above: ICTERIC SPECIMEN GFR/1.73 sq M.predicted MDRD (S/P/Bld) [Vol rate/Area] - PINF [facility] Comment on above: These results are not intended for use in patients <18 years of age. eGFR results are calculated without a race factor using the 2020 CKD-EPI equation. Careful clinical correlation is recommended, particularly when comparing to results calculated using previous equations. The CKD-EPI equation is less accurate in patients with extremes of muscle mass, extra-renal metabolism of creatine, excessive creatine ingestion, or following therapy that affects renal tubular secretion. Glucose [Mass/Vol] 113 mg/dL High 70 - 99 mg/dL [facility] Interpretation and review of laboratory results Abnormal [facility] Potassium [Moles/Vol] 3.0 mmol/L Low 3.7 - 5.3 mmol/L [facility] Protein [Mass/Vol] 5.8 g/dL Low 6.4 - 8.3 g/dL [facility] Sodium [Moles/Vol] 140 mmol/L 135 - 144 mmol/L [facility] Urea nitrogen [Mass/Vol] 4 mg/dL Low 6 - 20 mg/dL [facility] Urea nitrogen/Creatinine [Mass ratio] 8 mg/mg Low 9 - 20 [facility] Magnesiumon 06-21-2023 Interpretation and review of laboratory results Abnormal [facility] Magnesium [Mass/Vol] 1.2 mg/dL Low 1.6 - 2 .6 mg/dL [facility] Magnesium [Mass/Vol] 1.2 mg/dL Low 1.6-2.6 [facility] Comment on above: Performed By: #### M Perlita Malone #### [facility] [address] [place], [place] [id number] Substation Electrician: Kj Lowry MD Microscopic Urinalysison Bacteria LM Ql (Urine sed) None None [facility] Character (U) Utilizing a urinalys is as the only screening method to exclude a potential uropathogen can be unreliable in many patient populations. Rapid screening tests are less sensitive than culture and if UTI is a clinical possibility, culture should be considered despite a negative urinalysis. Abnormal NOT REQ. [facility] Epithelial cells LM.HPF (Urine sed) [#/Area] 0 TO 2 [facility] Interpretation and review of laboratory results Abnormal [facility] RBC LM.HPF (Urine sed) [#/Area] 0 TO 2 [facility] WBC LM.HPF (Urine sed) [#/Area] 0 TO 2 [facility] No Panel Informationon 06-21 [facility] Phosphoruson 06-21-2023 Phosphate [Mass/Vol] 3.0 mg/dL 2.6 - 4 .5 mg/dL [facility] Phosphorus, Inorg.on 024 Phosphorus, Inorg. 3.0 mg/dL Normal 2.6-4.5 [facility] Comment on above: Performed By: #### M G, K #### [facility] [address] [place] [address] Substation Electrician: Kj Lowry MD Troponinon 06-21-2023 Troponin I.cardiac High sensitivity method [Mass/Vol] ng/L 0 - 14 ng/L [facility] Comment on above: High Sensitivity Tro ponin values cannot be compared with other Troponin methodologies. [facility] Troponin, High Sens <6 Normal 0-14 [facility] Comment on above: Result Comment: High Sensitivity Troponin values cannot be compared with other Troponin methodologies. Performed By: #### U MICAO, UAX #### [facility] [address] [place] [id number] Substation Electrician: Kj Lowry MD Troponin I.cardiac High sensitivity method [Mass/Vol] ng/L 0 - 14 ng/L [facility] Comment on above: High Sensitivity Tro ponin values cannot be compared with other Troponin methodologies. [facility] Troponin, High Sens <6 Normal 0-14 [facility] Comment on above: Result Comment: High Sensitivity Troponin values cannot be compared with other Troponin methodologies. Performed By: #### Elvis Malone, K #### [facility] [address] [place] [address] Substation Electrician: Kj Lowry MD UA w/Reflex Cultureon 2023 Bilirubin, SemiQt,Ur 2+ Abnormal NEG [facility] Comment on above: Performed By: #### Elvis Malone, K #### [facility] [address] [place] [address], [place] [address] Substation Electrician: Kj Lowry MD Blood, Urine Negative Normal NEG [facility] Comment on above: Performed By: #### Elvis Malone, K #### [facility] [address] [place] [address] Substation Electrician: Kj Lowry MD Clarity (U) Clear Normal CLEAR [facility] Comment on above: Performed By: #### Elvis Malone, K #### [facility] [address] [place] [address] Substation Electrician: Kj Lowry MD Color (U) Yellow Normal YEL [facility] Comment on above: Performed By: #### Elvis Malone, K #### [facility] [address] [place] [address] Substation Electrician: jK Lowry MD Glucose Ql (U) Negative Normal NEG [facility] Comment on above: Performed By: #### Elvis Malone, K #### [facility] [address] [place] [address] Substation Electrician: Kj Lowry MD Ketones Ql (U) TRACE Abnormal NEG [facility] Comment on above: Performed By: #### Elvis Malone, K #### [facility] [address] [place] [address], [place] [address] Substation Electrician: Kj Lowry MD Leukocyte esterase Test strip Ql (U) Negative Normal NEG [facility] Comment on above: Performed By: #### Elvis Malone, K #### [facility] [address] [place] [address], [place] [address] Substation Electrician: Kj Lowry MD Nitrite,Ur Negative Normal NEG [facility] Comment on above: Performed By: #### Elvis Malone, K #### [facility] [address] [place] [address] Substation Electrician: Kj Lowry MD PH,Ur >=9.0 Normal 5.0-6.0 [facility] Comment on above: Performed By: #### Elvis Malone, K #### [facility] [address] [place] [address] Substation Electrician: Kj Lowry MD Protein Ql (U) Negative Abnormal NEG [facility] Comment on above: Performed By: #### Elvis Malone, K #### [facility] [address] [place] [address] Substation Electrician: Kj Lowry MD Spec. [place],Ur 1.015 Normal 1.010-1.[address] [place] [address] Comment on above: Performed By: #### Elvis Malone, K #### [facility] [address] [place] [address], [place] [address] Substation Electrician: Kj Lowry MD Urobilinogen,Ur 4 mg/dL Normal 0.0-1.0 [facility] Comment on above: Performed By: #### Elvis Malone, K #### [facility] [address] [place] [address] Substation Electrician: Kj Lowry MD Urinalysis with Reflex to Cu ltureon 01-18-2024 Bilirubin Ql (U) 2+ Abnormal NEGATIVE [facility] Clarity (U) Clear Clear [facility] Color (U) Yellow Yellow [facility] Glucose Test strip (U) [Mass/Vol] Negative NEGATIVE mg/dL [facility] Hemoglobin Auto test strip Ql (U) Negative NEGATIVE [facility] Interpretation and review of laboratory results Abnormal [facility] Ketones (U) [Mass/Vol] TRACE Abnormal NEGAT SHERRY mg/dL [facility] Leukocyte esterase Test strip Ql (U) Negative NEGATIVE [facility] Nitrite Ql (U) Negative NEGATIVE [facility] pH (U) 5.0 - 6.0 [facility] Protein (U) [Mass/Vol] Negative Abnormal NEGAT SHERRY mg/dL [facility] Specific gravity (U) [Rel density] 1.015 1.010 - 1.025 [facility] Urobilinogen Qn (U) 4 mg/dL 0.0 - 1. 0 EU/dL [facility] Urinalysis,Microon 4 Bacteria None Normal NONE [facility] Comment on above: Performed By: #### Elvis Malone, K #### [facility] [address] [place] [address] [phone] [employer]station Electrician: Kj Lowry MD Epithelial cells LM Ql (Urine sed) 0 TO 2 Normal 0-5 [facility] Comment on above: Performed By: #### Elvis Malone, K #### [facility] [address] [place] [address] 16539 [employer]station Electrician: Kj Lowry MD Other Observations Utilizing a urinalys is as the only screening method to exclude a potential Abnormal NREQ [facility] Comment on above: Result Comment: urop athogen can be unreliable in many patient populations. Rapid screening tests are less sensitive than culture and if UTI is a clinical possibility, culture should be considered despite a negative urinalysis. Performed By: #### Elvis Malone, K #### [facility] [address] [place] [address] [phone] [employer]station Electrician: Kj Lowry MD Urine RBC's 0 TO 2 Normal 0-4 [facility] Comment on above: Performed By: #### Perlita Chopra #### [facility] [address] [place] [address] [employer]station Electrician: Kj Lowry MD Urine WBC's 0 TO 2 Normal 0-4 [facility] Comment on above: Performed By: #### Perlita Chopra #### [facility] [address] [place] [address] Substation Electrician: Kj Lowry MD CBC with Diffon 05-06-2023 Abs. Basophil 0.03 k/uL Normal 0.00-0.20 [facility] Comment on above: Performed By: #### C DP, CP #### [facility] [address] [place] [address] [employer]station Electrician: Kj Lowry MD Abs. Eosinophil <0.03 Normal 0.00-0.44 [facility] Comment on above: Performed By: #### C DP, CP #### [facility] [address] [place] [address] [employer]station Electrician: Kj Lowry MD Abs.Imm.Granulocyte 0.04 k/uL Normal 0.00-0.30 [facility] Comment on above: Performed By: #### C DP, CP #### [facility] [address] [place] [address] [employer]station Electrician: Kj Lowry MD Abs.Neutrophil (Seg) 3.93 k/uL Normal 1.50-8.10 [facility] Comment on above: Performed By: #### C DP, CP #### [facility] [address] [place] [address] [employer]station Electrician: Kj Lowry MD Basophils/100 WBC (Bld) 0 % Normal 0-2 [facility] Comment on above: Performed By: #### C DP, CP #### [facility] [address] [place] [address], [place] [address] Substation Electrician: Kj Lowry MD Eosinophils/100 WBC (Bld) 0 % Low 1-4 [facility] Comment on above: Performed By: #### C DP, CP #### [facility] [address] [place] [address] 26447 Substation Electrician: Kj Lowry MD Erythrocyte distribution width (RBC) [Ratio] 13.5 % Normal 11.8-14.4 [facility] Comment on above: Performed By: #### C DP, CP #### [facility] [address] [place] [address] Substation Electrician: Kj Lowry MD Hematocrit (Bld) [Volume fraction] 37.3 % Normal 36.3-47.1 [facility] Comment on above: Performed By: #### C DP, CP #### [facility] [address] [place] [address] 48820 Substation Electrician: Kj Lowry MD Hemoglobin (Bld) [Mass/Vol] 13.1 g/dL Normal 11.9-15.1 [facility] Comment on above: Performed By: #### C DP, CP #### [facility] [address] [place] [address] 91651 Substation Electrician: Kj Lowry MD Immature granulocytes/100 WBC (Bld) 1 % High 0 [facility] Comment on above: Performed By: #### C DP, CP #### [facility] [address] [place] [address] 48813 Substation Electrician: Kj Lowry MD Lymphocytes (Bld) [#/Vol] 2.28 10*3/uL Normal 1.10-3.70 [facility] Comment on above: Performed By: #### C DP, CP #### [facility] [address] [place] [address] Substation Electrician: Kj Lowry MD Lymphocytes/100 WBC (Bld) 33 % Normal 24-43 [facility] Comment on above: Performed By: #### C DP, CP #### [facility] [address] [place] [address] Substation Electrician: Kj Lowry MD MCH (RBC) [Entitic mass] 37.0 pg High 25.2-33.5 [facility] Comment on above: Performed By: #### C DP, CP #### [facility] [address] [place] [address] Substation Electrician: Kj Lowry MD MCHC (RBC) [Mass/Vol] 35.1 g/dL High 25.2-33.5 [facility] Comment on above: Performed By: #### C DP, CP #### [facility] [address] [place] [address] Substation Electrician: Kj Lowry MD MCV (RBC) [Entitic vol] 105.4 fL High 82.6-102.9 [facility] Comment on above: Performed By: #### C DP, CP #### [facility] [address] [place] [address] Substation Electrician: Kj Lowry MD Monocytes (Bld) [#/Vol] 0.53 10*3/uL Normal 0.10-1.20 [facility] Comment on above: Performed By: #### C DP, CP #### [facility] [address] [place] [address] Substation Electrician: Kj Lowry MD Monocytes/100 WBC (Bld) 8 % Normal 3-12 [facility] Comment on above: Performed By: #### C DP, CP #### [facility] [address] [place] [address] Substation Electrician: Kj Lowry MD Neutrophil (Seg) 58 % Normal 36-65 [facility] Comment on above: Performed By: #### C DP, CP #### [facility] [address] [place] [address] Substation Electrician: Kj Lowry MD NRBC Automated 0.0 per 100 WBC Normal 0.0 [facility] Comment on above: Performed By: #### C DP, CP #### [facility] [address] [place] [address] Substation Electrician: Kj Lowry MD Platelet mean volume (Bld) [Entitic vol] 10.4 fL Normal 8.1-13.5 [facility] Comment on above: Performed By: #### C DP, CP #### [facility] [address] [place] [address] Substation Electrician: Kj Lowry MD Platelets (Bld) [#/Vol] 219 10*3/uL Normal 138-453 [facility] Comment on above: Performed By: #### C DP, CP #### [facility] [address] [place] [address] Substation Electrician: Kj Lowry MD RBC (Bld) [#/Vol] 3.54 10*6/uL Low 3.95-5.11 [facility] Comment on above: Performed By: #### C DP, CP #### [facility] [address] [place] [address] Substation Electrician: Kj Lowry MD RBC morphology finding Nom (Bld) MACROCYTOSIS PRESENT Normal [facility] Comment on above: Performed By: #### C DP, CP #### [facility] [address] [place] [address] Substation Electrician: Kj Lowry MD WBC (Bld) [#/Vol] 6.8 10*3/uL Normal 3.5-11.3 [facility] Comment on above: Performed By: #### C DP, CP #### [facility] [address] [place] [address] Substation Electrician: Kj Lowry MD Comp Metabolic Profon 2022 Albumin [Mass/Vol] 3.4 g/dL Low 3.5-5.2 [facility] Comment on above: Performed By: #### C DP, CP #### [facility] [address] [place] [address] 22262 Substation Electrician: Kj Lowry MD Albumin/Glob Ratio 1.3 Normal 1.0-2.5 [facility] Comment on above: Performed By: #### C DP, CP #### [facility] [address] [place] [address] 00357 Substation Electrician: Kj Lowry MD Alkaline Phos 206 U/L High 35-104 [facility] Comment on above: Performed By: #### C DP, CP #### [facility] [address] [place] [address] 88986 Substation Electrician: Kj Lowry MD ALT [Catalytic activity/Vol] 127 U/L High 5-33 [facility] Comment on above: Performed By: #### C DP, CP #### [facility] [address] [place] [address] 67236 Substation Electrician: Kj Lowry MD Anion gap [Moles/Vol] 12 mmol/L Normal 9-17 [facility] Comment on above: Performed By: #### C DP, CP #### [facility] [address] [place] [address] 00817 Substation Electrician: Kj Lowry MD AST [Catalytic activity/Vol] 166 U/L High <32 [facility] Comment on above: Performed By: #### C DP, CP #### [facility] [address] [place] [address] 68603 Substation Electrician: Kj Lowry MD Bilirubin [Mass/Vol] 1.4 mg/dL High 0.3-1.2 [facility] Comment on above: Performed By: #### C DP, CP #### [facility] [address] [place] [address] Substation Electrician: Kj Lowry MD BUN/CRE Ratio 8 Low 9-20 [facility] Comment on above: Performed By: #### C DP, CP #### [facility] [address] [place] [address] Substation Electrician: Kj Lowry MD Calcium [Mass/Vol] 9.4 mg/dL Normal 8.6-10.4 [facility] Comment on above: Performed By: #### C DP, CP #### [facility] [address] [place] [address] Substation Electrician: Kj Lowry MD Chloride [Moles/Vol] 91 mmol/L Low 98-107 [facility] Comment on above: Performed By: #### C DP, CP #### [facility] [address] [place] [address] Substation Electrician: Kj Lowry MD CO2 [Moles/Vol] 29 mmol/L Normal 20-31 [facility] Comment on above: Performed By: #### C DP, CP #### [facility] [address] [place] [address] Substation Electrician: Kj Lowry MD Creatinine [Mass/Vol] 0.6 mg/dL Normal 0.5-0.9 [facility] Comment on above: Performed By: #### C DP, CP #### [facility] [address] [place] [address] Substation Electrician: Kj Lowry MD GFR/1.73 sq M.predicted among non-blacks MDRD (S/P/Bld) [Vol rate/Area] mL/min/{1.73_m2} Normal >60 [facility] Comment on above: Result Comment: These results are not intended for use in patients <18 years of age. eGFR results are calculated without a race factor using the 2020 CKD-EPI equation. Careful clinical correlation is recommended, particularly when comparing to results calculated using previous equations. The CKD-EPI equation is less accurate in patients with extremes of muscle mass, extra-renal metabolism of creatine, excessive creatine ingestion, or following therapy that affects renal tubular secretion. Performed By: #### C DP, CP #### [facility] [address] [place] [address] 30993 Substation Electrician: Kj Lowry MD Glucose [Mass/Vol] 94 mg/dL Normal 70-99 [facility] Comment on above: Performed By: #### C DP, CP #### [facility] [address] [place] [address] 81632 Substation Electrician: Kj Lowry MD Potassium [Moles/Vol] 3.3 mmol/L Low 3.7-5.3 [facility] Comment on above: Performed By: #### C DP, CP #### [facility] [address] [place] [address] 15209 Substation Electrician: Kj Lowry MD Protein [Mass/Vol] 6.1 g/dL Low 6.4-8.3 [facility] Comment on above: Performed By: #### C DP, CP #### [facility] [address] [place] [address] 52780 Substation Electrician: Kj Lowry MD Sodium [Moles/Vol] 132 mmol/L Low 135-144 [facility] Comment on above: Performed By: #### C DP, CP #### [facility] [address] [place] [address] 81331 Substation Electrician: Kj Lowry MD Urea nitrogen [Mass/Vol] 5 mg/dL Low 6-20 [facility] Comment on above: Performed By: #### C DP, CP #### [facility] [address] [place] [address] 22286 Substation Electrician: Kj Lowry MD US ABDOMEN LIMITEDon 023 US ABDOMEN LIMITED EXAMINATION: RIGHT UPPER QUADRANT ULTRASOUND 04/02/2023 7:18 am COMPARISON: CT abdomen pelvis from 10/13/2016 HISTORY: ORDERING SYSTEM PROVIDED HISTORY: Hepatic steatosis TECHNOLOGIST PROVIDED HISTORY: hepatis steatosis, elevated lipase. Specify organ?->LIVER Specify organ?->GALLBLADDER Specify organ?->PANCREAS 47-year-old female; fatty liver FINDINGS: LIVER: Diffuse homogeneous increased echogenicity throughout the hepatic parenchyma consistent with fatty infiltration of the liver. Liver length measures 14 cm. No intrahepatic biliary ductal dilation. Color flow projects over the main portal vein with a normal hepatopetal, monophasic waveform. BILIARY SYSTEM: Prior cholecystectomy. Sonographic Smith sign is negative. Common bile duct is within normal limits measuring 3 mm. RIGHT KIDNEY: Right kidney measures 9.8 x 6.1 x 5.2 cm. No gross right-sided hydronephrosis. PANCREAS: Visualized portions of the pancreas are unremarkable. Suboptimal visualization of the pancreas. OTHER: No evidence of right upper quadrant ascites. IMPRESSION: 1. Fatty liver. 2. Prior cholecystectomy. 3. Otherwise, unremarkable right upper quadrant abdominal ultrasound. Interpreted by: Johnathon Baird MD Signed by: Johnathon Baird MD 04/02/23 Final result Normal [facility] Adrenocorticotropinon 2022 Adrenocorticotropin 12 pg/mL Normal 6-58 [facility] Comment on above: Performed By: #### U MICAO, UAX #### [facility] [address] [place] [address] Substation Electrician: Kj Lowry MD Aldosteroneon 03-18-2023 Aldosterone 6.0 ng/dL Normal [facility] Comment on above: Result Comment: (NOT E) INTERPRETIVE INFORMATION: Aldosterone, Serum Reference intervals for age 15 and older: Upright ......... 4.0 - 31.0 ng/dL Supine .......... Less than or equal to 16.0 ng/dL Unspecified ..... Less than or equal to 31.0 ng/dL Normal serum levels of aldosterone are dependent on the sodium intake and whether the patient is upright or supine. High sodium intake will tend to suppress serum aldosterone, whereas low sodium intake will elevate serum aldosterone. The reference intervals for serum aldosterone are based on normal sodium intake. Access complete set of age- and/or gender-specific reference intervals for this test in the [facility] Directory ([employer]). Performed By: [facility] [address] [place] [address] Charge Nurse: Reza Good MD, PhD CLIA Number: [id number] Performed By: #### U GRAHAM UAX #### [facility] [address] [place] [address] 86156 Substation Electrician: Kj Lowry MD B12/Folate Panelon 214 3 Cobalamin (Vitamin B12) [Mass/Vol] 749 pg/mL Normal 232-1245 [facility] Comment on above: Performed By: #### Sujey STEVENSON UAX #### [facility] [address] [place] [address] 31327 Substation Electrician: Kj Lowry MD Folic Acid 4.2 ng/mL Low >4.8 [facility] Comment on above: Performed By: #### Sujey STEVENSON UAX #### [facility] [address] [place] [address] 94531 Substation Electrician: Kj Lowry MD Comp Metabolic Profon 6429 Albumin [Mass/Vol] 3.3 g/dL Low 3.5-5.2 [facility] Comment on above: Performed By: #### U RC #### [facility] [address] [place] [address] 19667 Substation Electrician: Kj Lowry MD [address] [id number] Substation Electrician: Kj Lowry MD Albumin/Glob Ratio 1.2 Normal 1.0-2.5 [facility] Comment on above: Performed By: #### U RC #### [facility] [address] [place] [address] 34612 Substation Electrician: Kj Lowry MD [employer] [address] [place] [address] 33330 Substation Electrician: Kj Lowry MD Alkaline Phos 151 U/L High 35-104 [facility] Comment on above: Performed By: #### U RC #### [facility] [address] [place] [address] Substation Electrician: Kj Lowry MD [employer] [address] [place] [address] 94804 Substation Electrician: Kj Lowry MD ALT [Catalytic activity/Vol] 99 U/L High 5-33 [facility] Comment on above: Performed By: #### U RC #### [facility] [place] [facility] [address] [place] [address] Substation Electrician: [facility] [address] [place] [address] 71603 Substation Electrician: Kj Lowry MD Anion gap [Moles/Vol] 11 mmol/L Normal 9-17 [facility] Comment on above: Performed By: #### U RC #### [facility] [address] [place] [address] Substation Electrician: Kj Lowry MD [facility] [employer] [address] [place] [address] 74511 Substation Electrician: Kj Lowry MD AST [Catalytic activity/Vol] 136 U/L High <32 [facility] Comment on above: Performed By: #### U RC #### [facility] [place] [facility] [address] [place] [address] Substation Electrician: Kj Lowry MD [facility] [employer] [address] [place] [address] 30321 Substation Electrician: Kj Lowry MD Bilirubin [Mass/Vol] 0.6 mg/dL Normal 0.3-1.2 [facility] Comment on above: Performed By: #### U RC #### [facility] [place] [facility] [address] [place] [address] Substation Electrician: Kj Lowry MD [facility] [employer] [address] [place] [address] 77188 Substation Electrician: Kj Lowry MD BUN/CRE Ratio 7 Low 9-20 [facility] Comment on above: Performed By: #### U RC #### [facility] [place] [facility] [address] [place] [address] Substation Electrician: Kj Lowry MD [facility] [employer] [address] [place] [address] 11511 Substation Electrician: Kj Lowry MD Calcium [Mass/Vol] 8.8 mg/dL Normal 8.6-10.4 [facility] Comment on above: Performed By: #### U RC #### [facility] [address] [place] [address] 65587 Substation Electrician: Kj Lowry MD [facility] [employer] [address] [place] [address] [phone] Substation Electrician: Kj Lowry MD Chloride [Moles/Vol] 107 mmol/L Normal 98-107 [facility] Comment on above: Performed By: #### U RC #### [facility] [address] [place] [address] 58616 Substation Electrician: Kj Lwory MD [facility] [employer] [address] [place] [address] 71618 Substation Electrician: Kj Lowry MD CO2 [Moles/Vol] 25 mmol/L Normal 20-31 [facility] Comment on above: Performed By: #### U RC #### [facility] [address] [place] [address] 28677 Substation Electrician: Kj Lowry MD [facility] [employer] [address] [place] [address] [phone] Substation Electrician: Kj Lowry MD Creatinine [Mass/Vol] 0.6 mg/dL Normal 0.5-0.9 [facility] Comment on above: Performed By: #### U RC #### [facility] [place] [facility] [address] [place] [address] Substation Electrician: Kj Lowry MD [address] [phone] Substation Electrician: Kj Lowry MD GFR/1.73 sq M.predicted among non-blacks MDRD (S/P/Bld) [Vol rate/Area] mL/min/{1.73_m2} Normal >60 [facility] Comment on above: Result Comment: These results are not intended for use in patients <18 years of age. eGFR results are calculated without a race factor using the 2020 CKD-EPI equation. Careful clinical correlation is recommended, particularly when comparing to results calculated using previous equations. The CKD-EPI equation is less accurate in patients with extremes of muscle mass, extra-renal metabolism of creatine, excessive creatine ingestion, or following therapy that affects renal tubular secretion. Performed By: #### U RC #### [facility] [place] [facility] [address] [place] [address] Substation Electrician: Kj Lowry MD [address] [address] Substation Electrician: Kj Lowry MD Glucose [Mass/Vol] 86 mg/dL Normal 70-99 [facility] Comment on above: Performed By: #### U RC #### [facility] [place] [facility] [address] [place] [address] Substation Electrician: Kj Lowry MD [facility] [employer] [address] [place] [address] 66715 Substation Electrician: Kj Lowry MD Potassium [Moles/Vol] 3.7 mmol/L Normal 3.7-5.3 [facility] Comment on above: Performed By: #### U RC #### [facility] [address] [place] [address] 92403 Substation Electrician: Kj Lowry MD [facility] [employer] [address] [place] [address] [phone] Substation Electrician: Kj Lowry MD Protein [Mass/Vol] 6.1 g/dL Low 6.4-8.3 [facility] Comment on above: Performed By: #### U RC #### [facility] [place] [facility] [address] [place] [id number] Substation Electrician: Kj Lowry MD [employer] [address] [place] [id number] Substation Electrician: Kj Lowry MD Sodium [Moles/Vol] 143 mmol/L Normal 135-144 [facility] Comment on above: Performed By: #### U RC #### [facility] [address] [place] [address] Substation Electrician: Kj Lowry MD [facility] [employer] [address] [place] [address] [id number] Substation Electrician: Kj Lowry MD Urea nitrogen [Mass/Vol] 4 mg/dL Low 6-20 [facility] Comment on above: Performed By: #### U RC #### [facility] [place] [facility] [address] [place] [address] Substation Electrician: Kj Lowry MD [facility] [employer] [address] [place] [id number] Substation Electrician: Kj Lowry MD Cortisolon 03-16-2023 Cortisol 11.0 ug/dL Normal 2.7-18.4 [facility] Comment on above: Result Comment: Cortisol Reference Range: AM 6.0-18.4 PM 2.7-10.5 Performed By: #### U MICANETO Deluca #### [facility] [place] [facility] [address] [place] [id number] Substation Electrician: Kj Lowry MD Lipaseon 03-16-2023 Lipase [Catalytic activity/Vol] 160 U/L High 13-60 [facility] Comment on above: Performed By: #### U RC #### [facility] [place] [facility] [address] [place] [address] Substation Electrician: Kj Lowry MD [employer] [address] [place], [place] [phone] Substation Electrician: Kj Lowry MD TSH w/reflex to FT4on 2022 Thyroid Stim. Horm. 0.97 uIU/mL Normal 0.30-5.00 [facility] Comment on above: Performed By: #### U RC #### [facility] [address] [place] [address] Substation Electrician: Kj Lowry MD [employer] [address] [place], [place] [phone] Substation Electrician: Kj Lowry MD Vital Signs Date Time Vital Sign Value Performing Clinician Faci lity 01-01-2025 12:19-0400 Body temperature 98.2 [degF] No Primary Care Physician [facility] 01-01-2025 12:19-0400 Diastolic blood pressure 66 mm[Hg] No Primary Care Physician [facility] 01-01-2025 12:19-0400 Heart rate 73 /min No Primary Care Physician [facility] 01-01-2025 12:19-0400 Respiratory rate 16 /min No Primary Care Physician [facility] 01-01-2025 12:19-0400 SaO2% (BldA) [Mass fraction] 99 % No Primary Care Physician [facility] 01-01-2025 12:19-0400 Systolic blood pressure 110 mm[Hg] No Primary Care Physician [facility] 12-26-2024 10:53-0400 Body temperature 98.7 [degF] No Primary Care Physician [facility] 12-26-2024 10:53-0400 Diastolic blood pressure 58 mm[Hg] No Primary Care Physician [facility] 12-26-2024 10:53-0400 Heart rate 83 /min No Primary Care Physician [facility] 12-26-2024 10:53-0400 Respiratory rate 16 /min No Primary Care Physician [facility] 12-26-2024 10:53-0400 SaO2% (BldA) [Mass fraction] 99 % No Primary Care Physician [facility] 12-26-2024 10:53-0400 Systolic blood pressure 104 mm[Hg] No Primary Care Physician [facility] 10-20-2024 11:13-0400 Body height 157.48 cm No Primary Care Physician [facility] 10-20-2024 11:13-0400 Body mass index (BMI) [Ratio] 30.7 kg/m2 No Primary Care Physician [facility] 10-20-2024 11:13-0400 Body weight 76.31 kg No Primary Care Physician [facility] 10-09-2024 09:40-0400 Body temperature 98.4 [degF] No Primary Care Physician [facility] 10-09-2024 09:40-0400 Diastolic blood pressure 74 mm[Hg] No Primary Care Physician [facility] 10-09-2024 09:40-0400 Heart rate 92 /min No Primary Care Physician [facility] 10-09-2024 09:40-0400 Respiratory rate 16 /min No Primary Care Physician [facility] 10-09-2024 09:40-0400 SaO2% (BldA) [Mass fraction] 99 % No Primary Care Physician [facility] 10-09-2024 09:40-0400 Systolic blood pressure 122 mm[Hg] No Primary Care Physician [facility] 09-25-2024 10:16-0400 Body mass index (BMI) [Ratio] 30.5 kg/m2 No Primary Care Physician [facility] 09-25-2024 10:16-0400 Body temperature 98.4 [degF] No Primary Care Physician [facility] 09-25-2024 10:16-0400 Body weight 75.74 kg No Primary Care Physician [facility] 09-25-2024 10:16-0400 Diastolic blood pressure 82 mm[Hg] No Primary Care Physician [facility] 09-25-2024 10:16-0400 Heart rate 67 /min No Primary Care Physician [facility] 09-25-2024 10:16-0400 Respiratory rate 16 /min No Primary Care Physician [facility] 09-25-2024 10:16-0400 SaO2% (BldA) [Mass fraction] 96 % No Primary Care Physician [facility] 09-25-2024 10:16-0400 Systolic blood pressure 126 mm[Hg] No Primary Care Physician [facility] 03-29-2024 11:12-0400 Body temperature 98.4 [degF] Krislyn Aberegg PA Work Phone: [facility] 03-29-2024 11:12-0400 Body weight 74 kg Krislyn Aberegg PA Work Phone: [facility] 03-29-2024 11:12-0400 Diastolic blood pressure 82 mm[Hg] Krislyn Aberegg PA Work Phone: [facility] 03-29-2024 11:12-0400 Heart rate 84 /min Krislyn Aberegg PA Work Phone: [facility] 03-29-2024 11:12-0400 Respiratory rate 18 /min Krislyn Aberegg PA Work Phone: [facility] 03-29-2024 11:12-0400 SaO2% (BldA) [Mass fraction] 99 % Krislyn Aberegg PA Work Phone: [facility] 03-29-2024 11:12-0400 Systolic blood pressure 128 mm[Hg] Krislyn Aberegg PA Work Phone: [facility] 01-08-2024 14:59-0400 Body height 158.8 cm Nadia Landon PA-C Work Phone: [facility] 01-08-2024 14:59-0400 Body mass index (BMI) [Ratio] 29.7 kg/m2 Nadia Landon PA-C Work Phone: [employer] [facility] 01-08-2024 14:59-0400 Body weight 74.84 kg Nadia Landon PA-C Work Phone: [facility] 10-23-2023 14:55-0400 Body height 160 cm Shalini Elizondo MD Work [facility] 10-23-2023 14:55-0400 Body mass index (BMI) [Ratio] 29.23 kg/m2 Shalini Elizondo MD Work Phone: [facility] [employer] [facility] 10-23-2023 14:55-0400 Body weight 74.84 kg Shalini Elizondo MD Work Phone: [facility] [employer] [facility] 07-02-2023 16:39-0500 Diastolic blood pressure 94 mm[Hg] Rosanne Herron MD Work Phone: [employer] 07-02-2023 16:39-0500 Heart rate 54 /min Rosanne Herron MD Work Phone: [employer] 07-02-2023 16:39-0500 Respiratory rate 18 /min Rosanne Herron MD Work Phone: [employer] 07-02-2023 16:39-0500 SaO2% (BldA) [Mass fraction] 100 % Rosanne Herron MD Work Phone: [employer] 07-02-2023 16:39-0500 Systolic blood pressure 119 mm[Hg] Rosanne Herron MD Work Phone: [employer] 07-02-2023 12:22-0500 Body temperature 98.8 [degF] Rosanne Herron MD Work Phone: [employer] 07-02-2023 11:19-0500 Body height 160 cm Rosanne Herron MD Work Phone: [employer] 07-02-2023 03:41-0500 Body mass index (BMI) [Ratio] 26.25 kg/m2 Rosanne Herron MD Work Phone: [employer] 07-02-2023 03:41-0500 Body weight 67.22 kg Rosanne Herron MD Work Phone: [employer] 06-21-2023 10:25-0500 Heart rate 84 /min Rosanne Herron MD Work Phone: [employer] 06-21-2023 10:25-0500 Respiratory rate 16 /min Rosanne Herron MD Work Phone: [employer] 06-21-2023 10:00-0500 SaO2% (BldA) [Mass fraction] 97 % Rosanne Herron MD Work Phone: [employer] 06-21-2023 08:15-0500 Diastolic blood pressure 75 mm[Hg] Rosanne Herron MD Work Phone: [employer] 06-21-2023 08:15-0500 Systolic blood pressure 108 mm[Hg] Rosanne Herron MD Work Phone: [employer] 06-21-2023 06:54-0500 Body height 160 cm Rosanne Herron MD Work Phone: [employer] 06-21-2023 06:54-0500 Body mass index (BMI) [Ratio] 25.69 kg/m2 Rosanne Herron MD Work Phone: [employer] 06-21-2023 06:54-0500 Body temperature 98.1 [degF] Rosanne Herron MD Work Phone: [employer] 06-21-2023 06:54-0500 Body weight 65.77 kg Rosanne Herron MD Work Phone: [employer] Encounters Encounter Date Encounter Type Care Provider Facility Start: 01-14-2025 ambulatory [facility] Facility :[facility] Start: 01-01-2025 Non-patient / [facility] Start: 01-01-2025 End: 01-01-2025 Patient encounter procedure Corona SPAULD[facility] Work Phone: Start: 01-01-2025 End: 01-01-2025 ambulatory No Primary Care Physician [facility] Start: 12-26-2024 End: 12-26-2024 Patient encounter procedure Corona SPAULDING [facility] Work Phone: Start: 12-26-2024 End: 12-26-2024 ambulatory No Primary Care Physician [facility] Start: 12-15-2024 End: 12-15-[address] Boyd Lopez MD -[facility] Work Phone: Start: 12-15-2024 End: 12-15-2024 ambulatory No Primary Care Physician [facility] Start: 12-12-2024 ambulatory Boyd Lopez Facility :[facility] Start: 12-12-[address] Boyd Lopez MD -Physical Therapy Work Phone: Start: 10-20-2024 End: 10-20-[address] Boyd Lopez MD -[facility] Work Phone: Start: 10-20-2024 End: 10-20-2024 ambulatory No Primary Care Physician [facility] Work Phone: Start: 10-09-2024 End: 10-09-2024 Patient encounter procedure Corona SPAULDING [facility] Work Phone: Start: 10-09-2024 End: 10-09-2024 ambulatory Corona SPAULDING [place] Start: 10-03-2024 End: 10-03-2024 ambulatory NONE PHYSICIAN Facility:[facility] Start: 10-03-2024 End: 10-03-2024 Patient encounter procedure CORONA SPAULDING [facility] Start: 09-25-2024 End: 09-25-2024 Patient encounter procedure Corona SPAULDING [facility] Work Phone: Start: 09-25-2024 End: 09-25-2024 ambulatory Corona SPAULDING [place] Start: 09-25-2024 End: 09-25-2024 ambulatory No Primary Care Physician Facility:[facility] Start: 03-29-2024 End: 03-29-2024 ambulatory Facility:[facility] Start: 03-29-2024 End: 03-29-2024 Patient encounter procedure Echo SPAULDING Work Phone: [facility] Comment on above: Dental infection (Pr imary Dx) Start: 02-21-2024 End: 02-21-2024 Office outpatient visit 15 minutes Nadia Landon PA-C Work Phone: [facility] Comment on above: S/P carpal tunnel re lease; Post-op pain Start: 02-21-2024 End: 02-21-2024 ambulatory [facility] Start: 01-22-2024 End: 01-22-2024 Patient encounter procedure Shalini Elizondo MD Work Phone: [facility] Comment on above: Pillar pain, post-op erative (Primary Dx); S/P carpal tunnel release Start: 01-22-2024 End: 01-22-2024 [facility] SHALINI ELIZONDO [facility] Start: 01-20-2024 End: 01-20-2024 Emergency department patient visit [facility] Start: 01-08-2024 End: 01-08-2024 Postop follow up visit related to original px Nadia Landon PA-C Work Phone: [facility] Comment on above: S/P carpal tunnel re lease (Primary Dx); Post-op pain Start: 01-08-2024 End: 01-08-2024 [facility] Start: 12-26-2023 End: 12-26-2023 Orders Only Nadia Landon PA-C Work Phone: [facility] Comment on above: S/P carpal tunnel re lease (Primary Dx); Right carpal tunnel syndrome Start: 12-25-2023 End: 12-25-2023 Postop follow up visit related to original px Nadia Landon PA-C Work Phone: [facility] Comment on above: S/P carpal tunnel re lease (Primary Dx) Start: 12-25-2023 End: 12-25-2023 ambulatory [facility] Start: 11-29-2023 End: 11-29-2023 Patient encounter procedure Shalini Elizondo MD Work Phone: [facility] Comment on above: S/P carpal tunnel re lease (Primary Dx) Start: 11-29-2023 End: 11-29-2023 ambulatory [facility] Start: 11-14-2023 End: 11-14-2023 Evaluation and management of inpatient [facility] Start: 11-13-2023 End: 11-13-2023 ambulatory [facility] Start: 10-23-2023 End: 10-23-2023 Office outpatient new 30 minutes Shalini Elizondo MD Work Phone: [facility] Comment on above: Right carpal tunnel syndrome (Primary Dx) Start: 10-23-2023 End: 10-23-2023 ambulatory [facility] Start: 10-18-2023 End: 10-18-2023 [facility] Start: 10-11-2023 End: 10-11-2023 [facility] Start: 10-11-2023 End: 10-13-2023 Subsequent hospital visit by physician [facility] Comment on above: Muscle weakness; Polyarthralgia Start: 10-11-2023 End: 10-13-2023 ambulatory [facility] Start: 10-05-2023 End: 10-05-2023 ambulatory [facility] Start: 09-20-2023 End: 09-20-2023 ambulatory [facility] Start: 07-02-2023 End: 07-02-2023 Emergency department patient visit [facility] Start: 06-29-2023 End: 07-02-2023 ambulatory [facility] Start: 06-29-2023 End: 07-02-2023 Emergency department patient visit Rosanne Herron MD Work Phone: [facility] Comment on above: Nausea and vomiting, unspecified vomiting type (Primary Dx); Dehydration; Hypokalemia; Nonspecific ST-T wave electrocardiographic changes; Urinary tract infection without hematuria, site unspecified; Gastroesophageal reflux disease without esophagitis Start: 06-21-2023 End: 06-21-2023 Emergency department patient visit Rosanne Herron MD Work Phone: [facility] Comment on above: Hypokalemia (Primary Dx); Hypomagnesemia Start: 05-14-2023 End: 05-14-2023 Emergency department patient visit [facility] Start: 05-06-2023 End: 05-06-2023 Emergency department [facility] Start: 04-12-2023 [facility] Start: 04-02-2023 End: 04-04-2023 ambulatory [facility] Start: 03-16-2023 End: 03-16-2023 ambulatory [facility] Start: 06-21-2017 End: 06-21-2017 Emergency department patient visit Cristofer Tate Jazzybrittney Facility:[facility] Procedures Date Procedure Procedure Detail Performing Clinician Start: 09-25-2024 Plain X-ray of shoulder No Primary Care Physician Start: 02-21-2024 Follow-up visit Follow-up NADIA FRAGA Start: 01-22-2024 Injection therapeuti c carpal tunnel Shalini Elizondo MD Work Phone: Start: 10-11-2023 Radex foot complete minimum 3 views Trayton B Arti DO Work Phone: Start: 07-02-2023 Basic metabolic pane l calcium total Carlos Owen MD Work Phone: Start: 07-01-2023 Basic metabolic pane l calcium total Carlos Owen MD Work Phone: Start: 06-30-2023 Assay of magnesium Pastor Owen MD Work Phone: Start: 06-30-2023 Assay of magnesium Anit a L Ronald THAI MASSEUR - EMERGENCY MEDICINE PHYSICIAN ASSISTANT Work Phone: Start: 06-30-2023 BASIC METABOLIC PANE L W/ REFLEX TO MG FOR LOW K Maribel Patito Cardenas THAI MASSEUR - EMERGENCY MEDICINE PHYSICIAN ASSISTANT Work Phone: Start: 06-30-2023 Potassium serum plasma/whole blood Rosanne Herron MD Work Phone: Start: 06-30-2023 Potassium serum plasma/whole blood Rosanne Herron MD Work Phone: Start: 06-29-2023 Ecg routine ecg w/le ast 12 lds trcg only w/o i&r Rosanne Herron MD Work Phone: Start: 06-29-2023 Assay of troponin quantitative Rosanne Herron MD Work Phone: Start: 06-29-2023 Culture bacterial quanttative colony count urine Rosanne Herron MD Work Phone: Start: 06-29-2023 Urnls dip stick/tabl et rgnt auto w/o microscopy Rosanne Herron MD Work Phone: Start: 06-29-2023 Ct angiography chest w/contrast/noncontrast Rosanne Herron MD Work Phone: Start: 06-29-2023 Comprehensive metabo lic panel Rosanne Herron MD Work Phone: Start: 06-29-2023 Ecg routine ecg w/le ast 12 lds trcg only w/o i&r Rosanne Herron MD Work Phone: Start: 06-21-2023 Assay of troponin quantitative Jaiden R Lint DO Work Phone: Start: 06-21-2023 Urinalysis microscop ic only Rosanne Herron MD Work Phone: Start: 06-21-2023 Urnls dip stick/tabl et rgnt auto w/o microscopy Rosanne Herron MD Work Phone: Start: 06-21-2023 Comprehensive metabo lic panel Rosanne Herron MD Work Phone: Start: 06-21-2023 Ecg routine ecg w/le ast 12 lds w/i&r Rosanne Herron MD Work Phone: Start: 09-11-2013 Microscopic observat ion [Identifier] in Cervix by Cyto stain Rosanne Herron MD Work Phone: History of decompres keshia of median nerve S/P carpal tunnel release Shalini Elizondo MD Work Phone: History of decompres keshia of median nerve S/P carpal tunnel release Nadai Landon PA-C Work Phone: History of decompres keshia of median nerve S/P carpal tunnel release Nadia Landon PA-C Work Phone: History of decompres keshia of median nerve S/P carpal tunnel release Nadia Landon PA-C Work Phone: History of decompres keshia of median nerve S/P carpal tunnel release Shalini Elizondo MD Work Phone: History of decompres keshia of median nerve S/P carpal tunnel release Nadia Landon PA-C Work Phone: Plan of Treatment Date Care Activity Detail Author Start: 08-13-2026 Diabetes Screening Diabetes Screenin g [facility] Start: 01-07-2025 Adult BMI Screening Adult BMI Screen ing [facility] Start: 01-07-2025 Tobacco Screening Tobacco Screening [facility] Start: 12-24-2024 Tobacco Screening Tobacco Screening [facility] Start: 11-28-2024 Tobacco Screening Tobacco Screening [facility] Start: 11-13-2024 Adult BMI Screening Adult BMI Screen ing [facility] Start: 10-22-2024 Adult BMI Screening Adult BMI Screen ing [facility] Start: 10-22-2024 Tobacco Screening Tobacco Screening [facility] Start: 09-19-2024 Depression Monitoring Depression Mon [facility] Start: 03-16-2024 Depression Monitoring Depression Mon [facility] Start: 02-21-2024 End: 02-21-2024 Patient encounter procedure 02/21/2024 3:20 PM EDT Office Visit [facility] [address] [place] [address] Nadia Landon PA-C [address] [place] [address] [facility] Start: 02-03-2024 Covid-19 Vaccine () Covid-19 Vaccine () [facility] Start: 02-03-2024 Influenza vaccination [facility] Start: 01-22-2024 End: 01-22-2024 Patient encounter procedure 01/22/2024 11:15 AM EDT Office Visit [facility] [address] [place] [address] Shalini Elizondo MD [address] [place] [address] [facility] Start: 01-08-2024 End: 01-08-2024 Patient encounter procedure 01/08/2024 3:05 PM EDT Office Visit [facility] [address] [place] [address] Nadia Landon PA-C [address] [place] [address] [facility] Start: 01-07-2024 End: 01-07-2024 Patient encounter procedure 01/07/2024 9:20 AM EDT Office Visit [facility] Rhe[facility] [address] [facility] [address] [place] [address] Nneka Lyons, THAI MASSEUR - DRY WALL APPLICATOR [address] [facility] [address] [place] [address] 3 month f/u [facility] Comment on above: 3 month f/u Start: 01-03-2024 Influenza vaccination Flu vacc ine (Season Ended) URIEL PALACIOS [facility] Start: 12-27-2023 End: 12-27-2023 Patient encounter procedure 12/27/2023 3:20 PM EDT Office Visit [facility] [address] [facility] [address] [place] [address] Nadia Landon PA-C [address] [facility] [address] [place] [id number] [facility] Start: 12-20-2023 End: 12-20-2023 Patient encounter procedure 12/20/2023 3:00 PM EDT [facility] [address] [facility] [place] [address] Nathan Tavera, NAOMY - DRY WALL APPLICATOR [address] [facility] [place] [address] 3 month [facility] Comment on above: 3 month Start: 11-29-2023 End: 11-29-2023 Patient encounter procedure 11/29/2023 3:45 PM EDT Office Visit [facility] [address] [facility] [address] [place] [address] Shalini Elizondo MD [address] [facility] [place] [address] [facility] Start: 11-14-2023 End: 11-14-2023 Admission to same day surgery center 11/14/2023 10:30 AM EDT - 11/14/2023 11:00 AM EDT Surgery [facility] [address] [place] [address] Shalini Elizondo MD [address] [facility] [address] RELEASE CARPAL TUNNEL [facility] Comment on above: RELEASE CARPAL TUNNE L Start: 11-14-2023 End: 11-14-2023 RELEASE CARPAL TUNNEL RELEASE CARPAL TUNNEL Right carpal tunnel syndrome 11/14/2023 10:30 AM EDT [facility] Start: 11-14-2023 Subsequent hospital visit by physician 11/14/2023 10:30 AM EDT Hospital Encounter [facility] [address] [place] [address] Shalini Elizondo MD [address] [facility] [address] [place], [facility] Start: 09-24-2023 End: 09-24-2023 Patient encounter procedure 09/24/2023 2:00 PM EDT Office Visit [facility] A department [address] [address] Jaison Patel DO [address] [facility] [address] [place] [address] 6 month [facility] A department [facility] Comment on above: 6 month Start: 03-03-2023 DTaP,Tdap and Td Vaccines (3 - Td or Tdap) DTaP,Tdap and Td Vaccines (3 - Td or Tdap) [facility] Start: 03-03-2023 DTaP/Tdap/Td vaccine (2 - Td or Tdap) DTaP/Tdap/Td vaccine (2 - Td or Tdap) [facility] Start: 01-02-2023 Influenza vaccination Flu vaccine (# 1) [facility] Start: 01-31-2021 Lipid panel Lipids [facility] Start: 2019 Lipid panel Lipid Screening [facility] Start: 2019 Screening for malign ant neoplasm of colon [facility] Start: 09-11-2016 Screening for malign ant neoplasm of cervix [facility] Start: 2014 Screening for malign ant neoplasm of breast Mammogram Screening [facility] Start: 03-04-2013 Urine microalbumin profile DTaP,Tdap,Td Vaccine (1 - Tdap) [facility] [place] Start: 01-12-2005 Hepatitis B vaccine (2 of 3 - 19+ 3-dose series) Hepatitis B vaccine (2 of 3 - 19+ 3-dose series) [facility] Start: 2004 Screening for malign ant neoplasm of cervix HPV (without or with Pap) [facility] Start: 1995 Screening for malign ant neoplasm of cervix [facility] [place] Start: 1993 Hepatitis B Vaccine (1 of 3 - 19+ 3-dose series) Hepatitis B Vaccine (1 of 3 - 19+ 3-dose series) [facility] [place] Start: 1992 Adult BMI Follow Up Plan Adult BMI Follow Up Plan [facility] Start: 1992 Anxiety Screening Anxiety Screening [facility] [place] Start: 1992 Depression Screening Depression [facility] Start: 1992 Hepatitis C screening Hepatitis C sc reen [facility] Start: 1992 HIV screening HIV Screening [facility] Start: 1989 HIV screening HIV screen [facility] Start: 1986 Depression Screening Depression Scre [facility] Start: 1980 Pneumococcal 0-64 ye ars Vaccine (1 - PCV) Pneumococcal 0-64 years Vaccine (1 - PCV) [facility] Start: 1980 Pneumococcal 0-64 ye ars Vaccine (1 of 2 - PCV) Pneumococcal 0-64 years Vaccine (1 of 2 - PCV) [facility] Start: 1980 Pneumococcal vaccination Pneumococcal Vaccine (1 of 2 - PCV) [facility] [place] Start: 1974 COVID-19 Vaccine (#1) COVID-19 Vacci ne (#1) [facility] Start: 1974 Tobacco Counseling Tobacco Counselin marcela [facility] EKG 12 Lead EKG 12 Lead ECG STAT 06/21/2023 7:03 AM EST [facility] Work Phone: Intermittent pulse oximetry Pulse Oximetry Spot Check Respiratory Care Routine Every 4hr until discontinued starting 06/30/2023 [facility] Comment on above: Every 4hr until disc ontinued starting 06/30/2023 Oxygen therapy [[facility] [place] [facility] Initiate Oxygen Therapy Protocol Respiratory Care Routine As Needed until discontinued starting 06/30/2023 [facility] Comment on above: As Needed until disc ontinued starting 06/30/2023 Immunizations Immunization Date Immunization Notes Care Provider [facility] 04-20-2022 influenza virus vaccine, unspecified formulation Rosanne Herron MD Work Phone: [facility] 04-03-2016 Influenza Vaccine, unspecified formulation Rosanne Herron MD Work Phone: [facility] 04-03-2016 influenza virus vaccine, unspecified formulation Rosanne Herron MD Work Phone: [facility] 04-15-2015 influenza virus vaccine, unspecified formulation Rosanne Herron MD Work Phone: [facility] 03-26-2014 influenza virus vaccine, unspecified formulation Rosanne Herron MD Work Phone: [facility] 03-03-2013 Td, unspecified formulation Rosanne Herron MD Work Phone: [facility] 03-03-2013 tetanus toxoid, redu janine diphtheria toxoid, and acellular pertussis vaccine, adsorbed Rosanne Herron MD Work Phone: [facility] 12-15-2004 hepatitis B vaccine, adult dosage Rosanne Herron MD Work Phone: [facility] 12-15-2004 hepatitis B vaccine, unspecified formulation Rosanne Herron MD Work Phone: [facility] 11-28-2000 tuberculin skin test ; purified protein derivative solution, intradermal Rosanne Herron MD Work Phone: [facility] 11-20-2000 tuberculin skin test ; purified protein derivative solution, intradermal Rosanne Herron MD Work Phone: [facility] [employer] Payers Date Payer Category Payer Private Health Insurance [id number] 2024 Unknown [id number] 2024 Self-pay 2024 Unknown [id number] 2023 Unknown [id number] 2018 Unknown [id number] [id number].315 2017 Unknown [id number] 1974 Unknown [id number] 2.16. 840.1.082943.3.579.2.93 1974 Unknown [id number] 2.16.8 40.1.224192.3.579.2.1286 1974 Unknown [id number] 2.16.8 40.1.584787.3.579.2.172 1974 Unknown [id number] 2.16.8 40.1.147450.3.579.2.172 1974 Unknown [id number] 2.16.8 40.1.389771.3.579.2.172 1974 Unknown [id number] 2.16.8 40.1.587750.3.579.2.172 1974 Unknown [id number] 2.16.8 40.1.039240.3.579.2.172 1974 Unknown [id number] 2.16.8 40.1.337173.3.579.2.172 1974 Unknown [id number] 2.16.8 40.1.895415.3.579.2.172 1974 Unknown [id number] 2.16.8 40.1.672708.3.579.2.172 1974 Unknown [id number] 2.16.8 40.1.755016.3.579.2.172 1974 Unknown [id number] 2.16.8 40.1.558037.3.579.2.172 1974 Unknown [id number] 2.16.8 40.1.787395.3.579.2.172 1974 Unknown [id number] 2.16.8 40.1.835222.3.579.2.172 1974 Unknown [id number] 2.16.8 40.1.727573.3.579.2.172 1974 Unknown [id number] 2.16.8 40.1.865548.3.579.2.1286 1974 Unknown [id number] 2.16.8 40.1.121878.3.579.2.1286 1974 Unknown [id number] 2.16.8 40.1.351836.3.579.2.1286 1974 Unknown [id number] 2.16.8 40.1.751963.3.579.2.1286 1974 Unknown [id number] 2.16.8 40.1.898967.3.579.2.1286 1974 Unknown [id number] 2.16.8 40.1.435771.3.579.2.1286 1974 Unknown [id number] 2.16.8 40.1.002666.3.579.2.627 Unknown [id number] 2.16.8 40.1.470271.3.579.2.462 Unknown [id number] 2.16.8 40.1.092766.3.579.2.462 Unknown [id number] 2.16.8 40.1.770307.3.579.2.462 Unknown [id number] 2.16.8 40.1.709608.3.579.2.462 Unknown [id number] 2.16.8 40.1.210087.3.579.2.462 Unknown [id number] 2.16.8 40.1.147039.3.579.2.462 Unknown [id number] 2.16.8 40.1.126006.3.579.2.462 Unknown [id number] 2.16.8 40.1.211245.3.579.2.462 Unknown [id number] 2.16.8 40.1.767750.3.579.2.462 Unknown [id number] 2.16.8 40.1.311755.3.579.2.462 Social History Date Type Detail Facility Start: 03-16-2023 End: 10-23-2023 Tobacco smoking status NHIS Smokes tobacco daily [facility] [employer] History of tobacco use Cigarette Smoker B ON [employer] Start: 07-14-2020 End: 03-16-2023 Cigarettes smoked current (pack per day) - Reported 0.5 [facility] [employer] Start: 03-16-2023 End: 03-29-2024 Tobacco use and exposure Smokeless tobacco non-user [facility] [employer] Start: 05-14-2023 End: 10-05-2023 Alcohol intake Ex-drinker (finding) [facility] [employer] Start: 07-14-2020 End: 06-21-2023 Alcohol Use Disorder Identification Test - Consumption [AUDIT-C] [facility] [employer] How often to you hav e a drink containing alcohol? [facility] How many standard dr inks containing alcohol do you have on a typical day? Patient does not drink [facility] [employer] Start: 10-25-2022 Tobacco Comment Started smokin g when brother was ill. Quit at beginning of 2016, by weaning off, and then used the patch. Stopped using the patch after 1 week. Stopped using the patch around 06/16/16. [facility] [employer] Start: 06-30-2016 Alcohol Comment rare - drinks every other week 1-2 glasses of wine [facility] [employer] Start: 1975 Sex Assigned At Not on file B ON [employer] Has the [employer], or water company threatened to shut off services in your home in past 12Mo No [employer] (I/We) worried wheth er (my/our) food would run out before (I/we) got money to buy more. Never true [employer] In the past 12 month s, was there a time when you were not able to pay the mortgage or rent on time? Yes [employer] How hard is it for y ou to pay for the very basics like food, housing, medical care, and heating Not very hard [employer] Start: 10-23-2023 End: 02-21-2024 Alcoholic beverage intake Current non-drinker of alcohol (finding) [facility] Tobacco smoking status [facility] Start: 1975 Sex Assigned At Female A [facility] Start: 10-01-2024 Sex Female (finding) [facility] Start: 09-25-2024 [facility] Clinical Notes 06-21-2023 to 10-20-2024 Note Date & Type Note Facility 10-20-2024 Progress note [facility] 10-20-2024 Progress note Note Date/Time October 20, 2024 11:40am [facility] [address] [place] [address] [place], [place] [id number] OFFICE VISIT Date of Service: 10/20/24 MR#: [id number] Acct: [id number] Name: NENITA ROSALES Rep #: [id number] : 1975 Provider: Dr. Oni Lopez MD Age/Sex: 49/F [place] [facility] [place] Status: Signed Intake Vital Signs 09/25/24 10:16 10/20/24 11:13 Height 5 ft 2 in 5 ft 2 in Weight: 167 lb 168 lb 4 oz BMI 30.5 30.7 BP 126/82 H Blood Pressure Location Rt brachial Position Sitting Respiration 16 Pulse 67 Pulse Source NIBP Temp 98.4 F Temp Source Oral Pulse Oximetry (%) 96 Oxygen Delivery Method room air Intake Visit Reasons: LEFT SHOULDER Chief Complaint: WC f/u left shoulder injury Accompanied by: Self Is patient in pain?: Yes Pain scale (1-10): 6 Allergies bupropion (From Wellbutrin) Allergy (Mild, Verified 10/20/24 11:14) Rash cephalexin (From Keflex) Allergy (Mild, Verified 10/20/24 11:14) Rash Penicillins (PCN) Allergy (Mild, Verified 10/20/24 11:14) Rash Medications ?Medication ?Instructions ?Recorded ?Confirmed ?Type acetaminophen 500 mg tablet 500 mg PO Q6H PRN 09/25/24 10/20/24 History (Tylenol Extra Strength) celecoxib 200 mg capsule (Celebrex) 200 mg PO BID 09/0310/20/24 History gabapentin 800 mg tablet 800 mg PO TID 09/25/2410/20 History midodrine 5 mg tablet 5 mg PO TID 09/25/24 5 History omeprazole 40 mg capsule,delayed 40 mg PO BID 09/25/24 10/20/24 History release PFSH Medical History Impingement of left shoulder Primary osteoarthritis, left shoulder Left rotator cuff tear Neuropathy Anxiety IBS (irritable bowel syndrome) GERD (gastroesophageal reflux disease) Von Willebrand disease Environmental allergies History of anemia Knee pain Asthma Andrade disease Osteoarthritis Surgical History History of cholecystectomy History of hand surgery History of colonoscopy History of esophagogastroduodenoscopy (EGD) History of appendectomy History of gastric restrictive surgery History of breast augmentation History of arthroscopic knee surgery Family History Other Barretts esophagus Breast cancer Cancer Hypertension Social History Smoking Status: Light Smoker (<10/day) alcohol intake: never substance use type: does not use HPI LEFT SHOULDER Details: This documentation accurately reflects the service provided and the decisions made by me, Dr. Boyd Lopez MD 10/20/24 1028. Part of today?s visit was documented by [ ], acting as scribe. NENITA ROSALES is a 49 year old F here today for L shoulder pain. W[employer] claim. lifting heavy soup above shoulder height. DOI 09/25/24. works for [employer]. 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 stabbing pain with lifting anteriorly inside and posteriorly. feels weaker nowand hurts quite often after getting off work. 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 no PT, no injections. work now - per referral 49 F who presents to the office today for complaint of left shoulder pain a few injury at work 3 days ago. Patient states that she was picking up a large bag of soup and feeling a pop in her left shoulder. Patient denies numbness, loss range of motion to the arm or shoulder however does state that she has had some tingling going into her hand. No previous injuries to same. No other associated symptoms or alleviating/aggravating factors. Supplemental Info [facility] Imaging Services [address] [facility] [place] [address] Shoulder min 2 Views MR#: [id number] Acct: [id number] Name: NENITA ROSALES Rep #: [id number] : 1975 F 49 From: Yehuda Lyle MD PCP: Care Physician,No Primary Status: REG CLI Study: Shoulder min 2 Views Date of Exam: 09/25/24 Exam# [id number] Ordering Dr: Corona Frank PROCEDURE: SHOULDER MIN 2 VIEWS 09/25/2024 REASON FOR EXAM: SHOULDER INJURY TECHNIQUE: Four views of the left shoulder COMPARISON: None FINDINGS: Bones: Unremarkable. Joints: Mild degree of joint space narrowing. Soft tissues: Soft tissues are unremarkable. Other: RAD/Shoulder min 2 Views IMPRESSION: Mild degree of joint space narrowing of the glenohumeral joint. Reading Location: [facility] I independently reviewed the imaging. Concur with radiologist report. MRI left shoulder 10/03/2024 Impression 1. Moderate supraspinatus tendinosis with rim rent type tear involving the tendon footprint measuring approximately 1 cm time 0.3 cm medial to lateral. There is suspected focal pinhole perforation extended from this with otherwise bursal surface fraying. There is subacromial subdeltoid bursitis. 2. Mild infraspinatus and moderate subscapularis tendinosis. 3. Suboptimal evaluation of the labrum with left lack of intra-articular contrast. Posterior superior labrum with irregular signal and morphology suspect tear. The anterior and anterior inferior labral ligamentous structures are attenuated and thickened sequela of prior injury. 4. Subacromial spurring and fragmentation of the lateral acromion with mild edema and subjacent edema in the humeral head, findings may be related to chronic overhead use injury/impingement Coding Level of Care Code Off vis,new,level 4 Diagnoses Left shoulder strain S46.912A Left rotator cuff tear M75.102 Primary osteoarthritis, left shoulder M19.012 Impingement of left shoulder M25.812 Assessment and Plan Assessment and Plan (1) Left shoulder strain: Status: Acute Plan: 49-year-old female with left shoulder pain mild osteoarthritis and a small rotator cuff tear. Patient counseled as the diagnosis prognosis different treatment options. The patient is not interested in proceeding with cortisone injection I will put a C9 in for approval of an additional code rotator cuff tear as well as C9 to start physical therapy and asked the patient to follow-up in 4 weeks. I also filled out a [employer] 14 for sedentary lifting only and no overhead lifting. Follow-up in 4 weeks. Patient counselled on non-operative and operative means of treating shoulder pain. Conservative options include but not limited to: 1. Rest and Activity Modification: Giving your shoulder time to heal by avoidingmovements that cause pain can help. This may involve limiting overhead activities or heavy lifting. 2. Physical Therapy: A physical therapist can guide you through exercises that strengthen the muscles around the shoulder, improve flexibility, and reduce strain on the rotator cuff tendon. 3. Ice and Heat Therapy: Applying ice to the shoulder can help reduce swelling and pain, especially after activity. Heat can be helpful to relax tense muscles and improve blood flow before exercises. 4. Anti-Inflammatory Medications: Vdwz-ojg-[id number] medications like ibuprofen ornaproxen can help reduce pain and inflammation in the tendon. 5. Corticosteroid Injections: If the pain is more severe, a steroid injection can reduce inflammation in the shoulder and provide relief for a longer period. 6. Platelet-Rich Plasma (PRP) Injection: This treatment involves using your own blood to promote healing in the tendon. The plasma is rich in growth factors that can encourage tissue repair. 7. TENS (Transcutaneous Electrical Nerve Stimulation): This therapy uses a smallelectrical current to help manage pain and promote healing by stimulating nerves. (2) Left rotator cuff tear: Status: Acute (3) Primary osteoarthritis, left shoulder: Status: Acute (4) Impingement of left shoulder: Status: Acute Ortho Exam General General: Yes no acute distress Neurologic: Yes alert and Yes oriented x3 Psychologic: Yes reasonable and appropriate Left Shoulder Skin/Wound: Yes CDI, No ecchymosis, No erythema and No swelling Testing: Yes Hawkin's, Yes Neer's, No Speed's, Yes TTP Biceps, No TTP AC Joint, Yes AROM-External Rotation at side 0-60, Yes empty can, No cross arm and No scapular winging SHOULDER: normal motor and sens to axillary N, MRU and AIN/PIN. Hand warm well perfused normal radial pulse Strength in forward elevation 4+/5. Strength in external rotation 5/5. Active forward elevation 145 degrees passively 170 degrees. 10/20/24 1140 <Electronically signed by Boyd marquez MD> Date _ Boyd Lopez MD Cosigner Signature: Date (if applicable) CC: ~ [facility] [employer] [facility] Work Phone: 1(137) 891-330104-24-2025 Evaluation note* Diagnosis Onset Date Resolution Status Admit Date Left shoulder strain acute Apri l 2024 9:56am Left shoulder strain acute October 09, 2024 9:25am Impingement of left shoulder acute October 20, 2024 10:53am Left rotator cuff tear acute Ma y 2024 10:53am Left shoulder strain acute October 20, 2024 10:53am Primary osteoarthritis, left shoulder acute October 20, 2024 1 0:53am [facility] [employer] [facility] Work Phone: 1(312) 518-918204-24-2025 Evaluation note* Diagnosis Onset Date Resolution Status Admit Date Left shoulder strain acute Apri l 2024 9:56am Left shoulder strain acute October 09, 2024 9:25am Impingement of left shoulder acute October 20, 2024 10:53am Left rotator cuff tear acute Ma y 2024 10:53am Left shoulder strain acute October 20, 2024 10:53am Primary osteoarthritis, left shoulder acute October 20, 2024 1 0:53am Impingement of left shoulder acute December 15, 2024 7:46am Left rotator cuff tear acute 2024 7:46am Primary osteoarthritis, left shoulder acute December 15, 2024 7:46am [facility] [employer] Work Phone: 1(354) 962-606304-24-2025 Evaluation note* Diagnosis Onset Date Resolution Status Admit Date Left shoulder strain acute Apri l 2024 9:56am Left shoulder strain acute October 09, 2024 9:25am Impingement of left shoulder acute October 20, 2024 10:53am Left rotator cuff tear acute Sd y 2024 10:53am Left shoulder strain acute October 20, 2024 10:53am Primary osteoarthritis, left shoulder acute October 20, 2024 1 0:53am Impingement of left shoulder acute December 15, 2024 7:46am Left rotator cuff tear acute 2024 7:46am Primary osteoarthritis, left shoulder acute December 15, 2024 7:46am Dental infection acute December 10:44am [facility] [employer] Work Phone: 1(995) 607-795010-26-2024 NoteHNO ID: [id number] Author: ECHO LEONARD PA Service: ? Author Type: Physician Hematology Supervisor Type: Progress Notes Filed: 03/29/2024 11:18 Note Text: This note was created using NoteWriter. Subjective Nenita Rosales is a 48 year old female. HPI 48-year-old female presents for dental problem. Patient states that she is visiting from out of town. She broke her tooth recently and does not have a dentist appointment for 2 weeks. She states that she noticed yesterday she was having some swelling and pain around the area and today swelling is worse. She is concerned about infection. She has been taking ibuprofen with minimal improvement. No fevers. No difficulty breathing or swallowing. No other complaint. No past medical history on file. No past surgical history on file. ALLERGIES Bupropion, Cephalexin, and Penicillins MEDICATIONS midodrine (PROAMITINE) 5 mg tablet Take 5 mg by mouth two times a day. albuterol HFA (PROVENTIL HFA, VENTOLIN HFA) 90 mcg/actuation inhaler Inhale 2 Puffs as instructed every 6 hours as needed. busPIRone (BUSPAR) 10 mg tablet Take 15 mg by mouth three times a day. celecoxib (CELEBREX) 200 mg capsule Take 200 mg by mouth once daily. cyclobenzaprine (FLEXERIL) 10 mg tablet Take 10 mg by mouth two times a day as needed for pain. DULoxetine (CYMBALTA) 20 mg capsule Take 20 mg by mouth two times a day. folic acid 1 mg tablet Take 1 mg by mouth once daily. gabapentin (NEURONTIN) 600 mg tablet Take 800 mg by mouth three times a day. multivitamin tablet Take 1 tablet by mouth once daily. omeprazole (PRILOSEC) 40 mg capsule Take 40 mg by mouth once daily. thiamine (VITAMIN B1) 100 mg tablet Take 100 mg by mouth once daily. valACYclovir (VALTREX) 500 mg tablet Take 500 mg by mouth as needed (cold sore). clindamycin (CLEOCIN) 150 mg capsule Take 3 capsules by mouth three times a day for 5 days. No family history on file. Social History Tobacco Use Smoking status: Every Day Types: Cigarettes Smokeless tobacco: Never Review of Systems Constitutional: Negative for chills and fever. HENT: Positive for dental problem. Negative for congestion, ear pain and sore throat. Respiratory: Negative for cough and shortness of breath. Cardiovascular: Negative for chest pain. Gastrointestinal: Negative for diarrhea and vomiting. Objective BP 128/82 Pulse 84 Temp 36.9 ?C (98.4 ?F) Resp 18 Wt 74 kg (163 lb 2.3 oz) SpO2 99% Physical Exam Vitals and nursing note reviewed. Constitutional: General: She is not in acute distress. Appearance: Normal appearance. She is not toxic-appearing. HENT: Right Ear: Tympanic membrane and ear canal normal. Left Ear: Tympanic membrane and ear canal normal. Nose: Nose normal. Mouth/Throat: Mouth: Mucous membranes are moist. Dentition: Abnormal dentition. Dental tenderness and gingival swelling present. Comments: Broken tooth #30. Patient has tenderness and gingival swelling around this area. No abscess. No tongue or floor mouth swelling. Handling secretions. She does have some jaw swelling over this area externally as well. Eyes: Conjunctiva/sclera: Conjunctivae normal. Cardiovascular: Rate and Rhythm: Normal rate and regular rhythm. Pulmonary: Effort: Pulmonary effort is normal. Breath sounds: Normal breath sounds. Skin: General: Skin is warm and dry. Neurological: Mental Status: She is alert. Assessment and Plan ASSESSMENT/PLAN: 1. Dental infection - ICD9: 522.4, ICD10: K04.7 -Rx for clindamycin due to allergies. Patient has tolerated this in the past -Tylenol/Motrin as needed for pain -Follow-up with dentist as scheduled Diagnosis and treatment plan were discussed and questions were answered to the patient's satisfaction. Pt acknowledged understanding of concepts and follow up plan. Specific signs and symptoms that would indicate the need for higher level of care were discussed in detail warranting prompt ER evaluation. Echo Leonard [facility]10-26-2024 History of Present illness Narrative* Echo Leonard PA - 03/29/2024 11:16 AM EDT Images from the original note were not included. This note was created using [employer]. Subjective Nenita Rosales is a 48 year old female. HPI 48-year-old female presents for dental problem. Patient states that she is visiting from [facility]. She broke her tooth recently and does not have a dentist appointment for 2 weeks. She states that she noticed yesterday she was having some swelling and pain around the area and today swelling is worse. She is concerned about infection. She has been taking ibuprofen with minimal improvement. No fevers. No difficulty breathing or swallowing. No other complaint. No past medical history on file. No past surgical history on file. ALLERGIES Bupropion, Cephalexin, and Penicillins MEDICATIONS midodrine (PROAMITINE) 5 mg tablet Take 5 mg by mouth two times a day. albuterol HFA (PROVENTIL HFA, VENTOLIN HFA) 90 mcg/actuation inhaler Inhale 2 Puffs as instructed every 6 hours as needed. busPIRone (BUSPAR) 10 mg tablet Take 15 mg by mouth three times a day. celecoxib (CELEBREX) 200 mg capsule Take 200 mg by mouth once daily. cyclobenzaprine (FLEXERIL) 10 mg tablet Take 10 mg by mouth two times a day as needed for pain. DULoxetine (CYMBALTA) 20 mg capsule Take 20 mg by mouth two times a day. folic acid 1 mg tablet Take 1 mg by mouth once daily. gabapentin (NEURONTIN) 600 mg tablet Take 800 mg by mouth three times a day. multivitamin tablet Take 1 tablet by mouth once daily. omeprazole (PRILOSEC) 40 mg capsule Take 40 mg by mouth once daily. thiamine (VITAMIN B1) 100 mg tablet Take 100 mg by mouth once daily. valACYclovir (VALTREX) 500 mg tablet Take 500 mg by mouth as needed (cold sore). clindamycin (CLEOCIN) 150 mg capsule Take 3 capsules by mouth three times a day for 5 days. No family history on file. Social History Tobacco Use Smoking status: Every Day Types: Cigarettes Smokeless tobacco: Never Review of Systems Constitutional: Negative for chills and fever. HENT: Positive for dental problem. Negative for congestion, ear pain and sore throat. Respiratory: Negative for cough and shortness of breath. Cardiovascular: Negative for chest pain. Gastrointestinal: Negative for diarrhea and vomiting. Objective BP 128/82 Pulse 84 Temp 36.9 C (98.4 F) Resp 18 Wt 74 kg (163 lb 2.3 oz) SpO2 99% Physical Exam Vitals and nursing note reviewed. Constitutional: General: She is not in acute distress. Appearance: Normal appearance. She is not toxic-appearing. HENT: Right Ear: Tympanic membrane and ear canal normal. Left Ear: Tympanic membrane and ear canal normal. Nose: Nose normal. Mouth/Throat: Mouth: Mucous membranes are moist. Dentition: Abnormal dentition. Dental tenderness and gingival swelling present. Comments: Broken tooth #30. Patient has tenderness and gingival swelling around this area. No abscess. No tongue or floor mouth swelling. Handling secretions. She does have some jaw swelling over this area externally as well. Eyes: Conjunctiva/sclera: Conjunctivae normal. Cardiovascular: Rate and Rhythm: Normal rate and regular rhythm. Pulmonary: Effort: Pulmonary effort is normal. Breath sounds: Normal breath sounds. Skin: General: Skin is warm and dry. Neurological: Mental Status: She is alert. Assessment and Plan ASSESSMENT/PLAN: 1. Dental infection - ICD9: 522.4, ICD10: K04.7 -Rx for clindamycin due to allergies. Patient has tolerated this in the past -Tylenol/Motrin as needed for pain -Follow-up with dentist as scheduled Diagnosis and treatment plan were discussed and questions were answered to the patient's satisfaction. Pt acknowledged understanding of concepts and follow up plan. Specific signs and symptoms that would indicate the need for higher level of care were discussed in detail warranting prompt ER evaluation. JASSON Pabon documented in this encounterSelect [facility] [place] History of Present illness Narrative* Nadia Landon PA-C - 02/21/2024 3:20 PM EDT Patient ID: Nenita Rosales is a 48 y.o. female. Chief Complaint: Chief Complaint Patient presents with Right Wrist - Follow-up Follow up history of right carpal tunnel release. HPI Nenita Rosales is a 48 y.o. female. Patient presents with history of right carpal tunnel release on November 14, 2023. She was having some pain pain through her postop course. We started her on Celebrex and topical Voltaren gel. Pain did not improve much so Dr. Elizondo did a carpal tunnel cortisone injection. She is here today to for follow up. She is feeling much better. She has not returned to work. Social History Occupational History Not on file Tobacco Use Smoking status: Every Day Current packs/day: 0.50 Average packs/day: 0.5 packs/day for 1 year (0.5 ttl pk-yrs) Types: Cigarettes Smokeless tobacco: Not on file Vaping Use Vaping status: Never Used Substance and Sexual Activity Alcohol use: No Drug use: No Sexual activity: Yes Past Medical History: Diagnosis Date Anxiety Asthma Depression Headache(784.0) Hypotension Inflammatory bowel disease Platelet function defect (CMS-HCC) There were no vitals filed for this visit. Review of Systems Constitutional: Negative for chills and diaphoresis. Respiratory: Negative for shortness of breath. Musculoskeletal: Positive for arthralgias. Skin: Negative for color change and wound. Neurological: Negative for numbness. Psychiatric/Behavioral: Negative for agitation and behavioral problems. Objective: Physical Exam Constitutional: General: She is not in acute distress. Pulmonary: Effort: Pulmonary effort is normal. No respiratory distress. Neurological: Mental Status: She is alert. Ortho Exam RIGHT WRIST Scar is clean and closed. Diffusely nontender. Full wrist range of motion. Full strength. Median nerve sensation intact and improving. Brisk capillary refill. Assessment: 1. S/P carpal tunnel release - celecoxib (CeleBREX) 200 mg capsule; Take 1 capsule (200 mg total) by mouth in the morning and 1 capsule (200 mg total) before bedtime. Dispense: 60 capsule; Refill: 2 2. Post-op pain - celecoxib (CeleBREX) 200 mg capsule; Take 1 capsule (200 mg total) by mouth in the morning and 1 capsule (200 mg total) before bedtime. Dispense: 60 capsule; Refill: 2 Plan: Patient is doing really well. She does not have anymore pain. Okay for her to return to work with no restrictions. Also I will refill her Celebrex. She will follow up as needed. Follow Up: Return if symptoms worsen or fail to improve. Nadia Landon PA-C 02/21/24 1544 documented in this encounterUniversity Hospitals St. [facility]08-20-2024 History of Present illness Narrative* Shalini Elizondo MD - 01/22/2024 11:15 AM EDTAssociated Order(s): $ Carpal Tunnel Injection: R carpal tunnel Post-Procedure Diagnose(s): S/P carpal tunnel release Nenita Rosales 1975 48 y.o. Chief Complaint Patient presents with Right Hand - Post-op Post-Operative Follow-up: Patient here for post-op follow-up. Patient is 10 weeks status post rightcarpal tunnel release. Pain is moderate. Pain is improving. Weight bearing status: WBAT. Current treatment is celebrex, voltaren gel Here for: follow up DOS: 11/14/2023 Surgery Procedure: right carpal tunnel release Constitutional Fever:no Drainage:no Redness:no Increased Swelling:no Ortho Exam RIGHT WRIST Minimal swelling Preserved alignment ROM: Full active range of motion. Still mild to moderate pillar pain. Neurovascularly intact Incision clean, dry, intact. $ Carpal Tunnel Injection: R carpal tunnel on 01/22/2024 11:33 AM Indications: pain Details: 25 G needle, volar approach Medications: 1 mL triamcinolone acetonide 10 mg/mL; 3 mL lidocaine 10 mg/mL (1 %) Outcome: tolerated well, no immediate complications 3 mL kenalog 10 1 mL Lidocaine 1% Procedure, treatment alternatives, risks and benefits explained, specific risks discussed. Consent was given by the patient. 1. S/P carpal tunnel release Plan Continue off work. Patient will call in a couple weeks if she would like to return to work. F/U in 1 month Right carpal tunnel cortisone injection in office today. Return F/U IN 1 MONTH RT CTR DOS 11/14/2023. Scribe Statement: Scribed for and in the presence of SHALINI ELIZONDO MD by RT SKYLA. Provider Statement: I, SHALINI ELIZONDO MD personally performed the services described in the documentation, as scribed by Nani in my presence, and it is both accurate and complete. documented in this encounterUniversity Hospitals St. [facility]08-06-2024 History of Present illness Narrative* Nadia Landon PA-C - 01/08/2024 3:05 PM EDT Nenita Rosales 1975 48 y.o. Chief Complaint Patient presents with Right Wrist - Post-op Post-Operative Follow-up: Patient here for post-op follow-up. Patient is 8 weeks status post Right carpal tunnel release. Pain is mild. Pain is improving. Patient is still having wrist pain and swelling. I tried putting her on Celebrex 2 weeks ago however it was too expensive so I put her on Mobic. Mobic isn't helping at all. She is here today for a return to work evaluation. She is still having increased pain. 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 It is to be noted that her numbness and tingling is improving DOS: 11/14/2023 Surgery Procedure: Right carpal tunnel release Constitutional Fever:no Drainage:no Redness:no Increased Swelling:no Ortho Exam Right wrist Scar healthy. Ivett-incisional tenderness. Full wrist range of motion with no pain. Sensation intactin improving median nerve. Brisk capillary refill. 1. S/P carpal tunnel release - celecoxib (CeleBREX) 200 mg capsule; Take 1 capsule (200 mg total) by mouth in the morning and 1 capsule (200 mg total) before bedtime. Dispense: 60 capsule; Refill: 1 - diclofenac sodium (VOLTAREN) 1 % gel; Apply 2 g topically in the morning and 2 g at noon and 2 g in the evening and 2 g before bedtime. Dispense: 100 g; Refill: 0 2. Post-op pain - celecoxib (CeleBREX) 200 mg capsule; Take 1 capsule (200 mg total) by mouth in the morning and 1 capsule (200 mg total) before bedtime. Dispense: 60 capsule; Refill: 1 - diclofenac sodium (VOLTAREN) 1 % gel; Apply 2 g topically in the morning and 2 g at noon and 2 g in the evening and 2 g before bedtime. Dispense: 100 g; Refill: 0 Plan Since Mobic has failed we will try to represcribe Celebrex. Patient will get the shanell Zapper Rx as a discount card to make the medication more affordable. I will also give her oral Voltaren gel. Return 2 weeks for RTW evaluation. Nadia Landon PA-C 01/08/24 1527 documented in this encounterUniversity Hospitals St. John [facility]07-23-2024 History of Present illness Narrative* Nadia Landon PA-C - 12/25/2023 3:50 PM EDT Nenita Rosales 1975 48 y.o. No chief complaint on file. Post-Operative Follow-up: Patient here for post-op follow-up. Patient is 6 weeks status post Right carpal tunnel release. Pain is mild. Pain is improving. Patient is still having some wrist pain and swelling. She is not back to work yet. DOS: 11/14/2023 Surgery Procedure: Right carpal tunnel release Constitutional Fever:no Drainage:no Redness:no Increased Swelling:no Ortho Exam Minimal swelling Preserved alignment Able to make full fist Neurovascularly intact Incision clean, dry, intact. 1. S/P carpal tunnel release Plan Start oral steroids. When she is finished with the steroids and start Celebrex. We will see her back in 2 weeks for return to work evaluation. No follow-ups on file. Nadia Landon PA-C 12/25/23 1611 documented in this encounterUniversity Hospitals St. John [facility]06-27-2024 History of Present illness Narrative* Shalini Elizondo MD - 11/29/2023 3:45 PM EDT Nenita Rosales 1975 48 y.o. Chief Complaint Patient presents with Right Hand - Post-op Post-Operative Follow-up: Patient here for post-op follow-up. Patient is 2 weeks status post Right carpal tunnel release. Pain is mild. Pain is improving. Sutures removed today DOS: 11/14/2023 Surgery Procedure: Right carpal tunnel release Constitutional Fever:no Drainage:no Redness:no Increased Swelling:no Ortho Exam Minimal swelling Preserved alignment Able to make full fist Neurovascularly intact Incision clean, dry, intact. 1. S/P carpal tunnel release Plan Discussed swelling, numbness, and tingling will improve with time. Use as tolerable. Follow up in 4 weeks. Return f/u in 4 weeks PO DOS 11/14/23 RT CTR with JASOSN. Scribe Statement: Scribed for and in the presence of SHALINI ELIZONDO MD by NICHELLE Ames. I, Shalini Elizondo MD, personally performed the services described in the documentation, as scribed in my presence, and it is both accurate and complete. documented in this encounterUniversity Hospitals St. [facility]05-21-2024 History of Present illness Narrative* Shalini Elizondo MD - 10/23/2023 2:45 PM EDT Patient ID: Nenita Rosales is a 48 y.o. female. PCP Nathan Tavera, [employer]PLICATOR Chief Complaint Patient presents with Right Hand - Numbness Chief Complaint: New patient right hand numbness. Patient is here following bracing . Patient is here for new patient visit. Previous testing done: EMG HPI Nenita Rosales is a 48 y.o. female. Patient presents with: Right hand numbness Hand Dominance: Right Any Trauma or how the pain started: no injury Date of Onset: ongoing for years Level of Pain: 10 at night, 6 during the day Quality is numbness. Associated Symptoms: Numbness and Tingling Aggravated by: sleeping, grasping objects Relieved by: none Symptoms are: show no change Previous treatments tried: NSAIDS, bracing Previous testing: EMG Prior Surgery: none Social History Occupational History Not on file Tobacco Use Smoking status: Every Day Current packs/day: 0.50 Average packs/day: 0.5 packs/day for 1 year (0.5 ttl pk-yrs) Types: Cigarettes Smokeless tobacco: Not on file Substance and Sexual Activity Alcohol use: No Drug use: No Sexual activity: Yes Past Medical History: Diagnosis Date Anxiety Asthma Depression Headache(784.0) Hypotension Inflammatory bowel disease Platelet function defect (CMS-HCC) There were no vitals filed for this visit. Review of Systems Constitutional: Negative for chills and fever. Respiratory: Negative for cough and shortness of breath. Neurological: Negative for light-headedness and numbness. Psychiatric/Behavioral: Negative for confusion. Objective: Physical Exam Constitutional: Appearance: Normal appearance. Musculoskeletal: General: Normal range of motion. Neurological: Mental Status: She is alert and oriented to person, place, and time. Psychiatric: Mood and Affect: Mood normal. Behavior: Behavior normal. Thought Content: Thought content normal. Judgment: Judgment normal. Ortho Exam Right Hand No wasting Positive median nerve flexion compression test Positive [facility]: Date: 07/12/2023 Where: [facility] Bilateral upper extremity : severe right carpal tunnel Reviewed and read by Dr. Elizondo Assessment: 1. Right carpal tunnel syndrome Plan: Reviewed EMG with patient. Discussed treatment options including conservative and surgical management. Discussed risk of both plans. Patient elects for surgical intervention. Discussed risks of surgery-infection, bleeding, risk of bone not healing. Informed consent obtained. Patient is schedule for Right carpal tunnel release on 11/14/2023. Follow up 2 weeks post op. Treatment plan discussed. Patient agreeable to plan. All questions answered. Follow Up: Return f/u 2 weeks post op DOS 11/14/23 RT CTR. Scribe Statement: Scribed for and in the presence of SHALINI ELIZONDO MD by NICHELLE Ames. I, Shalini Elizondo MD, personally performed the services described in the documentation, as scribed in my presence, and it is both accurate and complete. NICHELLE Ames 10/23/23 1516 documented in this encounterUniversity Hospitals St. John [facility]01-31-2024 [place] [id number] DISCHARGE SUMMARY PATIENT NAME: NENITA ROSALES : 1975 MED REC NO: [id number] ROOM: 0212 ACCOUNT NO: [id number] ADMIT DATE: 06/29/2023 PROVIDER: Cristofer Neumann MD DISCHARGE DATE: 07/02/2023 ATTENDING PHYSICIAN OF HOSPITALIZATION/DISCHARGE: Glory Neumann MD PERSONAL CARE PROVIDER: Nathan Tavera, nurse practitioner, [facility]. DIAGNOSES: 1. Hypokalemia. 2. Urinary tract infection. 3. Complaints of numbness and tingling, fingers, hands, cramping fingers most likely due to hyperventilation. 4. Irritable bowel syndrome, chronic diarrhea. 5. Stressors, divorce case, pending. 6. POTS (postural orthostatic tachycardia syndrome), stable. 7. Tobacco abuse. 8. Neuropathy. 9. Status post gastric sleeve, 2013. Other medical problems set forth in the history and physical of 06/30/2023, incorporated for reference herein. HISTORY OF PRESENT ILLNESS AND HOSPITAL COURSE: A 48-year-old white female, complained of chest discomfort and nausea. The patient ruled out for myocardial infarction. The patient has had GI issues, had a gastric sleeve, gastrectomy performed in 2012. The patient treated with Macrobid for the urinary tract infection. The patient has multiple stressors due to a pending divorce case. POTS, on midodrine. Tobacco abuse, advised to quit absolutely and completely, nicotine patch given. The patient's EKGs, #1, normal sinus rhythm 76, T-wave abnormality, inferior ischemia, anterior ischemia? EKG #2, normal sinus rhythm, rate 66, low voltage T-wave abnormality, prolonged QTc. CTA chest pulmonary, no evidence of thoracic aneurysm or dissection. No cardiopulmonary process. Gastric sleeve with small hiatal hernia, marked fatty infiltration of liver, status post cholecystectomy. The patient's various medical problems included the following, asthma, degenerative joint disease, depression, GERD, irritable bowel syndrome, migraines, obstructive sleep apnea, polycystic ovarian disease, von Willebrand disease. The patient denies any problems with prior surgeries for the same. LABORATORY DATA: White cell count 4.9, hemoglobin 11.3, hematocrit 32.3, platelets 237,000. Sodium 138, potassium 4.2, chloride 103, CO2 26, BUN less than 2, creatinine 0.5, glucose 81, calcium 9.1, GFR greater than 60. DISCHARGE INSTRUCTIONS/FOLLOWUP: Discharged to home on 07/02/2023. DIET: Cardiac. ACTIVITY: As tolerated. CONDITION AT DISCHARGE: Fair, improved. MEDICATIONS: NEW: Nicotine 21 mg per 24-hour patch topical, change daily, advised may not smoke with the patch in place; Macrobid 100 mg p.o. twice daily for three additional days for urinary tract infection; probiotic lactobacillus one morning, noon, bedtime; Zofran 4 mg t.i.d. p.r.n. nausea, vomiting. FOLLOWING CONTINUED, NO CHANGE: Albuterol sulfate HFA 2 puffs every 4 hours p.r.n. shortness of breath, wheezing; buspirone (BuSpar) 10 mg p.o. daily; furosemide (Lasix) 20 mg p.o. daily p.r.n. lower extremity edema; midodrine (ProAmatine) 5 mg p.o. three times a day; omeprazole (Prilosec) 40 mg p.o. daily; sumatriptan (Imitrex) 50 mg 1 tablet once as needed for migraine headache. Follow up with the patient's personal physician, Nathan Tavera, nurse practitioner, [facility]. Any aspect of the patient's care not discussed in the chart and/or dictation will be addressed and treated as an outpatient. The patient's medications have been reviewed including, but not limited to, pre-hospital, hospital and discharge medications. The patient and/or the patient's personal representatives were specifically advised the only medications to be taken are those set forth in the discharge orders and no other medications should be taken. Any prior medications not on the discharge orders are specifically discontinued. ADDENDUM: During this hospitalization, the patient had many complaints. It appears that the patient was wishing to remain in the hospital setting, hence a variety of issues should occur around the time for planned discharge. Recommended the patient consider counseling, particularly with the divorce undergoing. CRISTOFER NEUMANN MD [id number] Doc#: [id number] Medical [facility]01-29-2024 History of Present illness Narrative* Cristofer Neumann MD - 07/02/2023 6:09 PM EST Hospitalist Progress Note Patient: Nenita Rosales Date of : 1975 Admit date: 06/29/2023 Acct: [id number] PCP: Nathan Tavera APRN - [facility]--Interval History: Hypokalemia--corrected--K = 4.2 UTI---POA---on Macrobid Tobacco abuse---cessation recommended Stressors---divorce pending Patient has presented a myriad of complaints and wants to remain in the hospital---hyperventilationwould explain the various sensations complained---to be discharged to home---07.02.2023 All other ROS negative except noted in HPI Diet: ADULT ORAL NUTRITION SUPPLEMENT; Breakfast, Lunch, Dinner; Clear Liquid Oral Supplement ADULT DIET; Full Liquid Medications: Scheduled Meds: calcium chloride 1,000 mg in sodium chloride 0.9 % 100 mL IVPB 1,000 mg IntraVENous Once midodrine 5 mg Oral TID sodium chloride flush 5-40 mL IntraVENous 2 times per day nicotine 1 patch TransDERmal Daily nitrofurantoin (macrocrystal-monohydrate) 100 mg Oral 2 times per day Continuous Infusions: sodium chloride PRN Meds:busPIRone, sodium chloride flush, sodium chloride, ondansetron OR ondansetron, polyethylene glycol, acetaminophen OR acetaminophen, ibuprofen, potassium chloride, loperamide Objective: Labs: CBC with Differential: Lab Results Component Value Date/Time WBC 4.9 07/02/2023 05:32 AM RBC 2.97 07/02/2023 05:32 AM HGB 11.3 07/02/2023 05:32 AM HCT 32.3 07/02/2023 05:32 AM PLT 237 07/02/2023 05:32 AM MCV 108.8 07/02/2023 05:32 AM MCH 38.0 07/02/2023 05:32 AM MCHC 35.0 07/02/2023 05:32 AM RDW 13.2 07/02/2023 05:32 AM LYMPHOPCT 38 07/02/2023 05:32 AM MONOPCT 9 07/02/2023 05:32 AM BASOPCT 1 07/02/2023 05:32 AM MONOSABS 0.44 07/02/2023 05:32 AM LYMPHSABS 1.84 07/02/2023 05:32 AM EOSABS 0.13 07/02/2023 05:32 AM BASOSABS 0.05 07/02/2023 05:32 AM DIFFTYPE NOT REPORTED 10/13/2016 11:39 AM BMP: Lab Results Component Value Date/Time NA 138 07/02/2023 05:32 AM K 4.2 07/02/2023 05:32 AM CL 103 07/02/2023 05:32 AM CO2 26 07/02/2023 05:32 AM BUN <2 07/02/2023 05:32 AM LABALBU 2.6 07/02/2023 05:32 AM CREATININE 0.5 07/02/2023 05:32 AM CALCIUM 8.0 07/02/2023 05:32 AM GFRAA >60 10/13/2016 11:39 AM LABGLOM >60 07/02/2023 05:32 AM GLUCOSE 81 07/02/2023 05:32 AM Physical Exam: Vitals: BP (!) 119/94 Pulse 54 Temp 98.8 F (37.1 C) (Tympanic) Resp 18 Ht 1.6 m (5' 3) Wt 67.2 kg (148 lb 3.2 oz) SpO2 100% BMI 26.25 kg/m 24 hour intake/output: Intake/Output Summary (Last 24 hours) at 07/02/2023 1809 Last data filed at 07/02/2023 1330 Gross per 24 hour Intake 2717.28 ml Output -- Net 2717.28 ml Last 3 weights: Wt Readings from Last 3 Encounters: 07/02/23 67.2 kg (148 lb 3.2 oz) 06/21/23 65.8 kg (145 lb) 05/14/23 69.9 kg (154 lb) HEENT: PERRLA, EMOI, Normocephalic, and Atraumatic Neck: Supple, No Masses, Tenderness, Nodularity, and No Lymphadenopathy Chest/Lungs: Clear to Auscultation without Rales, Rhonchi, or Wheezes Cardiac: Regular Rate and Rhythm GI/Abdomen: Bowel Sounds Present and Soft, Non-tender, without Guarding or Rebound Tenderness : Not examined EXT/Skin: No Edema, No Cyanosis, and No Clubbing---pulses normal distally Neuro: Alert and Oriented, to Person, to Time, to Place, to Situation, No Localizing Signs/Symptoms, and Cranial Nerves II-XII Grossly Intact--claims weakness, however, motor strength within normal limits---DTRs normal--no SI-HI Assessment: Principal Problem: Hypokalemia Active Problems: UTI (urinary tract infection) Nausea and vomiting Resolved Problems: * No resolved hospital problems. * Patient received smoking cessation information during this hospitalization. Pt was given the [employer] Quit Line number. Smoking cessation medication patient was given at discharge: Nicotine Patch Reason no smoking cessation medication given Not Applicable Plan: Home---07.02.2023 Medications reviewed Depression--anxiety---has been prescribed Effexor--Buspar by personal care provider---needs to filland use Tobacco---cessation--nicotine patch Follow up Nathan Tavera NP--FP See orders Hospitalist * Angélica Fink RN - 07/02/2023 5:03 PM EST Primary nurse went over pt discharge teaching and instructions and after finishing up pt wanted to get up with nurse to get her purse out of the closet. Pt grabbed her purse and on the way back to the bed, Pt grabbed foot of the bed, swayed her body like she was impersonating being dizzy. Nurse hada hold of pt by the gown, Pt then tried to kneel down and back like she was trying to purposefully fall on Meat Wrapper. Meat Wrapper grabbed pt under the arms and held pt up, told her she wasn't falling,and I was going to try to help her back up. Pt is still mid crouch position and stated I can't get up I can't feel my legs, they gave out on me as pt is still crouched, not on the ground, still in nurses ar ms. At this time pt is resisting nurses help to stand, nurse asks pt to let go of the bedside tableshe was still holding onto so I could ease her to the ground. Nurse eases pt to the ground and calls for help. PCT and another nurse came in to assist medical underwriter, in which now pt is stating she needs a chair because she is about to poop in her pants. Pt then states, I know you think I'm doing this on purpose but I promise I'm not, medical underwriter says I do not think anything but you have not fallen or came close to falling once Pt disagrees and turns to PCT and asks, haven't I already almost fallen several times when going to the bathroom, PCT stated, Um, no not really, nt at all. Meat Wrapper goes to get a wheelchair, and when medical underwriter returned PCT says pt lifted herself into bed using her legs. Hospitalist was informed as well as melt house drag operator, and regional facilities manager. Hospitalist still ordered to discharge at this time. Pt is back in bed, bed locked, bed alarm on. * Angélica Fink RN - 07/02/2023 4:20 PM EST Primary nurse went over discharge instructions and education with the patient. 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 Nurse read through instructions anyway. Pt did not have any questions. * Angélica Fink RN - 07/02/2023 3:15 PM EST Nurse Regi approached medical underwriter to inform medical underwriter that she helped pt to restroom. Nurse stated, she was grabbing on to everything like she was trying to seem unstable. * Angélica Fink RN - 07/02/2023 1:15 PM EST Meat Wrapper enters rooms and upon entry asks the pt how she's feeling. Pt stated, well I don't really know what the plans gonna be writers asks, what do you mean, what plan?, pt states, well they'rejust going to send me without figuring out what's wrong medical underwriter asks pt to go more in depth, Pt says well they're just gonna send me home, and I can't even use my legs medical underwriter asks, what do you mean, you have been walking just all day, to the bathroom with no assistive devices just fine. Pt saysI've have been close to falling and I'm just gonna fall when I get home Meat Wrapper told the pt she has not fallen once since she has been here and she has been walking fine. * Gricel Leigh RD - 07/02/2023 11:53 AM EST Comprehensive Nutrition Assessment Type and Reason for Visit: Initial, Positive Nutrition Screen, NPO/Clear Liquid Nutrition Recommendations/Plan: Continue CL diet; d/c therapeutic restrictions d/t poor intakes/appetite. Continue CL ONS TID. Advance diet and ONS as tolerated. Monitor and follow. Malnutrition Assessment: Malnutrition Status: Severe malnutrition (based on weight loss and intakes) (07/02/23 1156) Context: Acute Illness Findings of the 6 clinical characteristics of malnutrition: Energy Intake: 50% or less of estimated energy requirements for 5 or more days Weight Loss: 7.5% over 3 months Body Fat Loss: Unable to assess Muscle Mass Loss: Unable to assess Fluid Accumulation: Unable to assess Calculating Machine Mechanic Strength: Not Performed Nutrition Assessment: Nutrition screen + for poor appetite and weight loss. Admitted with dehydration; electrolyes currently corrected. Pt reports current N/V/D to medical underwriter, though she has no V/D noted in the past 24 hours.She states she has had these symptoms for the past few weeks. Reports poor appetite, eating <25%clear meals and clear ONS. Has had one full ONS since admission. Weight has decreased 6.8# in past 2 days (4.4%). No weight loss noted in past month; -12.5#/ 7.5% x 3 mo (significant); no 6 mo weightrecorded; -22#/ 12.5% x 9 mo. No edema is noted. Pt does have a full round face. She had blanket pulled to her neck. LBM noted 06/30. Nutrition Related Findings: Labs reviewed. Low K; low Mg corrected. Alb 2.6 (indicator of chronic disease and inflammation); BUN <2. Meds reviewed Wound Type: None Current Nutrition Intake & Therapies: Average Meal Intake: 1-25% Average Supplements Intake: 1-25% ADULT DIET; Clear Liquid; 5 carb choices (75 gm/meal); Low Fat/Low Chol/High Fiber/MALISSA ADULT ORAL NUTRITION SUPPLEMENT; Breakfast, Lunch, Dinner; Clear Liquid Oral Supplement Anthropometric Measures: Height: 160 cm (5' 3) [place] Body Weight (IBW): 115 lbs (52 kg) Admission Body Weight: 70.3 kg (155 lb) Current Body Weight: 67.2 kg (148 lb 2.4 oz), 128.8 % IBW. Weight Source: Bed Scale Current BMI (kg/m2): 26.3 Usual Body Weight: 77.1 kg (170 lb) % Weight Change (Calculated): -12.9 Weight Adjustment For: No Adjustment Estimated Daily Nutrient Needs: Energy Requirements Based On: Kcal/kg Weight Used for Energy Requirements: Current Energy (kcal/day): 8070-4189 Weight Used for Protein Requirements: Current Protein (g/day): 110-130 Method Used for Fluid Requirements: ml/Kg (30 ml/kg) Fluid (ml/day): 2100 or per physician Nutrition Diagnosis: Inadequate protein-energy intake related to altered GI function as evidenced by NPO or clear liquidstatus due to medical condition, intake 0-25% Nutrition Interventions: Food and/or Nutrient Delivery: Continue Oral Nutrition Supplement, Continue Current Diet Nutrition Education/Counseling: No recommendation at this time Coordination of Nutrition Care: Continue to monitor while inpatient Plan of Care discussed with: Patient Goals: Goals: PO intake 50% or greater, prior to discharge Nutrition Monitoring and Evaluation: Behavioral-Environmental Outcomes: None Identified Food/Nutrient Intake Outcomes: Diet Advancement/Tolerance, Food and Nutrient Intake, Supplement Intake Physical Signs/Symptoms Outcomes: Biochemical Data, Diarrhea, GI Status, Nausea or Vomiting, Fluid Status or Edema, Nutrition Focused Physical Findings, Skin, Weight Discharge Planning: Too soon to determine Gricel Leigh RD Contact: [phone] * Mirela Lazaro RN - 07/01/2023 8:25 PM EST IV fluids restarted after IV insertion by charge nurse. IV infiltrated with bruising and swelling at IV site. Patient also reports burning with fluids. IV removed. Patient refusing another IV at thistime. * Carlos Owen MD - 07/01/2023 1:11 PM EST Hospitalist Progress Note 07/01/2023 1:12 PM Subjective: Admit Date: 06/29/2023 PCP: Nathan Tavera, NAOMY - DRY WALL APPLICATOR DNR-CCA C/c: Chief Complaint Patient presents with Chest Pain Nausea Interval History: pt still has weakness, diarrhea slightly better, still feeling weak, pt k was better, pt still has abdominal pain H/o of ibs Diet: ADULT DIET; Clear Liquid; 5 carb choices (75 gm/meal); Low Fat/Low Chol/High Fiber/MALISSA ADULT ORAL NUTRITION SUPPLEMENT; Breakfast, Lunch, Dinner; Clear Liquid Oral Supplement ip days:0 Medications: Scheduled Meds: calcium chloride 1,000 mg in sodium chloride 0.9 % 100 mL IVPB 1,000 mg IntraVENous Once midodrine 5 mg Oral TID sodium chloride flush 5-40 mL IntraVENous 2 times per day enoxaparin 40 mg SubCUTAneous Daily nicotine 1 patch TransDERmal Daily nitrofurantoin (macrocrystal-monohydrate) 100 mg Oral 2 times per day Continuous Infusions: sodium chloride dextrose 5% and 0.45% NaCl with KCl 20 mEq 125 mL/hr at 07/01/23 0811 PRN Meds:.busPIRone, sodium chloride flush, sodium chloride, ondansetron OR ondansetron, polyethylene glycol, acetaminophen OR acetaminophen, ibuprofen, potassium chloride, loperamide CBC: Recent Labs 06/29/23 19406/30/23 0741 07/01/23 0553 WBC 7.7 4.8 4.1 HGB 12.8 11.6* 10.8* PLT 305 218 215 BMP: Recent Labs 06/29/23 19406/30/23 0033 06/30/23 0741 06/30/23 1705 07/01/23 0553 NA 134* -- 139 -- 138 K 2.2* < > 3.3* 3.5* 3.7 CL 90* -- 100 -- 102 CO2 30 -- 27 -- 23 BUN 3* -- 2* -- 2* CREATININE 0.5 -- 0.6 -- 0.5 GLUCOSE 109* -- 94 -- 124* < > = values in this interval not displayed. Hepatic: Recent Labs 06/29/231942 AST 241* ALT 125* BILITOT 1.7* ALKPHOS 189* Troponin: No results for input(s): TROPONINI in the last 72 hours. BNP: No results for input(s): BNP in the last 72 hours. Lipids: No results for input(s): CHOL, HDL in the last 72 hours. Invalid input(s): LDLCALCU INR: No results for input(s): INR in the last 72 hours. Objective: Vitals: BP 119/79 Pulse 64 Temp 98.7 F (37.1 C) (Tympanic) Resp 16 Ht 1.6 m (5' 3) Wt 70.3 kg (155 lb) SpO2 98% BMI 27.46 kg/m General appearance: alert, appears stated age and cooperative Skin: Skin color, texture, turgor normal. No rashes or lesions Lungs: clear to auscultation bilaterally Heart: regular rate and rhythm, S1, S2 normal, no murmur, click, rub or gallop Abdomen: soft, non-tender; bowel sounds normal; no masses, no organomegaly Extremities: extremities normal, atraumatic, no cyanosis or edema Neurologic: Mental status: Alert, oriented, thought content appropriate Prophylaxis: DVT with [x] lovenox [] heparin [] Scd [] none: Radiology: CTA CHEST W CONTRAST Result Date: 06/29/2023 EXAMINATION: CTA OF THE CHEST 06/29/2023 9:41 pm TECHNIQUE: CTA of the chest was performed after theadministration of intravenous contrast. Multiplanar reformatted images are provided for review. MIPimages are provided for review. Automated exposure control, iterative reconstruction, and/or weightbased adjustment of the mA/kV was utilized to reduce the radiation dose to as low as reasonably achievable. COMPARISON: None. HISTORY: ORDERING SYSTEM PROVIDED HISTORY: chest pain through to back / eval aorta TECHNOLOGIST PROVIDED HISTORY: chest pain through to back / eval aorta Additional Contrast?->1 Reason for Exam: chest pain through to back / eval aorta FINDINGS: Aorta: No evidence of thor acic aortic aneurysm or dissection. No acute abnormality of the aorta. Mediastinum: No evidence of mediastinal lymphadenopathy. The heart and pericardium demonstrate no acute abnormality. There is a small hiatal hernia and there has been prior sleeve gastrectomy. Lungs/Pleura: The lungs are without acute process. No focal consolidation or pulmonary edema. No evidence of pleural effusion or pneumothorax. Upper Abdomen: Limited images of the upper abdomen disclose marked hypodensity of the liver and prior cholecystectomy. Soft Tissues/Bones: No acute bone or soft tissue abnormality. 1. No evidence of thoracic aortic aneurysm or dissection. 2. No acute cardiopulmonary process is identified. 3. Status post sleeve gastrectomy with small hiatal hernia. 4. Marked fatty infiltration of the liver. 5. Status post cholecystectomy. Assessment : Ibs/ch diarrhea/ surgery to see Hypokalemia/corrected anxiety Plan: 1. Continue present care 2. See order Patient Active Problem List: Degenerative joint disease Asthma Obstructive sleep apnea IBS (irritable bowel syndrome) Depression PCOS (polycystic ovarian syndrome) Von Willebrand disease (HCC) GERD (gastroesophageal reflux disease) Insomnia Anxiety Migraine Tobacco use Migraine without status migrainosus, not intractable Attempted suicide (HCC) Episode of syncope UTI (urinary tract infection) Angiohemophilia (HCC) Elevated LFTs Hepatic steatosis History of ETOH abuse Menopausal symptoms Mild intermittent asthma without complication Platelet function defect (HCC) POTS (postural orthostatic tachycardia syndrome) S/P gastric sleeve procedure Hypokalemia Hypomagnesemia Anticipated Disposition upon discharge: [] Home [] Home with Home Health [] [facility] Facility [] [facility] Patient is admitted as inpatient status because of co-morbidities listed above, severity of signs and symptoms as outlined, requirement for current medical therapies and most importantly because of direct risk to patient if care not provided in a hospital setting. Carlos Owen MD, MD [facility] Discharge instructions* Discharge Instructions* Cristofer Neumann MD - 07/02/2023 1:22 PM EST Follow up with Nathan Tavera in one week Stop smoking * Discharge Instr - Activity* Cristofer Neumann MD - 07/02/2023 1:21 PM EST As tolerated * Discharge Instr - Diet* Cristofer Neumann MD - 07/02/2023 1:21 PM EST Good nutrition is important when healing from an illness, injury, or surgery. Follow any nutrition recommendations given to you during your hospital stay. If you were given an oral nutrition supplement while in the hospital, continue to take this supplement at home. You can take it with meals, in-between meals, and/or before bedtime. These supplements can be purchased at most local grocery stores, pharmacies, and chain super-stores. If you have any questions about your diet or nutrition, call the hospital and ask for the dietitian. Generalized diet * Attachments The following attachments cannot be sent through Care Everywhere. * Nitrofurantoin Oral Capsule (NITROFURANTOIN/NITROFURANTOIN MACROCRYSTALS - ORAL) (Croatian) * bifidobacterium and lactobacillus (Croatian) [facility] Discharge instructions* Discharge Instructions* Jaiden Oakley DO - 06/21/2023 9:29 AM EST Return to the emergency department if symptoms worsen or persist. Follow-up with the family doctor in 1 to 2 days. Continue to eat green leafy vegetables as well as bananas to keep your potassium level normal. * Attachments The following attachments cannot be sent through Care Everywhere. * Magnesium Test (Croatian) * Hypokalemia (Croatian) [facility] No data available for this section [facility] Evaluation note* Diagnosis Hypokalemia- Primary Hypopotassemia Hypomagnesemia Disorders of magnesium metabolism documented in this encounter [facility] note* Diagnosis Hypokalemia- Primary Hypopotassemia Nausea and vomiting, unspecified vomiting type Dehydration Hypokalemia Hypopotassemia Nonspecific ST-T wave electrocardiographic changes Nonspecific abnormal electrocardiogram (ECG) (EKG) Urinary tract infection without hematuria, site unspecified Gastroesophageal reflux disease without esophagitis Esophageal reflux UTI (urinary tract infection) Urinary tract infection, site not specified Nausea and vomiting Nausea with vomiting documented in this encounter [facility] note* Diagnosis Muscle weakness Muscle weakness (generalized) Polyarthralgia Pain in joint, multiple sites documented in this encounter [facility] note* Diagnosis Dental infection- Primary Acute apical periodontitis of pulpal origin [facility] Diagnosis Right carpal tunnel syndrome- Primary Carpal tunnel syndrome Right carpal tunnel syndrome- Primary Carpal tunnel syndrome Right carpal tunnel syndrome Carpal tunnel syndrome [facility] Diagnosis S/P carpal tunnel release- Primary Other postprocedural status [facility]* Diagnosis S/P carpal tunnel release- Primary Other postprocedural status [facility]* Diagnosis S/P carpal tunnel release- Primary Other postprocedural status Right carpal tunnel syndrome Carpal tunnel syndrome [facility]* Diagnosis S/P carpal tunnel release- Primary Other postprocedural status Post-op pain Other acute postoperative pain [facility]* Diagnosis Pillar pain, post-operative- Primary S/P carpal tunnel release Other postprocedural status [facility]* Diagnosis S/P carpal tunnel release Other postprocedural status Post-op pain Other acute postoperative pain [facility] Dis[facility] instructions No data available for this section [facility] InstructionsNot on filedocumented in this encounter [facility] filedocument[facility] filedocument[facility] in this encounter [facility] filedocumented in this encounter [facility] on filedocumented in this encounter [facility] No data available for this section [facility] Reason for referral (narrative)No reason for referral [facility]St[facility] Work Phone: Summary Purpose Family History No Family History Records Found Relationship Condition Age at Onset Recorded Date/T radha Not Specified Malignant neoplasm of breast Unknown Cody's esophagus Unknown Malignant neoplasm Unknown Hypertension Unknown Advance Directives No Advanced Directives Records FoundLatest Code Status on File Code Status Date Activated Date Inactivated Comments DNR-CCA 06/30/2023 6:29 AM Code Status History Code Status Date Activated Date Inactivated Comments Full Code 06/30/2023 5:31 AM 06/30/2023 6:29 AM Documents on File Type Date Recorded Patient Cardiology Consultant Expl anation ACP-Do Not Resuscitate 07/09/2023 9:02 AM Latest Code Status on File Code Status Date Activated Date Inactivated Comments DNR-CCA 06/30/2023 6:29 AM 07/02/2023 8:39 PM Code Status History Code Status Date Activated Date Inactivated Comments Full Code 06/30/2023 5:31 AM 06/30/2023 6:29 AM Reason for Referral Specialty Diagnoses / Procedures Referred By Elizabeth sawin Referred To Contact General Surgery / Wound Ostomy Diagnoses Nausea and vomiting, unspecified vomiting type Hypokalemia Urinary tract infection without hematuria, site unspecified [facility] [address] [place] [address] Cristofer Pederson MD [address] [facility] [place] [address] Referral ID Status Reason Start Date Expiration Date V isits Requested Visits Authorized [id number] Open Specialty Services Required 07/02/2023 07/01/2024 1 1 Scheduling Instructions [facility] Comments Why was the patient hospitalized? Hypokalemia, N/V, UTI Did patient have surgery / procedure? No Are there sutures, eryn, drains or a catheter that need removed? No Does further labs or x-rays need completed before follow-up visit? No When does the patient need to be seen? 1-2 weeks Is this a transitional care visit that needs completed within 7 days? No Specialty Diagnoses / Procedures Referred By Elizabeth t Referred To Contact Certified Nurse Practitioner / Family Medicine Diagnoses Nausea and vomiting, unspecified vomiting type Hypokalemia Nonspecific ST-T wave electrocardiographic changes Urinary tract infection without hematuria, site unspecified [facility] [address] [place] [address] Nathan Tavera APRN - CNP [address] [place] [address] Referral ID Status Reason Start Date Expiration Date V isits Requested Visits Authorized [id number] Open Specialty Services Required 07/02/2023 07/01/2024 1 1 Scheduling Instructions [facility] Comments Why was the patient hospitalized? Hypokalemia, chest pain, UTI Did patient have surgery / procedure? No Are there sutures, eryn, drains or a catheter that need removed? No Does further labs or x-rays need completed before follow-up visit? No When does the patient need to be seen? 1 week Is this a transitional care visit that needs completed within 7 days? No Specialty Diagnoses / Procedures Referred By Elizabeth swain Referred To Contact Diagnoses S/P carpal tunnel release Nadia Landon PA-C [id number] [facility] [place] [address] Referral ID Status Reason Start Date Expiration Date V isits Requested Visits Authorized [id number] Pending Review 12/25/2023 12/24/2024 1 1 Specialty Diagnoses / Procedures Referred By Elizabeth swain Referred To Contact Diagnoses S/P carpal tunnel release Post-op pain Nadia Landon PA-C [id number] [place] [address] Referral ID Status Reason Start Date Expiration Date V isits Requested Visits Authorized [id number] Pending Review 01/08/2024 01/07/2025 1 1 Chief Complaint and Reason for Visit Chief Complaint Admit Date L SHOULDER INJURY/ BUEHLERS September 25, 2024 9:56am L SHOULDER INJURY/ BUEHLERS October 09 9:25am LEFT SHOULDER October 20, 2024 10:53 am Reason for Visit Admit Date Left shoulder strain September 25, 2024 9: 56am Left shoulder strain October 09, 2024 9:25a m Impingement of left shoulder October 20, 2 025 10:53am Left rotator cuff tear October 20, 2024 10 :53am Left shoulder strain October 20, 2024 10:5 3am Primary osteoarthritis, left shoulder Ma y 2024 10:53am Chief Complaint Admit Date L SHOULDER INJURY/ BUEHLERS September 25, 2024 9:56am L SHOULDER INJURY/ BUEHLERS October 09 9:25am LEFT SHOULDER October 20, 2024 10:53 am L SHOULDER RX HERE December 12, 2024 3:30 pm LEFT SHOULDER December 15, 2024 7:46 am Chief Complaint Admit Date L SHOULDER INJURY/ BUEHLERS September 25, 2024 9:56am L SHOULDER INJURY/ BUEHLERS October 09 9:25am LEFT SHOULDER October 20, 2024 10:53 am L SHOULDER RX HERE December 12, 2024 3:30 pm LEFT SHOULDER December 15, 2024 7:46 am INFECTED TOOTH December 26, 2024 10:4 4am Reason for Visit Admit Date Left shoulder strain September 25, 2024 9: 56am Left shoulder strain October 09, 2024 9:25a m Impingement of left shoulder October 20 025 10:53am Left rotator cuff tear October 20, 2024 10 :53am Left shoulder strain October 20, 2024 10:5 3am Primary osteoarthritis, left shoulder Ma y 2024 10:53am Impingement of left shoulder December 15, 2024 7:46am Left rotator cuff tear December 15, 2024 7 :46am Primary osteoarthritis, left shoulder Ju ly 2024 7:46am Chief Complaint Admit Date L SHOULDER INJURY/ BUEHLERS September 25, 2024 9:56am L SHOULDER INJURY/ BUEHLERS October 09 9:25am LEFT SHOULDER October 20, 2024 10:53 am L SHOULDER RX HERE December 12, 2024 3:30 pm LEFT SHOULDER December 15, 2024 7:46 am INFECTED TOOTH December 26, 2024 10:4 4am CONCERN FOR TOOTH INFECTION January 01 025 12:15pm Amb Documentation January 01, 2025 12:1 9pm Reason for Visit Admit Date Left shoulder strain September 25, 2024 9: 56am Left shoulder strain October 09, 2024 9:25a m Impingement of left shoulder October 20 025 10:53am Left rotator cuff tear October 20, 2024 10 :53am Left shoulder strain October 20, 2024 10:5 3am Primary osteoarthritis, left shoulder Ma y 2024 10:53am Impingement of left shoulder December 15, 2024 7:46am Left rotator cuff tear December 15, 2024 7 :46am Primary osteoarthritis, left shoulder Ju ly 2024 7:46am Dental infection December 26, 2024 10:4 4am Additional Source Comments INFORMATION SOURCE (unrecogn ized section and content) DATE CREATED AUTHOR 11/27/2017 [facility] DATE CREATED AUTHOR AUTHOR'S ORGANIZ ATION 04/14/2023 [facility] DATE CREATED AUTHOR AUTHOR'S ORGANIZ ATION 10/06/2023 [facility] DATE CREATED AUTHOR AUTHOR'S ORGANIZ ATION 11/15/2023 [facility] DATE CREATED AUTHOR AUTHOR'S ORGANIZ ATION 01/21/2024 [facility] [place] [facility] DATE CREATED AUTHOR AUTHOR'S ORGANIZ ATION 02/24/2024 [facility] DATE CREATED AUTHOR AUTHOR'S ORGANIZ ATION 03/30/2024 [facility] DATE CREATED AUTHOR AUTHOR'S ORGANIZ ATION 10/16/2024 [facility] DATE CREATED AUTHOR AUTHOR'S ORGANIZ ATION 01/02/[address] [facility] Reason for Visit (unrecogniz ed section and content) Reason Comments Shaking States has been pas sing out and is shacking Reason Comments Chest Pain Nausea Specialty Diagnoses / Procedures Referred By Elizabeth t Referred To Contact Diagnoses Dehydration Hypokalemia Nonspecific ST-T wave electrocardiographic changes Nausea and vomiting, unspecified vomiting type Carlos Owen MD [address] [place] [address] [facility] [address] [place] [address] Referral ID Status Reason Start Date Expiration Date Visits Re quested Visits Authorized [id number] 1 1 Reason Comments Dental Problem R side lower tooth x 1 day, states same has broken off has dentist appt next week, swelling and pain Reason Comments Numbness Specialty Diagnoses / Procedures Referred By Elizabeth t Referred To Contact Orthopedic Surgery Diagnoses Carpal tunnel syndrome of right wrist Procedures AMB EXTERNAL REFERRAL TO ORTHOPEDIC SURGERY Nathan Tavera, THAI MASSEUR-DRY WALL APPLICATOR [address] [place] [address] Acosta Caro MD [address] [place] [address] Referral ID Status Reason Start Date Expiration Date V isits Requested Visits Authorized [id number] Pending Review 09/20/2023 03/18/2024 1 1 Reason Comments Post-op Reason Comments Post-op Reason Comments Follow-up Scheduled Active and Recently Administ ered Medications (unrecognized section and content) Medication Order 06/19/2023 06/20/2023 06/21/2023 LORazepam (ATIVAN) injection 0.5 mg (COMPLETED) 0.5 mg, IntraVENous, ONCE, 1 dose, On Eva 06/21/23 at 0730 0729 (Given - Provid er: Mayo Hidalgo RN) magnesium sulfate 1000 mg in dextrose 5% 100 mL IVPB (COMPLETED) 1,000 mg, IntraVENous, at 100 mL/hr, Administer over 1 Hours, EVERY HOUR, First dose (after last reorder) on Eva 06/21/23 at 0815, For 2 doses, Recommended infusion rate of 4 grams/hour. 0809 (New Bag - Prov ider: Mayo Hidalgo RN)0920 (Stopped - Provider: Mayo Hidalgo RN)0921 (New Bag - Provider: Mayo Hidalgo RN)1024 (Stopped - Provider: Mayo Hidalgo RN) potassium bicarb-citric acid (EFFER-K) effervescent tablet 40 mEq (COMPLETED) 40 mEq, Oral, ONCE, 1 dose, On Eva 06/21/23 at 0815, Do not chew or crush. Dissolve flavored tablets completely in 3 to 4 ounces of cold water; unflavored tablets may be dissolved in 3 to 4 ounces of cold juice. Patient to sip slowly over a 5 to 10 minute period. May further dilute if GI adverse effects occur. 0809 (Given - Provid er: Mayo Hidalgo RN) sodium chloride 0.9 % bolus 1,000 mL (COMPLETED) 1,000 mL (15.2 mL/kg), IntraVENous, at 500 mL/hr, Administer over 2 Hours, ONCE, On Eva 24 at 0715, For 1 dose 0720 (New Bag - Prov ider: Mayo Hidalgo RN)0940 (Stopped - Provider: Mayo Hidalgo RN) PRN Medication Order 06/19/2023 06/20/2023 06/21/2023 acetaminophen (TYLENOL) tablet 650 mg 650 mg, Oral, EVERY 4 HOURS PRN, Starting on Eva 06/21/23 at 0856, Until Discontinued, Pain Mild (1-3), Maximum dose of acetaminophen is 4000 mg from all sources in 24 hours. 0858 (Given - Provid er: Mayo Hidalgo RN) Scheduled Medication Order 06/30/2023 07/01/2023 07/02/2023 acetaminophen (TYLENOL) tablet 1,000 mg (COMPLETED) 1,000 mg, Oral, ONCE, 1 dose, On 06/30/23 at 0030, Maximum dose of acetaminophen is 4000 mg from all sources in 24 hours. 0017 (Given - Provider: Yanna Carson RN) calcium chloride 1,000 mg in sodium chloride 0.9 % 100 mL IVPB 1,000 mg, IntraVENous, at 100 mL/hr, Administer over 60 Minutes, ONCE, On 07/01/23 at 0800, For 1 dose, Infuse at 1 gm/hr 1031 (Not Given - Provider: Yoandy Bruce RN - Reason: Other - Comment: already given. See EMAR) ketorolac (TORADOL) injection 15 mg (COMPLETED) 15 mg, IntraVENous, ONCE, 1 dose, On 06/30/23 at 0430 0429 (Given - Provider: Vera Ge RN) magnesium sulfate 1000 mg in dextrose 5% 100 mL IVPB (COMPLETED) 1,000 mg, IntraVENous, at 100 mL/hr, Administer over 1 Hours, ONCE, On 06/30/23 at 0745, For 1 dose, Recommended infusion rate not to exceed 1,000 mg (milligrams) per hour. 0918 (New Bag - Provider: Nirali Phan, ARUN)1018 (Stopped - Provider: Nirali Phan, ARUN) midodrine (PROAMATINE) tablet 5 mg 5 mg, Oral, 3 TIMES DAILY, First dose on 06/30/23 at 0900, Until Discontinued, Do not give after 1800 or within 4 hrs of bedtime. 0916 (Given - Provider: Nirali Phan, ARUN)1437 (Given - Provider: Nirali Phan RN)2106 (Given - Provider: Joceline Fernandez, ARUN) 09 (Given - Provider: Nirali Phan RN)1314 (Not Given - Provider: Alexandre Meza RN - Reason: Nausea)1336 (Given - Provider: Nirali Phan RN)2117 (Not Given - Provider: Mirela Lazaro, RN - Reason: Patient/family refused) 102 (Given - Provider: Yoandy Bruce, ARUN)1503 (Given - Provider: Angélica Fink RN)2100 (Due) nicotine (NICODERM CQ) 14 MG/24HR 1 patch 1 patch, TransDERmal, Administer over 24 Hours, DAILY, First dose on 06/30/23 at 0900, Apply new patch to nonhairy, clean, dry skin on the upper body or upper outer arm. Rotate patch sites. Notify pharmacy if patient or provider prefers patch to be removed at bedtime and replaced in the morning. Hazardous Medication -- Refer to facility policy for handling and disposal. 914 (Not Given - Provider: Nirali Phan RN - Reason: Patient/family refused) 925 (Not Given - Provider: Nirali Phan RN - Reason: Patient/family refused) 1028 (Not Given - Provider: Yoandy Bruce RN - Reason: Patient/family refused) nitrofurantoin (macrocrystal-monohydrat e) (MACROBID) capsule 100 mg (COMPLETED) 100 mg, Oral, ONCE, 1 dose, On 06/30/23 at 0130, Antimicrobial Indications: Urinary Tract Infection 0125 (Given - Provider: Yanna Carson RN) nitrofurantoin (macrocrystal-monohydrat e) (MACROBID) capsule 100 mg 100 mg, Oral, EVERY 12 HOURS SCHEDULED (2 times per day), First dose on 06/30/23 at 0900, Until Discontinued, Antimicrobial Indications: Urinary Tract Infection, UTI duration of therapy: 5 days 0916 (Given - Provider: Nirali Phan RN)2105 (Given - Provider: Joceline Fernandez, ARUN) 09 (Given - Provider: Nirali Phan RN)2117 (Not Given - Provider: Mirela Lazaro, ARUN - Reason: Patient/family refused) 1028 (Given - Provider: Yoandy Bruce RN - Comment: pt showering)2100 (Due) ondansetron (ZOFRAN) injection 4 mg (COMPLETED) 4 mg, IntraVENous, ONCE, 1 dose, On 06/30/23 at 0430 0428 (Given - Provider: Vera Ge RN) potassium bicarb-citric acid (EFFER-K) effervescent tablet 40 mEq (COMPLETED) 40 mEq, Oral, ONCE, 1 dose, On 06/30/23 at 1400, Do not chew or crush. Dissolve flavored tablets completely in 3 to 4 ounces of cold water; unflavored tablets may be dissolved in 3 to 4 ounces of cold juice. Patient to sip slowly over a 5 to 10 minute period. May further dilute if GI adverse effects occur. 1437 (Given - Provider: Nirali Phan RN) potassium chloride (KLOR-CON M) extended release tablet 60 mEq (COMPLETED) 60 mEq, Oral, ONCE, 1 dose, On 06/30/23 at 0600, Do not crush, chew, or suck on tablet. Tablet may also be broken in half and each half swallowed separately. 0605 (Given - Provider: Mirela Lazaro RN) potassium chloride (KLOR-CON) extended release tablet 40 mEq (COMPLETED) 40 mEq, Oral, ONCE, 1 dose, On Sun06/29/23 at 2300, Do not crush or break. 0001 (Stop Time - Provider: Vera Ge RN)0012 (Given - Provider: Yanna Carson, ARUN) potassium chloride 10 mEq/100 mL IVPB (Peripheral Line) (COMPLETED) 10 mEq, IntraVENous, ONCE, 1 dose, On 06/30/23 at 0100, at 100 mL/hr 0124 (New Bag - Provider: Yanna Carson, ARUN)0224 (Stopped - Provider: Joceline Fernandez, ARUN)0224 (Stopped - Provider: Joceline Fernandez, ARUN)0224 (Stopped - Provider: Joceline Fernandez, ARUN)0232 (Stopped - Provider: Yanna Carson, ARUN) potassium chloride 10 mEq/100 mL IVPB (Peripheral Line) (COMPLETED) 10 mEq, IntraVENous, ONCE, 1 dose, On 06/30/23 at 0245, at 100 mL/hr 0244 (New Bag - Provider: Yanna Carson RN)0344 (Rate/Dose Change - Provider: Joceline Fernandez RN)0345 (Stopped - Provider: Vera Ge RN) sodium chloride flush 0.9 % injection 5-40 mL 5-40 mL, IntraVENous, EVERY 12 HOURS SCHEDULED (2 times per day), First dose on 06/30/23 at 0900, Until Discontinued, For Line Patency: Peripheral IV = 5 mL; Midline or Central Line = 10 mL/lumen. If following IV push medication, administer flush at same rate as the IV push. Flush volume is determined by type of infusion therapy being given. For non-viscous solutions use: Peripheral IV = 5 mL Midline or Central Line = 10 mL/lumen For viscous solutions (i.e. blood components, parenteral nutrition, contrast media, or after obtaining blood sample) use: Peripheral IV = 10 mL Midline or Central Line = 20 mL/lumen 0915 (Not Given - Provider: Nirali Phan RN - Reason: IV Fluid Infusing)210 (Given - Provider: Joceline Fernandez RN) 09 (Not Given - Provider: Nirali Phan RN - Reason: IV Fluid Infusing)2004 (Given - Provider: Mirela Lazaro RN) 0842 (Not Given - Provider: Angélica Fink RN - Reason: Loss of IV access - Comment: pt refused IV)2100 (Due) Continuous Medication Order 06/30/2023 07/01/2023 07/02/2023 dextrose 5 % and 0.45 % NaCl with KCl 20 mEq infusion IntraVENous, at 125 mL/hr, CONTINUOUS, Starting on 06/30/23 at 0600, For 48 hours 0604 (New Bag - Provider: Mirela Lazaro RN)1020 (Restarted - Provider: Joceline Fernandez RN)1216 (Rate/Dose Verify - Provider: Joceline Fernandez RN)1619 (Rate/Dose Change - Provider: Joceline Fernandez RN)1628 (Stopped - Provider: Joceline Fernandez RN)1628 (New Bag - Provider: Nirali Phan RN)2354 (Stopped - Provider: Joceline Fernandez RN)2354 (New Bag - Provider: Joceline Jim, RN)2356 (Rate/Dose Verify - Provider: Joceline Fernandez RN) 0806 (Rate/Dose Change - Provider: Mirela Lazaro, RN)0811 (Stopped - Provider: Mirela Lazaro, RN)08 (New Bag - Provider: Nirali Phan, RN)180 (Stopped - Provider: Mirela Lazaro, RN)180 (New Bag - Provider: Nirali Phan, RN)2021 (Stopped - Provider: Mirela Lazaro, RN)2022 (Stopped - Provider: Mirela Lazaro RN) PRN Medication Order 06/30/2023 07/01/2023 07/02/2023 0.9 % sodium chloride infusion IntraVENous, at 5-250 mL/hr, PRN, if patient receiving piggyback infusions and maintenance fluids are not ordered OR KVO fluids to protect IV site / prevent frequent line interruptions/ long duration, Starting on 06/30/23 at 0530, For piggyback infusion, administer at same rate as piggyback for a total of 25 mL. Enter 25 mL into dose field and piggyback rate into rate field of order. If piggyback is infusing at a rate less than 100 mL/hr, enter 25 mL into dose field and 100 mL/hr into rate field of order. For KVO fluids, enter rate of 20 mL/hr or less into rate field of order. acetaminophen (TYLENOL) suppository 650 mg(Linked Group 1) 650 mg, Rectal, EVERY 6 HOURS PRN, Starting on 06/30/23 at 0530, Until Discontinued, Pain Mild (1-3), Fever, For temp greater than 100.4 F (38 C), Administer if oral route cannot be used. acetaminophen (TYLENOL) tablet 650 mg(Linked Group 1) 650 mg, Oral, EVERY 6 HOURS PRN, Starting on 06/30/23 at 0530, Until Discontinued, Pain Mild (1-3), Fever, For temp greater than 100.4 F (38 C), Maximum dose of acetaminophen is 4000 mg from all sources in 24 hours. busPIRone (BUSPAR) tablet 10 mg 10 mg, Oral, 3 TIMES DAILY PRN, Starting on 06/30/23 at 0530, Until Discontinued, anxiety ibuprofen (ADVIL;MOTRIN) tablet 400 mg 400 mg, Oral, EVERY 6 HOURS PRN, Starting on 06/30/23 at 0530, Until Discontinued, Pain Mild (1-3), Pain Moderate (4-6), Allowed for higher pain score per patient request, Fever, Alternate with tylenol loperamide (IMODIUM) capsule 2 mg 2 mg, Oral, 4 TIMES DAILY PRN, Starting on 06/30/23 at 1341, Until Discontinued, Diarrhea, After each loose stool. 1437 (Given - Provider: Nirali Phan, RN) 1329 (Given - Provider: Angélica Fink RN) ondansetron (ZOFRAN) injection 4 mg(Linked Group 2) 4 mg, IntraVENous, EVERY 6 HOURS PRN, Starting on 06/30/23 at 0530, Until Discontinued, Nausea, Vomiting, Administer if oral route cannot be used. 0921 (Given - Provider: Nirali Phan RN)2208 (See Alternative - Provider: Joceline Fernandez RN) 06 (Given - Provider: Joceline Fernandez RN)131 (Given - Provider: Alexandre Meza, ARUN)2028 (See Alternative - Provider: Mirela Lazaro, ARUN) ondansetron (ZOFRAN-ODT) disintegrating tablet 4 mg(Linked Group 2) 4 mg, Oral, EVERY 8 HOURS PRN, Starting on 06/30/23 at 0530, Until Discontinued, Nausea, Vomiting 0921 (See Alternative - Provider: Nirali Phan RN)2208 (Given - Provider: Joceline Fernandez RN) 06 (See Alternative - Provider: Joceline Fernandez RN)131 (See Alternative - Provider: Alexandre Meza, ARUN)2028 (Given - Provider: Mirela Lazaro, ARUN) polyethylene glycol (GLYCOLAX) packet 17 g 17 g, Oral, DAILY PRN, Starting on 06/30/23 at 0530, Until Discontinued, Constipation, First line therapy for constipation potassium chloride 10 mEq/100 mL IVPB (Peripheral Line) 10 mEq, IntraVENous, PRN, Starting on 06/30/23 at 1037, Until Discontinued, at 100 mL/hr, Per Potassium IV Replacement Protocol, K Lab Replacement Action 3.1-3.5 10 Meq IVPB x 4 doses (40 Meq Total) 2.7-3.0 10 Meq IVPB x 6 doses (60 Meq Total) <2.7 CALL PHYSICIAN and 10 Meq IVPB x 6 doses (60 Meq Total) Infuse at 10meq/hr Repeat Potassium lab 1 hour after final administration. Protocol not for use in Patients with CrCl<30ml/min 1111 (New Bag - Provider: Nirali Phan RN - Comment: pt did not tolerate the infusion, rate slowed and still did not tolerate.)1130 (Rate/Dose Change - Provider: Joceline Fernandez RN)1216 (Rate/Dose Verify - Provider: Joceline Fernandez, RN)1216 (Stopped - Provider: Joceline Fernandez, RN)1245 (Stopped - Provider: Nirali Phan RN - Comment: pt did not tolerate the infusion and request effer K) sodium chloride flush 0.9 % injection 5-40 mL 5-40 mL, IntraVENous, PRN, Starting on 06/30/23 at 0530, Until Discontinued, Line Care, After every IV line use, For Line Patency: Peripheral IV = 5 mL; Midline or Central Line = 10 mL/lumen. If following IV push medication, administer flush at same rate as the IV push. Flush volume is determined by type of infusion therapy being given. For non-viscous solutions use: Peripheral IV = 5 mL Midline or Central Line = 10 mL/lumen For viscous solutions (i.e. blood components, parenteral nutrition, contrast media, or after obtaining blood sample) use: Peripheral IV = 10 mL Midline or Central Line = 20 mL/lumen No Frequency Medication Order 06/30/2023 07/01/2023 07/02/2023 calcium chloride 10 % injection (COMPLETED) 1 dose, Starting on 07/01/23 at 0835, Until 07/01/23 at 0926, YOANDY BRUCE.: cabinet override, YOANDY BRUCE: cabinet override 0926 (Given - Provider: Saurabh Phan, RN - Comment: mixed in 100 ml NS and given over 1 hour) Linked Groups Order Group 1: acetaminophen (TYLENOL) tablet 650 mgJump to med 650 mg, Oral, EVERY 6 HOURS PRN, Starting on 06/30/23 at 0530, Until Discontinued, Pain Mild (1-3), Fever, For temp greater than 100.4 F (38 C)
Maximum dose of acetaminophen is 4000 mg from all sources in 24 hours.
Or acetaminophen (TYLENOL) suppository 650 mgJump to med 650 mg, Rectal, EVERY 6 HOURS PRN, Starting on 06/30/23 at 0530, Until Discontinued, Pain Mild (1-3), Fever, For temp greater than 100.4 F (38 C)
Administer if oral route cannot be used.
Group 2: ondansetron (ZOFRAN-ODT) disintegrating tablet 4 mgJump to med 4 mg, Oral, EVERY 8 HOURS PRN, Starting on 06/30/23 at 0530, Until Discontinued, Nausea, Vomiting Or ondansetron (ZOFRAN) injection 4 mgJump to med 4 mg, IntraVENous, EVERY 6 HOURS PRN, Starting on 06/30/23 at 0530, Until Discontinued, Nausea, Vomiting
Administer if oral route cannot be used.
Care Teams (unrecognized sec tion and content) Biofuels Processing Technician Relationship Specialty Start Date End Date Nathan Tavera APRN - DRY WALL APPLICATOR [address] [place] [address] PCP - General Certified Nurse Practitioner 04/02/23 Biofuels Processing Technician Relationship Specialty Start Date End Date Nathan Tavera APRN - [employer] WALL APPLICATOR [address] [place] [address] PCP - General Certified Nurse Practitioner 04/02/23 Biofuels Processing Technician Relationship Specialty Start Date End Date Nathan Tavera APRN - DR[employer] WALL APPLICATOR [address] [place] [address] PCP - General Certified Nurse Practitioner 04/02/23 Biofuels Processing Technician Relationship Specialty Start Date End Date Nathan Tavera APRN-[facility] [address] [place] [address] PCP - General Family Medicine 07/02/23 Biofuels Processing Technician Relationship Specialty Start Date End Date Nathan Tavera APRN-CNP [address] [place] [address] PCP - General Family Medicine 07/02/23 Biofuels Processing Technician Relationship Specialty Start Date End Date Nathan Tavera APRN-CNP [address] [place] [address] PCP - General Family Medicine 07/02/23 Biofuels Processing Technician Relationship Specialty Start Date End Date Nathan Tavera APRN-CNP [address] [place] [address] PCP - General Family Medicine 07/02/23 Biofuels Processing Technician Relationship Specialty Start Date End Date Nathan Tavera APRN-CNP [address] [place] [address] PCP - General Family Medicine 07/02/23 Biofuels Processing Technician Relationship Specialty Start Date End Date Nathan Tavera APRN-CNP [address] [place] [address] PCP - General Family Medicine 07/02/23 Biofuels Processing Technician Relationship Specialty Start Date End Date Nathan Tavera APRN-CNP [address] [place] [address] PCP - General Family Medicine 07/02/23 Team Status: Active Member Role Status Dates No Primary Care Physician Primary Care Provider Active Team Status: Inactive Member Role Status Dates JASSON Kapoor Attending Provider Active Sta rt: September 25, 2024 End: September 25, 2024 Team Status: Inactive Member Role Status Dates No Primary Care Physician Primary Care Provider Active Start: September 25, 2024 End: September 25, 2024 JASSON Kapoor Attending Provider Active Sta rt: September 25, 2024 End: September 25, 2024 JASSON Kapoor Referring Provider Active Sta rt: September 25, 2024 End: September 25, 2024 Team Status: Inactive Member Role Status Dates No Primary Care Physician Primary Care Provider Active Start: October 09, 2024 End: October 09, 2024 No Primary Care Physician Referring Provider Active Start: October 09, 2024 End: October 09, 2024 JASSON Kapoor Attending Provider Active Sta rt: October 09, 2024 End: October 09, 2024 Team Status: Inactive Member Role Status Dates No Primary Care Physician Primary Care Provider Active Start: October 20, 2024 End: October 20, 2024 No Primary Care Physician Referring Provider Active Start: October 20, 2024 End: October 20, 2024 Boyd Lopez MD Attending Provider Active St art: October 20, 2024 End: October 20, 2024 Team Status: Active Member Role/Relationship Status Dates No Primary Care Physician Primary Care Provider Active Team Status: Inactive Member Role/Relationship Status Dates JASSON Kapoor Attending Provider Active Sta rt: September 25, 2024 End: September 25, 2024 Team Status: Inactive Member Role/Relationship Status Dates No Primary Care Physician Primary Care Provider Active Start: September 25, 2024 End: September 25, 2024 JASSON Kapoor Attending Provider Active Sta rt: September 25, 2024 End: September 25, 2024 JASSON Kapoor Referring Provider Active Sta rt: September 25, 2024 End: September 25, 2024 Team Status: Inactive Member Role/Relationship Status Dates No Primary Care Physician Primary Care Provider Active Start: October 09, 2024 End: October 09, 2024 No Primary Care Physician Referring Provider Active Start: October 09, 2024 End: October 09, 2024 JASSON Kapoor Attending Provider Active Sta rt: October 09, 2024 End: October 09, 2024 Team Status: Inactive Member Role/Relationship Status Dates No Primary Care Physician Primary Care Provider Active Start: October 20, 2024 End: October 20, 2024 No Primary Care Physician Referring Provider Active Start: October 20, 2024 End: October 20, 2024 Boyd Lopez MD Attending Provider Active St art: October 20, 2024 End: October 20, 2024 Team Status: Active Member Role/Relationship Status Dates No Primary Care Physician Primary Care Provider Active Start: December 12, 2024 Boyd Lopez MD Attending Provider Active St art: December 12, 2024 Boyd Lopez MD Referring Provider Active St art: December 12, 2024 Team Status: Inactive Member Role/Relationship Status Dates No Primary Care Physician Primary Care Provider Active Start: December 15, 2024 End: December 15, 2024 No Primary Care Physician Referring Provider Active Start: December 15, 2024 End: December 15, 2024 Boyd Lopez MD Attending Provider Active St art: December 15, 2024 End: December 15, 2024 Team Status: Inactive Member Role/Relationship Status Dates No Primary Care Physician Primary Care Provider Active Start: December 26, 2024 End: December 26, 2024 No Primary Care Physician Referring Provider Active Start: December 26, 2024 End: December 26, 2024 JASSON Kapoor Attending Provider Active Sta rt: December 26, 2024 End: December 26, 2024 Team Status: Inactive Member Role/Relationship Status Dates No Primary Care Physician Primary Care Provider Active Start: January 01, 2025 End: January 01, 2025 No Primary Care Physician Referring Provider Active Start: January 01, 2025 End: January 01, 2025 JASSON Kapoor Attending Provider Active Sta rt: January 01, 2025 End: January 01, 2025 Team Status: Active Member Role/Relationship Status Dates No Primary Care Physician Primary Care Provider Active Start: January 01, 2025 Estrella Akbar Attending Provider Active Start: January 01, 2025 Ordered Prescriptions (unrec ognized section and content) Prescription Sig Dispensed Refills Start Date End Da te ondansetron (ZOFRAN-ODT) 4 MG disintegrating tablet Take 1 tablet by mouth 3 times daily as needed for Nausea or Vomiting 21 tablet 0 07/02/2023 Probiotic, Lactobacillus, CAPS Take 1 tablet by mouth in the morning, at noon, and at bedtime for 10 days 30 capsule 0 07/02/2023 07/12/2023 omeprazole (PRILOSEC) 40 MG delayed release capsuleIndications:Gastr oesophageal reflux disease without esophagitis Take 1 capsule by mouth daily 30 capsule 0 07/02/2023 nitrofurantoin, macrocrystal-monohydrate , (MACROBID) 100 MG capsule Take 1 capsule by mouth every 12 hours for 3 days 6 capsule 0 07/02/2023 07/05/2023 nicotine (NICODERM CQ) 21 MG/24HR Place 1 patch onto the skin daily 42 patch 0 07/02/2023 08/13/2023 Source Comments (unrecognize d section and content) In the event this informatio n is protected by the Federal Confidentiality of Alcohol and Drug Abuse Patient Records regulations: The Federal rules restrict any use of the information to criminally investigate or prosecute any alcohol or drug abuse patient.[facility] [place] Goals (unrecognized section and content) Goals may be documented in a n alternate section FOR RECORDS PERTAINING TO PATIENTS WHO ARE OR HAVE BEEN ENROLLED IN A CHEMICAL DEPENDENCY/SUBSTANCEABUSE PROGRAM, SOME INFORMATION MAY BE OMITTED. This clinical summary was aggregated from multiple sources. Caution should be exercised in using it in the provision of clinical care. This summary normalizes information from multiple sources, and as a consequence, information in this document may materially change the coding, format and clinical context of patient data. In addition, data may be omitted in some cases. CLINICAL DECISIONS SHOULD BE BASED ON THE PRIMARY CLINICAL RECORDS. [facility]. provides no warranty or guarantee of the accuracy or completeness of information in this document.
--- NOTE | 2025-01-02 01:40 | EDS_ITS ---
HPI History of Present Illness Chief Complaint: Dental Informant: patient and spouse/S.O. Narrative Narrative: Patient is a 49-year-old female with past medical history of GERD and von Willebrand's disease. She states that she has recently taken clindamycin secon huseyin to a left-sided dental infection. She reports that despite taking the clindamycin over the last 2 to 3 days she has noticed increased pain and swelling along the right lower jaw. She states that she was reevaluated and placed on doxycycline which she just started today. She denies fevers or chills or difficulty breathing or swallowing but secondary to increasing pain not responding to [id number] medication she presents for evaluation. [facility] Medical History Impingement of left shoulder Primary osteoarthritis, left shoulder Left rotator cuff tear Neuropathy Anxiety IBS (irritable bowel syndrome) GERD (gastroesophageal reflux disease) Von Willebrand disease Environmental allergies History of anemia Knee pain Asthma Andrade disease Osteoarthritis Home Medications ?Medication ?Instructions ?Recorded ?Last Taken ?Type acetaminophen 500 mg tablet 500 mg PO Q6H PRN 09/25/24 Unknown History (Tylenol Extra Strength) gabapentin 800 mg tablet 800 mg PO TID 09/25/24 Unkno wn History midodrine 5 mg tablet 5 mg PO TID 09/25/24 Unknown History omeprazole 40 mg capsule,delayed 40 mg PO BID 09/25/24 Unknown History release ibuprofen 200 mg tablet 600 mg PO Q6H PRN 12/15/24 U nknown History doxycycline monohydrate 100 mg 100 mg PO BID 10 days # 20 tabs 01/01/25 Unknown Rx tablet lidocaine HCl 2 % mucosal solution 1 applic mucous mem brane TID PRN 01/01/25 Unk nown Rx (Lidocaine Viscous) pain #100 mL oxycodone-acetaminophen 5 mg-325 1 tab PO Q6H PRN pain 3 days #12 01/02/25 Unknown Rx mg tablet (Percocet) tabs Allergy/AdvReac Type Severity Reaction Status Date / Time bupropion (From Wellbutrin) Allergy Mild Rash Verified 01/02/25 00:54 cephalexin (From Keflex) Allergy Mild Rash Verified 01/02/25 00:54 Penicillins (PCN) Allergy Mild Rash Verified 01/02/25 00:54 Family History Other Barretts esophagus Breast cancer Cancer Hypertension Surgical History History of cholecystectomy History of hand surgery History of colonoscopy History of esophagogastroduodenoscopy (EGD) History of appendectomy History of gastric restrictive surgery History of breast augmentation History of arthroscopic knee surgery Social History Smoking Status: Light Smoker (<10/day) alcohol intake: never substance use type: does not use ROS ROS ED Constitutional Constitutional ED: Denies chills or fever(s) ENT ENT ED: Reports other Details: Positive dental pain and facial swelling Cardiovascular Cardiovascular: Denies chest pain Respiratory/Chest Respiratory/Chest: Denies cough or dyspnea Gastrointestinal Gastrointestinal: Denies abdominal pain, diarrhea, nausea or vomiting Musculoskeletal Musculoskeletal: Denies neck pain Integumentary Reports other Details: Positive right-sided facial swelling ; Denies rash Neurologic Neurologic: Denies headache(s) Hematologic/Lymphatic Hematologic/Lymphatic: Reports easy bleeding and easy bruising Allergic/Immunologic Allergic/Immunologic ED: Denies tongue swelling EXAM Physical Exam Const Vital Signs: 01/02/25 00:54 01/02/25 00:57 01/02/25 01:45 Temperature 97.6 F L 97.6 F L 97.6 F L Temperature Source Oral Oral Pulse Rate 71 71 72 Respiratory Rate 16 16 16 Blood Pressure 128/87 H 128/87 H 125/88 H Blood Pressure Mean 100 100 100 Pulse Ox 100 100 97 Oxygen Delivery Method Room Air Room Air Positive well nourished and well developed General Appearance ED: well developed; Negative for pallor HEENT Reports moist mucous membranes HEENT Narrative: Normocephalic atraumatic Patient has soft tissue swelling along the right lower jaw tracking towards the right zygomatic arch. No overlying erythema or warmth. No tongue or lip swelling noted; no signs of infection in the posterior pharynx. No airway compromise No signs of ANUG Patient has multiple dental caries greatest in the right lower jaw without abscess formation noted Eyes PERRL and EOMs intact bilaterally Neck supple Neck Narrative: No brawny edema in the submental space to suggest Alessio's angina Resp normal respiratory effort and clear to auscultation bilaterally Cardio regular rate and regular rhythm Extremity normal to inspection Neuro oriented x3, CN's II-XII intact bilaterally and no sensory deficits noted Sensorium / Orientation: alert Motor Exam: strength 5/5 throughout Psych mental status grossly normal Skin Skin Narrative: Soft tissue swelling to the right side of the face as documented above consistent with dental infection and inflammatory process but no obvious abscess formation or cellulitis noted General Skin Exam: Negative for jaundice or pallor MDM MDM MDM Narrative Medical decision making narrative: Patient arrived to the ER with stable vitals. She was recently on antibiotics secondary to a dental infection but despite this appears to have developed a secondary dental infection in a different location. She does not have signs of ANUG or Alessio angina there is no signs of airway compromise and therefore there is no need for emergent imaging or laboratory studies. Moreover the patient has recently been seen by the provider and is currently on doxycycline. Therefore this time in order to provide pain control should be given a dental block as documented below. Following this she is otherwise safe for discharge as there is no signs of systemic infection or airway compromise. She was instructed to c ontinue her antibiotic and Percocet will be added for improved pain control Patient was given a right inferior alveolar dental block using 1.5 mL of 0.5% Marcaine and 1.5 mL of 2% lidocaine with epinephrine. The patient achieved good anesthesia with the injection and tolerated procedure well without complication. History & Record Review Discussion w/independent historian: Patient Discharge Plan Triage Chief Complaint: Dental ED Provider: Mendoza Acharya Dx/Rx/DC Orders Clinical Impression: Pain due to dental caries, Dental infection, Von Willebrand disease, GERD (gastroesophageal reflux disease) Instructions: ED Dental Pain, ED Tooth Abscess Prescriptions: New oxycodone-acetaminophen [Percocet] 5-325 mg tablet 1 tab PO Q6H PRN (Reason: pain) 3 Days Qty: 12 0RF No Action gabapentin 800 mg tablet 800 mg PO TID midodrine 5 mg tablet 5 mg PO TID Rx Instructions: do not give last dose of day after 6PM or within 4 hrs of bedtime omeprazole 40 mg capsule,delayed release(DR/EC) 40 mg PO BID acetaminophen [Tylenol Extra Strength] 500 mg tablet 500 mg PO Q6H PRN ibuprofen 200 mg tablet 600 mg PO Q6H PRN doxycycline monohydrate 100 mg tablet 100 mg PO BID 10 Days Qty: 20 0RF lidocaine HCl [Lidocaine Viscous] 2 % solution 1 applic mucous membrane TID PRN (Reason: pain) Qty: 100 0RF Stand Alone Forms: ED Work / School Excuse Primary Care Provider: Care Physician,No Primary Referrals: Care Physician,No Primary [Primary Care Provider] - Activity Restrictions/Additional Instructions: Please continue your doxycycline as resolving the dental infection will resolve the pain. Take the Percocet as directed which was prescribed from the ER to help control pain. Return to the ER should you have any further concerns Print Language: Algerian Disposition Disposition: Home, Self Care Discharge Date/Time: 01/02/25 01:47
[2025-01-02 01:45] VITALS: BP 125/88; PULSE 72; RESP 16; TEMP 36.4; O2SAT 97
== END 2025-01-02 01:47 | disposition home or self-care (01) ==
PROVIDERS: Emergency Provider Emergency Medicine; Visit Provider Emergency Medicine
DX: K08.89 Other specified disorders of teeth and supporting structures (principal); D68.00 Von Willebrand disease, unspecified; K04.7 Periapical abscess without sinus; K21.9 Gastro-esophageal reflux disease without esophagitis; K02.9 Dental caries, unspecified; Z79.899 Other long term (current) drug therapy; Z90.49 Acquired absence of other specified parts of digestive tract; F17.200 Nicotine dependence, unspecified, uncomplicated
CPT/HCPCS: 64400; 99282

== ENCOUNTER 2025-01-14 07:48 | Day surgery (SDC) | payer OTHER, SELFPAY ==
[2025-01-14] VITALS (9 sets, daily range): BP systolic 107–127; BP diastolic 63–79; PULSE 67–81; RESP 16; TEMP 36.3–37.1; O2SAT 93–99; BMI 29.8
[2025-01-14] MEDS: Lactated Ringers 1,000 ML 15 ML IV (08:21)
--- NOTE | 2025-01-14 08:42 | PCM.PRE.AN2 ---
ASA Classification* ASA Classification ASA Classification: 2 Assessment & Plan Anesthesia* Anesthesia Assessment Anesthesia Assessment: Discussed sedation and/or anesthesia options, risks, benefits, and alternatives with patient/parents/legal guardian/POA. Questions invited. The patient/parents/legal guardian/POA seems to understand and agrees to proceed with anesthesia plan. Reviewed the physical assessment, medical history, allergy history and patient home medications list prior to surgery/procedure/anesthetic and documented any changes. Performed airway and anesthesia risk assessments. Anesthesia Type Anesthesia Type: General and Block History Source History Obtained from:: Patient and Chart Anesthesia Focused Assessment* Temperature: 98.8 F Pulse Rate: 67 Blood Pressure: 125/65 Respiratory Rate: 16 Pulse Ox: 99 Oxygen Delivery Method: Room Air Airway Assessment Mouth opens: >3 cm Mallampati Score: II Teeth Condition: Intact Neck Range of motion (ROM): Full ROM Labs Anesthesia Preop lab: CBC CHEMISTRY COAG Pre-Assessment Diagnosis/Proposed Procedure Planned Operative Procedure(s): (L) Left shoulder Arthroscopy, subacromial decompression, rotator cuff repair Anesthesia History Anesthesia History - municipal court magistrate: Anesthesia History - municipal court magistrate Hx Hospitalization No 01/07/25 09:53 Any Problems With Anesthesia No 01/07/25 09:53 Cholinesterase deficiency No 01/07/25 09:53 You/Your Family Experience No 01/07/25 09:53 fever (hyperthermia) with Relationship Recent Exposure to Contagious No 01/14/25 08:18 Disease Does patient have nerve No 01/07/25 09:53 stimulator Patient instructed to have device shut off --Does patient have Pacemaker No 01/14/25 08:18 or ICD? When Was Last Pacemaker Check QUESTION #4 FULL TEXT: You/Your Family Experience fever (hyperthermia) with Anesthesia Last Oral Intake Last Oral intake: Last Oral Intake NPO since 20:00 01/14/25 08:18 Meds taken in AM with sips of water? Meds patient instructed to take am of surgery PONV PONV - municipal court magistrate: PONV - municipal court magistrate Female Yes 01/07/25 09:53 HX of Motion Sickness Yes 01/07/25 09:53 HX of N/V After Surgery No 01/07/25 09:53 Non-Smoker No 01/07/25 09:53 Duration of Surgery greater No 01/07/25 09:53 than 60 minutes Number of Risk Factors 2 01/07/25 09:53 PONV Score Moderate Risk 01/07/25 09:53 Height & Weight Height & Weight: Anesthesia: Height & Weight Height 5 ft 2 in 01/14/25 08:18 Weight: 74 kg 01/14/25 08:18 Body Mass Index (BMI) 29.8 01/14/25 08:18 Respiratory Assessment Respiratory Assessment - municipal court magistrate: Respiratory Tract Infection Hx - municipal court magistrate Hx Respiratory Tract Infection No 01/07/25 09:53 STOP Sleep Apnea STOP Sleep Apnea - municipal court magistrate: STOP Sleep Apnea - municipal court magistrate Hx Hypertension No 01/07/25 09:53 Hx Sleep Apnea No 01/07/25 09:53 CPAP BIPAP Do you snore loudly (louder No 01/07/25 09:53 than talking or can be heard Do you often feel tired/ No 01/07/25 09:53 fatigued/ sleepy during daytime? Has anyone observed you stop No 01/07/25 09:53 breathing during sleep? STOP Results Negative 01/07/25 09:53 QUESTION #5 FULL TEXT : Do you snore loudly (louder than talking or can be heard through closed doors)? Tobacco Use History Tobacco Use History - municipal court magistrate: Tobacco Use History - municipal court magistrate Tobacco Use Smoking Status Light Smoker (<10/day) 01/07/25 09:53 Hx Tobacco Use No 01/07/25 09:53 Years Smoking 10 01/07/25 09:53 Packs Smoked per Day Smoking Cessation Date was within the last 15 years Hx Smoking Cessation Date Hx Smoking Cessation No 01/07/25 09:53 Counseling Hematologic Medial History Hematologic Hx - municipal court magistrate: Hematologic Medical Hx - clinical documentation improvement specialist Hx of Blood Transfusion No 01/07/25 09:53 Hx of Transfusion in last 3 No 01/07/25 09:53 Months Date of Last Transfusion (if within last 3 months) Ever experience any problems No 01/07/25 09:53 with transfusion(s)? Specify any problems Hx of Preganancy in last 3 No 01/07/25 09:53 Months Nurse Filling Out Transfusion JZOLLINGE 01/07/25 09:53 & Questions: Date: 01/07/25 01/07/25 09:53 Time: 09:55 01/07/25 09:53 Patient unable to answer at this time (ie. confused, unrespo /Reproduction History /Reproductive History - municipal court magistrate: /Reproductive Hx- municipal court magistrate Hx Now No 01/07/25 09:53 Gestational Age (in weeks): EDC: Hx Hx Para Hx Section SAB Active Medications Active Medications: Current Medications Generic Name Dose Route Start Last Admin Trade Name Freq PRN Reason Stop Dose Admin Clindamycin Phosphate 900 mg in 50 mls @ 75 mls/hr 01/14/25 10:00 Cleocin IV 01/14/25 10:39 INTRAOP ONE Lactated Ringer's 1,000 mls @ 15 mls/hr 01/14/25 08:15 01/14/25 08:21 IV 15 mls/hr .Q48H JEAN CLAUDE Administration PFSH Medical History Wears glasses Arthritis Excessive bleeding Smoker Impingement of left shoulder Primary osteoarthritis, left shoulder Left rotator cuff tear Neuropathy Anxiety IBS (irritable bowel syndrome) GERD (gastroesophageal reflux disease) Von Willebrand disease Environmental allergies History of anemia Knee pain Asthma Andrade disease Osteoarthritis Home Medications ?Medication ?Instructions ?Recorded ?Last Taken ?Type acetaminophen 500 mg tablet 500 mg PO Q6H PRN fever or pain 09/25/24 Unknown History (Tylenol Extra Strength) midodrine 5 mg tablet 5 mg PO TID 09/25/24 Unknown History omeprazole 40 mg capsule,delayed 40 mg PO BID 09/25/24 Unknown History release Allergy/AdvReac Type Severity Reaction Status Date / Time bupropion (From Wellbutrin) Allergy Mild Rash Verified 01/14/25 08:17 cephalexin (From Keflex) Allergy Mild Rash Verified 01/14/25 08:17 Penicillins (PCN) Allergy Mild Rash Verified 01/14/25 08:17 Family History Other Barretts esophagus Breast cancer Cancer Hypertension Surgical History History of cholecystectomy History of hand surgery History of colonoscopy History of esophagogastroduodenoscopy (EGD) History of appendectomy History of gastric restrictive surgery History of breast augmentation History of arthroscopic knee surgery Social History Smoking Status: Light Smoker (<10/day) alcohol intake: never substance use type: does not use Review of Systems (Anesthesia) ROS Narrative System reviewed and no additional complaints, except as documented.
--- NOTE | 2025-01-14 09:33 | PCM.HP.STD ---
HPI - General HPI Narrative NABIL ROSALES, is a 49 F who presents for left shoulder arthroscopy, subacromial decompression, rotator cuff repair. No changes to history and physical exam. Left shoulder marked. Risks alternatives benefits discussed as well as postoperative instructions and narcotic counseling. The patient understands wishes to proceed no further questions or concerns. MR#: [id number] Acct: [id number] Name: NABIL SAXENA Rep #: [id number] : 1975 Provider: Dr. Boyd Lopez MD Age/Sex: 49/F Location: [facility] [place] Status: Signed Intake Vital Signs 10/20/2510:13 Height 5 ft 2 in Weight: 168 lb 4 oz BMI 30.7 Intake Visit Reasons: LEFT SHOULDER Chief Complaint: WC f/u left shoulder injury Accompanied by: Self Is patient in pain?: Yes (left shoulder) Pain scale (1-10): 4 Allergies bupropion (From Wellbutrin) Allergy (Mild, Verified 12/15/24 08:03) Rashcephalexin (From Keflex) Allergy (Mild, Verified 12/15/24 08:03) RashPenicillins (PCN) Allergy (Mild, Verified 12/15/24 08:03) Rash Medications ?Medication ?Instructions ?Recorded ?Confirmed ?Type acetaminophen 500 mg tablet 500 mg PO Q6H PRN 09/25/24 12/15/24 History (Tylenol Extra Strength) gabapentin 800 mg tablet 800 mg PO TID 09/25/24 12/15/24 History midodrine 5 mg tablet 5 mg PO TID 09/25/24 12/15/24 History omeprazole 40 mg capsule,delayed 40 mg PO BID 09/25/24 12/15/24 History release ibuprofen 200 mg tablet 600 mg PO Q6H PRN 12/15/24 12/15/24 History PFSH Medical History Impingement of left shoulder Primary osteoarthritis, left shoulder Left rotator cuff tear Neuropathy Anxiety IBS (irritable bowel syndrome) GERD (gastroesophageal reflux disease) Von Willebrand disease Environmental allergies History of anemia Knee pain Asthma Andrade disease Osteoarthritis Surgical History History of cholecystectomy History of hand surgery History of colonoscopy History of esophagogastroduodenoscopy (EGD) History of appendectomy History of gastric restrictive surgery History of breast augmentation History of arthroscopic knee surgery Family History Other Barretts esophagus Breast cancer Cancer Hypertension Social History Smoking Status: Light Smoker (<10/day) alcohol intake: never substance use type: does not use HPI LEFT SHOULDER Details: This documentation accurately reflects the service provided and the decisions made by me, Dr. Boyd Lopez MD 12/15/24 0759. Part of today?s visit was documented by [ ], acting as scribe. NABIL SAXENA is a 49 year old F here today for follow-up left shoulder pain. Worker's Compensation claim. 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 Still having nighttime pain pain with lifting and pain with reaching across the body mostly pain laterally going down the arm as well as anteriorly as a sharp pain patient tried physical therapy but that failed making it worse and not any better. Ortho Exam General General: Yes no acute distress Neurologic: Yes alert and Yes oriented x3 Psychologic: Yes reasonable and appropriate Left Shoulder Skin/Wound: Yes CDI, No ecchymosis, No erythema and No swelling Testing: Yes Hawkin's, Yes Neer's, No Speed's, Yes TTP Biceps, No TTP AC Joint, Yes AROM-External Rotation at side 0-60, Yes empty can, No cross arm and No scapular winging SHOULDER: normal motor and sens to axillary N, MRU and AIN/PIN. pain at GT. painful arc. Hand warm well perfused normal radial pulse Strength in forward elevation 4+/5. Strength in external rotation 5/5. Active forward elevation 145 degrees passively 170 degrees. Supplemental Info Previous MRI of the left shoulder demonstrated a rim rent 1 cm tear of the supraspinatus tendon and signs of impingement Coding Level of Care Code Off vis,est,level 4 Diagnoses Impingement of left shoulder M25.812 Primary osteoarthritis, left shoulder M19.012 Left rotator cuff tear M75.102 Assessment and Plan Assessment and Plan (1) Impingement of left shoulder: Status: Acute Plan: 49-year-old female with a small rotator cuff tear on the left shoulder. Failed conservative management including physical therapy. Is not interested in cortisone injections or ongoing conservative management. We discussed the pros and cons risks and benefits of going ahead with a left shoulder arthroscopy, subacromial decompression, rotator cuff repair. We also discussed the recovery for the associate with that 2 weeks in a sling 3 to 6 months for full recovery including heavy lifting. Patient understands wished to go ahead with surgery no further questions or concerns. Pros and cons risks and benefits were discussed with the patient including but not limited to infection, pain, stiffness, bleeding, damage to surrounding structures, neurovascular injury, recurrence or retear, failure or wear of hardware or fixation, instability, fracture, deep vein thrombosis and pulmonary embolism, anesthetic risks, , patient dissatisfaction, need for further surgery and other risks. Patient understood and wished to proceed with surgery, and signed the informed consent documentation. Patient counselled on non-operative and operative means of treating shoulder pain. Conservative options include but not limited to: 1. Rest and Activity Modification: Giving your shoulder time to heal by avoiding movements that cause pain can help. This may involve limiting overhead activities or heavy lifting. 2. Physical Therapy: A physical therapist can guide you through exercises that strengthen the muscles around the shoulder, improve flexibility, and reduce strain on the rotator cuff tendon. 3. Ice and Heat Therapy: Applying ice to the shoulder can help reduce swelling and pain, especially after activity. Heat can be helpful to relax tense muscles and improve blood flow before exercises. 4. Anti-Inflammatory Medications: [id number] medications like ibuprofen or naproxen can help reduce pain and inflammation in the tendon. 5. Corticosteroid Injections: If the pain is more severe, a steroid injection can reduce inflammation in the shoulder and provide relief for a longer period. 6. Platelet-Rich Plasma (PRP) Injection: This treatment involves using your own blood to promote healing in the tendon. The plasma is rich in growth factors that can encourage tissue repair. 7. TENS (Transcutaneous Electrical Nerve Stimulation): This therapy uses a small electrical current to help manage pain and promote healing by stimulating nerves. Pros and cons risks and benefits were discussed with the patient including but not limited to infection, pain, stiffness, bleeding, damage to surrounding structures, neurovascular injury, recurrence or retear, failure or wear of hardware or fixation, instability, fracture, deep vein thrombosis and pulmonary embolism, anesthetic risks, , patient dissatisfaction, need for further surgery and other risks. Patient understood and wished to proceed with surgery, and signed the informed consent documentation. (2) Primary osteoarthritis, left shoulder: Status: Acute (3) Left rotator cuff tear: [facility]: [facility] Medical History Wears glasses Arthritis Excessive bleeding Smoker Impingement of left shoulder Primary osteoarthritis, left shoulder Left rotator cuff tear Neuropathy Anxiety IBS (irritable bowel syndrome) GERD (gastroesophageal reflux disease) Von Willebrand disease Environmental allergies History of anemia Knee pain Asthma Andrade disease Osteoarthritis Home Medications ?Medication ?Instructions ?Recorded ?Last Taken ?Type acetaminophen 500 mg tablet 500 mg PO Q6H PRN fever or pain 09/25/24 Unknown History (Tylenol Extra Strength) midodrine 5 mg tablet 5 mg PO TID 09/25/24 Unknown History omeprazole 40 mg capsule,delayed 40 mg PO BID 09/25/24 Unknown History release Allergy/AdvReac Type Severity Reaction Status Date / Time bupropion (From Wellbutrin) Allergy Mild Rash Verified 01/14/25 08:17 cephalexin (From Keflex) Allergy Mild Rash Verified 01/14/25 08:17 Penicillins (PCN) Allergy Mild Rash Verified 01/14/25 08:17 Family History Other Barretts esophagus Breast cancer Cancer Hypertension Surgical History History of cholecystectomy History of hand surgery History of colonoscopy History of esophagogastroduodenoscopy (EGD) History of appendectomy History of gastric restrictive surgery History of breast augmentation History of arthroscopic knee surgery Social History Smoking Status: Light Smoker (<10/day) alcohol intake: never substance use type: does not use Vital Signs Vital Signs Vital Signs: 01/14/25 08:18 01/14/25 08:18 01/14/25 08:43 Temperature 98.8 F 98.8 F Temperature Source Temporal Pulse Rate 67 67 Respiratory Rate 16 16 Respiratory Pattern Normal Blood Pressure 125/65 H 125/65 H Blood Pressure Mean 85 Blood Pressure Source Monitor Blood Pressure Position Semi-Fowlers Blood Pressure Location Left Arm Pulse Ox 99 99 Oxygen Delivery Method Room Air Room Air Weight Weight: 163 lb 2.273 oz Body Mass Index (BMI) 29.8
[2025-01-14] MEDS: Midazolam 2 MG/2 ML Syringe IV (09:40)
[2025-01-14] MEDS: Lidocaine 1% (5 ml sdv) 5 ML Vial IV (10:06)
[2025-01-14] MEDS: Epinephrine (1 mg/ml) 1 MG/ML VIAL (10:29)
[2025-01-14] MEDS: fentaNYL 100 MCG/2 ML Ampul IV (11:00)
--- NOTE | 2025-01-14 11:02 | OP.PCM_ITS ---
Problems Associated Problem List Diagnoses (1) Left shoulder strain: (2) Impingement of left shoulder: (3) Left rotator cuff tear: Procedures Musculoskeletal [id number]-29xxx: Other Procedure See Report Operative Report (Standard) Operative Information Date of Procedure: 01/14/25 Pre-Operative Diagnosis: Left shoulder impingement syndrome and rotator cuff tear Post-Operative Diagnosis: Same Surgery/Procedure Performed: Left shoulder arthroscopy, subacromial decompression, rotator cuff repair. estate planning paralegal: Keena Rotary Kiln Operator: selvin Tasks completed by healthcare administrative assistant: Retracting Type of Anesthesia: Block,Regional and General RN Documented Start/Stop Times: Operation Date: 01/14/25 10:00 Case Time Into Pre-Op 01/14/25 08:11 Anesthesia Start 01/14/25 10:00 Into Room 01/14/25 10:00 Procedure Start 01/14/25 10:29 Procedure Start Time: 10:29 Procedure Stop Time: 11:04 Select all DRAINS/GRAFTS/IMPLANTS that apply: Implanted device Implanted device details: Arthrex 4.75 mm bio composite swivel lock anchor Estimated Blood Loss: 20 Specimen collected: No Description of surgery: Patient brought to the operating room theater. Placed supine on the table. General anesthesia induced. Clindamycin 900 mg IV administered prior to the start of the case due to Keflex allergy. All bony prominences padded. SCDs on the legs. Patient transferred left side up lateral decubitus beanbag positioner used as well as axillary roll placed. SCDs on the legs. Upper extremity in traction 10 pounds in line with the arm in 40 degrees of abduction. Upper extremity prepped and draped in the usual sterile fashion with chlorhexidine-based prep solution allowing over 3 minutes drying time prior to draping. Preoperative timeout performed to confirm the site patient and the surgery. Began by inserting the arthroscope into the intra-articular portion of the shoulder. Made a anterior portal through the rotator interval using inside-out spinal needle localization. Did a full diagnostic arthroscopy. Cartilage on the glenoid and humeral head was normal. Normal labrum. Normal infraspinatus. Normal subscapularis stable attachment. Axillary right recess entered no loose bodies. Normal long head of the biceps normal biceps root attachment. There is a full-thickness anterior leading edge tear of the supraspinatus measuring 1 cm x 1 cm. I debrided this from the intra-articular portion of the shoulder and then inserted the arthroscope into the subacromial space. I gently debrided the edge of the tears as well as prepared the tuberosity removing any remaining soft tissue at the tuberosity site as well as using an Arthrex power pick instrument to stimulate healing with multiple small trephination's at the footprint site of the tear. Tear was mobile small crescent-shaped tear. I inserted a cannula laterally as well as using a posterolateral viewing portal. I did a complete bursectomy. I did a subacromial decompression there was a calcification at the CA ligament that I removed and made the undersurface the acromion flat and collinear. Used a high- speed bur for this. I then passed an inverted horizontal mattress fiber tape suture at the tear site. I then passed a Arthrex fiber link suture just medial to this for a ripstop configuration to create 3 suture limbs. Just off the footprint site at the greater tuberosity then I inserted the punch for the swivel lock anchor. Passed the sutures through the wet trimmer then inserted the Arthrex 4.75 mm bio composite swivel lock anchor down to an appropriate level in line with the cortical bone. Sutures were removed and cut short. The repair was stable solid watertight good with good compression at the repair site. Final arthroscopy pictures taken and saved onto the system. Arthroscope withdrawn wounds thoroughly cleaned. Wet and dry dressings portal sites closed with 3-0 Monocryl sutures. Skin cleaned with wet and dry dressing followed application of Steri-Strips Adaptic 4 x 4 gauze ABD dressing cloth tape with an abduction pillow sling for the upper extremity. Patient woken up from a general anesthetic transit left operating table taken to postanesthetic care unit in stable condition. All sponge needle instrument counts were correct no complications. Plan for patient discharged home according to day surgery criteria follow-up in the office within 2 weeks time. CPT 96575, 98041 Surgical Findings: As above Complications Complications: No Admit VTE Documentation VTE Present on Admission: No VTE Mechan Device Prophylaxis: SCD's VTE Pharm Prophylaxis ordered?: No Reason prophylaxis not ordered: Treatment Not Indicated
--- NOTE | 2025-01-14 11:09 | EX.PCM.DISCH ---
Discharge Instructions Diet Discharge Diet: No restrictions Activity Ice area for (Minutes): 10 Lifting Restrictions: pendulums only, ok to remove sling at rest Additional Activity Instructions:: ok for hand wrist elbow rom 4x/day, no lifting over 1 pound Dressing / Incision Call your doctor if your incision/area has: Continuous Slow Oozing, Sudden Increased Bleeding, Increased Pain/ Swelling, Increased Redness, Foul Smelling Discharge and Swelling at the incision site Call your doctor if you observe: Fever of 101 or Higher, Coldness, Increased Pain and Numbness or Tingling Remove Dressing in: leave in place till F/U Cleanse incision/area with: Do not get Incision Wet Follow Up Care Please Follow Up With: Boyd Lopez MD When: within 2 weeks Test Results: Test results from this visit will be discussed in further detail at your follow-up appointment, if applicable. Discharge Plan Admission Attending Provider: Boyd Lopez Primary Care Provider: Care Physician,Maggie Primary Instructions Patient Instructions: After Shoulder Arthroscopy Print Language: Ukrainian Discharge Orders/Prescriptions Prescriptions: New oxycodone-acetaminophen [Endocet] 5-325 mg tablet 1 tab PO Q4H MDD 6 PRN (Reason: pain) 5 Days Qty: 30 0RF No Action midodrine 5 mg tablet 5 mg PO TID Rx Instructions: do not give last dose of day after 6PM or within 4 hrs of bedtime omeprazole 40 mg capsule,delayed release(DR/EC) 40 mg PO BID acetaminophen [Tylenol Extra Strength] 500 mg tablet 500 mg PO Q6H PRN (Reason: fever or pain) Referrals / Follow Up: Boyd Lopez MD [Med Staff - Active Staff] - Care Physician,No Primary [Primary Care Provider] - Disposition Disposition (needs filled in before D/C Order can be placed): Home, Self Care
--- NOTE | 2025-01-14 12:26 | PCM.POST.ANE ---
Anesthesia: Postop Eval I Current Vital Signs Temperature: 97.3 F Pulse Rate: 72 Blood Pressure: 127/76 Respiratory Rate: 16 Pulse Ox: 94 Oxygen Delivery Method: Room Air Assessment Airway patent: Yes Spontaneous unlabored respirations: Yes Mental status: Awake and Calm nausea: No Vomiting: No Anesthesia Complication: No Fluid Hydration Crystalloid volume administer (ml): 1,200 Total IV fluid infused: 1,200 Progress Note Anesthesia document: Postop Eval 1 completed: Yes
--- NOTE | 2025-01-14 16:34 | POSTOPAN2_ITS ---
Anesthesia Postop Eval I Sum Postop Eval Completion status Anesthesia document: Postop Eval 1 completed: Yes Anesthesia Postop Eval I Summary Anesthesia Postop Eval I Summary: Anesthesia Postop Eval I: Assessment Summary Airway patent Yes 01/14/25 12:26 [email or web address] Spontaneous unlabored Yes 01/14/25 12:26 [email or web address] [email or web address] respirations Mental status Awake,Calm 01/14/25 12:26 [email or web address] nausea No 01/14/25 12:26 [email or web address] [email or web address] Vomiting No 01/14/25 12:26 [email or web address] [email or web address] Anesthesia Postop Eval I: Fluid Summary Crystalloid volume administer 1,200 01/14/25 12:26 [email or web address] (ml) Colloids volume administered ( ml) Blood Product volume administered (ml) Total IV fluid infused 1,200 01/14/25 12:26 [email or web address] Anesthesia Postop Eval I: Summary Notes Anesthesia Complication No 01/14/25 12:26 [email or web address] Anesthesia Complication Comment: Post-operative progress note Anesthesia: Postop Eval II Evaluation Mental status: Awake Pain Level: 2 nausea: No Vomiting: No
--- NOTE | 2025-01-14 16:34 | PCM.POSTANE2 ---
Anesthesia Postop Eval I Sum Postop Eval Completion status Anesthesia document: Postop Eval 1 completed: Yes Anesthesia Postop Eval I Summary Anesthesia Postop Eval I Summary: Anesthesia Postop Eval I: Assessment Summary Airway patent Yes 01/14/25 12:26 [email or web address] Spontaneous unlabored Yes 01/14/25 12:26 [email or web address] [email or web address] respirations Mental status Awake,Calm 01/14/25 12:26 [email or web address] nausea No 01/14/25 12:26 [email or web address] Vomiting No 01/14/25 12:26 [email or web address] [email or web address] Anesthesia Postop Eval I: Fluid Summary Crystalloid volume administer 1,200 01/14/25 12:26 [email or web address] [email or web address] (ml) Colloids volume administered ( ml) Blood Product volume administered (ml) Total IV fluid infused 1,200 01/14/25 12:26 [email or web address] [email or web address] Anesthesia Postop Eval I: Summary Notes Anesthesia Complication No 01/14/25 12:26 [email or web address] Anesthesia Complication Comment: Post-operative progress note Anesthesia: Postop Eval II Evaluation Mental status: Awake Pain Level: 2 nausea: No Vomiting: No
== END 2025-01-14 12:38 | disposition home or self-care (01) ==
LOC: SDC 07:49 → AC 07:51
PROVIDERS: Referring Provider Orthopaedic Surgery Sports Medicine; Visit Provider Orthopaedic Surgery Sports Medicine
PROC: (CPT 29805; principal; 2025-01-14 09:40)
DX: M75.102 Unspecified rotator cuff tear or rupture of left shoulder, not specified as traumatic (principal); M75.42 Impingement syndrome of left shoulder; M19.012 Primary osteoarthritis, left shoulder; S46.912A Strain of unspecified muscle, fascia and tendon at shoulder and upper arm level, left arm, initial encounter; X50.0XXA Overexertion from strenuous movement or load, initial encounter; Y92.512 Supermarket, store or market as the place of occurrence of the external cause; K21.9 Gastro-esophageal reflux disease without esophagitis; G62.9 Polyneuropathy, unspecified; F17.200 Nicotine dependence, unspecified, uncomplicated; Z79.899 Other long term (current) drug therapy
CPT/HCPCS: 29827; 29826; 64415; J2405

== ENCOUNTER → 2025-03-12 | Outpatient (CLI) | payer OTHER, SELFPAY ==
[2025-03-12 18:53] LABS: Hematocrit 43.7 % (37-47); Hemoglobin 14.5 g/dL (12.0-15.0); Immature Granulocytes Count 0.010 X10^3/uL (0.0-0.0); Mean Corp Hgb Conc 33.2 g/dL (32-36); Mean Corpuscular Volume 92.2 fL (81-99); Mean Platelet Vol. 10.5 fl (6.2-12.0); NRBC Flagged by Analyzer 0 % (0-5); Platelet Count 350 K/mm3 (150-450); RBC Distribution Width CV 14.0 % (11.6-14.6); RBC Distribution Width SD 47.5 fl (35.1-43.9); Red Blood Count 4.74 M/mm3 (4.2-5.4); White Blood Count 8.1 K/mm3 (4.4-11.0)
[2025-03-12 19:04] LABS: FOLATES,SERUM (FOLIC ACID) 6.80 ng/mL (4.60-34.80)
[2025-03-12 19:41] LABS: AST(SGOT) 21 U/L (<=31); Alanine Aminotransfer ALT/SGPT 11 U/L (<=34); Albumin, Serum 4.4 g/dL (3.5-5.0); Alkaline Phosphatase 106 U/L (35-104); Anion Gap 11 (5-15); BUN 13 mg/dL (4-19); BUN/Creat Ratio 17.6 RATIO (10-20); Calcium,Total 9.8 mg/dL (7.6-11.0); Carbon Dioxide 26.2 mmol/L (21.0-32.0); Chloride 104 mmol/L (98-108); Cholesterol 194 mg/dL (<=200); Globulin 3.3 g/dL (2.2-4.2); Glucose 94 mg/dL (70-99); Low Density Lipoprotein Calc. 112 mg/dL; Magnesium 2.0 mg/dL (1.5-2.2); Potassium 4.3 mmol/L (3.3-5.1); Triglycerides 92 mg/dL; Very Low Density Lipoprotein 18 mg/dL (5-40); Vitamin B12 441 pg/mL (180-914); Vitamin D,25 Hydroxy 19.5 ng/mL (30-100); cholesterol:hdl ratio screen 3.06
== END | disposition home or self-care (01) ==
LOC: VSLAB 11:39
PROVIDERS: PCP Nurse Practitioner Family; Visit Provider Nurse Practitioner Family
DX: Z13.1 Encounter for screening for diabetes mellitus (principal); Z13.220 Encounter for screening for lipoid disorders; I95.9 Hypotension, unspecified; G62.9 Polyneuropathy, unspecified
CPT/HCPCS: 36415; 80053; 80061; 82306; 82607; 82746; 83036; 83735; 85025

== ENCOUNTER 2025-03-26 18:44 | Emergency (ER) | payer OTHER, SELFPAY ==
[2025-03-26 18:45] VITALS: BP 124/77; PULSE 87; RESP 19; TEMP 36.1; O2SAT 100; BMI 31.4
--- NOTE | 2025-03-26 19:32 | EX.ED.VIS.HA ---
HPI History of Present Illness Chief Complaint: Headache Narrative Narrative: 49-year-old female past medical history of migraine headaches, presents with migraine headache that started today. She states she had no aura. She has pain in the front of her head and also in the neck. She thinks her trigger is is that she is doing physical therapy and they increased the bands/resistance which may have triggered this. She endorses photophobia and phonophobia as well. She is nauseated but has not vomited. This is typical of her previous headaches. She states that although she has not had a migraine in over a year, she forgot to ask for a refill of her Imitrex. She states when she comes to the emergency department, she usually gets IV fluids, Phenergan, dexamethasone, Benadryl, and perhaps Toradol. She has not received Compazine or Benadryl. No exacerbating or alleviating factors. [facility] Medical History Wears glasses Arthritis Excessive bleeding Smoker Impingement of left shoulder Primary osteoarthritis, left shoulder Left rotator cuff tear Neuropathy Anxiety IBS (irritable bowel syndrome) GERD (gastroesophageal reflux disease) Von Willebrand disease Environmental allergies History of anemia Knee pain Asthma Andrade disease Osteoarthritis Home Medications ?Medication ?Instructions ?Recorded ?Last Taken ?Type acetaminophen 500 mg tablet 500 mg PO Q6H PRN fever or pain 09/25/24 Unknown History (Tylenol Extra Strength) midodrine 5 mg tablet 10 mg PO TID 09/25/24 Unknown History omeprazole 40 mg capsule,delayed 40 mg PO BID 09/25/24 Unknown History release duloxetine 20 mg capsule,delayed 20 mg PO DAILY 03/26/25 Unknown History release gabapentin 400 mg capsule 400 mg PO BID 03/26/25 Unknown History gabapentin 800 mg tablet 800 mg PO QHS 03/26/25 Unknown History thiamine HCl (vitamin B1) 500 mg 500 mg PO BID 03/26/25 Unknown History tablet trazodone 50 mg tablet 25 mg PO QHS 03/26/25 Unknown History Allergy/AdvReac Type Severity Reaction Status Date / Time bupropion (From Wellbutrin) Allergy Mild Rash Verified 03/26/25 18:45 cephalexin (From Keflex) Allergy Mild Rash Verified 03/26/25 18:45 Penicillins (PCN) Allergy Mild Rash Verified 03/26/25 18:45 Family History Other Barretts esophagus Breast cancer Cancer Hypertension Surgical History History of cholecystectomy History of hand surgery History of colonoscopy History of esophagogastroduodenoscopy (EGD) History of appendectomy History of gastric restrictive surgery History of breast augmentation History of arthroscopic knee surgery Social History Smoking Status: Light Smoker (<10/day) alcohol intake: never substance use type: does not use ROS ROS ED ROS Narrative Review of systems is positive for migraine headache with aura. Positive nausea but no vomiting. No fevers or chills. No exacerbating or alleviating factors. Positive phonophobia and photophobia. EXAM Physical Exam Narrative Exam Narrative: Afebrile. Vital signs noted. Nontoxic-appearing. Cardiovascular examination feels regular rate and rhythm. Lungs are clear to auscultation bilaterally. Abdomen soft and nontender with normoactive bowel sounds. No guarding or rebound. Neurological examination shows her to be awake, alert, oriented x 3. Moves all extremities. Ambulatory in the ED. Const Vital Signs: 03/26/25 18:45 03/26/25 20:44 Temperature 97 F L Temperature Source Temporal Pulse Rate 87 63 Respiratory Rate 19 H 16 Blood Pressure 124/77 H 111/78 Blood Pressure Mean 92 89 Pulse Ox 100 97 Oxygen Delivery Method Room Air MDM MDM MDM Narrative Medical decision making narrative: I do not feel that she requires CT imaging. This is her typical migraine headache. I do not feel differential is applicable. I do not feel that she has a subarachnoid hemorrhage as this is her typical migraine and she has not had any trauma. This is not the worst headache of her life. I discussed with her treatment with subcutaneous Imitrex but she declined stating that the cocktail works better. She was told that Phenergan is no longer given intravenously and she was offered an intramuscular injection but she declined. She is agreeable to Benadryl, dexamethasone, and IV fluids. She has a history of von Willebrand disease which contraindicates the use of Toradol. However, she states she has received this in the past and this is part of her headache regime which helps her. She was administered 15 mg of Toradol as well as Zofran instead of Phenergan. Upon repeat examination at approximately 2130, she feels improved. Initially her headache was rated an 8 out of 10 and is now down to a 4 out of 10. She is motivated for discharge. She will follow-up with her primary care provider regarding a prescription for her Imitrex. I feel she can be discharged safely home with follow-up. Return instructions to the emergency department were reviewed. Disposition is discharged home in stable condition. History & Record Review Discussion w/independent historian: Patient Additional record(s) reviewed:: Prior ED visit (Last seen in January for dental pain.) Discharge Plan Triage Chief Complaint: Headache ED Provider: Jong Mena Dx/Rx/DC Orders Clinical Impression: Migraine headache with aura, Nausea Instructions: ED, Migraine (Classical) Prescriptions: No Action midodrine 5 mg tablet 10 mg PO TID Rx Instructions: do not give last dose of day after 6PM or within 4 hrs of bedtime omeprazole 40 mg capsule,delayed release(DR/EC) 40 mg PO BID acetaminophen [Tylenol Extra Strength] 500 mg tablet 500 mg PO Q6H PRN (Reason: fever or pain) gabapentin 800 mg tablet 800 mg PO QHS gabapentin 400 mg capsule 400 mg PO BID thiamine HCl (vitamin B1) 500 mg tablet 500 mg PO BID duloxetine 20 mg capsule,delayed release(DR/EC) 20 mg PO DAILY trazodone 50 mg tablet 25 mg PO QHS Primary Care Provider: Nory Walls Referrals: Nory Walls, [facility] [Primary Care Provider, Family Practice] - 3-5 Days if not improving Activity Restrictions/Additional Instructions: Follow-up with your primary care provider for prescription of Imitrex and headache control/rescue medication. Return to the emergency department with new or worsening symptoms. Print Language: Estonian Disposition Disposition: Home, Self Care
--- OUTSIDE RECORDS SUMMARY | 2025-03-26 19:55 | XMS RPT_ITS | CCD ---
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 Name Role Phone Cristofer Barraza Unavailable Unavailable Mary Pompa Unavailable Unavailable Cristofer Barraza Unavailable Unavailable CAMILEL MELLO Primary Care Unavailable NELL IRELAND Attending Unavailable Liang PLATE MOLDER - Nathan LINDSEY Primary [facility] er NATHAN TAVERA Referring Unavailable NATHAN TAVERA Primary Care Unavailable SHALINI ELIZONDO Admitting Unavailable SHALINI ELIZONDO Attending Unavailable LIANGNATHAN POLLARD Primary Care Unavailable LIANGNATHAN Primary Care Unavailable ADA NEWSOME Attending Unavailable LIANGNATHAN Primary Care Unavailable CRISTOFER PEDERSON Consulting Unavailable CARLOS OWEN Admitting UnavailCARLOS Oakley Attending UnavailEDINSON Valentin Referring Unavailable NATHAN TAVERA Primary Care Unavailable NATHAN TAVERA Referring Unavailable NATHAN TAVERA Primary Care Unavailable NATHAN TAVERA Referring Unavailable NATHAN TAVERA Primary Care Unavailable NATHAN TAVERA Referring Unavailable NATHAN TAVERA Referring Unavailable LIANGNATHAN Primary Care [facility] Care Unavailable LIANGNATHAN Referring Unavailable APOORVA RYANYTON B Referring Unavailable LIANGNATHAN Primary Care Unavailable TAHMINA MENDEZ Admitting Unavailable TAHMINA MENDEZ Attending Unavailable NATHAN TAVERA Primary Care Unavailable LIANGNATHAN Primary Care Unavailable HECTOR RUVALCABA Attending Unavailable ROSANNE HERRON Attending Unavailable LIANGNATHAN Primary Care Unavailable JAIDEN OAKLEY Attending Unavailable LIANGNATHAN Primary Care [facility] Primary Care Unavailable ORALIA LOPEZ Attending Unavailable [...] Primary Care Unavailable Unavailable Primary Care Provider Unavailabl e Liang PLATE MOLDER-CONTROL EQUIPMENT ELECTRICIAN, Nathan Primary Care Provider PHYSICIAN, NONE Primary Care Physician Unavailab le PHYSICIAN, NONE Primary Care Unavailable CORONA TEJADA Attending Unavailable Corona Tejada Attending Provider Care Physician, No Primary Primary Care Provider Unavailable Corona Tejada Referring Provider Care Physician, No Primary Referring Provider Un available Boyd Lopez MD Attending Provider Boyd Lopez MD Referring Provider Estrella Akbar Attending Provider Unavailable Dr. Mendoza Acharya DO Emergency Provider Boyd Lopez MD Other Provider Dr. Mendoza Acharya DO Attending Provider Care Physician, No Primary Primary Care Provider Unavailable Corona Tejada Attending Provider SHALINI SHERWOOD Referring Unavailable SHALINI SHERWOOD Attending Unavailable Care Physician, No Primary Primary Care Physicia n Unavailable Boyd Lopez MD Attending Physician Care Physician, No Primary Referring Provider Un available Corona Tejada Attending Physician Estrella Akbar Attending Physician Unavailable Dr. Mendoza Acharya DO Attending Physician Dr. Mendoza Acharya DO Emergency Department Physic david Boyd Lopez MD Nurse Practitioner Care Physician, No Primary Referring Unava ilable Corona Tejada Attending Unavailable Care Physician, No Primary Primary Care Unava ilable Care Physician, No Primary Primary Care Unava ilable Care Physician, No Primary Referring Unava ilable Boyd Lopez Attending Unavailable Care Physician, No Primary Primary Care Unava ilable Care Physician, No Primary Referring Unava ilable Boyd Lopez Attending Unavailable Care Physician, No Primary Primary Care Unava ilable Care Physician, No Primary Referring Unava ilable Boyd Lopez Attending Unavailable Zac SPAULDING, Corona Attending Unavailable Care Physician, No Primary Referring Unava ilable Zac SPAULDING, Corona Attending Unavailable Care Physician, No Primary Primary Care Unava ilable Care Physician, No Primary Primary Care Unava ilable Estrella Akbar Attending Unavailable Care Physician, No Primary Primary Care Unava ilable Boyd Lopez Attending Unavailable John, Boyd Consulting Unavailable John, Boyd Referring Unavailable Care Physician, No Primary Referring Unava ilable Boyd Lopez Attending Unavailable Care Physician, No Primary Primary Care Unava ilable Care Physician, No Primary Referring Unava ilable Care Physician, No Primary Primary Care Unava ilable Boyd Lopez Attending Unavailable Tannhojewel, Nory Attending Unavailable Tannhof, Nory Primary Care Unavailable Tannhof, Nory Referring Unavailable Tannhof, Nory Primary Care Unavailable Kavita, Nory Attending Unavailable Boyd Lopez Referring Unavailable Care Physician, No Primary Primary Care Unava ilable John, Boyd Attending Unavailable Zac SPAULDING, Corona Referring Unavailable Zac SPAULDING, Corona Attending Unavailable Care Physician, No Primary Primary Care Unava ilable Care Physician, No Primary Primary Care Unava ilable Mendoza Acharya Attending Unavailable Mollison, Boyd Attending Unavailable MollBoyd contreras Referring Unavailable Care Physician, No Primary Primary Care Unava ilable Care Physician, No Primary Primary Care Unava ilable Boyd Lopez Attending Unavailable Boyd Lopez Referring Unavailable Tannhof, Nory Attending Unavailable Tannhof, Nory Primary Care Unavailable Tannhof, Nory Referring Unavailable Care Physician, No Primary Referring Unava ilable Corona Tejada Attending Unavailable Care Physician, No Primary Primary Care Unava ilable Allergies Allergy Classification Reported Allergen(s) Allergy Type Date of Onset Reaction(s) Facility (19 sources) buPROPion; Translations: [BUPROPION] Drug Allergy 5 Anaphylaxis, Hives, Swelling [facility] Repository (20 sources) Cephalexin; Translations: [CEPHALEXIN] Drug Allergy 3 Hives [facility] Repository (1 source) Penicillin; Translations: [PENICILLIN V] Drug Allergy 4 [facility] Repository (20 sources) Penicillins; Translations: [PENICILLINS] Propensity to adverse reactions to drug (disorder) 3 Hives, Intolerance [facility] Repository (9 sources) Promethazine; Translations: [PROMETHAZINE] Drug Allergy 4 Other (See Comments) [facility] Repository (13 sources) Tranexamic Acid; Translations: [TRANEXAMIC ACID] Drug Allergy 3 Hives [facility] Repository (1 source) traZODone; Translations: [TRAZODONE] Drug Allergy 4 [facility] Repository (3 sources) Promethazine Drug Allergy 4 Other (See Comments) [facility] (3 sources) Trazodone And Nefazodone Propensity to adverse reactions to drug 4 Other (See Comments) [facility] (9 sources) buPROPion; Translations: [BUPROPION HCL] Drug Allergy 6 Anaphylaxis [facility] Repository Medications Current Medications Medication Drug Class(es) Dates Sig (Normalized) Sig (Original) acetaminophen 500 mg oral tablet (13 sources) Start: 09-25-2024 take 1 tablet by mouth every six hours as needed for pain Start: 06-30-2023 acetaminophen (TYLENOL) tablet 650 mg Start: 06-30-2023 End: 06-30-2023 acetaminophen (TYLENOL) tabl et 1,000 mg Start: 06-21-2023 acetaminophen (TYLENOL) tablet 650 mg acetaminophen 325 mg / HYDROcodone bitartrate 5 mg oral tablet (7 sources) Opioid Agonist take 1 tablet by mouth every six hours as needed HYDROcodone-acetaminophen (NORCO) 5-325 mg per tablet Take 1 tablet by mouth every 6 hours as needed. Active [id number] 200 actuat albuterol 0.09 mg/actuat metered dose inhaler (13 sources) beta2-Adrener gic Agonist Start: 2022 take [...] Active busPIRone hydrochloride 15 mg oral tablet (14 sources) Start: 09-20-19 take 1 tablet by [...] Active cyclobenzaprine hydrochloride 10 mg oral tablet (11 sources) Muscle Relaxant Start: 2023 take 1 tablet by mouth every twelve hours as needed cyclobenzaprine (FLEXERIL) 10 mg tablet Take 10 mg by mouth two times a day as needed for pain. 08/29/2023 Active Start: 08-29-2023 take 1 tablet by mariah every eight hours for muscle spasms cyclobenzaprine [...] DULoxetine 20 mg delayed release oral capsule (13 sources) Serotonin and Norepinephrine Reuptake Inhibitor Start: 09-20-2023 take 1 capsule by mouth twice daily DULoxetine (CYMBALTA) 20 mg capsule Take 20 mg by mouth two times a day. 09/20/2023 Active Start: 09-20-2023 take 1 capsule by mo [facility] once daily DULoxetine (CYMBALTA) 20 MG [...] Active folic acid 1 mg oral tablet (11 sources) Start: 07-10-19 24 take 1 tablet [...] (LE edema) 90 tablet 3 01/12/2023 Active lactobacillus acidophilus 16 mg oral capsule (1 source) Start: 07-02-19 End: 07-12-19 24 take 1 tablet by mouth at bedtime Probiotic, Lactobacillus, CAPS Take 1 tablet by mouth in the morning, at noon, and at bedtime for 10 days 30 capsule 0 07/02/2023 07/12/2023 Active loperamide hydrochloride 2 mg oral capsule (1 source) Opioid Agonist Start: 06-30-19 loperamide (IMODIUM) capsule 2 mg midodrine hydrochloride 5 mg oral tablet (20 sources) alpha-Adrenergic Agonist Start: 09-26-19 25 take 1 tablet by mouth once daily at bedtime Start: 06-30-2023 5 mg, Oral, 3 [...] mouth in the morning. Active multivitamin tablet (3 sources) take 1 tablet by mouth once daily [...] omeprazole 40 mg delayed release oral capsule (20 sources) Proton Pump Inhibitor Start: 09-25-2024 take 1 capsule by mouth twice daily Start: 06-07-2014 End: 06-10-2024 take 1 capsule by mouth once daily omeprazole (PRILOSEC) 40 mg capsule Take 40 mg by mouth once daily. 06/07/2014 Active ondansetron 4 mg disintegrating oral tablet [...] 4 mg take 1 tablet by mariah every eight hours as needed for nausea [...] 0 Active thiamine 100 mg oral tablet (11 sources) Start: 07-09-2023 take 1 tablet by [...] nightly. Active valACYclovir 500 mg oral tablet (3 sources) Herpesvirus Nucleoside Analog DNA Polymerase Inhibitor, Herpes [...] Class(es) Dates Sig (Normalized) Sig (Original) acetaminophen 325 mg / oxyCODONE hydrochloride 5 mg oral tablet (14 sources) Opioid Agonist Start: 01-23-2025 End: 01-28-2025 Oxycodone-Acetamino phen (Endocet) 5-325 mg tablet Discontinued 1 {tbl} PO Q8H as needed for pain 10 5 0 January 23, 2025 January 27, 2025 12:00am January 28, 2025 12:06am Strain of left shoulder Impingement of left shoulder Tear of left rotator cuff Other specified joint disorders, left shoulder Start: 01-14-2025 take 1 tablet by mariah th every four hours as needed for pain Start: 01-02-2025 End: 01-07-2025 Oxycodone-Acetaminophen (Per cocet) 5-325 mg tablet Discontinued 1 {tbl} PO EVERY 6 HOURS as needed for pain 12 3 0 January 02, 2025 January 07, 2025 9:46am Infection of tooth Periapical abscess without sinus 10 ml calcium chloride 100 mg/ml prefilled syringe (1 source) Start: 07-01-2023 End: 07-01-2023 calcium chloride 10 % injection celecoxib 200 mg oral capsule (19 sources) Nonsteroidal Anti-inflammatory Drug Start: 09-25-2024 End: [...] 12/26/2023 Discontinued clindamycin 300 mg oral capsule (9 sources) Lincosamide Antibacterial Start: 12-26-2024 End: 01-01-2025 [...] 5 days. 45 capsule 03/29/2024 04/03/2024 Active doxycycline monohydrate 100 mg oral tablet (6 sources) Tetracycline-class Drug Start: 01-01-2025 End: 01-11-2025 take 1 tablet by mouth twice daily Doxycycline Monohydrate 100 mg tablet Discontinued 100 mg PO TWICE A DAY 20 10 0 January 01, 2025 12:00am January 10, 2025 12:00am January 11, 2025 12:07am estrogens, conjugated (shelter) 0.625 mg / medroxyPROGESTERone acetate 5 mg [...] daily 0 04/04/2023 06/30/2023 Discontinued (LIST CLEANUP) gabapentin 800 mg oral tablet (20 sources) Anti-epileptic Agent Start: 09-25-2024 End: 01-07-2025 take 1 tablet by mouth three times daily Gabapentin 800 mg tablet Discontinued 800 mg PO THREE TIMES A DAY September 25, 2024 12:00am January 07, 2025 9:45am Start: 09-20-2023 End: 10-20-2023 take 1 tablet [...] 06-30-2023 gabapentin (NEURONTIN) 600 M G tablet 500 ml glucose 50 mg/ml / potassium chloride 0.02 meq/ml / sodium chloride 4.5 mg/ml injection (1 source) Start: 06-30-2023 End: 07-02-2023 IntraVENous, at 125 mL/hr, CONTINUOUS, Starting on 06/30/23 at 0600, For 48 hours ibuprofen 200 mg oral tablet (10 sources) Nonsteroidal Anti-inflammatory Drug Start: 12-15-2024 End: 01-07-2025 take 3 tablets by mouth every six hours as needed Ibuprofen 200 mg tablet Discontinued 600 mg PO EVERY 6 HOURS as needed December 15, 2024 12:00am January 07, 2025 9:45am Start: 06-30-2023 take 400 mg by mouth every six hours as needed for pain 400 mg, Oral, EVERY 6 HOURS PRN, Starting on 06/30/23 at 0530, Until Discontinued, Pain Mild (1-3), Pain Moderate (4-6), Allowed for higher pain score per patient request, Fever Alternate with tylenol iopamidol (ISOVUE-370) 76 % injection 75 mL [...] 06-29-2023 ketorolac (TORADOL) injectio n 15 mg lidocaine hydrochloride 20 mg/ml mucous membrane topical solution (7 sources) Antiarrhythmic, Amide Local Anesthetic Start: 01-01-2025 End: 01-07-2025 Lidocaine Hcl (Lidocaine Viscous) 2 % solution Discontinued 1 NMA MUCOUS MEM THREE TIMES A DAY as needed for pain 100 0 January 01, 2025 12:00am January 07, 2025 9:45am Start: 01-01-2025 End: 01-07-2025 Lidocaine Hcl (Lidocaine Vis cous) 2 % solution Discontinued 1 NMA MUCOUS MEM THREE TIMES A DAY as needed for pain 100 0 January 01, 2025 12:00am January 07, 2025 9:45am Start: 01-01-2025 Lidocaine Hcl (Lidocaine Viscous) 2 % solution Active 1 NMA MUCOUS MEM THREE TIMES A DAY as needed for pain 100 0 January 01, 2025 12:00am Start: 01-22-2024 End: 01-22-2024 3 mL, intra-articular, One-T radha Injection, Starting on Sun01/22/24 at 1133, For [...] by mouth 0 Active polyethylene glycol 3350 32577 mg powder for oral solution (1 source) [...] remission] Onset: 3 03-16-2023 Chronic Allergic reactions (10 sources) Environmental allergy; Translations: [Other allergy status, other than to drugs and biological substances] 09-25-2024 Episodic Anxiety disorders (13 sources) Anxiety; Translations: [Anxiety disorder, unspecified] Onset: 3 04-04-2013 Chronic Comment on above: BETTER SITUATION Asthma (16 sources) Asthma; Translations: [Unspecified asthma, uncomplicated] Onset: 3 04-04-2013 Chronic Comment on above: HAY FEVER Cardiac dysrhythmias (3 sources) Postural orthostatic tachycardia syndrome ; Translations: [POTS (postural orthostatic tachycardia syndrome)] Onset: 3 03-16-2023 Chronic Coagulation and hemorrhagic disorders (20 sources) von Willebrand disorder; Translations: [Von Willebrand disease] Onset: 7 04-04-2013 Chronic Comment on above: BETTER SINCE [place] Disorders of teeth and jaw (20 sources) Periapical abscess without sinus; Translations: [Infection of tooth] Onset: 4 03-29-2024 Episodic Esophageal disorders (15 sources) Gastroesophageal reflux disease; Translations: [Gastro-esophageal reflux [...] disorder; Translations: [Depression] Onset: 3 06-30-2016 Chronic Nutritional deficiencies (1 source) Vitamin D deficiency, unspecified; Translations: [Vitamin D deficiency, unspecified] Onset: 5 Chronic Osteoarthritis (20 sources) Osteoarthritis; Translations: [Unspecified osteoarthritis, unspecified site] Onset: 3 04-04-2013 Chronic Other congenital anomalies (1 source) Porokeratosis; Translations: [Other specified congenital malformations of skin] 01-30-2025 Chronic Other congenital anomalies (1 source) Other specified congenital malformations of skin; Translations: [Porokeratosis] Onset: 5 Chronic Other connective tissue disease (1 source) [...] specified disorders of tendon, left shoulder] Onset: Episodic Other connective tissue disease (1 source) Bursitis of left shoulder; Translations: [Bursitis of left shoulder] Onset: Episodic Other connective tissue disease (1 source) Other enthesopathies, not elsewhere classified; Translations: [Other enthesopathies, not elsewhere classified] Onset: Episodic Other connective tissue disease (20 sources) Tear of left rotator cuff; Translations: [Unspecified rotator cuff tear or rupture of left shoulder, not specified as traumatic] 10-20-2024 Episodic Other connective tissue disease (1 source) Pain in left foot; Translations: [Pain in left foot] 01-29-2025 Episodic Other connective tissue disease (1 source) Plantar fasciitis; Translations: [Plantar fascial fibromatosis] 01-30-2025 Episodic Other connective tissue disease (1 source) Bilateral bone spur of calcaneum; Translations: [Calcaneal spur, right foot] 01-30-2025 Episodic Other connective tissue disease (1 source) Plantar fascial fibromatosis; Translations: [Plantar fasciitis] Onset: Episodic Other connective tissue disease (1 source) Calcaneal spur, right foot; Translations: [Calcaneal spur of both feet] Onset: 5 Episodic Other connective tissue disease (1 source) Calcaneal spur, left foot; Translations: [Calcaneal spur of both feet] Onset: 5 Episodic Other connective tissue disease (1 source) Pain in left foot; Translations: [Pain in left foot] Onset: 5 Episodic Other endocrine disorders (3 sources) Polycystic ovary syndrome; Translations: [Polycystic ovarian syndrome] Onset: 3 04-04-2013 Chronic Other gastrointestinal disorders (13 sources) Irritable bowel syndrome; Translations: [Irritable bowel syndrome without diarrhea] Onset: 3 04-04-2013 Chronic Other injuries and conditions due to external causes (1 source) Unspecified injury of shoulder and upper arm, unspecified arm, initial encounter; Translations: [Unspecified injury of shoulder and upper arm, unspecified arm, initial encounter] Onset: 5 Episodic Other liver diseases (3 sources) Steatosis of [...] 4 10-23-2023 Chronic Other nervous system disorders (10 sources) Neuropathy; Translations: [Polyneuropathy, unspecified] 09-25-2024 Chronic Other nervous system disorders (1 source) Other acute postprocedural pain; Translations: [Other acute postprocedural pain] Onset: 4 Episodic Other non-traumatic joint disorders (1 source) Multiple joint pain; Translations: [Pain in unspecified joint] 10-11-2023 Episodic Other non-traumatic joint disorders (20 sources) Disorder of shoulder; Translations: [Other specified joint disorders, left shoulder] 10-20-2024 Episodic Other non-traumatic joint disorders (10 sources) Pain in unspecified knee; Translations: [Knee pain] 09-25-2024 Episodic Other non-traumatic joint disorders (1 source) Other specified joint disorders, left shoulder; Translations: [Other specified joint disorders, left shoulder] Onset: 5 Episodic Other non-traumatic joint disorders (1 source) Pain in left shoulder; Translations: [Pain in left shoulder] Onset: 5 Episodic Other nutritional; endocrine; and metabolic disorders (3 sources) Hypomagnesemia; Translations: [Hypomagnesemia] Onset: 4 06-21-2023 Chronic Other nutritional; endocrine; and metabolic disorders (1 source) Hypomagnesemia; Translations: [Hypomagnesemia] Onset: 4 Chronic Other screening for suspected conditions (not mental disorders or infectious disease) (10 sources) Other specified abnormal findings of blood chemistry; Translations: [Other abnormal blood chemistry] Onset: 3 03-16-2023 Episodic Residual codes; unclassified (3 sources) Obstructive sleep [...] Translations: [Shoulder strain] Onset: 5 Episodic Tuberculosis (10 sources) Tuberculosis of vertebral column; Translations: [Tuberculosis of spine] 09-25-2024 Episodic Unclassified (1 source) Right carpal tunnel syndrome [G56.01] Onset: 4 Unclassified (1 source) Weakness - Generalized Onset: 4 Unclassified (1 source) Post-op Onset: 4 Unclassified (5 sources) Impingement of left shoulder Unclassified (11 sources) Tear of left rotator cuff Unclassified (8 sources) Primary osteoarthritis of left shoulder Unclassified (8 sources) M25.812 - Other specified joint disorders, left shoulder,M75.102 - Unspecified rotator cuff tear or rupture of left shoulder, not specified as traumatic,M19.012 - Primary osteoarthritis, left shoulder Unclassified (4 sources) M75.102 - Unspecified rotator cuff tear or rupture of left shoulder, not specified as traumatic Past or Other Problems Problem Classification Problem [...] [Myalgia, other site] Onset: 03-16-2023 Episodic Other liver diseases (1 source) Abnormal [...] [Pain in left knee] Onset: 10-11-2023 Episodic Residual codes; unclassified (3 sources) Insomnia; [...] Test Name Value Interpretation Reference Range Facility Quantiferon TB-Gold+on 03-17 QFT MITOGEN VIDHYA Normal [facility] Comment on above: Result Comment: NYDIA G Performed By: #### L [id number] ####[facility] [address] [place], [address] QFT NIL VALUE Normal [facility] Comment on above: Result Comment: NYDIA G Performed By: #### L [id number] ####[facility] [address] [place], [address] QFT TB GOLD+ Normal [facility] Comment on above: Result Comment: NYDIA G Performed By: #### L [id number] ####[facility] [address] [place], [address] QFT TB POS CRIT Normal [facility] Comment on above: Result Comment: NYDIA G Performed By: #### L [id number] ####[facility] [address] [place], [address] QFT TB1+ AG VIDHYA Normal [facility] Comment on above: Result Comment: TYON G Performed By: #### L [id number] ####[facility] [address] [place], [address] QFT TB2+ AG VIDHYA Normal [facility] Comment on above: Result Comment: TYON G Performed By: #### L [id number] ####[facility] [address] [place], [address] CBC W/Diff, Automatedon 10-0 9-2025 Absolute Lymph 3.19 X10 3/uL Normal 0.83-4.51 [facility] Comment on above: Performed By: #### L 500.4100, L506.1001, L503.0106, L501.5200, L501.9985, L100.0100, L506.0200, L500.4050 ####[facility] [address] [place], [place], [phone]) Absolute Neut 3.9 X10 3/uL Normal 2.0-7.7 [facility] Comment on above: Performed By: #### L 500.4100, L506.1001, L503.0106, L501.5200, L501.9985, L100.0100, L506.0200, L500.4050 ####[facility] [address] [place], [phone]) Basophils/100 WBC (Bld) 0.7 % Normal 0-1 [facility] Comment on above: Performed By: #### L 500.4100, L506.1001, L503.0106, L501.5200, L501.9985, L100.0100, L506.0200, L500.4050 ####[facility] [address] [place], [address] Eosinophils/100 WBC (Bld) 5.8 % High 0-5 [facility] Comment on above: Performed By: #### L 500.4100, L506.1001, L503.0106, L501.5200, L501.9985, L100.0100, L506.0200, L500.4050 ####[facility] [address] [place], [place], [phone] Erythrocyte distribution width (RBC) [Ratio] 14.0 % Normal 11.6-14.6 [facility] Comment on above: Performed By: #### L 500.4100, L506.1001, L503.0106, L501.5200, L501.9985, L100.0100, L506.0200, L500.4050 ####[facility] [address] [place], [address] Hematocrit (Bld) [Volume fraction] 43.7 % Normal 37-47 [facility] Comment on above: Performed By: #### L 500.4100, L506.1001, L503.0106, L501.5200, L501.9985, L100.0100, L506.0200, L500.4050 ####[facility] [address] [place], [address] Hemoglobin (Bld) [Mass/Vol] 14.5 g/dL Normal 12.0-15.0 [facility] Comment on above: Performed By: #### L 500.4100, L506.1001, L503.0106, L501.5200, L501.9985, L100.0100, L506.0200, L500.4050 ####[facility] [address] [place], [place], [phone] IG% 0.100 Normal 0.0-0.9 [facility] Comment on above: Result Comment: IG% - Immature Granulocytes (promyelocytes, myelocytes and metamyelocytes) > 1% indicates that a LEFT SHIFT is Present. Performed By: #### L 500.4100, L506.1001, L503.0106, L501.5200, L501.9985, L100.0100, L506.0200, L500.4050 ####[facility] [address] [place], [address] Lymphocytes/100 WBC (Bld) 39.4 % Normal 19-41 [facility] Comment on above: Performed By: #### L 500.4100, L506.1001, L503.0106, L501.5200, L501.9985, L100.0100, L506.0200, L500.4050 ####[facility] [address] [place], [address] MCH (RBC) [Entitic mass] 30.6 pg Normal 27.0-32.0 [facility] Comment on above: Performed By: #### L 500.4100, L506.1001, L503.0106, L501.5200, L501.9985, L100.0100, L506.0200, L500.4050 ####[facility] [address] [place], [address] MCHC (RBC) [Mass/Vol] 33.2 g/dL Normal 32-36 [facility] Comment on above: Performed By: #### L 500.4100, L506.1001, L503.0106, L501.5200, L501.9985, L100.0100, L506.0200, L500.4050 ####[facility] [address] [place], [address] MCV (RBC) [Entitic vol] 92.2 fL Normal 81-99 [facility] Comment on above: Performed By: #### L 500.4100, L506.1001, L503.0106, L501.5200, L501.9985, L100.0100, L506.0200, L500.4050 ####[facility] [address] [place], [address] Monocytes/100 WBC (Bld) 5.7 % Normal 0-10 [facility] Comment on above: Performed By: #### L 500.4100, L506.1001, L503.0106, L501.5200, L501.9985, L100.0100, L506.0200, L500.4050 ####[facility] [address] [place], [address] Neutrophils/100 WBC (Bld) 48.3 % Normal 47-70 [facility] Comment on above: Performed By: #### L 500.4100, L506.1001, L503.0106, L501.5200, L501.9985, L100.0100, L506.0200, L500.4050 ####[facility] [address] [place], [address] Nucleated RBC (Bld) [#/Vol] 0 10*3/uL Normal 0-5 [facility] Comment on above: Performed By: #### L 500.4100, L506.1001, L503.0106, L501.5200, L501.9985, L100.0100, L506.0200, L500.4050 ####[facility] [address] [place], [address] Platelet mean volume (Bld) [Entitic vol] 10.5 fL Normal 6.2-12.0 [facility] Comment on above: Performed By: #### L 500.4100, L506.1001, L503.0106, L501.5200, L501.9985, L100.0100, L506.0200, L500.4050 ####[facility] [address] [place], [address] Platelets (Bld) [#/Vol] 350 10*3/uL Normal 150-450 [facility] Comment on above: Performed By: #### L 500.4100, L506.1001, L503.0106, L501.5200, L501.9985, L100.0100, L506.0200, L500.4050 ####[facility] [address] [place], [address] RBC (Bld) [#/Vol] 4.74 10*6/uL Normal 4.2-5.4 [facility] Comment on above: Performed By: #### L 500.4100, L506.1001, L503.0106, L501.5200, L501.9985, L100.0100, L506.0200, L500.4050 ####[facility] [address] [place], [place], [id number] RDW SD 47.5 fl High 35.1-43.9 [facility] Comment on above: Performed By: #### L 500.4100, L506.1001, L503.0106, L501.5200, L501.9985, L100.0100, L506.0200, L500.4050 ####[facility] [address] [place], [address] WBC (Bld) [#/Vol] 8.1 10*3/uL Normal 4.4-11.0 [facility] Comment on above: Performed By: #### L 500.4100, L506.1001, L503.0106, L501.5200, L501.9985, L100.0100, L506.0200, L500.4050 ####[facility] [address] [place], [address] Comprehensive Metabolic [facility] 03-12-2025 Albumin [Mass/Vol] 4.4 g/dL Normal 3.5-5.0 [facility] Comment on above: Performed By: #### L 500.4100, L506.1001, L503.0106, L501.5200, L501.9985, L100.0100, L506.0200, L500.4050 ####[facility] [address] [place], [address] Albumin/Globulin [Mass ratio] 1.3 {ratio} Normal 0.9-2.4 [facility] Comment on above: Performed By: #### L 500.4100, L506.1001, L503.0106, L501.5200, L501.9985, L100.0100, L506.0200, L500.4050 ####[facility] [address] [place], [place], [id number] ALK PHOS 106 U/L High 35-104 [facility] Comment on above: Performed By: #### L 500.4100, L506.1001, L503.0106, L501.5200, L501.9985, L100.0100, L506.0200, L500.4050 ####[facility] [address] [place], [address] ALT [Catalytic activity/Vol] 11 U/L Normal <=34 [facility] Comment on above: Performed By: #### L 500.4100, L506.1001, L503.0106, L501.5200, L501.9985, L100.0100, L506.0200, L500.4050 ####[facility] [address] [place], [place], [id number] AST [Catalytic activity/Vol] 21 U/L Normal <=31 [facility] Comment on above: Performed By: #### L 500.4100, L506.1001, L503.0106, L501.5200, L501.9985, L100.0100, L506.0200, L500.4050 ####[facility] [address] [place], [place], [id number] Bilirubin [Mass/Vol] 0.54 mg/dL Normal 0.00-1.30 [facility] Comment on above: Performed By: #### L 500.4100, L506.1001, L503.0106, L501.5200, L501.9985, L100.0100, L506.0200, L500.4050 ####[facility] [address] [place], [address] BUN/CRE 17.6 RATIO Normal 10-20 [facility] Comment on above: Performed By: #### L 500.4100, L506.1001, L503.0106, L501.5200, L501.9985, L100.0100, L506.0200, L500.4050 ####[facility] [address] [place], [address] Calcium [Mass/Vol] 9.8 mg/dL Normal 7.6-11.0 [facility] Comment on above: Performed By: #### L 500.4100, L506.1001, L503.0106, L501.5200, L501.9985, L100.0100, L506.0200, L500.4050 ####[facility] [address] [place], [address] Chloride [Moles/Vol] 104 mmol/L Normal 98-108 [facility] Comment on above: Performed By: #### L 500.4100, L506.1001, L503.0106, L501.5200, L501.9985, L100.0100, L506.0200, L500.4050 ####[facility] [address] [place], [address] CO2 [Moles/Vol] 26.2 mmol/L Normal 21.0-32.0 [facility] Comment on above: Performed By: #### L 500.4100, L506.1001, L503.0106, L501.5200, L501.9985, L100.0100, L506.0200, L500.4050 ####[facility] [address] [place], [address] Creatinine [Mass/Vol] 0.73 mg/dL Normal 0.70-1.20 [facility] Comment on above: Performed By: #### L 500.4100, L506.1001, L503.0106, L501.5200, L501.9985, L100.0100, L506.0200, L500.4050 ####[facility] [address] [place], [address] GAP 11 Normal 5-15 [facility] Comment on above: Performed By: #### L 500.4100, L506.1001, L503.0106, L501.5200, L501.9985, L100.0100, L506.0200, L500.4050 ####[facility] [address] [place], [address] GFR/1.73 sq M.predicted among non-blacks MDRD (S/P/Bld) [Vol rate/Area] 100 mL/min/{1.73_m2} Normal >60 [facility] Comment on above: Result Comment: mL/m in/1.73m2 CKD-EPI Creatinine Equation (2020) Performed By: #### L 500.4100, L506.1001, L503.0106, L501.5200, L501.9985, L100.0100, L506.0200, L500.4050 ####[facility] [address] [place], [address] Globulin (S) [Mass/Vol] 3.3 g/dL Normal 2.2-4.2 [facility] Comment on above: Performed By: #### L 500.4100, L506.1001, L503.0106, L501.5200, L501.9985, L100.0100, L506.0200, L500.4050 ####[facility] [address] [place], [address] Glucose [Mass/Vol] 94 mg/dL Normal 70-99 [facility] Comment on above: Performed By: #### L 500.4100, L506.1001, L503.0106, L501.5200, L501.9985, L100.0100, L506.0200, L500.4050 ####[facility] [address] [place], [address] Potassium [Moles/Vol] 4.3 mmol/L Normal 3.3-5.1 [facility] Comment on above: Performed By: #### L 500.4100, L506.1001, L503.0106, L501.5200, L501.9985, L100.0100, L506.0200, L500.4050 ####[facility] [address] [place], [address] Sodium [Moles/Vol] 141 mmol/L Normal 133-145 [facility] Comment on above: Performed By: #### L 500.4100, L506.1001, L503.0106, L501.5200, L501.9985, L100.0100, L506.0200, L500.4050 ####[facility] [address] [place], [address] T PROT 7.7 g/dL Normal 5.9-8.4 [facility] Comment on above: Performed By: #### L 500.4100, L506.1001, L503.0106, L501.5200, L501.9985, L100.0100, L506.0200, L500.4050 ####[facility] [address] [place], [address] Urea nitrogen [Mass/Vol] 13 mg/dL Normal 4-19 [facility] Comment on above: Performed By: #### L 500.4100, L506.1001, L503.0106, L501.5200, L501.9985, L100.0100, L506.0200, L500.4050 ####[facility] [address] [place], [address] Folates,Serum (Folic Acid)on 03-12-2025 FOLATES,SERUM 6.80 ng/mL Normal 4.60-34.80 [facility] Comment on above: Order Comment: N Result Comment: Hemo lysis, Results will be affected, Requires Recollection. Performed By: #### L 500.4100, L506.1001, L503.0106, L501.5200, L501.9985, L100.0100, L506.0200, L500.4050 ####[facility] [address] [place], [address] Hemoglobin A1con 03-12-2025 HbA1c (Bld) [Mass fraction] 5.6 % Normal <=5.6 [facility] Comment on above: Result Comment: Norm al < 5.7 % Prediabetic 5.7 - 6.4 % Diabetic >or= 6.5 % Please note range changes. Performed By: #### L 500.4100, L506.1001, L503.0106, L501.5200, L501.9985, L100.0100, L506.0200, L500.4050 ####[facility] [address] [place], [address] Lipid Profileon 03-12-2025 CHOL:HDL 3.06 Normal [facility] Comment on above: Performed By: #### L 500.4100, L506.1001, L503.0106, L501.5200, L501.9985, L100.0100, L506.0200, L500.4050 ####[facility] [address] [place], [place], [address] Cholesterol [Mass/Vol] 194 mg/dL Normal <=200 [facility] Comment on above: Result Comment: Chol esterol level, Desirable <200 mg/dL Borderline high cholesterol 200-239 mg/dL High cholesterol >=240 mg/dL Recommendations of the NCEP Adult Treatment Panel for the following risk-cutoff thresholds for the [place] population. Performed By: #### L 500.4100, L506.1001, L503.0106, L501.5200, L501.9985, L100.0100, L506.0200, L500.4050 ####[facility] [address] [place], [address] Cholesterol in HDL [Mass/Vol] 63 mg/dL Normal [facility] Comment on above: Result Comment: Lorena onal Cholesterol Education Program (NCEP) guidelines: <40 mg/dL: Low HDL-cholesterol (major risk factor for CHD) >= 60 mg/dL: High HDL-cholesterol (negative risk factor for CHD) HDL-cholesterol is affected by a number of factors, e.g. smoking, exercise, hormones, sex and age. Performed By: #### L 500.4100, L506.1001, L503.0106, L501.5200, L501.9985, L100.0100, L506.0200, L500.4050 ####[facility] [address] [place], [address] Cholesterol in LDL [Mass/Vol] 112 mg/dL Normal [facility] Comment on above: Result Comment: Bord yklhvp=494-334 mg/dL Higher Hnvh=057 mg/dL or greater Friedwald Equation for LDL-C Performed By: #### L 500.4100, L506.1001, L503.0106, L501.5200, L501.9985, L100.0100, L506.0200, L500.4050 ####[facility] [address] [place], [address] Cholesterol in VLDL [Mass/Vol] 18 mg/dL Normal 5-40 [facility] Comment on above: Performed By: #### L 500.4100, L506.1001, L503.0106, L501.5200, L501.9985, L100.0100, L506.0200, L500.4050 ####[facility] [address] [place], [address] Triglyceride [Mass/Vol] 92 mg/dL Normal [facility] Comment on above: Result Comment: The drugs N-Acetylcysteine and Metamizole may falsely depress this assay. Normal range: <150 mg/dL Borderline High: 150-199 mg/dL High: 200-499 mg/dL Very High: >500 mg/dL Performed By: #### L 500.4100, L506.1001, L503.0106, L501.5200, L501.9985, L100.0100, L506.0200, L500.4050 ####[facility] [address] [place], [address] Magnesiumon 03-12-2025 Magnesium [Mass/Vol] 2.0 mg/dL Normal 1.5-2.2 [facility] Comment on above: Performed By: #### L 500.4100, L506.1001, L503.0106, L501.5200, L501.9985, L100.0100, L506.0200, L500.4050 ####[facility] [address] [place], [address] Vitamin B12on 03-12-2025 Cobalamin (Vitamin B12) [Mass/Vol] 441 pg/mL Normal 180-914 [facility] Comment on above: Performed By: #### L 500.4100, L506.1001, L503.0106, L501.5200, L501.9985, L100.0100, L506.0200, L500.4050 ####[facility] [address] [place], [address] Vitamin D,25 Hydroxyon 03-12 Vitamin D 25-OH 19.5 ng/mL Low 30-100 [facility] Comment on above: Result Comment: Yue min D Status Deficiency: <20 ng/mL (50nmol/L) Insufficiency: 20-30 ng/mL (50-75 nmol/L) Sufficiency: 30-100 ng/mL (75-250 nmol/L) Toxicity: >100 ng/mL (>250 nmol/L) Performed By: #### L 500.4100, L506.1001, L503.0106, L501.5200, L501.9985, L100.0100, L506.0200, L500.4050 ####[facility] [address] [place], [address] Orthopedic Visit Reporton Orthopedic Visit Report [facility] Orthopedics [facility] [facility] [address] [place] [address] OFFICE VISIT Date of Service: 02/24/25 MR#: [id number] Acct: [id number] Name: NENITA ROSALES Rep #: [id number] : 1975 Provider: Dr. Boyd iyer MD Age/Sex: 49/F Location: [facility] Status: Signed Intake Vital Signs 01/27/25 10:51 Height 5 ft 2 in Weight: 160 lb BMI 29.2 Intake Visit Reasons: LEFT SHOULDER Chief Complaint: 6 week post op left shoulder Accompanied by: Self Is patient in pain?: Yes Allergies bupropion (From Wellbutrin) Allergy (Mild, Verified 02/24/25 10:26) Rash cephalexin (From Keflex) Allergy (Mild, Verified 02/24/25 10:26) Rash Penicillins (PCN) Allergy (Mild, Verified 02/24/25 10:26) Rash Medications ???Medication ???Instructions ???Recorded ???Confirmed ???Type acetaminophen 500 mg tablet 500 mg PO Q6H PRN fever or pain 02/24/25 History (Tylenol Extra Strength) midodrine 5 mg tablet 5 mg PO TID 09/25/24 02/24/25 Hist ory omeprazole 40 mg capsule,delayed 40 mg PO BID 09/25/24 02/24/25 His tory release oxycodone-acetaminophen 5 mg-325 1 tab PO Q4H PRN pain 5 days #30 0 01/14/25 02/24/25 Rx mg tablet (Endocet) tabs PFSH Medical History Wears glasses Arthritis Excessive bleeding Smoker Impingement of left shoulder Primary osteoarthritis, left [...] made by me, Dr. Boyd Lopez MD 02/24/25 0958. Part of today???s visit was documented by [ ], acting as scribe. NENITA ROSALES is a 49 year old F here today for 6 weeks FU Left shoulder arthroscopy, subacromial decompression, rotator cuff repair. Doing well mild pain when the patient does a little bit too much. Some mild morning symptoms. Patient has started physical therapy has weakness no stiffness Coding Level of Care Code Global Post Op Diagnoses Impingement of left shoulder M25.812 Left shoulder strain S46.912A Assessment and Plan Assessment and Plan (1) Impingement of left shoulder: Status: Acute Plan: NENITA ROSALES is a 49 year old F here today for 6 weeks FU Left shoulder arthroscopy, subacromial decompression, rotator cuff repair. Patient progressing as expected no stiffness mild to moderate weakness. Recommend starting strengthening gradually progressed that over the next 6 weeks. Follow-up in 6 weeks time. New [employer] 14 filled out. (2) Left shoulder strain: Status: Acute Ortho Exam General General: Yes no acute distress Neurologic: Yes alert and Yes oriented x3 Psychologic: Yes reasonable and appropriate Left Shoulder Skin/Wound: Yes CDI, Yes healed, No ecchymosis, No erythema and No swelling (v minimal) Testing: No Hawkin's and No Neer's SHOULDER: nvi ax, mru and ain/pin. good rad pulse. Active and passive external rotation 60 degrees. Passive forward elevation 170 degrees active forward elevation 45 degrees 02/24/25 1045 Date Boyd Lopez MD Cosigner Signature: Date (if applicable) CC: Normal [facility] Inital Evaluation (1) - PTon 02-03-2025 Inital Evaluation (1) - PT [facility] Physical Therapy [facility] [address] [place] [address] / REHABILITATION SERVICES INITIAL EVALUATION MR#: [id number] Acct: [id number] Name: NENITA ROSALES Rep #: [id number] : 1975 49 From: Kendall French DPT Referring Dr.: Dr. Boyd Lopez MD Status: R [facility] Insurance: [facility] SELF PAY INSURANCE Patient's Visit Information Visit Information Visit Information: NENITA ROSALES is a 49 year old F referred to Physical Therapy by Dr. Boyd Lopez MD with a diagnosis of L RTC repair, DOS: 01/14/25. Date of Evaluation: 01/28/25 Physical Therapist: Kendall French DPT Visit Plan Frequency: 2-3x /Week Duration: 6 Weeks Plan: 1) PROM of L shoulder progressing towards end range Progress per proctol. (in folder) ice/heat as needed. Subjective Subjective: Pt. is here today for her initial evaluation with diagnosis of L RTC repair, DOS: 01/14/25. Pt. arrives without sling on today. Physician allowed her to remove sling and wean away from it. Pt. reports overall doing well. She has 4/10 pain currently. No chest pain, SHe is currently off work. 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 No N/T noted. She reports no issues with incisions. Pt. had been doing pendulums at home as well. Pt. is sleeping okay, but still has issues with falling asleep. She is hopeful to improve her ROM, strength and get back to all work and recreational activities without limitations. Pain L shoulder: Pain Intensity (Out of 10): 4 Pain Intensity Range: 2 and 6 Objective Objective: POSTURE: Pt. has fairly normal posture in stance. Shoulder height is equal. L UE in guarded positioning. PALPATION: Pt. has normal healing port holes no signs of infection. NEURO: normal ROM: PROM: L elbow: full motion. L shoulder: flexion 80deg, abd 60deg, ER 15deg. MMT: RUE 5/5 throughout. LUE: DNT due to surgery. Balance/Special Test Scores Quick DASH Score: 75.0000 Goals Goal 1:: LTG: pt. to be I with HEP. Goal Time Frame: 4-6 Weeks Goal 2:: STG: Pt. to have full PROM of L shoulder. Goal Time Frame: 2-4 Weeks Goal 3:: LTG: Pt. to have full AROM of L shoulder. Goal Time Frame: 4-6 Weeks Goal 4:: STG: pt. to sleep throughout the night without increase in L shoulder pain. Goal Time Frame: 2-4 Weeks Goal 5:: LTG: Pt. to have symetrical strength between BUEs. Goal Time Frame: 8-12 Weeks Goal 6:: LTG: pt. to complete all ADLs without limitations. Goal Time Frame: 6-8 Weeks Rehabilitation Potential Physical Therapy Diagnosis: Pt. has signs and symptoms consistent with L RTC repair, DOS: 01/14/25. Pt. has marked hypomobility, weakness, increased pain. Pt. would benefit from PT to address the above limitations progressing back to all work and recreational activities without limitations. Rehabilitation Potential: Excellent Anticipated Interventions Patient/Client Instruction: Educate patient on: Condition, Plan of Care, Risk Factors and Benefits of Fitness Program For the Purpose of:: To improve health and function, To foster healthy habits, To improve decision making, To facilitate caregiver knowledge, To improve self management, To prevent re-injury and To improve ability to perform tasks related to life management Therapeutic Exercise to Include: Strength training, Power training, Flexibilty training, Passive ROM, Active ROM and Scapular Strength/Stabilization For the Purpose of:: To decrease pain, To increase ROM, To improve nutrient delivery to tissue, To increase oxygenation perfusion, To improve muscle performance and motor function, To improve ability to perform ADL's, To improve health of tissue, To decrease soft tissue restriction and To increase flexibility/ROM Manual Therapy Techniques to Include: Mobilization and Passive ROM For the Purpose of:: To decrease pain, To decrease swelling/inflammation and To increase ROM Cryotherapy (ice pack, ice massage): Yes Thermo therapy (hot pack): Yes For the Purpose of:: To decrease pain, To increase ROM, To improve nutrient delivery to tissue, To increase oxygenation perfusion, To improve health of tissue, To decrease soft tissue restriction and To increase flexibility/ROM Text: Thank you for the opportunity to evaluate your patient. For Medicare and Medicare HMO plans, please review the plan of care and approve it. It will need to be FAXED BACK to us at [phone] for Medicare purposes. For Medicare only, by signing this I certify the plan of care. Please let me know if there are questions or concerns regarding this plan of care. Physician Signature: Date: _ 02/03/25 0839 CC: Dr. Boyd Lopze MD; No Primary Care Physician CLS Signed Normal [facility] CNOVon 01-30-2025 CNOV Office Visit (PODIWS ) ----- NENITA ROSALES ([id number]) 1975 F Date Time Provider Department 01/30/25 9:45 AM [facility] PODIWS During your visit today, we recorded the following information about you: Brunilda Lopez MA 01/31/2025 10:45 AM Signed AMB ROOMING INTAKE FLOWSHEET DATA Pain Pain Level: 3 Pain Location: Foot-Left Description: Sharp Duration Amount of Time: 10 Duration Units: Minutes Frequency: Intermittent Intervention/Comfort measure: Reposition Comments: Pain when stepping on the area feels like stepping on a stone. Also in side if foot in certain shoes Per Dr. Sherwood Nenita was provided with powerstep gel inserts, size 7-8 1/2, and instructed/educated in its application, wear, and care. All questions were answered, and patient was able to demonstrate competence with the necessary skills to utilize the above equipment. MIGUEL ANGEL Goodman Matthew 01/30/2025 10:16 AM Addendum Powerstep Original Full length. Can purchase at [facility] Runner and boots,shoes and more here in [place], [employer] in [place] or [place]. Also can find in [employer] in [facility]. Powersteps can also be purchased online, starting around $45.00 If you have a metatarsal or dancer pad for your feet apply the pad directly to the insole so you can interchange between your shoes. Find a shoe with a removable insole and take this out and replace with your powerstep insole. Always bring powersteps with you when shopping for shoes so that you can make sure that everything fits well together We discussed your foot pain and calluses: - I shaved down the hyperkeratotic lesion (callus) on the plantar aspect of your left fifth metatarsal and applied salicylic acid to help prevent it from returning. Please leave the Band-Aid on for about 10 hours and then wash the area. - You have porokeratosis, which may continue to recur. If it does, you can contact me through [employer] to schedule a visit for further treatment. - I provided you with gel inserts to help alleviate pressure on the affected area. You can use donut hole pads on the inserts to reduce discomfort. To position the pad correctly, noble the callus with a marker or nail gabonese, step on the insert, and align the pad with the marked area. Trim the insert if necessary to ensure a proper fit. - Avoid walking barefoot, wearing flip-flops, or using unsupportive shoes like Hey Dudes. Instead, wear supportive footwear such as New Balance, Hoka, Contreras, or Asics. We discussed your heel pain and plantar fasciitis: - You have large heel spurs on the back and bottom of both feet, which may contribute to your pain. Inserts can help reduce stress on the Achilles tendon and alleviate discomfort, but they will not remove the spurs. Surgical removal is the only way to eliminate the spurs if they become more problematic. - You likely have plantar fasciitis, which can cause pain when you first get out of bed. To manage this: - Perform stretches before getting out of bed and throughout the day. Examples include standing an arm's length from a wall, bending forward like a push-up, or standing on a step and dropping your heels down while holding onto a rail. - Continue using supportive footwear and inserts to reduce strain on your feet. - If pain persists, we can consider a steroid injection in the future. Follow-Up: - If the callus or pain returns, please contact me through [employer] to schedule a follow-up visit. - Continue using the gel inserts and performing stretches as discussed. Let me know if your symptoms do not improve or worsen. Shalini Sherwood 01/31/2025 10:45 AM Signed Subjective The patient is a 49-year-old female presenting with left foot pain secondary to a callus. The patient reports a sensation of stepping on a rock due to a callus on the plantar aspect of the left fifth metatarsal. She has been dealing with this issue for years and previously saw another physician who would shave down the callus every 6-12 months, which provided relief. She also used donut hole pads in her shoes, which helped alleviate the discomfort. However, she has not had the callus treated for about a year and has recently moved to [facility]. In addition to the callus, the patient reports large heel spurs on both the bottom and back of her heels, describing one as like a golf ball. These spurs cause pain, especially when wearing shoes. She also experiences pain on the bottom of her heels upon waking in the morning, which slightly improves with walking. She has been told she has plantar fasciitis and has been performing stretches to manage the condition. 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 [facility] XR FOOT 3V AP/LAT/OBL LTon 0 01-29-2025 XR FOOT 3V AP/LAT/OBL LT * * *Final Report* * * DATE OF EXAM: Jan 29 2025 11:20AM WRX [id number] - XR FOOT 3V AP/LAT/OBL LT / PROCEDURE REASON: Pain in left foot * * * * Physician Interpretation * * * * EXAMINATION / TECHNIQUE: XR FOOT 3V AP/LAT/OBL LT HISTORY: PT STATES LEFT FOOT CALLUS LATERAL FOOT Pain in left foot COMPARISON: None. RESULT: No acute fracture or dislocation. Mild first MTP joint osteoarthritis. Calcaneal enthesophytes. No osseous erosion. IMPRESSION: Degenerative changes as described. Franchise Field Consultant: PSCB Transcribe Date/Time: Feb 05 2025 5:54P Dictated by : LYNN BOLTON MD This examination was interpreted and the report reviewed and electronically signed by: LYNN BOLTNO MD on Feb 05 2025 5:55PM EST [id number] Normal [facility] Orthopedic Visit Reporton Orthopedic Visit Report [facility] [address] [place] [address] OFFICE VISIT Date of Service: 01/27/25 MR#: [id number] Acct: [id number] Name: NENITA ROSALES Rep #: [id number] : 1975 Provider: Dr. Boyd iyer MD Age/Sex: 49/F Location: [facility] Status: Signed Intake Vital Signs 10/20/24 11:13 01/16/25 10:36 01/27/25 10:51 Height 5 ft 2 in 5 ft 2 in 5 ft 2 in Weight: 160 lb BMI 29.2 Intake Visit Reasons: left shoulder Chief Complaint: 2 week post op left shoulder Accompanied by: Self Is patient in pain?: Yes Pain scale (1-10): 4 Allergies bupropion (From Wellbutrin) Allergy (Mild, Verified 01/27/25 10:53) Rash cephalexin (From Keflex) Allergy (Mild, Verified 01/27/25 10:53) Rash Penicillins (PCN) Allergy (Mild, Verified 01/27/25 10:53) Rash Medications ???Medication ???Instructions ???Recorded ???Confirmed ???Type acetaminophen 500 mg tablet 500 mg PO Q6H PRN fever or pain 01/27/25 History (Tylenol Extra Strength) midodrine 5 mg tablet 5 mg PO TID 09/25/24 01/27/25 Hist ory omeprazole 40 mg capsule,delayed 40 mg PO BID 09/25/24 01/27/25 His tory release oxycodone-acetaminophen 5 mg-325 1 tab PO Q4H PRN pain 5 days #30 0 01/14/25 01/27/25 Rx mg tablet (Endocet) tabs oxycodone-acetaminophen 5 mg-325 1 tab PO Q8H PRN pain 5 days #10 0 01/23/25 01/27/25 Rx mg tablet (Endocet) tabs Have you fallen in the past year?: No PFSH Medical History Wears glasses Arthritis Excessive bleeding Smoker Impingement of left shoulder Primary osteoarthritis, left [...] substance use type: does not use HPI left shoulder Details: This documentation accurately reflects the service provided and the decisions made by me, Dr. Boyd Lopez MD 01/27/25 0816. Part of today???s visit was documented by [ ], acting as scribe. NENITA ROSALES is a 49 year old F here today for 2 weeks FU Left shoulder arthroscopy, subacromial decompression, rotator cuff repair. C9 is approved, was waiting on that to get in to start PT. Coding Level of Care Code Global Post Op Diagnoses Impingement of left shoulder M25.812 Primary osteoarthritis, left shoulder M19.012 Left rotator cuff tear M75.102 Left shoulder strain S46.912A Assessment and Plan Assessment and Plan (1) Impingement of left shoulder: Status: Acute Plan: NENITA ROSALES is a 49 year old F here today for 2 weeks FU Left shoulder arthroscopy, subacromial decompression, rotator cuff repair. FU 4 weeks. DC the sling. OK to shower. Still off work completely filled out the [employer] Phase 1: Initial Protection and Pain Management (Weeks 1-2) Dressing: Keep incisions clean and dry. Change dressing every 1-2 days. Sling: Wearing a sling for comfort and to protect the surgical repair Pain Management: Ice, rest, and pain medication are used to control pain and swelling. Gentle Movement: Early passive range of motion exercises are introduced to prevent stiffness. Perform pendulum exercises 4x/day, where the patient gently swings the arm in a controlled manner. Maintaining range of motion and strength in the elbow, wrist, and hand is important to prevent stiffness and muscle atrophy. Phase 2: Gradual Yarsani of Motion (Weeks 2-6) Gradually discontinue the sling starting 2 weeks after surgery. Active Assisted Range of Motion: Gradually increasing the range of motion with assistance from the unaffected arm or a physical therapist is introduced. Phase 3: Gradual Yarsani of Strength (Weeks 6-12) Light Strengthening: Isometrics and gentle resistance exercises are started to strengthen the rotator cuff muscles. Progression of Exercises: Exercises progress from simple movements like scapular retraction to more complex ones like lateral elevation and external rotation. Ph (more content not included)... Normal [facility] Orthopedic Visit Reporton Orthopedic Visit Report [facility] [address] [place], [place] [id number] OFFICE VISIT Date of Service: 01/16/25 MR#: [id number] Acct: [id number] Name: NENITA ROSALES Rep #: [id number] : 1975 Provider: Dr. Boyd iyer MD Age/Sex: 49/F Location: [facility] Status: Signed Intake Vital Signs 10/20/24 11:13 01/14/25 08:18 01/16/25 10:36 Height 5 ft 2 in 5 ft 2 in 5 ft 2 in Weight: 160 lb BMI 29.2 Intake Visit Reasons: left shoulder Chief Complaint: 2 day post op left shoulder Accompanied by: Is patient in pain?: Yes Pain scale (1-10): 4 Allergies bupropion (From Wellbutrin) Allergy (Mild, Verified 01/16/25 10:39) Rash cephalexin (From Keflex) Allergy (Mild, Verified 01/16/25 10:39) Rash Penicillins (PCN) Allergy (Mild, Verified 01/16/25 10:39) Rash Medications ???Medication ???Instructions ???Recorded ???Confirmed ???Type acetaminophen 500 mg tablet 500 mg PO Q6H PRN fever or pain 01/16/25 History (Tylenol Extra Strength) midodrine 5 mg tablet 5 mg PO TID 09/25/24 01/16/25 Hist ory omeprazole 40 mg capsule,delayed 40 mg PO BID 09/25/24 01/16/25 His tory release oxycodone-acetaminophen 5 mg-325 1 tab PO Q4H PRN pain 5 days #30 0 01/14/25 01/16/25 Rx mg tablet (Endocet) tabs Have you fallen in the past year?: No PFSH Medical History Wears glasses Arthritis Excessive bleeding Smoker Impingement of left shoulder Primary osteoarthritis, left [...] substance use type: does not use HPI left shoulder Details: This documentation accurately reflects the service provided and the decisions made by me, Dr. Boyd Lopez MD 01/16/25 0826. Part of today???s visit was documented by [ ], acting as scribe. NENITA ROSALES is a 49 year old F here today for POD 2 Left shoulder arthroscopy, subacromial decompression, rotator cuff repair. Doing well the block wore off normal sensation in the upper extremity weaning off the pain medications took only 1 Percocet this morning. Pain is well- controlled. Coding Level of Care Code Global Post Op Diagnoses Impingement of left shoulder M25.812 Left rotator cuff tear M75.102 Assessment and Plan Assessment and Plan (1) Impingement of left shoulder: Status: Acute Plan: NENITA ROSALES is a 49 year old F here today for POD 2 Left shoulder arthroscopy, subacromial decompression, rotator cuff repair. Patient doing well we placed new Mepilex border dressings on the incisions today recommend to change dressings every 1 to 2 days keep the incisions clean and dry and follow-up in 2 weeks time okay for gentle pendulum exercises and sling for comfort. Phase 1: Initial Protection and Pain Management (Weeks 1-2) Dressing: Keep incisions clean and dry. Change dressing every 1-2 days. Sling: Wearing a sling for comfort and to protect the surgical repair Pain Management: Ice, rest, and pain medication are used to control pain and swelling. Gentle Movement: Early passive range of motion exercises are introduced to prevent stiffness. Perform pendulum exercises 4x/day, where the patient gently swings the arm in a controlled manner. Maintaining range of motion and strength in the elbow, wrist, and hand is important to prevent stiffness and muscle atrophy. Phase 2: Gradual Yarsani of Motion (Weeks 2-6) Gradually discontinue the sling starting 2 weeks after surgery. Active Assisted Range of Motion: Gradually increasing the range of motion with assistance from the unaffected arm or a physical therapist is introduced. Phase 3: Gradual Yarsani of Strength (Weeks 6-12) Light Strengthening: Isometrics and gentle resistance exercises are started to strengthen the rotator cuff muscles. Progression of Exercises: Exercises progress from simple movements like scapular retraction to more compl (more content not included)... Normal [facility] Discharge Instructionon 01-02 Discharge Instruction [facility] Medical Records Department [address] [place] [address] Instructions for Home/Discharge Instructions 01/14/25 1109 MR#: [id number] Acct: [id number] Name: NENITA ROSALES Rep #: [id number] : 1975 49 From: Boyd Lopez MD PCP: Care Physician,No Primary Status:REG [facility] Discharge Instructions Diet Discharge Diet: No restrictions Activity Ice area for (Minutes): 10 Lifting Restrictions: pendulums only, ok to remove sling at rest Additional Activity Instructions:: ok for hand wrist elbow rom 4x/day, no lifting over 1 pound Dressing / Incision Call your doctor if your incision/area has: Continuous Slow Oozing, Sudden Increased Bleeding, Increased Pain/ Swelling, Increased Redness, Foul Smelling Discharge and Swelling at the incision site Call your doctor if you observe: Fever of 101 or Higher, Coldness, Increased Pain and Numbness or Tingling Remove Dressing in: leave in place till F/U Cleanse incision/area with: Do not get Incision Wet Follow Up Care Please Follow Up With: Boyd Lopez MD When: within 2 weeks Test Results: Test results from this visit will be discussed in further detail at your follow-up appointment, if applicable. Discharge Plan Admission Attending Provider: Boyd Lopez Primary Care Provider: Care Physician,No Primary Instructions Patient Instructions: After Shoulder Arthroscopy Print Language: Ecuadorean Discharge Orders/Prescriptions Prescriptions: New oxycodone-acetaminophen [Endocet] 5-325 mg tablet 1 tab PO Q4H MDD 6 PRN (Reason: pain) 5 Days Qty: 30 0RF No Action midodrine 5 mg tablet 5 mg PO TID Rx Instructions: do not give last dose of day after 6PM or within 4 hrs of bedtime omeprazole 40 mg capsule,delayed release(DR/EC) 40 mg PO BID acetaminophen [Tylenol Extra Strength] 500 mg tablet 500 mg PO Q6H PRN (Reason: fever or pain) Referrals / Follow Up: Boyd Lopez MD [Med Staff - Active Staff] - Care Physician,No Primary [Primary Care Provider] - Disposition Disposition (needs filled in before D/C Order can be placed): Home, Self Care 01/14/25 1112 Boyd Lopez MD CC: No Primary Care Physician Signed [facility] MR/POSTOP.Kathleen 01-14-2025 MR/POSTOP.[facility] Medical Records Department [address] [place] [address] Anesthesia Postop Eval I 01/14/25 1226 MR#: [id number] Acct: [id number] Name: NENITA ROSALES Rep #: [id number] : 1975 49 From: Alejandro Patterson CRNA PCP: Care Physician,No Primary Status:REG [facility] Y Race: C Location: [place] [address] Anesthesia: Postop Eval I Current Vital Signs Temperature: 97.3 F Pulse Rate: 72 Blood Pressure: 127/76 Respiratory Rate: 16 Pulse Ox: 94 Oxygen Delivery Method: Room Air Assessment Airway patent: Yes Spontaneous unlabored respirations: Yes Mental status: Awake and Calm nausea: No Vomiting: No Anesthesia Complication: No Fluid Hydration Crystalloid volume administer (ml): 1,200 Total IV fluid infused: 1,200 Progress Note Anesthesia document: Postop Eval 1 completed: Yes 01/14/25 1226 Date Alejandro Patterson CRNA Cosigner Signature: Date CC: Signed [facility] [id number] 01-14-[address] Medical Records Department [facility] [place] [address] Anesthesia Postop Eval II 01/14/25 1634 MR#: [id number] Acct: [id number] Name: NENITA ROSALES Rep #: [id number] : 1975 49 From: Delfina Cobb CRNA PCP: Care Physician,No Primary Status:DEP [facility] Y Race: C Location: [facility] Anesthesia Postop Eval I Sum Postop Eval Completion status Anesthesia document: Postop Eval 1 completed: Yes Anesthesia Postop Eval I Summary Anesthesia Postop Eval I Summary: Anesthesia Postop Eval I: Assessment Summary Airway patent Yes 01/14/25 12:26 [email or web address] Spontaneous unlabored Yes 01/14/25 12:26 [email or web address] respirations Mental status Awake,Calm 01/14/25 12:26 [email or web address] nausea No 01/14/25 12:26 [email or web address] Vomiting No 01/14/25 12:26 [email or web address] Anesthesia Postop Eval I: Fluid Summary Crystalloid volume administer 1,200 01/14/25 12:26 [email or web address] (ml) Colloids volume administered ( ml) Blood Product volume administered (ml) Total IV fluid infused 1,200 01/14/25 12:26 [email or web address] Anesthesia Postop Eval I: Summary Notes Anesthesia Complication No 01/14/25 12:26 [email or web address] Anesthesia Complication Comment: Post-operative progress note Anesthesia: Postop Eval II Evaluation Mental status: Awake Pain Level: 2 nausea: No Vomiting: No 01/14/25 1634 Date Delfina Cobb STOCK REPAIRER Cosigner Signature: Date CC: Signed [facility] Operative Reporton 5 Operative Report [facility] Medical Records Department [address] [place] [address] Operative Report 01/14/25 1102 MR#: [id number] Acct: [id number] Name: CONNIENENITA MALVIN Rep #: [id number] : 1975 49 From: Boyd Lopez MD PCP: Care Physician,No Primary Status:[facility] Location: [place] [address] Problems Associated Problem List Diagnoses (1) Left shoulder strain: (2) Impingement of left shoulder: (3) Left rotator cuff tear: Procedures Musculoskeletal 20xxx-29xxx: Other Procedure See Report Operative Report (Standard) Operative Information Date of Procedure: 01/14/25 Pre-Operative Diagnosis: Left shoulder impingement syndrome and rotator cuff tear Post-Operative Diagnosis: Same Surgery/Procedure Performed: Left shoulder arthroscopy, subacromial decompression, rotator cuff repair. 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: selvin Tasks completed by engineer first assistant: Retracting Type of Anesthesia: Block,Regional and General RN Documented Start/Stop Times: Operation Date: 01/14/25 10:00 Case Time Into Pre-Op 01/14/25 08:11 Anesthesia Start 01/14/25 10:00 Into Room 01/14/25 10:00 Procedure Start 01/14/25 10:29 Procedure Start Time: 10:29 Procedure Stop Time: 11:04 Select all DRAINS/GRAFTS/IMPLANTS that apply: Implanted device Implanted device details: Arthrex 4.75 mm bio composite swivel lock anchor Estimated Blood Loss: 20 Specimen collected: No Description of surgery: Patient brought to the operating room theater. Placed supine on the table. General anesthesia induced. Clindamycin 900 mg IV administered prior to the start of the case due to Keflex allergy. All bony prominences padded. SCDs on the legs. Patient transferred left side up lateral decubitus beanbag positioner used as well as axillary roll placed. SCDs on the legs. Upper extremity in traction 10 pounds in line with the arm in 40 degrees of abduction. Upper extremity prepped and draped in the usual sterile fashion with chlorhexidine-based prep solution allowing over 3 minutes drying time prior to draping. Preoperative timeout performed to confirm the site patient and the surgery. Began by inserting the arthroscope into the intra-articular portion of the shoulder. Made a anterior portal through the rotator interval using inside-out spinal needle localization. Did a full diagnostic arthroscopy. Cartilage on the glenoid and humeral head was normal. Normal labrum. Normal infraspinatus. Normal subscapularis stable attachment. Axillary right recess entered no loose bodies. Normal long head of the biceps normal biceps root attachment. There is a full- thickness anterior leading edge tear of the supraspinatus measuring 1 cm x 1 cm. I debrided this from the intra-articular portion of the shoulder and then inserted the arthroscope into the subacromial space. I gently debrided the edge of the tears as well as prepared the tuberosity removing any remaining soft tissue at the tuberosity site as well as using an Arthrex power pick instrument to stimulate healing with multiple small trephination's at the footprint site of the tear. Tear was mobile small crescent-shaped tear. I inserted a cannula laterally as well as using a posterolateral viewing portal. I did a complete bursectomy. I did a subacromial decompression there was a calcification at the CA ligament that I removed and made the undersurface the acromion flat and collinear. Used a high-speed bur for this. I then passed an inverted horizontal mattress fiber tape suture at the tear site. I then passed a Arthrex fiber link suture just medial to this for a ripstop configuration to create 3 suture limbs. Just off the footprint site at the greater tuberosity then I inserted the punch for the swivel lock anchor. Passed the sutures through the finish production manager then inserted the Arthrex 4.75 mm bio composite swivel lock anchor down to an appropriate level in line with the cortical bone. Sutures were removed and cut short. The repair was stable solid watertight good with good compression at the repair site. Final arthroscopy pictures taken and saved onto the system. Arthroscope withdrawn wounds thoroughly cleaned. Wet and dry dressings portal sites closed with 3-0 Monocryl sutures. Skin cleaned with wet and dry dressing followed application of Steri-Strips Adaptic 4 x 4 gauze ABD dressing cloth tape with an abduction pillow sling for the upper extremity. Patient woken up from a general anesthetic transit left operating table taken to postanesthetic care unit in stable condition. All sponge needle instrument counts were correct no complications. Plan for patient discharged home according to day surgery criteria follow-up in the office within 2 weeks time. CPT 95739, 43399 Surgical Findings: As above Complications Complications: No Admit VTE Documentation VTE Present on Admission: No V (more content not included)... [facility] Emergency Department Summary on 01-02-2025 Emergency Department Summary [facility] Medical Records Department [address] [place] [address] Emergency Department Summary 01/02/25 MR#: [id number] Acct: [id number] Name: NENITA ROSALES Rep #: [id number] : 1975 49 From: Mendoza Acharya DO PCP: Care Physician,No Primary Status:DEP ER Location: ED HPI History of Present Illness Chief Complaint: Dental Informant: patient and spouse/S.O. Narrative Narrative: Patient is a 49-year-old female with past medical history of GERD and von Willebrand's disease. She states that she has recently taken clindamycin secondary to a left-sided dental infection. She reports that despite taking the clindamycin over the last 2 to 3 days she has noticed increased pain and swelling along the right lower jaw. She states that she was reevaluated and placed on doxycycline which she just started today. She denies fevers or chills or difficulty breathing or swallowing but secondary to increasing pain not responding to [id number] medication she presents for evaluation. [facility] Medical History Impingement of left shoulder Primary osteoarthritis, left shoulder Left rotator cuff tear Neuropathy Anxiety IBS (irritable bowel syndrome) GERD (gastroesophageal reflux disease) Von Willebrand disease Environmental allergies History of anemia Knee pain Asthma Andrade disease Osteoarthritis Home Medications ???Medication ???Instructions ???Recorded ???Last Taken ???Type acetaminophen 500 mg tablet 500 mg PO Q6H PRN 09/25/24 Unknown History (Tylenol Extra Strength) gabapentin 800 mg tablet 800 mg PO TID 09/25/24 Unknown His tory midodrine 5 mg tablet 5 mg PO TID 09/25/24 Unknown Histo ry omeprazole 40 mg capsule,delayed 40 mg PO BID 09/25/24 Unknown Hist ory release ibuprofen 200 mg tablet 600 mg PO Q6H PRN 12/15/24 Unknown History doxycycline monohydrate 100 mg 100 mg PO BID 10 days #20 tabs Unknown Rx tablet lidocaine HCl 2 % mucosal solution 1 applic mucous membrane TID PRN 01/01/25 Unknown Rx (Lidocaine Viscous) pain #100 mL oxycodone-acetaminophen 5 mg-325 1 tab PO Q6H PRN pain 3 days #12 0 01/02/25 Unknown Rx mg tablet (Percocet) tabs Allergy/AdvReac Type Severity Reaction Status Date / Time bupropion (From Wellbutrin) Allergy Mild Rash Verified 01/02/25 00:54 cephalexin (From Keflex) Allergy Mild Rash Verified 01/02/25 00:54 Penicillins (PCN) Allergy Mild Rash Verified 01/02/25 00:54 Family History Other Barretts esophagus Breast cancer Cancer Hypertension Surgical History History of cholecystectomy History of hand surgery History of colonoscopy History of esophagogastroduodenoscop y (EGD) History of appendectomy History of gastric restrictive surgery History of breast augmentation History of arthroscopic knee surgery Social History Smoking Status: Light Smoker (<10/day) alcohol intake: never substance use type: does not use ROS ROS ED Constitutional Constitutional ED: Denies chills or fever(s) ENT ENT ED: Reports other Details: Positive dental pain and facial swelling Cardiovascular Cardiovascular: Denies chest pain Respiratory/Chest Respiratory/Chest: Denies cough or dyspnea Gastrointestinal Gastrointestinal: Denies abdominal pain, diarrhea, nausea or vomiting Musculoskeletal Musculoskeletal: Denies neck pain Integumentary Reports other Details: Positive right-sided facial swelling ; Denies rash Neurologic Neurologic: Denies headache(s) Hematologic/Lymphatic Hematologic/Lymphatic: Reports easy bleeding and easy bruising Allergic/Immunologic Allergic/Immunologic ED: Denies tongue swelling EXAM Physical Exam Const Vital Signs: 01/02/25 00:54 01/02/25 00:57 01/02/25 01:45 Temperature 97.6 F L 97.6 F L 97.6 F L Temperature Source Oral Oral Pulse Rate 71 71 72 Respiratory Rate 16 16 16 Blood Pressure 128/87 H 128/87 H 125/88 H Blood Pressure Mean 100 100 100 Pulse Ox 100 100 97 Oxygen Delivery Method Room Air Room Air Positive well nourished and well developed General Appearance ED: well developed; Negative for pallor HEENT Reports moist mucous membranes HEENT Narrative: Normocephalic atraumatic Patient has soft tissue swelling along the right lower jaw tracking towards the right zygomatic arch. No overlying erythema or warmth. No tongue or lip swelling noted; no signs of infection in the posterior pharynx. No airway compromise No signs of ANUG Patient has multiple dental caries greatest in the right lower jaw without abscess formation noted Eyes PERRL and EOMs intact b (more content not included)... Normal [facility] Urgent Care Visit Reporton 0 01-01-2025 [address] Report [facility] [address] , [address] [place] [address] OFFICE VISIT Date of Service: 01/01/25 MR#: [id number] Acct: [id number] Name: NENITA SAXENA Rep #: [id number] : 1975 Provider: JASSON Oliver Age/Sex: 49/F Location: [facility] Status: Signed Intake Vital Signs 10/20/24 11:13 [...] Exam Const General: cooperative and healthy appearing HENHI Head: normocephalic and atraumatic Ears: hearing grossly [...] Cosigner Signature: Date (if applicable) CC: Normal [facility] Urgent Care Visit Reporton 0 12-26-2024 Urgent Care Visit Report [facility] 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 [facility] Medical History Impingement of left shoulder Primary [...] Exam Const General: cooperative and healthy appearing [facility] Head: normocephalic and atraumatic Ears: hearing grossly [...] PO TID 21 caps 0RF 7 days 07/ (more content not included)... Normal [facility] Orthopedic Visit Reporton Orthopedic Visit Report [facility] [address] [place] [address] OFFICE VISIT Date of Service: 12/15/24 MR#: [id number] Acct: [id number] Name: NENITA SAXENA Rep #: [id number] : 1975 Provider: Dr. Boyd iyer MD Age/Sex: 49/F Location: [facility] Status: Signed Intake Vital Signs 10/20/24 11:13 [...] to infection, (more content not included)... Normal [facility] Inital Evaluation (1) - PTon 11-10-2024 Inital Evaluation (1) - PT [facility] Physical Therapy [facility] [address] [place] [address] / REHABILITATION SERVICES INITIAL EVALUATION MR#: [id number] Acct: [id number] Name: NENITA ROSALES Rep #: [id number] : 1975 49 From: Satya Lam PT. T, OCS Referring Dr.: Dr. Boyd Lopez MD Status: R EG RCR Insurance: [facility] SELF PAY INSURANCE Patient's Visit Information [...] increase ROM (more content not included)... Normal [facility] Orthopedic Visit Reporton Orthopedic Visit Report [facility] [address] [place] [address] OFFICE VISIT Date of Service: 10/20/24 MR#: [id number] Acct: [id number] Name: NENITA ROSALES Rep #: [id number] : 1975 Provider: Dr. Boyd iyer MD Age/Sex: 49/F Location: [facility] Status: Signed Intake Vital Signs 09/25/24 10:16 [...] above shoulder height. DOI 09/25/24. works for [employer]. 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 Supplemental Info [facility] [address] [place] [address] Shoulder min 2 Views MR#: [id number] Acct: [id number] Name: CONNIENENITA Rep #: [id number] : 1975 F 49 From: Yehuda Lyle MD PCP: Care Physician,No Primary Status: REG CLI Study: Shoulder min 2 Views Date of Exam: 09/25/24 Exam# [id number] Ordering Dr: Corona Frank PROCEDURE: SHOULDER MIN 2 VIEWS 09/25/2024 REASON FOR EXAM: SHOULDER INJURY TECHNIQUE: Four views of the left shoulder COMPARISON: None FINDINGS: Bones: Unremarkable. Joints: Mild degree of joint space narrowing. Soft tissues: Soft tissues are unremarkable. Other: RAD/Shoulder min 2 Views IMPRESSION: Mild degree of joint space narrowing of the glenohumeral joint. Reading Location: [facility] (more content not included)... Normal [facility] Urgent Care Visit Reporton 0 10-09-[address] [facility] 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 Liner Helper Required: No Is patient in pain?: Yes [...] Grimaldo Signature: Date (if applicable) CC: Normal [facility] MRI SHOULDER W/O CONTRAST LE [facility] 10-06-2024 MRI SHOULDER W/O CONTRAST LEFT ORIGINAL [...] 10/06/2024 5:55:00 PM Ordering Provider: CORONA Ogden [facility] Shoulder min 2 Viewson 09-25 Shoulder min 2 Views [facility] [address] [place] [address] Shoulder min 2 Views MR#: [id number] Acct: [id number] Name: CONNIENENITA Rep #: [id number] : 1975 F 49 From: Yehuda camejo MD PCP: Care Physician,No Primary Status: REG CLI Study: Shoulder min 2 Views Date of Exam: 09/25/24 Exam# [id number] Ordering Dr: Corona Frank PROCEDURE: SHOULDER MIN 2 VIEWS 09/25/2024 REASON FOR EXAM: SHOULDER INJURY TECHNIQUE: Four views of the left shoulder COMPARISON: None FINDINGS: Bones: Unremarkable. Joints: Mild degree of joint space narrowing. Soft tissues: Soft tissues are unremarkable. Other: RAD/Shoulder min 2 Views IMPRESSION: Mild degree of joint space narrowing of the glenohumeral joint. 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 [address], [address] [place] [address] OFFICE VISIT Date of Service: 09/25/24 MR#: [id number] Acct: [id number] Name: NENITA ROSALES Rep #: [id number] : 1975 Provider: JASSON Oliver Age/Sex: 49/F Location: [facility] Status: Signed Intake Vital Signs 09/25/24 10:16 Height 5 ft 2 in Weight: 167 lb BMI 30.5 BP 126/82 H Blood Pressure Location Rt brachial Position Sitting Respiration 16 Pulse 67 Pulse Source NIBP Temp 98.4 F Temp Source Oral Pulse Oximetry (%) 96 Oxygen Delivery Method room air Intake Visit Reasons: L SHOULDER INJURY/ BUEHLERS Chief Complaint: WC- NEW left shoulder injury 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 Normal [facility] CNOVon 03-29-2024 CNOV Office Visit (UCWSTR ) ----- NENITA ROSALES ([id number]) 1975 F Date Time Provider Department 03/29/24 11:15 AM ECHO LEONARD [facility] During your visit today, we recorded the following information about you: Temperature Pulse Respiration Blood pressure 98.4 degrees 84/minute 18/minute 128/82 Weight 74 kg Echo Leonard PA 03/29/2024 11:18 AM Signed This note was created using Pervasipriter. Subjective Nenita Rosales is a 48 year [...] Prescriptions a (more content not included)... Normal [facility] $ Carpal Tunnel Injection: R carpal [...] given by the patient. MANUALLY TRANSCRIBED RESULTS Tunezy [facility] Send Out Report SEE NOTE Normal [facility] Comment on above: Result Comment: (NOT E) [...] . . . . . . X Landry/PRINTING SHOP SUPERVISOR (DANY) Ab, IgG . . . . [...] . . . . X Fibrillarin (U3 PRINTING SHOP SUPERVISOR) Ab, IgG . . . . . [...] developed and its performance characteristics determined by [facility]. It has not been cleared or approved [...] (interstitial lung disease), Raynaud phenomenon, arthritis, and airplane mechanic's hands (implicated in antisynthetase syndrome). Ku Antibody Negative Negative Landry/PRINTING SHOP SUPERVISOR (DANY) Ab, IgG 4 Units 0-19 INTERPRETIVE INFORMATION: Landry/PRINTING SHOP SUPERVISOR (DANY) Antibody, IgG 19 Units or Less ............. Negative 20 to 39 Units ............... Weak Positive 40 to 80 Units ............... Moderate Positive 81 Units or greater .......... Strong Positive Landry/PRINTING SHOP SUPERVISOR antibodies are frequently seen in patients with mixed connective tissue disease (MCTD) and are also associated with other systemic autoimmune rheumatic diseases (SARDs) such as systemic lupus erythematosus (SLE), systemic sclerosis, and myositis. Antibodies targeting the Landry/PRINTING SHOP SUPERVISOR antigenic complex also recognize Landry antigens, therefore, [...] developed and its performance characteristics determined by [facility]. It has not been cleared or approved by the US Food and Drug Administration. This test was performed in a CLIA certified laboratory and is intended for clinical purposes. SSA-52 (Ro52) (DANY) Antibody, IgG 4 AU/mL 0-40 INTERPR (more content not included)... Performed By: #### Sujey STEVENSON UAX #### [facility] [address] [place] [address] [phone] Mowing Machine Operator: Kj Lowry MD Aldolaseon 10-21-2023 Aldolase 3.2 U/L Normal 1.2-7.6 [facility] Comment on above: Result Comment: (NOT E) REFERENCE INTERVAL: Aldolase Access complete set of age- and/or gender-specific reference intervals for this test in the [employer] Laboratory Test Directory ([employer]). Performed By: [facility] [address] [place] [address] Crystalizer Operator: Lynn Good MD, PhD CLIA Number: [id number] Performed By: #### M G K #### [facility] [address] [place] [address] Mowing Machine Operator: Kj Lowry MD Specimen Rejectionon 024 Reason for rejection Unable to perform testing: Incorrect test ordered. [facility] Comment on above: Performed By: #### Sujey STEVENSON UAX #### [facility] [address] [place] [address] [phone] Mowing Machine Operator: Kj Lowry MD Source of sample BLOOD [facility] Comment on above: Performed By: #### Sujey STEVENSON UAX #### [facility] [address] [place] [address] [phone] Mowing Machine Operator: Kj Lowry MD Test ordered [facility] Comment on above: Performed By: #### U GRAHAM UAX #### [facility] [address] [place] [address] Mowing Machine Operator: Kj Lowry MD Specimen Rejectionon Reason for rejection Unable to perform testing: Specimen quantity not sufficient. [facility] Comment on above: Performed By: #### Elvis Malone, K #### [facility] [address] [place] [address] Mowing Machine Operator: Kj Lowry MD Source of sample .BLOOD [facility] Comment on above: Performed By: #### Elvis Malone, K #### [facility] [address] [place] [address] Mowing Machine Operator: Kj Lowry MD Test ordered [facility] Comment on above: Performed By: #### Elvis Malone, K #### [facility] [address] [place] [address] Mowing Machine Operator: Kj Lowry MD SSAon 10-16-2023 SSA <0.3 Normal <7.0 [facility] Comment on above: Result Comment: Reference Range: <7.0 Negative 7.0-10.0 Equivocal >10.0 Positive Performed By: #### U RC #### [facility] [address] [place] [address] Mowing Machine Operator: Kj Lowry MD [address] [phone] Mowing Machine Operator: Kj Lowry MD SSBon 10-16-2023 SSB 0.4 U/mL Normal <7.0 [facility] Comment on above: Result Comment: Reference Range: <7.0 Negative 7.0-10.0 Equivocal >10.0 Positive Performed By: #### U RC #### [facility] [address] [place] [address] Mowing Machine Operator: Kj Lowry MD [address] [address] Mowing Machine Operator: Kj Lowry MD Sm Muscle Titer,IgGon 2023 Sm Muscle Titer,IgG 1:40 Abnormal <1:20 [facility] Comment on above: Result Comment: (NOT E) INTERPRETIVE INFORMATION: Smooth Muscle Ab, IgG Titer Less than 1:20 ........ Negative - No antibody detected. 1:20 - 1:80 .......... Weak Positive - Suggest repeat in two to three weeks with fresh specimen. 1:160 or greater ...... Positive - Suggestive of autoimmune hepatitis or chronic active hepatitis. Performed By: [facility] [address] [place] [address] Crystalizer Operator: Lynn Good MD, PhD CLIA Number: [id number] Performed By: #### U RC #### [facility] [address] [place] [address] Mowing Machine Operator: Kj Lowry MD [address] [address] Mowing Machine Operator: Kj Lowry MD Smooth Muscle Abon 4 Smooth Muscle Ab 23 Units High 0-19 [facility] Comment on above: Result Comment: (NOT E) [...] suspicion for AIH is strong. Performed By: [facility] [address] [place] [address] Crystalizer Operator: Lynn Good MD, PhD CLIA Number: [id number] Performed By: #### U RC #### [facility] [address] [place] [address] Mowing Machine Operator: Kj Lowry MD [place] [phone] Mowing Machine Operator: Kj Lowry MD Anti-Mitochondrial Abon - Anti-Mitochondrial Ab 1.0 U/mL Normal 0.0-4.0 [facility] Comment on above: Result Comment: Reference Range: <4.0 Negative 4.0-6.0 Equivocal >6.0 Positive When results are Equivocal, it is recommended to retest after 8-12 weeks. 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 Epyx-rp-tfwbbncx chondromalacia of the remainder of the patellofemoral compartment articular cartilage. 4. Red marrow reconversion. 5. Small Haider's cyst. Interpreted by: Johnathon Baird MD Signed by: Johnathon Baird MD 10/12/23 Final result Normal [facility] Miscel, Refrigeratedon 10-11 Test Name EXTENDED MYOSITIS PANEL,ARUP 043020 Normal [facility] Comment on above: Performed By: #### U GRAHAM, UAX #### [facility] [address] [place] [address] Mowing Machine Operator: Kj Lowry MD XR FOOT RIGHT (MIN [...] Kaleb Cohen MD 10/12/23 Final result Normal [facility] XR Foot - right 3 Viewson Mild degenerative ch chris. [facility] RIS CONSOLIDATED EXAMINATION: THREE XRAY VIEWS OF THE RIGHT FOOT 10/11/2023 3:07 pm COMPARISON: None. HISTORY: ORDERING SYSTEM PROVIDED HISTORY: Muscle weakness TECHNOLOGIST PROVIDED HISTORY: BASELINE EVALUATION FOR INFLAMATORY ARTHRITIS Reason for Exam: RT foot pain, FINDINGS: No fracture. No dislocation. Mild interphalangeal joint space narrowing and mild degenerative change of the midfoot Bone mineralization normal. Small calcaneal spur. [facility] Kaleb Arguello MD - 10/12/2023 EXAMINATION: THREE [...] Small calcaneal spur. IMPRESSION: Mild degenerative change. [facility] XR Foot - right 3 ViewsOrder ed By: Kaleb Cohen on 10-12-2023 [facility] Work Phone: C-Reactive Proteinon 024 CRP [Mass/Vol] mg/L Normal 0.0-5.0 [facility] Comment on above: Performed By: #### Elvis Malone, K #### [facility] [address] [place] [address] Mowing Machine Operator: Kj Lowry MD Comp Metabolic Profon 2023 Albumin [Mass/Vol] 4.4 g/dL Normal 3.5-5.2 [facility] Comment on above: Performed By: #### Elvis Malone K #### [facility] [address] [place], [place] [phone] Mowing Machine Operator: Kj Lowry MD Albumin/Glob Ratio 1.3 Normal 1.0-2.5 [facility] Comment on above: Performed By: #### Elvis Malone, K #### [facility] [address] [place], [place] [phone] Mowing Machine Operator: Kj Lowry MD Alkaline Phos 116 U/L High 35-104 [facility] Comment on above: Performed By: #### Elvis Malone, K #### [facility] [address] [place] [address] Mowing Machine Operator: Kj Lowry MD ALT [Catalytic activity/Vol] 14 U/L Normal 5-33 [facility] Comment on above: Performed By: #### Elvis Malone, K #### [facility] [address] [place] [address] Mowing Machine Operator: Kj Lowry MD Anion gap [Moles/Vol] 9 mmol/L Normal 9-17 [facility] Comment on above: Performed By: #### Elvis Malone, K #### [facility] [address] [place] [address] Mowing Machine Operator: Kj Lowry MD AST [Catalytic activity/Vol] 20 U/L Normal <32 [facility] Comment on above: Performed By: #### Elvis Malone, K #### [facility] [address] [place] [address] Mowing Machine Operator: Kj Lowry MD Bilirubin [Mass/Vol] 0.7 mg/dL Normal 0.3-1.2 [facility] Comment on above: Performed By: #### Elvis Malone, K #### [facility] [address] [place] [address] Mowing Machine Operator: Kj Lowry MD BUN/CRE Ratio 18 Normal 9-20 [facility] Comment on above: Performed By: #### Elvis Malone, K #### [facility] [address] [place] [address] Mowing Machine Operator: Kj Lowry MD Calcium [Mass/Vol] 9.7 mg/dL Normal 8.6-10.4 [facility] Comment on above: Performed By: #### Elvis Malone, K #### [facility] [address] [place] [address] Mowing Machine Operator: Kj Lowry MD Chloride [Moles/Vol] 103 mmol/L Normal 98-107 [facility] Comment on above: Performed By: #### Elvis Malone, K #### [facility] [address] [place] [address] Mowing Machine Operator: Kj Lowry MD CO2 [Moles/Vol] 27 mmol/L Normal 20-31 [facility] Comment on above: Performed By: #### Elvis Malone, K #### [facility] [address] [place] [address] Mowing Machine Operator: Kj Lowry MD Creatinine [Mass/Vol] 0.6 mg/dL Normal 0.5-0.9 [facility] Comment on above: Performed By: #### Elvis Malone, K #### [facility] [address] [place] [address] Mowing Machine Operator: Kj Lowry MD GFR/1.73 sq M.predicted among non-blacks MDRD (S/P/Bld) [Vol rate/Area] mL/min/{1.73_m2} Normal >60 [facility] Comment on above: Result Comment: These results [...] Performed By: #### Elvis Malone, K #### [facility] [address] [place] [address] Mowing Machine Operator: Kj Lowry MD Glucose [Mass/Vol] 96 mg/dL Normal 70-99 [facility] Comment on above: Performed By: #### Elvis Malone, K #### [facility] [address] [place] [address] Mowing Machine Operator: Kj Lowry MD Potassium [Moles/Vol] 4.0 mmol/L Normal 3.7-5.3 [facility] Comment on above: Performed By: #### Elvis Malone K #### [facility] [address] [place] [address] Mowing Machine Operator: Kj Lowry MD Protein [Mass/Vol] 7.7 g/dL Normal 6.4-8.3 [facility] Comment on above: Performed By: #### Elvis Malone K #### [facility] [address] [place] [address] Mowing Machine Operator: Kj Lowry MD Sodium [Moles/Vol] 139 mmol/L Normal 135-144 [facility] Comment on above: Performed By: #### Elvis Malone K #### [facility] [address] [place] [address] Mowing Machine Operator: Kj Lowry MD Urea nitrogen [Mass/Vol] 11 mg/dL Normal 6-20 [facility] Comment on above: Performed By: #### Elvis Malone K #### [facility] [address] [place] [address] Mowing Machine Operator: Kj Lowry MD Creatine Kinaseon 10-11-2023 CK [Catalytic activity/Vol] 61 U/L Normal 26-192 [facility] Comment on above: Performed By: #### Elvis Malone, K #### [facility] [address] [place] [address] Mowing Machine Operator: Kj Lowry MD Lactate Dehydrogenaseon LDH [Catalytic activity/Vol] 190 U/L Normal 135-214 [facility] Comment on above: Performed By: #### Elvis Malone, K #### [facility] [address] [place] [address] Mowing Machine Operator: Kj Lowry MD Sedimentation Rateon 024 Sedimentation Rate 5 mm/Hr Normal 0-20 [facility] Comment on above: Result Comment: Note new reference ranges. This automated method replaces the manual method, results may vary from previously resulted. If following the patient ESR, this result should be the new baseline. Performed By: #### M G, K #### [facility] [address] [place] [address] Mowing Machine Operator: Kj Lowry MD XR Foot - right 3 Viewson Radiology Study observation (narrative) [facility] Vitamin B1on 09-26-2023 Vitamin B1 152 nmol/L Normal 70-180 [facility] Comment on above: Result Comment: (NOT E) [...] developed and its performance characteristics determined by [facility]. It has not been cleared or approved by the US Food and Drug Administration. This test was performed in a CLIA certified laboratory and is intended for clinical purposes. Performed By: [facility] [address] [place] [address] Crystalizer Operator: Lynn Good MD, PhD CLIA Number: [id number] Performed By: #### NETO DALE #### [facility] [address] [place] [address] Mowing Machine Operator: Kj Lowry MD B12/Folate Panelon 4 Cobalamin (Vitamin B12) [Mass/Vol] 382 pg/mL Normal 232-1245 [facility] Comment on above: Performed By: #### ANISH DALEX #### [facility] [address] [place] [address] Mowing Machine Operator: Kj Lowry MD Folic Acid 17.7 ng/mL Normal 4.8-24.2 [facility] Comment on above: Performed By: #### ANISH DALEX #### [facility] [address] [place] [address] Mowing Machine Operator: Kj Lowry MD Basic Metabolic Profon 09-19 Anion gap [Moles/Vol] 8 mmol/L Low 9-17 [facility] Comment on above: Performed By: #### Sujey STEVENSON UAX #### [facility] [address] [place] [address] Mowing Machine Operator: Kj Lowry MD BUN/CRE Ratio 13 Normal 9-20 [facility] Comment on above: Performed By: #### Sujey STEVENSON UAX #### [facility] [address] [place] [address] Mowing Machine Operator: Kj Lowry MD Calcium [Mass/Vol] 9.8 mg/dL Normal 8.6-10.4 [facility] Comment on above: Performed By: #### Sujey STEVENSON UAX #### [facility] [address] [place] [address], [place] [address] Mowing Machine Operator: Kj Lowry MD Chloride [Moles/Vol] 104 mmol/L Normal 98-107 [facility] Comment on above: Performed By: #### Sujey STEVENSON UAX #### [facility] [address] [place] [address], [place] [address] Mowing Machine Operator: Kj Lowry MD CO2 [Moles/Vol] 29 mmol/L Normal 20-31 [facility] Comment on above: Performed By: #### Sujey STEVENSON UAX #### [facility] [address] [place] [address], [place] [address] Mowing Machine Operator: jK Lowry MD Creatinine [Mass/Vol] 0.7 mg/dL Normal 0.5-0.9 [facility] Comment on above: Performed By: #### Sujey STEVENSON UAX #### [facility] [address] [place] [address] Mowing Machine Operator: Kj Lowry MD GFR/1.73 sq M.predicted among non-blacks MDRD (S/P/Bld) [Vol rate/Area] mL/min/{1.73_m2} Normal >60 [facility] Comment on above: Result Comment: These results [...] renal tubular secretion. Performed By: #### Sujey COPELANDO UAX #### [facility] [address] [place] [address] Mowing Machine Operator: Kj Lowry MD Glucose [Mass/Vol] 79 mg/dL Normal 70-99 [facility] Comment on above: Performed By: #### Sujey STEVENSON UAX #### [facility] [address] [place] [address] Mowing Machine Operator: Kj Lowry MD Potassium [Moles/Vol] 4.0 mmol/L Normal 3.7-5.3 [facility] Comment on above: Performed By: #### U GRAHAM UAX #### [facility] [address] [place] [address] Mowing Machine Operator: Kj Lowry MD Sodium [Moles/Vol] 141 mmol/L Normal 135-144 [facility] Comment on above: Performed By: #### U DINORAHO, UAX #### [facility] [address] [place] [address] Mowing Machine Operator: Kj Lowry MD Urea nitrogen [Mass/Vol] 9 mg/dL Normal 6-20 [facility] Comment on above: Performed By: #### U GRAHAM, UAX #### [facility] [address] [place] [address] Mowing Machine Operator: Kj Lowry MD CBC with Diffon 09-20-2023 Abs. Basophil 0.06 k/uL Normal 0.00-0.20 [facility] Comment on above: Performed By: #### ANISH DALEX #### [facility] [address] [place] [address] Mowing Machine Operator: Kj Lowry MD Abs.Imm.Granulocyte <0.03 Normal 0.00-0.30 [facility] Comment on above: Performed By: #### ANISH DALEX #### [facility] [address] [place] [address] Mowing Machine Operator: Kj Lowry MD Abs.Neutrophil (Seg) 2.76 k/uL Normal 1.50-8.10 [facility] Comment on above: Performed By: #### ANISH DALEX #### [facility] [address] [place] [address] Mowing Machine Operator: Kj Lowry MD Basophils/100 WBC (Bld) 1 % Normal 0-2 [facility] Comment on above: Performed By: #### NETO DALE #### [facility] [address] [place] [address] Mowing Machine Operator: Kj Lowry MD Eosinophils (Bld) [#/Vol] 0.69 10*3/uL High 0.00-0.44 [facility] Comment on above: Performed By: #### ANISH DALEX #### [facility] [address] [place] [address] Mowing Machine Operator: Kj Lowry MD Eosinophils/100 WBC (Bld) 10 % High 1-4 [facility] Comment on above: Performed By: #### ANISH DALEX #### [facility] [address] [place] [address] Mowing Machine Operator: Kj Lowry MD Erythrocyte distribution width (RBC) [Ratio] 11.3 % Low 11.8-14.4 [facility] Comment on above: Performed By: #### Sujey STEVENSON UAX #### [facility] [address] [place] [address] Mowing Machine Operator: Kj Lowry MD Hematocrit (Bld) [Volume fraction] 39.2 % Normal 36.3-47.1 [facility] Comment on above: Performed By: #### Sujey STEVENSON UAX #### [facility] [address] [place] [address] Mowing Machine Operator: Kj Lowry MD Hemoglobin (Bld) [Mass/Vol] 12.9 g/dL Normal 11.9-15.1 [facility] Comment on above: Performed By: #### Sujey STEVENSON UAX #### [facility] [address] [place] [address] Mowing Machine Operator: Kj Lowry MD Immature granulocytes/100 WBC (Bld) 0 % Normal 0 [facility] Comment on above: Performed By: #### Sujey STEVENSON UAX #### [facility] [address] [place] [address] Mowing Machine Operator: Kj Lowry MD Lymphocytes (Bld) [#/Vol] 2.56 10*3/uL Normal 1.10-3.70 [facility] Comment on above: Performed By: #### Sujey STEVENSON UAX #### [facility] [address] [place] [address] Mowing Machine Operator: Kj Lowry MD Lymphocytes/100 WBC (Bld) 39 % Normal 24-43 [facility] Comment on above: Performed By: #### Sujey STEVENSON UAX #### [facility] [address] [place] [address] Mowing Machine Operator: Kj Lowry MD MCH (RBC) [Entitic mass] 32.4 pg Normal 25.2-33.5 [facility] Comment on above: Performed By: #### Sujey STEVENSON UAX #### [facility] [address] [place] [address] Mowing Machine Operator: Kj Lowry MD MCHC (RBC) [Mass/Vol] 32.9 g/dL Normal 25.2-33.5 [facility] Comment on above: Performed By: #### U GRAHAM UAX #### [facility] [address] [place] [address] Mowing Machine Operator: Kj Lowry MD MCV (RBC) [Entitic vol] 98.5 fL Normal 82.6-102.9 [facility] Comment on above: Performed By: #### Sujey STEVENSON UAX #### [facility] [address] [place] [address] Mowing Machine Operator: Kj Lowry MD Monocytes (Bld) [#/Vol] 0.54 10*3/uL Normal 0.10-1.20 [facility] Comment on above: Performed By: #### Sujey STEVENSON UAX #### [facility] [address] [place] [address] Mowing Machine Operator: Kj Lowry MD Monocytes/100 WBC (Bld) 8 % Normal 3-12 [facility] Comment on above: Performed By: #### Sujey STEVENSON UAX #### [facility] [address] [place] [address] Mowing Machine Operator: Kj Lowry MD Neutrophil (Seg) 42 % Normal 36-65 [facility] Comment on above: Performed By: #### U GRAHAM UAX #### [facility] [address] [place] [address] Mowing Machine Operator: Kj Lowry MD NRBC Automated 0.0 per 100 WBC Normal 0.0 [facility] Comment on above: Performed By: #### U GRAHAM UAX #### [facility] [address] [place] [address] Mowing Machine Operator: Kj Lowry MD Platelet mean volume (Bld) [Entitic vol] 9.7 fL Normal 8.1-13.5 [facility] Comment on above: Performed By: #### Sujey STEVENSON UAX #### [facility] [address] [place] [address] Mowing Machine Operator: Kj Lowry MD Platelets (Bld) [#/Vol] 343 10*3/uL Normal 138-453 [facility] Comment on above: Performed By: #### Sujey STEVENSON UAX #### [facility] [address] [place] [address] Mowing Machine Operator: Kj Lowry MD RBC (Bld) [#/Vol] 3.98 10*6/uL Normal 3.95-5.11 [facility] Comment on above: Performed By: #### Sujey STEVENSON UAX #### [facility] [address] [place] [address] Mowing Machine Operator: Kj Lowry MD WBC (Bld) [#/Vol] 6.6 10*3/uL Normal 3.5-11.3 [facility] Comment on above: Performed By: #### Sujey STEVENSON UAX #### [facility] [address] [place] [address] Mowing Machine Operator: Kj Lowry MD Magnesiumon 09-20-2023 Magnesium [Mass/Vol] 1.8 mg/dL Normal 1.6-2.6 [facility] Comment on above: Performed By: #### ANISH DALEX #### [facility] [address] [place] [address] Mowing Machine Operator: Kj Lowry MD Phosphorus, Inorg.on 024 Phosphorus, Inorg. 4.8 mg/dL High 2.6-4.5 [facility] Comment on above: Performed By: #### U MICAO, UAX #### [facility] [address] [place] [address] Mowing Machine Operator: Kj Lowry MD Albuminon 07-02-2023 Albumin [Mass/Vol] 2.6 g/dL Low 3.5 - 5.2 g/dL [facility] Interpretation and review of laboratory results Abnormal [facility] Albumin [Mass/Vol] 2.6 g/dL Low 3.5-5.2 [facility] Comment on above: Performed By: #### A LB #### [facility] [address] [place] [address] Mowing Machine Operator: Kj Lowry MD Basic Metabolic Panelon 06-05 Anion gap [Moles/Vol] 9 mmol/L 9 - 17 mmol/L [facility] Calcium [Mass/Vol] 8.0 mg/dL Low 8.6 - 10. 4 mg/dL [facility] Chloride [Moles/Vol] 103 mmol/L 98 - 10 7 mmol/L [facility] CO2 [Moles/Vol] 26 mmol/L 20 - 31 mmol/L [facility] Creatinine [Mass/Vol] 0.5 mg/dL 0.5 - 0.9 mg/dL [facility] GFR/1.73 sq M.predicted MDRD (S/P/Bld) [Vol rate/Area] - PINF [facility] Comment on above: These results are not [...] [Mass/Vol] 81 mg/dL 70 - 99 mg/dL [facility] Interpretation and review of laboratory results Abnormal [facility] Potassium [Moles/Vol] 4.2 mmol/L 3.7 - 5.3 mmol/L [facility] Sodium [Moles/Vol] 138 mmol/L 135 - 144 mmol/L [facility] Urea nitrogen [Mass/Vol] mg/dL Low 6 - 20 mg/dL [facility] Urea nitrogen/Creatinine [Mass ratio] Can not be calculated - [facility] Basic Metabolic Profon 07-02 Anion gap [Moles/Vol] 9 mmol/L Normal 9- [facility] Comment on above: Performed By: #### A LB #### [facility] [address] [place] [address] Mowing Machine Operator: Kj Lowry MD BUN/CRE Ratio Can not be calculated Normal 02-21 [facility] Comment on above: Performed By: #### A LB #### [facility] [address] [place] [address] Mowing Machine Operator: Kj Lowry MD Calcium [Mass/Vol] 8.0 mg/dL Low 8.6-10.4 [facility] Comment on above: Performed By: #### A LB #### [facility] [address] [place] [address] Mowing Machine Operator: Kj Lowry MD Chloride [Moles/Vol] 103 mmol/L Normal 98-107 [facility] Comment on above: Performed By: #### A LB #### [facility] [address] [place] [address] Mowing Machine Operator: Kj Lowry MD CO2 [Moles/Vol] 26 mmol/L Normal 20-31 [facility] Comment on above: Performed By: #### A LB #### [facility] [address] [place] [address] Mowing Machine Operator: Kj Lowry MD Creatinine [Mass/Vol] 0.5 mg/dL Normal 0.5-0.9 [facility] Comment on above: Performed By: #### A LB #### [facility] [address] [place] [address] Mowing Machine Operator: Kj Lowry MD GFR/1.73 sq M.predicted among non-blacks MDRD (S/P/Bld) [Vol rate/Area] mL/min/{1.73_m2} Normal >60 [facility] Comment on above: Result Comment: These results [...] secretion. Performed By: #### A LB #### [facility] [address] [place] [address] Mowing Machine Operator: Kj Lowry MD Glucose [Mass/Vol] 81 mg/dL Normal 70-99 [facility] Comment on above: Performed By: #### A LB #### [facility] [address] [place] [address] Mowing Machine Operator: Kj Lowry MD Potassium [Moles/Vol] 4.2 mmol/L Normal 3.7-5.3 [facility] Comment on above: Performed By: #### A LB #### [facility] [address] [place] [address] Mowing Machine Operator: Kj Lowry MD Sodium [Moles/Vol] 138 mmol/L Normal 135-144 [facility] Comment on above: Performed By: #### A LB #### [facility] [address] [place] [address] 97[address] Mowing Machine Operator: Kj Lowry MD Urea nitrogen [Mass/Vol] mg/dL Low 6-20 [facility] Comment on above: Performed By: #### A LB #### [facility] [address] [place] [address] 6[address]81 Mowing Machine Operator: Kj Lowry MD CBC with Auto Differentialon 07-02-2023 Basophils (Bld) [#/Vol] 0.05 10*3/uL [facility] Basophils/100 WBC (Bld) 1 % 0 - 2 % [facility] Eosinophils (Bld) [#/Vol] 0.13 10*3/uL [facility] Eosinophils/100 WBC (Bld) 3 % 1 - 4 % [facility] Erythrocyte distribution width (RBC) [Ratio] 13.2 % 11.8 - 14.4 % [facility] Hematocrit (Bld) [Volume fraction] 32.3 % Low 36.3 - 47.1 % [facility] Hemoglobin (Bld) [Mass/Vol] 11.3 g/dL Low 11.9 - 15.1 g/dL [facility] Immature granulocytes (Bld) [#/Vol] [facility] Immature granulocytes/100 WBC (Bld) 0 % 0 [facility] Interpretation and review of laboratory results Abnormal [facility] Lymphocytes/100 WBC (Bld) 38 % 24 - 43 % [facility] Lymphocytes/100 WBC (Bld) 1.84 % [facility] MCH (RBC) [Entitic mass] 38.0 pg High 25.2 - 33.5 pg [facility] MCHC (RBC) [Mass/Vol] 35.0 g/dL High 25.2 - 33.5 g/dL [facility] MCV (RBC) [Entitic vol] 108.8 fL High 82.6 - 102.9 fL [facility] Monocytes/100 WBC (Bld) 9 % 3 - 12 % [facility] Monocytes/100 WBC (Bld) 0.44 % [facility] Neutrophils/100 WBC (Bld) 49 % 36 - 65 % [facility] Nucleated RBC/100 WBC (Bld) [Ratio] 0.0 % 0.0 per 100 WBC [facility] Platelet mean volume (Bld) [Entitic vol] 10.6 fL 8.1 - 13.5 fL [facility] Platelets (Bld) [#/Vol] 237 10*3/uL [facility] RBC (Bld) [#/Vol] 2.97 10*6/uL Low 3.95 - 5.11 m/uL [facility] RBC (Bld) [#/Vol] MACROCYTOSIS PRESENT [facility] Segmented neutrophils/100 WBC (Bld) 2.39 % [facility] WBC other (Bld) [#/Vol] 4.[address] [facility] CBC with Diffon 07-02-2023 Abs. Basophil 0.05 k/uL Normal 0.00-0.20 [facility] Comment on above: Performed By: #### A LB #### [facility] [address] [place] [address] Mowing Machine Operator: Kj Lowry MD Abs.Imm.Granulocyte <0.03 Normal 0.00-0.30 [facility] Comment on above: Performed By: #### A LB #### [facility] [address] [place] [address] Mowing Machine Operator: Kj Lowry MD Abs.Neutrophil (Seg) 2.39 k/uL Normal 1.50-8.10 [facility] Comment on above: Performed By: #### A LB #### [facility] [address] [place] [address] Mowing Machine Operator: Kj Lowry MD Basophils/100 WBC (Bld) 1 % Normal 0-2 [facility] Comment on above: Performed By: #### A LB #### [facility] [address] [place] [address] Mowing Machine Operator: Kj Lowry MD Eosinophils (Bld) [#/Vol] 0.13 10*3/uL Normal 0.00-0.44 [facility] Comment on above: Performed By: #### A LB #### [facility] [address] [place] [address] Mowing Machine Operator: Kj Lowry MD Eosinophils/100 WBC (Bld) 3 % Normal 1-4 [facility] Comment on above: Performed By: #### A LB #### [facility] [address] [place] [address] Mowing Machine Operator: Kj Lowry MD Erythrocyte distribution width (RBC) [Ratio] 13.2 % Normal 11.8-14.4 [facility] Comment on above: Performed By: #### A LB #### [facility] [address] [place] [address] Mowing Machine Operator: Kj Lowry MD Hematocrit (Bld) [Volume fraction] 32.3 % Low 36.3-47.1 [facility] Comment on above: Performed By: #### A LB #### [facility] [address] [place] [address] Mowing Machine Operator: Kj Lowry MD Hemoglobin (Bld) [Mass/Vol] 11.3 g/dL Low 11.9-15.1 [facility] Comment on above: Performed By: #### A LB #### [facility] [address] [place] [address] Mowing Machine Operator: Kj Lowry MD Immature granulocytes/100 WBC (Bld) 0 % Normal 0 [facility] Comment on above: Performed By: #### A LB #### [facility] [address] [place] [address] Mowing Machine Operator: Kj Lowry MD Lymphocytes (Bld) [#/Vol] 1.84 10*3/uL Normal 1.10-3.70 [facility] Comment on above: Performed By: #### A LB #### [facility] [address] [place] [address]76 Mowing Machine Operator: Kj Lowry MD Lymphocytes/100 WBC (Bld) 38 % Normal 24-43 [facility] Comment on above: Performed By: #### A LB #### [facility] [address] [place] [address] [place] [address] Mowing Machine Operator: Kj Lowry MD MCH (RBC) [Entitic mass] 38.0 pg High 25.2-33.5 [facility] Comment on above: Performed By: #### A LB #### [facility] [address] [place] [address] Mowing Machine Operator: Kj Lowry MD MCHC (RBC) [Mass/Vol] 35.0 g/dL High 25.2-33.5 [facility] Comment on above: Performed By: #### A LB #### [facility] [address] [place] [address] Mowing Machine Operator: Kj Lowry MD MCV (RBC) [Entitic vol] 108.8 fL High 82.6-102.9 [facility] Comment on above: Performed By: #### A LB #### [facility] [address] [place] [address] Mowing Machine Operator: Kj Lowry MD Monocytes (Bld) [#/Vol] 0.44 10*3/uL Normal 0.10-1.20 [facility] Comment on above: Performed By: #### A LB #### [facility] [address] [place] [address] Mowing Machine Operator: Kj Lowry MD Monocytes/100 WBC (Bld) 9 % Normal 3-12 [facility] Comment on above: Performed By: #### A LB #### [facility] [address] [place] [address] Mowing Machine Operator: Kj Lowry MD Neutrophil (Seg) 49 % Normal 36-65 [facility] Comment on above: Performed By: #### A LB #### [facility] [address] [place] [address] Mowing Machine Operator: Kj Lowry MD NRBC Automated 0.0 per 100 WBC Normal 0.0 [facility] Comment on above: Performed By: #### A LB #### [facility] [address] [place] [address]45 Mowing Machine Operator: Kj Lowry MD Platelet mean volume (Bld) [Entitic vol] 10.6 fL Normal 8.1-13.5 [facility] Comment on above: Performed By: #### A LB #### [facility] [address] [place] [address]43 Mowing Machine Operator: Kj Lowry MD Platelets (Bld) [#/Vol] 237 10*3/uL Normal 138-453 [facility] Comment on above: Performed By: #### A LB #### [facility] [address] [place] [address]26 Mowing Machine Operator: Kj Lowry MD RBC (Bld) [#/Vol] 2.97 10*6/uL Low 3.95-5.11 [facility] Comment on above: Performed By: #### A LB #### [facility] [address] [place] [address]59 Mowing Machine Operator: Kj Lowry MD RBC morphology finding Nom (Bld) MACROCYTOSIS PRESENT Normal [facility] Comment on above: Performed By: #### A LB #### [facility] [address] [place] [address], [place] [address] Mowing Machine Operator: Kj Lowry MD WBC (Bld) [#/Vol] 4.9 10*3/uL Normal 3.5-11.3 [facility] Comment on above: Performed By: #### A LB #### [facility] [address] [place] [address]6909 Mowing Machine Operator: Kj Lowry MD Cult,Urineon 07-02-2023 Cult,Urine Specimen [...] Tobramycin <=1 SUSCEPTIBLE Trimethoprim/Sulfa <=20 SUSCEPTIBLE Susceptible [facility] Comment on above: Performed By: #### U #### [facility] [address] [place] [address] Mowing Machine Operator: Kj Lowry MD [facility] [address] [place] [address] Mowing Machine Operator: Kj Lowry MD Culture, Urineon 07-02-2023 Interpretation and review of laboratory results Abnormal [facility] Microorganism identified Cx Nom (Unsp spec) ESCHERICHIA COLI 10 to 50,000 CFU/ML Abnormal [facility] Specimen Description .CLEAN CATCH URINE [facility] Basic Metabolic Panelon 06-05 Anion gap [Moles/Vol] 13 mmol/L 9 - 17 mmol/L [facility] Calcium [Mass/Vol] 7.5 mg/dL Low 8.6 - 10. 4 mg/dL [facility] Chloride [Moles/Vol] 102 mmol/L 98 - 10 7 mmol/L [facility] CO2 [Moles/Vol] 23 mmol/L 20 - 31 mmol/L [facility] Creatinine [Mass/Vol] 0.5 mg/dL 0.5 - 0.9 mg/dL [facility] GFR/1.73 sq M.predicted MDRD (S/P/Bld) [Vol rate/Area] - PINF [facility] Comment on above: These results are not [...] 124 mg/dL High 70 - 99 mg/dL [facility] Interpretation and review of laboratory results Abnormal [facility] Potassium [Moles/Vol] 3.7 mmol/L 3.7 - 5.3 mmol/L [facility] Sodium [Moles/Vol] 138 mmol/L 135 - 144 mmol/L [facility] Urea nitrogen [Mass/Vol] 2 mg/dL Low 6 - 20 mg/dL [facility] Urea nitrogen/Creatinine [Mass ratio] 4 mg/mg Low 9 - [address] [facility] Basic Metabolic Profon 07-01 Anion gap [Moles/Vol] 13 mmol/L Normal 9-17 [facility] Comment on above: Performed By: #### U RC #### [facility] [address] [place] [address] Mowing Machine Operator: Kj Lowry MD [facility] [employer] [address] [place], [place] [phone] Mowing Machine Operator: Kj Lowry MD BUN/CRE Ratio 4 Low 9-20 [facility] Comment on above: Performed By: #### U RC #### [facility] [address] [place] [address] Mowing Machine Operator: Kj Lowry MD [employer] [address] [place], [place] [phone] Mowing Machine Operator: Kj Lowry MD Calcium [Mass/Vol] 7.5 mg/dL Low 8.6-10.4 [facility] Comment on above: Performed By: #### U RC #### [facility] [address] [place] [address] Mowing Machine Operator: Kj Lowry MD [facility] [employer] [address] [place] [address] [phone] Mowing Machine Operator: Kj Lowry MD Chloride [Moles/Vol] 102 mmol/L Normal 98-107 [facility] Comment on above: Performed By: #### U RC #### [facility] [address] [place] [address] Mowing Machine Operator: Kj Lowry MD [address] [address] Mowing Machine Operator: Kj Lowry MD CO2 [Moles/Vol] 23 mmol/L Normal 20-31 [facility] Comment on above: Performed By: #### U RC #### [facility] [address] [place] [address] Mowing Machine Operator: Kj Lowry MD [address] [address] Mowing Machine Operator: Kj Lowry MD Creatinine [Mass/Vol] 0.5 mg/dL Normal 0.5-0.9 [facility] Comment on above: Performed By: #### U RC #### [facility] [address] [place] [address] Mowing Machine Operator: Kj Lowry MD [address] [address] Mowing Machine Operator: Kj Lowry MD GFR/1.73 sq M.predicted among non-blacks MDRD (S/P/Bld) [Vol rate/Area] mL/min/{1.73_m2} Normal >60 [facility] Comment on above: Result Comment: These results [...] secretion. Performed By: #### U RC #### [facility] [address] [place] [address] Mowing Machine Operator: Kj Lowry MD [facility] [employer] [address] [place] [address] Mowing Machine Operator: Kj Lowry MD Glucose [Mass/Vol] 124 mg/dL High 70-99 [facility] Comment on above: Performed By: #### U RC #### [facility] [address] [place] [address] Mowing Machine Operator: Kj Lowry MD [facility] [employer] [address] [place] [address] [phone] Mowing Machine Operator: Kj Lowry MD Potassium [Moles/Vol] 3.7 mmol/L Normal 3.7-5.3 [facility] Comment on above: Performed By: #### U RC #### [facility] [address] [place] [address] Mowing Machine Operator: Kj Lowry MD [facility] [employer] [address] [place] [address] Mowing Machine Operator: Kj Lowry MD Sodium [Moles/Vol] 138 mmol/L Normal 135-144 [facility] Comment on above: Performed By: #### U RC #### [facility] [address] [place] [address] Mowing Machine Operator: Kj Lowry MD [facility] [employer] [address] [place] [address] Mowing Machine Operator: Kj Lowry MD Urea nitrogen [Mass/Vol] 2 mg/dL Low 6-20 [facility] Comment on above: Performed By: #### U RC #### [facility] [facility] [address] [place] [address] Mowing Machine Operator: Kj Lowry MD [facility] [employer] [address] [place] [id number] Mowing Machine Operator: Kj Lowry MD CBC with Auto Differentialon 07-01-2023 Basophils (Bld) [#/Vol] 0.04 10*3/uL [facility] Basophils/100 WBC (Bld) 1 % 0 - 2 % [facility] Eosinophils (Bld) [#/Vol] 0.09 10*3/uL [facility] Eosinophils/100 WBC (Bld) 2 % 1 - 4 % [facility] Erythrocyte distribution width (RBC) [Ratio] 13.2 % 11.8 - 14.4 % [facility] Hematocrit (Bld) [Volume fraction] 30.2 % Low 36.3 - 47.1 % [facility] Hemoglobin (Bld) [Mass/Vol] 10.8 g/dL Low 11.9 - 15.1 g/dL [facility] Immature granulocytes (Bld) [#/Vol] [facility] Immature granulocytes/100 WBC (Bld) 0 % 0 [facility] Interpretation and review of laboratory results Abnormal [facility] Lymphocytes/100 WBC (Bld) 40 % 24 - 43 % [facility] Lymphocytes/100 WBC (Bld) 1.64 % [facility] MCH (RBC) [Entitic mass] 38.8 pg High 25.2 - 33.5 pg [facility] MCHC (RBC) [Mass/Vol] 35.8 g/dL High 25.2 - 33.5 g/dL [facility] MCV (RBC) [Entitic vol] 108.6 fL High 82.6 - 102.9 fL [facility] Monocytes/100 WBC (Bld) 8 % 3 - 12 % [facility] Monocytes/100 WBC (Bld) 0.34 % [facility] Neutrophils/100 WBC (Bld) 49 % 36 - 65 % [facility] Nucleated RBC/100 WBC (Bld) [Ratio] 0.0 % 0.0 per 100 WBC [facility] Platelet mean volume (Bld) [Entitic vol] 10.3 fL 8.1 - 13.5 fL [facility] Platelets (Bld) [#/Vol] 215 10*3/uL [facility] RBC (Bld) [#/Vol] 2.78 10*6/uL Low 3.95 - 5.11 m/uL [facility] RBC (Bld) [#/Vol] MACROCYTOSIS PRESENT [facility] Segmented neutrophils/100 WBC (Bld) 1.95 % [facility] WBC other (Bld) [#/Vol] 4.1 [facility] CBC with Diffon 07-01-2023 Abs. Basophil 0.04 k/uL Normal 0.00-0.20 [facility] Comment on above: Performed By: #### U RC #### [facility] [address] [place] [address] Mowing Machine Operator: Kj Lowry MD [facility] [employer] [address] [place] [address] Mowing Machine Operator: Kj Lowry MD Abs.Imm.Granulocyte <0.03 Normal 0.00-0.30 [facility] Comment on above: Performed By: #### U RC #### [facility] [address] [place] [address] Mowing Machine Operator: Kj Lowry MD [facility] [employer] [address] [place] [address] Mowing Machine Operator: Kj Lowry MD Abs.Neutrophil (Seg) 1.95 k/uL Normal 1.50-8.10 [facility] Comment on above: Performed By: #### U RC #### [facility] [address] [place] [address] Mowing Machine Operator: Kj Lowry MD [facility] [employer] [address] [place] [address] Mowing Machine Operator: Kj Lowry MD Basophils/100 WBC (Bld) 1 % Normal 0-2 [facility] Comment on above: Performed By: #### U RC #### [facility] [address] [place] [address] Mowing Machine Operator: Kj Lowry MD [facility] [employer] [address] [place] [address] Mowing Machine Operator: Kj Lowry MD Eosinophils (Bld) [#/Vol] 0.09 10*3/uL Normal 0.00-0.44 [facility] Comment on above: Performed By: #### U RC #### [facility] [address] [place] [address] Mowing Machine Operator: Kj Lowry MD [facility] [employer] [address] [place] [address] [phone] Mowing Machine Operator: Kj Lowry MD Eosinophils/100 WBC (Bld) 2 % Normal 1-4 [facility] Comment on above: Performed By: #### U RC #### [facility] [address] [place] [address] 37[address] Mowing Machine Operator: Kj Lowry MD [facility] [employer] [address] [place] [address] [phone] Mowing Machine Operator: Kj Lowry MD Erythrocyte distribution width (RBC) [Ratio] 13.2 % Normal 11.8-14.4 [facility] Comment on above: Performed By: #### U RC #### [facility] [address] [place] [address] 6[address]19 Mowing Machine Operator: Kj Lowry MD [facility] [employer] [address] [place] [address] [phone] Mowing Machine Operator: Kj Lowry MD Hematocrit (Bld) [Volume fraction] 30.2 % Low 36.3-47.1 [facility] Comment on above: Performed By: #### U RC #### [facility] [address] [place] [address]846 Mowing Machine Operator: Kj Lowry MD [employer] [address] [place] [address] [phone] Mowing Machine Operator: Kj Lowry MD Hemoglobin (Bld) [Mass/Vol] 10.8 g/dL Low 11.9-15.1 [facility] Comment on above: Performed By: #### U RC #### [facility] [address] [place] [address] 54575 Mowing Machine Operator: Kj Lowry MD [facility] [employer] [address] [place] [address] 98211 Mowing Machine Operator: Kj Lowry MD Immature granulocytes/100 WBC (Bld) 0 % Normal 0 [facility] Comment on above: Performed By: #### U RC #### [facility] [address] [place] [address] Mowing Machine Operator: Kj Lowry MD [facility] [employer] [address] [place] [address] 05974 Mowing Machine Operator: Kj Lowry MD Lymphocytes (Bld) [#/Vol] 1.64 10*3/uL Normal 1.10-3.70 [facility] Comment on above: Performed By: #### U RC #### [facility] [address] [place] [address] Mowing Machine Operator: Kj Lowry MD [facility] [employer] [address] [place] [address] 86547 Mowing Machine Operator: Kj Lowry MD Lymphocytes/100 WBC (Bld) 40 % Normal 24-43 [facility] Comment on above: Performed By: #### U RC #### [facility] [address] [place] [address] Mowing Machine Operator: Kj Lowry MD [facility] [employer] [address] [place] [address] 09215 Mowing Machine Operator: Kj Lowry MD MCH (RBC) [Entitic mass] 38.8 pg High 25.2-33.5 [facility] Comment on above: Performed By: #### U RC #### [facility] [address] [place] [address] Mowing Machine Operator: Kj Lowry MD [facility] [employer] [address] [place] [address]655 Mowing Machine Operator: Kj Lowry MD MCHC (RBC) [Mass/Vol] 35.8 g/dL High 25.2-33.5 [facility] Comment on above: Performed By: #### U RC #### [facility] [address] [place] [address] Mowing Machine Operator: Kj Lowry MD [facility] [employer] [address] [place] [address] 81825 Mowing Machine Operator: Kj Lowry MD MCV (RBC) [Entitic vol] 108.6 fL High 82.6-102.9 [facility] Comment on above: Performed By: #### U RC #### [facility] [address] [place] [address] Mowing Machine Operator: Kj Lowry MD [facility] [employer] [address] [place] [address] 89215 Mowing Machine Operator: Kj Lowry MD Monocytes (Bld) [#/Vol] 0.34 10*3/uL Normal 0.10-1.20 [facility] Comment on above: Performed By: #### U RC #### [facility] [address] [place] [address] Mowing Machine Operator: Kj Lowry MD [facility] [employer] [address] [place] [address] 21622 Mowing Machine Operator: Kj Lowry MD Monocytes/100 WBC (Bld) 8 % Normal 3-12 [facility] Comment on above: Performed By: #### U RC #### [facility] [address] [place] [address] 19682 Mowing Machine Operator: Kj Lowry MD [facility] [employer] [address] [place] [address] 09403 Mowing Machine Operator: Kj Lowry MD Neutrophil (Seg) 49 % Normal 36-65 [facility] Comment on above: Performed By: #### U RC #### [facility] [address] [place] [address] Mowing Machine Operator: Kj Lowry MD [facility] [employer] [address] [place] [address] [phone] Mowing Machine Operator: Kj Lowry MD NRBC Automated 0.0 per 100 WBC Normal 0.0 [facility] Comment on above: Performed By: #### U RC #### [facility] [address] [place] [address] 27851 Mowing Machine Operator: Kj Lowry MD [facility] [employer] [address] [place] [address] 46086 Mowing Machine Operator: Kj Lowry MD Platelet mean volume (Bld) [Entitic vol] 10.3 fL Normal 8.1-13.5 [facility] Comment on above: Performed By: #### U RC #### [facility] [address] [place] [address] 03988 Mowing Machine Operator: Kj Lowry MD [facility] [employer] [address] [place] [address] 33991 Mowing Machine Operator: Kj Lowry MD Platelets (Bld) [#/Vol] 215 10*3/uL Normal 138-453 [facility] Comment on above: Performed By: #### U RC #### [facility] [address] [place] [address] 49893 Mowing Machine Operator: Kj Lowry MD [facility] [employer] [address] [place] [address] 90464 Mowing Machine Operator: Kj Lowry MD RBC (Bld) [#/Vol] 2.78 10*6/uL Low 3.95-5.11 [facility] Comment on above: Performed By: #### U RC #### [facility] [address] [place] [address] 27836 Mowing Machine Operator: Kj Lowry MD [facility] [employer] [address] [place] [address] 34311 Mowing Machine Operator: Kj Lowry MD RBC morphology finding Nom (Bld) MACROCYTOSIS PRESENT Normal [facility] Comment on above: Performed By: #### U RC #### [facility] [address] [place] [address] 15936 Mowing Machine Operator: Kj Lowry MD [employer] [address] [place] [address] Mowing Machine Operator: Kj Lowry MD WBC (Bld) [#/Vol] 4.1 10*3/uL Normal 3.5-11.3 [facility] Comment on above: Performed By: #### U #### [facility] [address] [place] [address] Mowing Machine Operator: Kj Lowry MD [employer] [address] [place] [address] Mowing Machine Operator: Kj Lowry MD EKG 12 Leadon 07-01-2023 Atrial Rate 66 BPM [facility] P [place] 57 degrees [facility] P-R Interval 156 ms [facility] Q-T Interval 462 ms [facility] QRS Duration 86 ms [facility] QTc Calculation (Bazett) 484 ms [facility] R [place] 41 degrees [facility] T [place] 3 degrees [facility] Ventricular Rate 66 BPM [facility] Normal sinus rhythm Low voltage QRS T wave abnormality, consider anterolateral ischemia Prolonged QT Abnormal ECG [facility] MUSE Result, Unknown Prov ider - 07/01/2023 Normal sinus rhythm Low voltage QRS T wave abnormality, consider anterolateral ischemia Prolonged QT Abnormal ECG [facility] Normal sinus rhythm T wave abnormality, consider inferior ischemia T wave abnormality, consider anterior ischemia Abnormal ECG [facility] MUSE Result, Unknown Prov ider - 07/01/2023 Normal sinus rhythm T wave abnormality, consider inferior ischemia T wave abnormality, consider anterior ischemia Abnormal ECG [facility] EKG 12 LeadOrdered By: Unkno wn Result on 07-01-2023 Atrial Rate 76 BPM [facility] P [place] 58 degrees [facility] P-R Interval 144 ms [facility] Q-T Interval 436 ms [facility] QRS Duration 82 ms [facility] QTc Calculation (Bazett) 490 ms [facility] R [place] 36 degrees [facility] T [place] -22 degrees [facility] Ventricular Rate 76 BPM [facility] Basic Metab w/rfx MGon 06-30 Anion gap [Moles/Vol] 12 mmol/L Normal 9-17 [facility] Comment on above: Performed By: #### Elvis Malone, K #### [facility] [address] [place] [address] 15857 Mowing Machine Operator: Kj Lowry MD BUN/CRE Ratio 3 Low 9-20 [facility] Comment on above: Performed By: #### Elvis Malone, K #### [facility] [address] [place] [address] 54253 Mowing Machine Operator: Kj Lowry MD Calcium [Mass/Vol] 8.0 mg/dL Low 8.6-10.4 [facility] Comment on above: Performed By: #### Elvis Malone, K #### [facility] [address] [place] [address] 39968 Mowing Machine Operator: Kj Lowry MD Chloride [Moles/Vol] 100 mmol/L Normal 98-107 [facility] Comment on above: Performed By: #### Elvis Malone, K #### [facility] [address] [place] [address] [phone] Mowing Machine Operator: Kj Lowry MD CO2 [Moles/Vol] 27 mmol/L Normal 20-31 [facility] Comment on above: Performed By: #### Elvis Malone, K #### [facility] [address] [place] [address] 29415 Mowing Machine Operator: Kj Lowry MD Creatinine [Mass/Vol] 0.6 mg/dL Normal 0.5-0.9 [facility] Comment on above: Performed By: #### Elvis Malone, K #### [facility] [address] [place] [address] 79445 Mowing Machine Operator: Kj Lowry MD GFR/1.73 sq M.predicted among non-blacks MDRD (S/P/Bld) [Vol rate/Area] mL/min/{1.73_m2} Normal >60 [facility] Comment on above: Result Comment: These results [...] Performed By: #### Elvis Malone, K #### [facility] [address] [place] [address] 64329 Mowing Machine Operator: Kj Lowry MD Glucose [Mass/Vol] 94 mg/dL Normal 70-99 [facility] Comment on above: Performed By: #### Elvis Malone, K #### [facility] [address] [place] [address] 22067 Mowing Machine Operator: Kj Lowry MD Potassium [Moles/Vol] 3.3 mmol/L Low 3.7-5.3 [facility] Comment on above: Performed By: #### Elvis Malone, K #### [facility] [address] [place] [address] 70906 Mowing Machine Operator: Kj Lowry MD Sodium [Moles/Vol] 139 mmol/L Normal 135-144 [facility] Comment on above: Performed By: #### Elvis Malone, K #### [facility] [address] [place] [address] 35261 Mowing Machine Operator: Kj Lowry MD Urea nitrogen [Mass/Vol] 2 mg/dL Low 6-20 [facility] Comment on above: Performed By: #### Elvis Malone, K #### [facility] [address] [place] [address] 03056 Mowing Machine Operator: Kj Lowry MD Basic Metabolic Panel w/ Ref kemar to MGon 06-30-2023 Anion gap [Moles/Vol] 12 mmol/L 9 - 17 mmol/L [facility] Calcium [Mass/Vol] 8.0 mg/dL Low 8.6 - 10. 4 mg/dL [facility] Chloride [Moles/Vol] 100 mmol/L 98 - 10 7 mmol/L [facility] CO2 [Moles/Vol] 27 mmol/L 20 - 31 mmol/L [facility] Creatinine [Mass/Vol] 0.6 mg/dL 0.5 - 0.9 mg/dL [facility] GFR/1.73 sq M.predicted MDRD (S/P/Bld) [Vol rate/Area] - PINF [facility] Comment on above: These results are not [...] [Mass/Vol] 94 mg/dL 70 - 99 mg/dL [facility] Interpretation and review of laboratory results Abnormal [facility] Potassium [Moles/Vol] 3.3 mmol/L Low 3.7 - 5.3 mmol/L [facility] Sodium [Moles/Vol] 139 mmol/L 135 - 144 mmol/L [facility] Urea nitrogen [Mass/Vol] 2 mg/dL Low 6 - 20 mg/dL [facility] Urea nitrogen/Creatinine [Mass ratio] 3 mg/mg Low 9 - [address] [facility] CBC with Auto Differentialon 06-30-2023 Basophils (Bld) [#/Vol] 0.05 10*3/uL [facility] Basophils/100 WBC (Bld) 1 % 0 - 2 % [facility] Eosinophils (Bld) [#/Vol] 0.03 10*3/uL [facility] Eosinophils/100 WBC (Bld) 1 % 1 - 4 % [facility] Erythrocyte distribution width (RBC) [Ratio] 13.5 % 11.8 - 14.4 % [facility] Hematocrit (Bld) [Volume fraction] 32.4 % Low 36.3 - 47.1 % [facility] Hemoglobin (Bld) [Mass/Vol] 11.6 g/dL Low 11.9 - 15.1 g/dL [facility] Immature granulocytes (Bld) [#/Vol] 0.03 10*3/uL [facility] Immature granulocytes/100 WBC (Bld) 1 % High 0 [facility] Interpretation and review of laboratory results Abnormal [facility] Lymphocytes/100 WBC (Bld) 26 % 24 - 43 % [facility] Lymphocytes/100 WBC (Bld) 1.27 % [facility] MCH (RBC) [Entitic mass] 38.5 pg High 25.2 - 33.5 pg [facility] MCHC (RBC) [Mass/Vol] 35.8 g/dL High 25.2 - 33.5 g/dL [facility] MCV (RBC) [Entitic vol] 107.6 fL High 82.6 - 102.9 fL [facility] Monocytes/100 WBC (Bld) 10 % 3 - 12 % [facility] Monocytes/100 WBC (Bld) 0.48 % [facility] Neutrophils/100 WBC (Bld) 62 % 36 - 65 % [facility] Nucleated RBC/100 WBC (Bld) [Ratio] 0.0 % 0.0 per 100 WBC [facility] Platelet mean volume (Bld) [Entitic vol] 10.0 fL 8.1 - 13.5 fL [facility] Platelets (Bld) [#/Vol] 218 10*3/uL [facility] RBC (Bld) [#/Vol] 3.01 10*6/uL Low 3.95 - 5.11 m/uL [facility] RBC (Bld) [#/Vol] MACROCYTOSIS PRESENT [facility] Segmented neutrophils/100 WBC (Bld) 2.96 % [facility] WBC other (Bld) [#/Vol] 4.8 [facility] CBC with Diffon 06-30-2023 Abs. Basophil 0.05 k/uL Normal 0.00-0.20 [facility] Comment on above: Performed By: #### Elvis Malone K #### [facility] [address] [place] [address] [phone] Mowing Machine Operator: Kj Lowry MD Abs.Imm.Granulocyte 0.03 k/uL Normal 0.00-0.30 [facility] Comment on above: Performed By: #### Elvis Malone, K #### [facility] [address] [place] [address] [phone] Mowing Machine Operator: Kj Lowry MD Abs.Neutrophil (Seg) 2.96 k/uL Normal 1.50-8.10 [facility] Comment on above: Performed By: #### Elvis Malone, K #### [facility] [address] [place] [address] Mowing Machine Operator: Kj Lowry MD Basophils/100 WBC (Bld) 1 % Normal 0-2 [facility] Comment on above: Performed By: #### Elvis Malone K #### [facility] [address] [place] [address], [place] [address] Mowing Machine Operator: Kj Lowry MD Eosinophils (Bld) [#/Vol] 0.03 10*3/uL Normal 0.00-0.44 [facility] Comment on above: Performed By: #### Elvis Malone, K #### [facility] [address] [place] [address] 33492 Mowing Machine Operator: Kj Lowry MD Eosinophils/100 WBC (Bld) 1 % Normal 1-4 [facility] Comment on above: Performed By: #### Elvis Malone, K #### [facility] [address] [place] [address] [phone] Mowing Machine Operator: Kj Lowry MD Erythrocyte distribution width (RBC) [Ratio] 13.5 % Normal 11.8-14.4 [facility] Comment on above: Performed By: #### Elvis Malone, K #### [facility] [address] [place] [address] [phone] Mowing Machine Operator: Kj Lowry MD Hematocrit (Bld) [Volume fraction] 32.4 % Low 36.3-47.1 [facility] Comment on above: Performed By: #### Elvis Malone, K #### [facility] [address] [place] [address] 87739 Mowing Machine Operator: Kj Lowry MD Hemoglobin (Bld) [Mass/Vol] 11.6 g/dL Low 11.9-15.1 [facility] Comment on above: Performed By: #### Elvis Malone, K #### [facility] [address] [place] [address] 48638 Mowing Machine Operator: Kj Lowry MD Immature granulocytes/100 WBC (Bld) 1 % High 0 [facility] Comment on above: Performed By: #### Elvis Malone, K #### [facility] [address] [place] [address] 76144 Mowing Machine Operator: Kj Lowry MD Lymphocytes (Bld) [#/Vol] 1.27 10*3/uL Normal 1.10-3.70 [facility] Comment on above: Performed By: #### Elvis Malone, K #### [facility] [address] [place] [address] [phone] Mowing Machine Operator: Kj Lowry MD Lymphocytes/100 WBC (Bld) 26 % Normal 24-43 [facility] Comment on above: Performed By: #### Elvis Malone, K #### [facility] [address] [place] [address] 95962 Mowing Machine Operator: Kj Lowry MD MCH (RBC) [Entitic mass] 38.5 pg High 25.2-33.5 [facility] Comment on above: Performed By: #### Elvis Malone, K #### [facility] [address] [place] [address], [place] [address] Mowing Machine Operator: Kj Lowry MD MCHC (RBC) [Mass/Vol] 35.8 g/dL High 25.2-33.5 [facility] Comment on above: Performed By: #### Elvis Malone, K #### [facility] [address] [place] [address] [phone] Mowing Machine Operator: Kj Lowry MD MCV (RBC) [Entitic vol] 107.6 fL High 82.6-102.9 [facility] Comment on above: Performed By: #### Elvis Malone, K #### [facility] [address] [place] [address] Mowing Machine Operator: Kj Lowry MD Monocytes (Bld) [#/Vol] 0.48 10*3/uL Normal 0.10-1.20 [facility] Comment on above: Performed By: #### Elvis Malone, K #### [facility] [address] [place] [address] 18585 Mowing Machine Operator: Kj Lowry MD Monocytes/100 WBC (Bld) 10 % Normal 3-12 [facility] Comment on above: Performed By: #### Elvis Malone, K #### [facility] [address] [place] [address] [phone] Mowing Machine Operator: Kj Lowry MD Neutrophil (Seg) 62 % Normal 36-65 [facility] Comment on above: Performed By: #### Elvis Malone, K #### [facility] [address] [place] [address] [phone] Mowing Machine Operator: Kj Lowry MD NRBC Automated 0.0 per 100 WBC Normal 0.0 [facility] Comment on above: Performed By: #### Elvis Malone, K #### [facility] [address] [place] [address] [phone] Mowing Machine Operator: Kj Lowry MD Platelet mean volume (Bld) [Entitic vol] 10.0 fL Normal 8.1-13.5 [facility] Comment on above: Performed By: #### Elvis Malone, K #### [facility] [address] [place] [address], [place] [address] Mowing Machine Operator: Kj Lowry MD Platelets (Bld) [#/Vol] 218 10*3/uL Normal 138-453 [facility] Comment on above: Performed By: #### Elvis Malone, K #### [facility] [address] [place] [address], [place] [address] Mowing Machine Operator: Kj Lowry MD RBC (Bld) [#/Vol] 3.01 10*6/uL Low 3.95-5.11 [facility] Comment on above: Performed By: #### Elvis Malone, K #### [facility] [address] [place] [address] 76336 Mowing Machine Operator: Kj Lowyr MD RBC morphology finding Nom (Bld) MACROCYTOSIS PRESENT Normal [facility] Comment on above: Performed By: #### Elvis Malone, K #### [facility] [address] [place] [address], [place] [address] Mowing Machine Operator: Kj Lowry MD WBC (Bld) [#/Vol] 4.8 10*3/uL Normal 3.5-11.3 [facility] Comment on above: Performed By: #### Elvis Malone, K #### [facility] [address] [place] [address], [place] [address] Mowing Machine Operator: Kj Lowry MD K (Potassium)on 06-30-2023 Potassium [Moles/Vol] 3.5 mmol/L Low 3.7-5.3 [facility] Comment on above: Performed By: #### Elvis Malone, K #### [facility] [address] [place] [address] Mowing Machine Operator: Kj Lowry MD Potassium [Moles/Vol] 2.7 mmol/L Critically low 3.7-5.3 [facility] Comment on above: Performed By: #### K #### [facility] [address] [place] [address] Mowing Machine Operator: Kj Lowry MD Potassium [Moles/Vol] 2.6 mmol/L Critically low 3.7-5.3 [facility] Comment on above: Performed By: #### U NETO STEVENSON #### [facility] [address] [place] [address] Mowing Machine Operator: Kj Lowry MD Magnesiumon 06-30-2023 Magnesium [Mass/Vol] 1.8 mg/dL 1.6 - 2 .6 mg/dL [facility] Magnesium [Mass/Vol] 1.8 mg/dL Normal 1.6-2.6 [facility] Comment on above: Performed By: #### Elvis Malone, K #### [facility] [address] [place] [address] Mowing Machine Operator: Kj Lowry MD Interpretation and review of laboratory results Abnormal [facility] Magnesium [Mass/Vol] 1.5 mg/dL Low 1.6 - 2 .6 mg/dL [facility] Magnesium [Mass/Vol] 1.5 mg/dL Low 1.6-2.6 [facility] Comment on above: Performed By: #### Elvis Malone, K #### [facility] [address] [place] [address] Mowing Machine Operator: Kj Lowry MD No Panel Informationon 06-30 [facility] Potassiumon 06-30-2023 Interpretation and review of laboratory results Abnormal [facility] Potassium [Moles/Vol] 3.5 mmol/L Low 3.7 - 5.3 mmol/L [facility] Interpretation and review of laboratory results Abnormal [facility] Interpretation and review of laboratory results Abnormal [facility] Potassium [Moles/Vol] 2.6 mmol/L Critically low 3.7 - 5.3 mmol/L [facility] CBC with Auto Differentialon 06-29-2023 Basophils (Bld) [#/Vol] 0.06 10*3/uL [facility] Basophils/100 WBC (Bld) 1 % 0 - 2 % [facility] Eosinophils (Bld) [#/Vol] 0.03 10*3/uL [facility] Eosinophils/100 WBC (Bld) 0 % Low 1 - 4 % [facility] Erythrocyte distribution width (RBC) [Ratio] 13.2 % 11.8 - 14.4 % [facility] Hematocrit (Bld) [Volume fraction] 35.4 % Low 36.3 - 47.1 % [facility] Hemoglobin (Bld) [Mass/Vol] 12.8 g/dL 11.9 - 15.1 g/dL [facility] Immature granulocytes (Bld) [#/Vol] 0.04 10*3/uL [facility] Immature granulocytes/100 WBC (Bld) 1 % High 0 [facility] Interpretation and review of laboratory results Abnormal [facility] Lymphocytes/100 WBC (Bld) 44 % High 24 - 43 % [facility] Lymphocytes/100 WBC (Bld) 3.38 % [facility] MCH (RBC) [Entitic mass] 38.3 pg High 25.2 - 33.5 pg [facility] MCHC (RBC) [Mass/Vol] 36.2 g/dL High 25.2 - 33.5 g/dL [facility] MCV (RBC) [Entitic vol] 106.0 fL High 82.6 - 102.9 fL [facility] Monocytes/100 WBC (Bld) 8 % 3 - 12 % [facility] Monocytes/100 WBC (Bld) 0.58 % [facility] Neutrophils/100 WBC (Bld) 46 % 36 - 65 % [facility] Nucleated RBC/100 WBC (Bld) [Ratio] 0.0 % 0.0 per 100 WBC [facility] Platelet mean volume (Bld) [Entitic vol] 9.9 fL 8.1 - 13.5 fL [facility] Platelets (Bld) [#/Vol] 305 10*3/uL [facility] RBC (Bld) [#/Vol] 3.34 10*6/uL Low 3.95 - 5.11 m/uL [facility] RBC (Bld) [#/Vol] MACROCYTOSIS PRESENT [facility] Segmented neutrophils/100 WBC (Bld) 3.65 % [facility] WBC other (Bld) [#/Vol] 7.[address] [facility] CBC with Diffon 06-29-2023 Abs. Basophil 0.06 k/uL Normal 0.00-0.20 [facility] Comment on above: Performed By: #### Sujey STEVENSON UAX #### [facility] [address] [place] [address] Mowing Machine Operator: Kj Lowry MD Abs.Imm.Granulocyte 0.04 k/uL Normal 0.00-0.30 [facility] Comment on above: Performed By: #### Sujey STEVENSON UAX #### [facility] [address] [place] [address] Mowing Machine Operator: Kj Lowry MD Abs.Neutrophil (Seg) 3.65 k/uL Normal 1.50-8.10 [facility] Comment on above: Performed By: #### Sujey STEVENSON UAX #### [facility] [address] [place] [address] Mowing Machine Operator: Kj Lowry MD Basophils/100 WBC (Bld) 1 % Normal 0-2 [facility] Comment on above: Performed By: #### Sujey STEVENSON UAX #### [facility] [address] [place] [address] Mowing Machine Operator: Kj Lowry MD Eosinophils (Bld) [#/Vol] 0.03 10*3/uL Normal 0.00-0.44 [facility] Comment on above: Performed By: #### U GRAHAM, UAX #### [facility] [address] [place] [address] Mowing Machine Operator: Kj Lowry MD Eosinophils/100 WBC (Bld) 0 % Low 1-4 [facility] Comment on above: Performed By: #### U GRAHAM, UAX #### [facility] [address] [place] [address] Mowing Machine Operator: Kj Lowry MD Erythrocyte distribution width (RBC) [Ratio] 13.2 % Normal 11.8-14.4 [facility] Comment on above: Performed By: #### U GRAHAM UAX #### [facility] [address] [place] [address] Mowing Machine Operator: Kj Lowry MD Hematocrit (Bld) [Volume fraction] 35.4 % Low 36.3-47.1 [facility] Comment on above: Performed By: #### U GRAHAM UAX #### [facility] [address] [place] [address] Mowing Machine Operator: Kj Lowry MD Hemoglobin (Bld) [Mass/Vol] 12.8 g/dL Normal 11.9-15.1 [facility] Comment on above: Performed By: #### U GRAHAM UAX #### [facility] [address] [place] [address] Mowing Machine Operator: Kj Lowry MD Immature granulocytes/100 WBC (Bld) 1 % High 0 [facility] Comment on above: Performed By: #### U GRAHAM UAX #### [facility] [address] [place] [address] Mowing Machine Operator: Kj Lowry MD Lymphocytes (Bld) [#/Vol] 3.38 10*3/uL Normal 1.10-3.70 [facility] Comment on above: Performed By: #### U GRAHAM, UAX #### [facility] [address] [place] [address] Mowing Machine Operator: Kj Lowry MD Lymphocytes/100 WBC (Bld) 44 % High 24-43 [facility] Comment on above: Performed By: #### Sujey STEVENSON UAX #### [facility] [address] [place] [address] Mowing Machine Operator: Kj Lowry MD MCH (RBC) [Entitic mass] 38.3 pg High 25.2-33.5 [facility] Comment on above: Performed By: #### ANISH DALEX #### [facility] [address] [place] [address] Mowing Machine Operator: Kj Lowry MD MCHC (RBC) [Mass/Vol] 36.2 g/dL High 25.2-33.5 [facility] Comment on above: Performed By: #### Sujey STEVENSON UAX #### [facility] [address] [place] [address] Mowing Machine Operator: Kj Lowry MD MCV (RBC) [Entitic vol] 106.0 fL High 82.6-102.9 [facility] Comment on above: Performed By: #### Sujey STEVENSON UAX #### [facility] [address] [place] [address] Mowing Machine Operator: Kj Lowry MD Monocytes (Bld) [#/Vol] 0.58 10*3/uL Normal 0.10-1.20 [facility] Comment on above: Performed By: #### ANISH DALEX #### [facility] [address] [place] [address] Mowing Machine Operator: Kj Lowry MD Monocytes/100 WBC (Bld) 8 % Normal 3-12 [facility] Comment on above: Performed By: #### Sujey STEVENSON UAX #### [facility] [address] [place] [address] Mowing Machine Operator: Kj Lowry MD Neutrophil (Seg) 46 % Normal 36-65 [facility] Comment on above: Performed By: #### ANISH DALEX #### [facility] [address] [place] [address] Mowing Machine Operator: Kj Lowry MD NRBC Automated 0.0 per 100 WBC Normal 0.0 [facility] Comment on above: Performed By: #### Sujey STEVENSON UAX #### [facility] [address] [place] [address], [place] [address] Mowing Machine Operator: Kj Lowry MD Platelet mean volume (Bld) [Entitic vol] 9.9 fL Normal 8.1-13.5 [facility] Comment on above: Performed By: #### ANISH DALEX #### [facility] [address] [place] [address], [place] [address] Mowing Machine Operator: Kj Lowry MD Platelets (Bld) [#/Vol] 305 10*3/uL Normal 138-453 [facility] Comment on above: Performed By: #### ANISH DALEX #### [facility] [address] [place] [address], [place] [address] Mowing Machine Operator: Kj Lowry MD RBC (Bld) [#/Vol] 3.34 10*6/uL Low 3.95-5.11 [facility] Comment on above: Performed By: #### Sujey STEVENSON UAX #### [facility] [address] [place] [address], [place] [address] Mowing Machine Operator: Kj Lowry MD RBC morphology finding Nom (Bld) MACROCYTOSIS PRESENT Normal [facility] Comment on above: Performed By: #### Sujey STEVENSON UAX #### [facility] [address] [place] [address], [place] [address] Mowing Machine Operator: Kj Lowry MD WBC (Bld) [#/Vol] 7.7 10*3/uL Normal 3.5-11.3 [facility] Comment on above: Performed By: #### U NETO STEVENSON #### [facility] [address] [place] [address] Mowing Machine Operator: Kj Lowry MD CTA CHEST W CONTRASTon [...] Raffy Toth MD 06/29/23 Final result Normal [facility] CTA Chest vessels W contrast [place] 06-29-2023 1. No evidence of thoracic aortic aneurysm or dissection. 2. No acute cardiopulmonary process is identified. 3. Status post sleeve gastrectomy with small hiatal hernia. 4. Marked fatty infiltration of the liver. 5. Status post cholecystectomy. [facility] CONSOLIDATED EXAMINATION: CTA OF THE CHEST [...] No acute bone or soft tissue abnormality. [facility] CONSOLIDATED Raffy Toth MD - 06/29/2023 EXAMINATION: [...] of the liver. 5. Status post cholecystectomy. [facility] Radiology Study observation (narrative) [facility] CTA Chest vessels W contrast IVOrdered By: Raffy Toth on 06-29-2023 [facility] Work Phone: Comp Metabolic Profon 2023 Potassium [Moles/Vol] 2.2 mmol/L Critically low 3.7-5.3 [facility] Comment on above: Performed By: #### Sujey STEVENSON UAX #### [facility] [address] [place], [place] [id number] Mowing Machine Operator: Kj Lowry MD Albumin [Mass/Vol] 3.2 g/dL Low 3.5-5.2 [facility] Comment on above: Performed By: #### Sujey STEVENSON UAX #### [facility] [address] [place] [address] Mowing Machine Operator: Kj Lowry MD Albumin/Glob Ratio 1.1 Normal 1.0-2.5 [facility] Comment on above: Performed By: #### Sujey STEVENSON UAX #### [facility] [address] [place] [address] Mowing Machine Operator: Kj Lowry MD Alkaline Phos 189 U/L High 35-104 [facility] Comment on above: Performed By: #### Sujey STEVENSON UAX #### [facility] [address] [place] [address] Mowing Machine Operator: Kj Lowry MD ALT [Catalytic activity/Vol] 125 U/L High 5-33 [facility] Comment on above: Performed By: #### Sujey STEVENSON UAX #### [facility] [address] [facility] [address] Mowing Machine Operator: Kj Lowry MD Anion gap [Moles/Vol] 14 mmol/L Normal 9-17 [facility] Comment on above: Performed By: #### U GRAHAM, UAX #### [facility] [address] [place] [address] Mowing Machine Operator: Kj Lowry MD AST [Catalytic activity/Vol] 241 U/L High <32 [facility] Comment on above: Performed By: #### U GRAHAM UAX #### [facility] [address] [place] [address] Mowing Machine Operator: Kj Lowry MD Bilirubin [Mass/Vol] 1.7 mg/dL High 0.3-1.2 [facility] Comment on above: Performed By: #### U GRAHAM UAX #### [facility] [address] [place] [address] Mowing Machine Operator: Kj Lowry MD BUN/CRE Ratio 6 Low 9-20 [facility] Comment on above: Performed By: #### U GRAHAM UAX #### [facility] [address] [place] [address], [place] [address] Mowing Machine Operator: Kj Lowry MD Calcium [Mass/Vol] 8.9 mg/dL Normal 8.6-10.4 [facility] Comment on above: Performed By: #### U GRAHAM, UAX #### [facility] [address] [place] [address], [place] [address] Mowing Machine Operator: Kj Lowry MD Chloride [Moles/Vol] 90 mmol/L Low 98-107 [facility] Comment on above: Performed By: #### U GRAHAM, UAX #### [facility] [address] [place] [address] Mowing Machine Operator: Kj Lowry MD CO2 [Moles/Vol] 30 mmol/L Normal 20-31 [facility] Comment on above: Performed By: #### Sujey STEVENSON UAX #### [facility] [address] [place] [address] Mowing Machine Operator: Kj Lowry MD Creatinine [Mass/Vol] 0.5 mg/dL Normal 0.5-0.9 [facility] Comment on above: Performed By: #### Sujey STEVENSON UAX #### [facility] [address] [place] [address] Mowing Machine Operator: Kj Lowry MD GFR/1.73 sq M.predicted among non-blacks MDRD (S/P/Bld) [Vol rate/Area] mL/min/{1.73_m2} Normal >60 [facility] Comment on above: Result Comment: These results [...] Performed By: #### Sujey STEVENSON UAX #### [facility] [address] [place] [address] Mowing Machine Operator: Kj Lowry MD Glucose [Mass/Vol] 109 mg/dL High 70-99 [facility] Comment on above: Performed By: #### Sujey STEVENSON UAX #### [facility] [address] [place] [address] Mowing Machine Operator: Kj Lowry MD Protein [Mass/Vol] 6.0 g/dL Low 6.4-8.3 [facility] Comment on above: Performed By: #### Sujey STEVENSON UAX #### [facility] [address] [place] [address] Mowing Machine Operator: Kj Lowry MD Sodium [Moles/Vol] 134 mmol/L Low 135-144 [facility] Comment on above: Performed By: #### ANISH DALEX #### [facility] [address] [place] [address] Mowing Machine Operator: Kj Lowry MD Urea nitrogen [Mass/Vol] 3 mg/dL Low 6-20 [facility] Comment on above: Performed By: #### ANISH DALEX #### [facility] [address] [place] [address] Mowing Machine Operator: Kj Lowry MD Comprehensive Metabolic Pane [facility] 06-29-2023 Albumin [Mass/Vol] 3.2 g/dL Low 3.5 - 5.2 g/dL [facility] Albumin/Globulin [Mass ratio] 1.1 {ratio} 1.0 - 2.5 [facility] ALP [Catalytic activity/Vol] 189 U/L High 35 - 104 U/L [facility] ALT [Catalytic activity/Vol] 125 U/L High 5 - 33 U/L [facility] Anion gap [Moles/Vol] 14 mmol/L 9 - 17 mmol/L [facility] AST [Catalytic activity/Vol] 241 U/L High NINF - 32 U/L [facility] Bilirubin [Mass/Vol] 1.7 mg/dL High 0.3 - 1 .2 mg/dL [facility] Calcium [Mass/Vol] 8.9 mg/dL 8.6 - 10. 4 mg/dL [facility] Chloride [Moles/Vol] 90 mmol/L Low 98 - 10 7 mmol/L [facility] CO2 [Moles/Vol] 30 mmol/L 20 - 31 mmol/L [facility] Creatinine [Mass/Vol] 0.5 mg/dL 0.5 - 0.9 mg/dL [facility] GFR/1.73 sq M.predicted MDRD (S/P/Bld) [Vol rate/Area] - PINF [facility] Comment on above: These results are not [...] 109 mg/dL High 70 - 99 mg/dL [facility] Interpretation and review of laboratory results Abnormal [facility] Potassium [Moles/Vol] 2.2 mmol/L Critically low 3.7 - 5.3 mmol/L [facility] Protein [Mass/Vol] 6.0 g/dL Low 6.4 - 8.3 g/dL [facility] Sodium [Moles/Vol] 134 mmol/L Low 135 - 144 mmol/L [facility] Urea nitrogen [Mass/Vol] 3 mg/dL Low 6 - 20 mg/dL [facility] Urea nitrogen/Creatinine [Mass ratio] 6 mg/mg Low 9 - [address] [facility] Magnesiumon 06-29-2023 Magnesium [Mass/Vol] 1.7 mg/dL 1.6 - 2 .6 mg/dL [facility] Magnesium [Mass/Vol] 1.7 mg/dL Normal 1.6-2.6 [facility] Comment on above: Performed By: #### U MICAO UAX #### [facility] [address] [place] [address] Mowing Machine Operator: Kj Lowry MD Microscopic Urinalysison Bacteria LM Ql (Urine sed) MODERATE Abnormal None [facility] Character (U) Culture ordered base d on defined criteria. Abnormal NOT REQ. [facility] Epithelial cells LM.HPF (Urine sed) [#/Area] 5 TO 10 [facility] Interpretation and review of laboratory results Abnormal [facility] RBC LM.HPF (Urine sed) [#/Area] 2 TO 5 [facility] WBC LM.HPF (Urine sed) [#/Area] 10 TO 20 [facility] Troponinon 06-29-2023 Troponin I.cardiac High sensitivity method [Mass/Vol] 8 ng/L 0 - 14 ng/L [facility] Comment on above: High Sensitivity Tro ponin values cannot be compared with other Troponin methodologies. [facility] Troponin, High Sens 8 ng/L Normal 0-14 [facility] Comment on above: Result Comment: High Sensitivity Troponin values cannot be compared with other Troponin methodologies. Performed By: #### T ROPI #### [facility] [address] [place] [address] Mowing Machine Operator: Kj Lowry MD Troponin I.cardiac High sensitivity method [Mass/Vol] 7 ng/L 0 - 14 ng/L [facility] Comment on above: High Sensitivity Tro ponin values cannot be compared with other Troponin methodologies. [facility] Troponin, High Sens 7 ng/L Normal 0-14 [facility] Comment on above: Result Comment: High Sensitivity Troponin values cannot be compared with other Troponin methodologies. Performed By: #### U MICAO, UAX #### [facility] [address] [place] [address] Mowing Machine Operator: Kj Lowry MD UA w/Reflex Cultureon 2023 Bilirubin, SemiQt,Ur Negative Normal NEG [facility] Comment on above: Performed By: #### U MICAO, UAX #### [facility] [address] [place] [address] Mowing Machine Operator: Kj Lowry MD Blood, Urine TRACE Abnormal NEG [facility] Comment on above: Performed By: #### U MICAO, UAX #### [facility] [address] [place] [address] Mowing Machine Operator: Kj Lowry MD Clarity (U) Clear Normal CLEAR [facility] Comment on above: Performed By: #### U MICAO, UAX #### [facility] [address] [place] [address] Mowing Machine Operator: Kj Lowry MD Color (U) Yellow Normal YEL [facility] Comment on above: Performed By: #### U MICAO, UAX #### [facility] [address] [facility] [address] Mowing Machine Operator: Kj Lowry MD Glucose Ql (U) Negative Normal NEG [facility] Comment on above: Performed By: #### U MICAO, UAX #### [facility] [address] [place] [address], [place] [address] Mowing Machine Operator: Kj Lowry MD Ketones Ql (U) Negative Normal NEG [facility] Comment on above: Performed By: #### U MICAO, UAX #### [facility] [address] [place] [address], [place] [address] Mowing Machine Operator: Kj Lowry MD Leukocyte esterase Test strip Ql (U) MODERATE Abnormal NEG [facility] Comment on above: Performed By: #### U MICAO, UAX #### [facility] [address] [place] [address], [place] [address] Mowing Machine Operator: Kj Lowry MD Nitrite,Ur Negative Normal [facility] Comment on above: Performed By: #### U MICAO, UAX #### [facility] [address] [place] [address], [place] [address] Mowing Machine Operator: Kj Lowry MD PH,Ur 6.5 High 5.0-6.0 [facility] Comment on above: Performed By: #### U MICAO, UAX #### [facility] [address] [place] [address], [place] [address] Mowing Machine Operator: Kj Lowry MD Protein Ql (U) Negative Normal [facility] Comment on above: Performed By: #### U MICAO, UAX #### [facility] [address] [place] [address] Mowing Machine Operator: Kj Lowry MD Spec. Conway,Ur 1.005 Low 1.010-1.02 5 [facility] Comment on above: Performed By: #### U GRAHAM UAX #### [facility] [address] [place] [address] Mowing Machine Operator: Kj Lowry MD Urobilinogen,Ur Normal Normal 0.0-1.0 [facility] Comment on above: Performed By: #### U GRAHAM UAX #### [facility] [address] [place] [address] Mowing Machine Operator: Kj Lowry MD Urinalysis with Reflex to Cu ltureon 06-29-2023 Bilirubin Ql (U) Negative NEGATIVE [facility] Clarity (U) Clear Clear [facility] Color (U) Yellow Yellow [facility] Glucose Test strip (U) [Mass/Vol] Negative NEGATIVE mg/dL [facility] Hemoglobin Auto test strip Ql (U) TRACE Abnormal NEGATIVE [facility] Interpretation and review of laboratory results Abnormal [facility] Ketones (U) [Mass/Vol] Negative NEGAT SHERRY mg/dL [facility] Leukocyte esterase Test strip Ql (U) MODERATE Abnormal NEGATIVE [facility] Nitrite Ql (U) Negative NEGATIVE [facility] pH (U) 6.5 [pH] High 5.0 - 6.0 [facility] Protein (U) [Mass/Vol] Negative NEGAT SHERRY mg/dL [facility] Specific gravity (U) [Rel density] 1.005 Low 1.010 - 1.025 [facility] Urobilinogen Qn (U) Normal 0.0 - 1. 0 EU/dL [facility] Urinalysis,Microon 4 Bacteria MODERATE Abnormal NONE [facility] Comment on above: Performed By: #### U GRAHAM UAX #### [facility] [address] [place] [address] Mowing Machine Operator: Kj Lowry MD Epithelial cells LM Ql (Urine sed) 5 TO 10 Normal 0-5 [facility] Comment on above: Performed By: #### Sujey STEVENSON UAX #### [facility] [address] [place] [address] Mowing Machine Operator: Kj Lowry MD Other Observations Culture ordered base d on defined criteria. Abnormal NREQ [facility] Comment on above: Performed By: #### Sujey STEVENSON UAX #### [facility] [address] [place] [address] Mowing Machine Operator: Kj Lowry MD Urine RBC's 2 TO 5 Normal 0-4 [facility] Comment on above: Performed By: #### Sujey STEVENSON UAX #### [facility] [address] [place] [address] Mowing Machine Operator: Kj Lowry MD Urine WBC's 10 TO 20 Normal 0-4 [facility] Comment on above: Performed By: #### Sujey STEVENSON UAX #### [facility] [address] [place] [address] Mowing Machine Operator: Kj Lowry MD CBC with Auto Differentialon 06-21-2023 Basophils (Bld) [#/Vol] 0.04 10*3/uL [facility] Basophils/100 WBC (Bld) 1 % 0 - 2 % [facility] Eosinophils (Bld) [#/Vol] 0.05 10*3/uL [facility] Eosinophils/100 WBC (Bld) 1 % 1 - 4 % [facility] Erythrocyte distribution width (RBC) [Ratio] 13.2 % 11.8 - 14.4 % [facility] Hematocrit (Bld) [Volume fraction] 37.6 % 36.3 - 47.1 % [facility] Hemoglobin (Bld) [Mass/Vol] 13.3 g/dL 11.9 - 15.1 g/dL [facility] Immature granulocytes (Bld) [#/Vol] [facility] Immature granulocytes/100 WBC (Bld) 0 % 0 [facility] Interpretation and review of laboratory results Abnormal [facility] Lymphocytes/100 WBC (Bld) 31 % 24 - 43 % [facility] Lymphocytes/100 WBC (Bld) 1.93 % [facility] MCH (RBC) [Entitic mass] 38.0 pg High 25.2 - 33.5 pg [facility] MCHC (RBC) [Mass/Vol] 35.4 g/dL High 25.2 - 33.5 g/dL [facility] MCV (RBC) [Entitic vol] 107.4 fL High 82.6 - 102.9 fL [facility] Monocytes/100 WBC (Bld) 8 % 3 - 12 % [facility] Monocytes/100 WBC (Bld) 0.50 % [facility] Neutrophils/100 WBC (Bld) 59 % 36 - 65 % [facility] Nucleated RBC/100 WBC (Bld) [Ratio] 0.0 % 0.0 per 100 WBC [facility] Platelet mean volume (Bld) [Entitic vol] 10.1 fL 8.1 - 13.5 fL [facility] Platelets (Bld) [#/Vol] 226 10*3/uL [facility] RBC (Bld) [#/Vol] 3.50 10*6/uL Low 3.95 - 5.11 m/uL [facility] RBC (Bld) [#/Vol] MACROCYTOSIS PRESENT [facility] Segmented neutrophils/100 WBC (Bld) 3.68 % [facility] WBC other (Bld) [#/Vol] 6.[address] [facility] CBC with Diffon 06-21-2023 Abs. Basophil 0.04 k/uL Normal 0.00-0.20 [facility] Comment on above: Performed By: #### U NETO STEVENSON #### [facility] [address] [place] [address] Mowing Machine Operator: Kj Lowry MD Abs.Imm.Granulocyte <0.03 Normal 0.00-0.30 [facility] Comment on above: Performed By: #### U GRAHAM UAX #### [facility] [address] [place] [address] Mowing Machine Operator: Kj Lowry MD Abs.Neutrophil (Seg) 3.68 k/uL Normal 1.50-8.10 [facility] Comment on above: Performed By: #### U GRAHAM UAX #### [facility] [address] [place] [address] Mowing Machine Operator: Kj Lowry MD Basophils/100 WBC (Bld) 1 % Normal 0-2 [facility] Comment on above: Performed By: #### U GRAHAM UAX #### [facility] [address] [place] [address] Mowing Machine Operator: Kj Lowry MD Eosinophils (Bld) [#/Vol] 0.05 10*3/uL Normal 0.00-0.44 [facility] Comment on above: Performed By: #### U GRAHAM UAX #### [facility] [address] [place] [address] Mowing Machine Operator: Kj Lowry MD Eosinophils/100 WBC (Bld) 1 % Normal 1-4 [facility] Comment on above: Performed By: #### U GRAHAM UAX #### [facility] [address] [place] [address] Mowing Machine Operator: Kj Lowry MD Erythrocyte distribution width (RBC) [Ratio] 13.2 % Normal 11.8-14.4 [facility] Comment on above: Performed By: #### U GRAHAM UAX #### [facility] [address] [place] [address] Mowing Machine Operator: Kj Lowry MD Hematocrit (Bld) [Volume fraction] 37.6 % Normal 36.3-47.1 [facility] Comment on above: Performed By: #### U MICAO, UAX #### [facility] [address] [place] [address] Mowing Machine Operator: Kj Lowry MD Hemoglobin (Bld) [Mass/Vol] 13.3 g/dL Normal 11.9-15.1 [facility] Comment on above: Performed By: #### U GRAHAM, UAX #### [facility] [address] [place] [address] Mowing Machine Operator: Kj Lowry MD Immature granulocytes/100 WBC (Bld) 0 % Normal 0 [facility] Comment on above: Performed By: #### U GRAHAM UAX #### [facility] [address] [place] [address] Mowing Machine Operator: Kj Lowry MD Lymphocytes (Bld) [#/Vol] 1.93 10*3/uL Normal 1.10-3.70 [facility] Comment on above: Performed By: #### U GRAHAM UAX #### [facility] [address] [place] [address] Mowing Machine Operator: Kj Lowry MD Lymphocytes/100 WBC (Bld) 31 % Normal 24-43 [facility] Comment on above: Performed By: #### U GRAHAM, UAX #### [facility] [address] [place] [address] Mowing Machine Operator: Kj Lowry MD MCH (RBC) [Entitic mass] 38.0 pg High 25.2-33.5 [facility] Comment on above: Performed By: #### U GRAHAM UAX #### [facility] [address] [place] [address] Mowing Machine Operator: Kj Lowry MD MCHC (RBC) [Mass/Vol] 35.4 g/dL High 25.2-33.5 [facility] Comment on above: Performed By: #### U GRAHAM UAX #### [facility] [address] [place] [address] Mowing Machine Operator: Kj Lowry MD MCV (RBC) [Entitic vol] 107.4 fL High 82.6-102.9 [facility] Comment on above: Performed By: #### Sujey STEVENSON UAX #### [facility] [address] [place] [address] Mowing Machine Operator: Kj Lowry MD Monocytes (Bld) [#/Vol] 0.50 10*3/uL Normal 0.10-1.20 [facility] Comment on above: Performed By: #### Sujey STEVENSON UAX #### [facility] [address] [place] [address] Mowing Machine Operator: Kj Lowry MD Monocytes/100 WBC (Bld) 8 % Normal 3-12 [facility] Comment on above: Performed By: #### Sujey STEVENSON UAX #### [facility] [address] [place] [address] Mowing Machine Operator: Kj Lowry MD Neutrophil (Seg) 59 % Normal 36-65 [facility] Comment on above: Performed By: #### Sujey STEVENSON UAX #### [facility] [address] [place] [address] Mowing Machine Operator: Kj Lowry MD NRBC Automated 0.0 per 100 WBC Normal 0.0 [facility] Comment on above: Performed By: #### Sujey STEVENSON UAX #### [facility] [address] [place] [address] Mowing Machine Operator: Kj Lowry MD Platelet mean volume (Bld) [Entitic vol] 10.1 fL Normal 8.1-13.5 [facility] Comment on above: Performed By: #### Sujey STEVENSON UAX #### [facility] [address] [place] [address] Mowing Machine Operator: Kj Lowry MD Platelets (Bld) [#/Vol] 226 10*3/uL Normal 138-453 [facility] Comment on above: Performed By: #### Sujey STEVENSON UAX #### [facility] [address] [place] [address], [place] [address] Mowing Machine Operator: Kj Lowry MD RBC (Bld) [#/Vol] 3.50 10*6/uL Low 3.95-5.11 [facility] Comment on above: Performed By: #### Sujey STEVENSON UAX #### [facility] [address] [place] [address], [place] [address] Mowing Machine Operator: Kj Lowry MD RBC morphology finding Nom (Bld) MACROCYTOSIS PRESENT Normal [facility] Comment on above: Performed By: #### Sujey STEVENSON UAX #### [facility] [address] [place] [address], [place] [address] Mowing Machine Operator: Kj Lowry MD WBC (Bld) [#/Vol] 6.2 10*3/uL Normal 3.5-11.3 [facility] Comment on above: Performed By: #### ANISH DALEX #### [facility] [address] [place] [address], [place] [address] Mowing Machine Operator: Kj Lowry MD Comp Metabolic Profon 2023 BUN/CRE Ratio 8 Low 9-20 [facility] Comment on above: Performed By: #### ANISH DALEX #### [facility] [address] [place] [address], [place] [address] Mowing Machine Operator: Kj Lowry MD Creatinine [Mass/Vol] 0.5 mg/dL Normal 0.5-0.9 [facility] Comment on above: Result Comment: ICTE SANDRINE SPECIMEN Performed By: #### ANISH DALEX #### [facility] [address] [place] [address], [place] [address] Mowing Machine Operator: Kj Lowry MD GFR/1.73 sq M.predicted among non-blacks MDRD (S/P/Bld) [Vol rate/Area] mL/min/{1.73_m2} Normal >60 [facility] Comment on above: Result Comment: These results [...] renal tubular secretion. Performed By: #### U DINORAHO UAX #### [facility] [address] [place] [address] Mowing Machine Operator: Kj Lowry MD Potassium [Moles/Vol] 3.0 mmol/L Low 3.7-5.3 [facility] Comment on above: Performed By: #### Sujey STEVENSON UAX #### [facility] [address] [place] [address] Mowing Machine Operator: Kj Lowry MD Albumin [Mass/Vol] 3.0 g/dL Low 3.5-5.2 [facility] Comment on above: Performed By: #### U DINORAHO, UAX #### [facility] [address] [place] [address] Mowing Machine Operator: Kj Lowry MD Albumin/Glob Ratio 1.1 Normal 1.0-2.5 [facility] Comment on above: Performed By: #### U DINORAHO, UAX #### [facility] [address] [place] [address] Mowing Machine Operator: Kj Lowry MD Alkaline Phos 189 U/L High 35-104 [facility] Comment on above: Performed By: #### U DINORAHO, UAX #### [facility] [address] [place] [address] Mowing Machine Operator: Kj Lowry MD ALT [Catalytic activity/Vol] 104 U/L High 5-33 [facility] Comment on above: Performed By: #### Sujey STEVENSON UAX #### [facility] [address] [place] [address] Mowing Machine Operator: Kj Lowry MD Anion gap [Moles/Vol] 13 mmol/L Normal 9-17 [facility] Comment on above: Performed By: #### Sujey STEVENSON UAX #### [facility] [address] [place] [address] Mowing Machine Operator: Kj Lowry MD AST [Catalytic activity/Vol] 197 U/L High <32 [facility] Comment on above: Performed By: #### Sujey STEVENSON UAX #### [facility] [address] [place] [address] Mowing Machine Operator: Kj Lowry MD Bilirubin [Mass/Vol] 2.9 mg/dL High 0.3-1.2 [facility] Comment on above: Performed By: #### Sujey STEVENSON UAX #### [facility] [address] [place] [address] Mowing Machine Operator: Kj Lowry MD Calcium [Mass/Vol] 8.1 mg/dL Low 8.6-10.4 [facility] Comment on above: Performed By: #### Sujey STEVENSON UAX #### [facility] [address] [place] [address] Mowing Machine Operator: Kj Lowry MD Chloride [Moles/Vol] 95 mmol/L Low 98-107 [facility] Comment on above: Performed By: #### Sujey STEVENSON UAX #### [facility] [address] [place] [address] Mowing Machine Operator: Kj Lowry MD CO2 [Moles/Vol] 32 mmol/L High 20-31 [facility] Comment on above: Performed By: #### Sujey STEVENSON UAX #### [facility] [address] [place] [address] Mowing Machine Operator: Kj Lowry MD Glucose [Mass/Vol] 113 mg/dL High 70-99 [facility] Comment on above: Performed By: #### U GRAHAM UAX #### [facility] [address] [place] [address] Mowing Machine Operator: Kj Lowry MD Protein [Mass/Vol] 5.8 g/dL Low 6.4-8.3 [facility] Comment on above: Performed By: #### Sujey STEVENSON UAX #### [facility] [address] [place] [address] Mowing Machine Operator: Kj Lowry MD Sodium [Moles/Vol] 140 mmol/L Normal 135-144 [facility] Comment on above: Performed By: #### Sujey STEVENSON UAX #### [facility] [address] [place] [address] Mowing Machine Operator: Kj Lowry MD Urea nitrogen [Mass/Vol] 4 mg/dL Low 6-20 [facility] Comment on above: Performed By: #### Sujey STEVENSON UAX #### [facility] [address] [place] [address] Mowing Machine Operator: Kj Lowry MD Comprehensive Metabolic Pane [facility] 06-21-2023 Albumin [Mass/Vol] 3.0 g/dL Low 3.5 - 5.2 g/dL [facility] Albumin/Globulin [Mass ratio] 1.1 {ratio} 1.0 - 2.5 [facility] ALP [Catalytic activity/Vol] 189 U/L High 35 - 104 U/L [facility] ALT [Catalytic activity/Vol] 104 U/L High 5 - 33 U/L [facility] Anion gap [Moles/Vol] 13 mmol/L 9 - 17 mmol/L [facility] AST [Catalytic activity/Vol] 197 U/L High NINF - 32 U/L [facility] Bilirubin [Mass/Vol] 2.9 mg/dL High 0.3 - 1 .2 mg/dL [facility] Calcium [Mass/Vol] 8.1 mg/dL Low 8.6 - 10. 4 mg/dL [facility] Chloride [Moles/Vol] 95 mmol/L Low 98 - 10 7 mmol/L [facility] CO2 [Moles/Vol] 32 mmol/L High 20 - 31 mmol/L [facility] Creatinine [Mass/Vol] 0.5 mg/dL 0.5 - 0.9 mg/dL [facility] Comment on above: ICTERIC SPECIMEN GFR/1.73 sq M.predicted MDRD (S/P/Bld) [Vol rate/Area] - PINF [facility] Comment on above: These results are not [...] 113 mg/dL High 70 - 99 mg/dL [facility] Interpretation and review of laboratory results Abnormal [facility] Potassium [Moles/Vol] 3.0 mmol/L Low 3.7 - 5.3 mmol/L [facility] Protein [Mass/Vol] 5.8 g/dL Low 6.4 - 8.3 g/dL [facility] Sodium [Moles/Vol] 140 mmol/L 135 - 144 mmol/L [facility] Urea nitrogen [Mass/Vol] 4 mg/dL Low 6 - 20 mg/dL [facility] Urea nitrogen/Creatinine [Mass ratio] 8 mg/mg Low 9 - [address] [facility] Magnesiumon 06-21-2023 Interpretation and review of laboratory results Abnormal [facility] Magnesium [Mass/Vol] 1.2 mg/dL Low 1.6 - 2 .6 mg/dL [facility] Magnesium [Mass/Vol] 1.2 mg/dL Low 1.6-2.6 [facility] Comment on above: Performed By: #### M Faisal, K #### [facility] [address] [place], [place] [id number] Mowing Machine Operator: Kj Lowry MD Microscopic Urinalysison Bacteria LM Ql (Urine sed) None None [facility] Character (U) Utilizing a urinalys is as the only screening method to exclude a potential uropathogen can be unreliable in many patient populations. Rapid screening tests are less sensitive than culture and if UTI is a clinical possibility, culture should be considered despite a negative urinalysis. Abnormal NOT REQ. [facility] Epithelial cells LM.HPF (Urine sed) [#/Area] 0 TO 2 [facility] Interpretation and review of laboratory results Abnormal [facility] RBC LM.HPF (Urine sed) [#/Area] 0 TO 2 [facility] WBC LM.HPF (Urine sed) [#/Area] 0 TO [address] [facility] No Panel Informationon 06-21 [facility] Phosphoruson 06-21-2023 Phosphate [Mass/Vol] 3.0 mg/dL 2.6 - 4 .5 mg/dL [facility] Phosphorus, Inorg.on 024 Phosphorus, Inorg. 3.0 mg/dL Normal 2.6-4.5 [facility] Comment on above: Performed By: #### M Faisal, K #### [facility] [address] [place] [address] Mowing Machine Operator: Kj Lowry MD Troponinon 06-21-2023 Troponin I.cardiac High sensitivity method [Mass/Vol] ng/L 0 - 14 ng/L [facility] Comment on above: High Sensitivity Tro ponin values cannot be compared with other Troponin methodologies. [facility] Troponin, High Sens <6 Normal 0-14 [facility] Comment on above: Result Comment: High Sensitivity Troponin values cannot be compared with other Troponin methodologies. Performed By: #### U MICAO, UAX #### [facility] [address] [facility] [address] Mowing Machine Operator: Kj Lowry MD Troponin I.cardiac High sensitivity method [Mass/Vol] ng/L 0 - 14 ng/L [facility] Comment on above: High Sensitivity Tro ponin values cannot be compared with other Troponin methodologies. [facility] Troponin, High Sens <6 Normal 0-14 [facility] Comment on above: Result Comment: High Sensitivity Troponin values cannot be compared with other Troponin methodologies. Performed By: #### Elvis Malone K #### [facility] [address] [place] [address] Mowing Machine Operator: Kj Lowry MD UA w/Reflex Cultureon 2023 Bilirubin, SemiQt,Ur 2+ Abnormal NEG [facility] Comment on above: Performed By: #### Elvis Malone K #### [facility] [address] [place] [address] Mowing Machine Operator: Kj Lowry MD Blood, Urine Negative Normal NEG [facility] Comment on above: Performed By: #### Elvis Malone K #### [facility] [address] [place] [address] Mowing Machine Operator: Kj Lowry MD Clarity (U) Clear Normal CLEAR [facility] Comment on above: Performed By: #### Elvis Malone, K #### [facility] [address] [place] [address] Mowing Machine Operator: Kj Lowry MD Color (U) Yellow Normal YEL [facility] Comment on above: Performed By: #### Elvis Malone, K #### [facility] [address] [place] [address] Mowing Machine Operator: Kj Lowry MD Glucose Ql (U) Negative Normal NEG [facility] Comment on above: Performed By: #### Elvis Malone, K #### [facility] [address] [place] [address] [place] [address] Mowing Machine Operator: Kj Lowry MD Ketones Ql (U) TRACE Abnormal NEG [facility] Comment on above: Performed By: #### Elvis Malone, K #### [facility] [address] [place] [address] Mowing Machine Operator: Kj Lowry MD Leukocyte esterase Test strip Ql (U) Negative Normal NEG [facility] Comment on above: Performed By: #### Elvis Malone, K #### [facility] [address] [place] [address] Mowing Machine Operator: Kj Lowry MD Nitrite,Ur Negative Normal NEG [facility] Comment on above: Performed By: #### Elvis Malone, K #### [facility] [address] [place] [address] Mowing Machine Operator: Kj Lowry MD PH,Ur >=9.0 Normal 5.0-6.0 [facility] Comment on above: Performed By: #### Elvis Malone, K #### [facility] [address] [place] [address] Mowing Machine Operator: Kj Lowry MD Protein Ql (U) Negative Abnormal NEG [facility] Comment on above: Performed By: #### Elvis Malone, K #### [facility] [address] [place] [address] Mowing Machine Operator: Kj Lowry MD Spec. Conway,Ur 1.015 Normal 1.010-1.[address] [place] [address] Comment on above: Performed By: #### Elvis Malone, K #### [facility] [address] [place] [address] Mowing Machine Operator: Kj Lowry MD Urobilinogen,Ur 4 mg/dL Normal 0.0-1.0 [facility] Comment on above: Performed By: #### Elvis Malone, K #### [facility] [address] [place] [address] Mowing Machine Operator: Kj Lowry MD Urinalysis with Reflex to Cu ltureon 06-21-2023 Bilirubin Ql (U) 2+ Abnormal NEGATIVE [facility] Clarity (U) Clear Clear [facility] Color (U) Yellow Yellow [facility] Glucose Test strip (U) [Mass/Vol] Negative NEGATIVE mg/dL [facility] Hemoglobin Auto test strip Ql (U) Negative NEGATIVE [facility] Interpretation and review of laboratory results Abnormal [facility] Ketones (U) [Mass/Vol] TRACE Abnormal NEGAT SHERRY mg/dL [facility] Leukocyte esterase Test strip Ql (U) Negative NEGATIVE [facility] Nitrite Ql (U) Negative NEGATIVE [facility] pH (U) 5.0 - 6.0 [facility] Protein (U) [Mass/Vol] Negative Abnormal NEGAT SHERRY mg/dL [facility] Specific gravity (U) [Rel density] 1.015 1.010 - 1.025 [facility] Urobilinogen Qn (U) 4 mg/dL 0.0 - 1. 0 EU/dL [facility] Urinalysis,Microon 4 Bacteria None Normal NONE [facility] Comment on above: Performed By: #### Elvis Malone, K #### [facility] [address] [place] [address] Mowing Machine Operator: Kj Lowry MD Epithelial cells LM Ql (Urine sed) 0 TO 2 Normal 0-5 [facility] Comment on above: Performed By: #### Elvis Malone, K #### [facility] [address] [place] [address] Mowing Machine Operator: Kj Lowry MD Other Observations Utilizing a urinalys is as the only screening method to exclude a potential Abnormal NREQ [facility] Comment on above: Result Comment: urop athogen can be unreliable in many patient populations. Rapid screening tests are less sensitive than culture and if UTI is a clinical possibility, culture should be considered despite a negative urinalysis. Performed By: #### Elvis Malone, K #### [facility] [address] [place] [address] Mowing Machine Operator: Kj Lowry MD Urine RBC's 0 TO 2 Normal 0-4 [facility] Comment on above: Performed By: #### Elvis Malone, K #### [facility] [address] [place] [address] Mowing Machine Operator: Kj Lowry MD Urine WBC's 0 TO 2 Normal 0-4 [facility] Comment on above: Performed By: #### Elvis Malone, K #### [facility] [address] [place] [address] Mowing Machine Operator: Kj Lowry MD CBC with Diffon 05-06-2023 Abs. Basophil 0.03 k/uL Normal 0.00-0.20 [facility] Comment on above: Performed By: #### C DP, CP #### [facility] [address] [place] [address] Mowing Machine Operator: Kj Lowry MD Abs. Eosinophil <0.03 Normal 0.00-0.44 [facility] Comment on above: Performed By: #### C DP, CP #### [facility] [address] [place] [address] Mowing Machine Operator: Kj Lowry MD Abs.Imm.Granulocyte 0.04 k/uL Normal 0.00-0.30 [facility] Comment on above: Performed By: #### C DP, CP #### [facility] [address] [place] [address] Mowing Machine Operator: Kj Lowry MD Abs.Neutrophil (Seg) 3.93 k/uL Normal 1.50-8.10 [facility] Comment on above: Performed By: #### C DP, CP #### [facility] [address] [place] [address] Mowing Machine Operator: Kj Lowry MD Basophils/100 WBC (Bld) 0 % Normal 0-2 [facility] Comment on above: Performed By: #### C DP, CP #### [facility] [address] [place] [address] Mowing Machine Operator: Kj Lowry MD Eosinophils/100 WBC (Bld) 0 % Low 1-4 [facility] Comment on above: Performed By: #### C DP, CP #### [facility] [address] [place] [address] Mowing Machine Operator: Kj Lowry MD Erythrocyte distribution width (RBC) [Ratio] 13.5 % Normal 11.8-14.4 [facility] Comment on above: Performed By: #### C DP, CP #### [facility] [address] [place] [address] Mowing Machine Operator: Kj Lowry MD Hematocrit (Bld) [Volume fraction] 37.3 % Normal 36.3-47.1 [facility] Comment on above: Performed By: #### C DP, CP #### [facility] [address] [place] [address] Mowing Machine Operator: Kj Lowry MD Hemoglobin (Bld) [Mass/Vol] 13.1 g/dL Normal 11.9-15.1 [facility] Comment on above: Performed By: #### C DP, CP #### [facility] [address] [place] [address] Mowing Machine Operator: Kj Lowry MD Immature granulocytes/100 WBC (Bld) 1 % High 0 [facility] Comment on above: Performed By: #### C DP, CP #### [facility] [address] [place] [address] Mowing Machine Operator: Kj Lowry MD Lymphocytes (Bld) [#/Vol] 2.28 10*3/uL Normal 1.10-3.70 [facility] Comment on above: Performed By: #### C DP, CP #### [facility] [address] [place] [address] Mowing Machine Operator: Kj Lowry MD Lymphocytes/100 WBC (Bld) 33 % Normal 24-43 [facility] Comment on above: Performed By: #### C DP, CP #### [facility] [address] [place] [address] Mowing Machine Operator: Kj Lowry MD MCH (RBC) [Entitic mass] 37.0 pg High 25.2-33.5 [facility] Comment on above: Performed By: #### C DP, CP #### [facility] [address] [place] [address] Mowing Machine Operator: Kj Lowry MD MCHC (RBC) [Mass/Vol] 35.1 g/dL High 25.2-33.5 [facility] Comment on above: Performed By: #### C DP, CP #### [facility] [address] [place] [address] Mowing Machine Operator: Kj Lowry MD MCV (RBC) [Entitic vol] 105.4 fL High 82.6-102.9 [facility] Comment on above: Performed By: #### C DP, CP #### [facility] [address] [place] [address] Mowing Machine Operator: Kj Lowry MD Monocytes (Bld) [#/Vol] 0.53 10*3/uL Normal 0.10-1.20 [facility] Comment on above: Performed By: #### C DP, CP #### [facility] [address] [place] [address] Mowing Machine Operator: Kj Lowry MD Monocytes/100 WBC (Bld) 8 % Normal 3-12 [facility] Comment on above: Performed By: #### C DP, CP #### [facility] [address] [place] [address], [place] [address] Mowing Machine Operator: Kj Lowry MD Neutrophil (Seg) 58 % Normal 36-65 [facility] Comment on above: Performed By: #### C DP, CP #### [facility] [address] [place] [address], [place] [address] Mowing Machine Operator: Kj Lowry MD NRBC Automated 0.0 per 100 WBC Normal 0.0 [facility] Comment on above: Performed By: #### C DP, CP #### [facility] [address] [place] [address], [place] [address] Mowing Machine Operator: Kj Lowry MD Platelet mean volume (Bld) [Entitic vol] 10.4 fL Normal 8.1-13.5 [facility] Comment on above: Performed By: #### C DP, CP #### [facility] [address] [place] [address], [place] [address] Mowing Machine Operator: Kj Lowry MD Platelets (Bld) [#/Vol] 219 10*3/uL Normal 138-453 [facility] Comment on above: Performed By: #### C DP, CP #### [facility] [address] [place] [address], [place] [address] Mowing Machine Operator: Kj Lowry MD RBC (Bld) [#/Vol] 3.54 10*6/uL Low 3.95-5.11 [facility] Comment on above: Performed By: #### C DP, CP #### [facility] [address] [place] [address], [place] [address] Mowing Machine Operator: Kj Lowry MD RBC morphology finding Nom (Bld) MACROCYTOSIS PRESENT Normal [facility] Comment on above: Performed By: #### C DP, CP #### [facility] [address] [place] [address], [place] [address] Mowing Machine Operator: Kj Lowry MD WBC (Bld) [#/Vol] 6.8 10*3/uL Normal 3.5-11.3 [facility] Comment on above: Performed By: #### C DP, CP #### [facility] [address] [place] [address] Mowing Machine Operator: Kj Lowry MD Comp Metabolic Profon 2022 Albumin [Mass/Vol] 3.4 g/dL Low 3.5-5.2 [facility] Comment on above: Performed By: #### C DP, CP #### [facility] [address] [place] [address] Mowing Machine Operator: Kj Lowry MD Albumin/Glob Ratio 1.3 Normal 1.0-2.5 [facility] Comment on above: Performed By: #### C DP, CP #### [facility] [address] [place] [address] Mowing Machine Operator: Kj Lowry MD Alkaline Phos 206 U/L High 35-104 [facility] Comment on above: Performed By: #### C DP, CP #### [facility] [address] [place] [address] Mowing Machine Operator: Kj Lowry MD ALT [Catalytic activity/Vol] 127 U/L High 5-33 [facility] Comment on above: Performed By: #### C DP, CP #### [facility] [address] [place] [address], [place] [address] Mowing Machine Operator: Kj Lowry MD Anion gap [Moles/Vol] 12 mmol/L Normal 9-17 [facility] Comment on above: Performed By: #### C DP, CP #### [facility] [address] [place] [address] Mowing Machine Operator: Kj Lowry MD AST [Catalytic activity/Vol] 166 U/L High <32 [facility] Comment on above: Performed By: #### C DP, CP #### [facility] [address] [place] [address] Mowing Machine Operator: Kj Lowry MD Bilirubin [Mass/Vol] 1.4 mg/dL High 0.3-1.2 [facility] Comment on above: Performed By: #### C DP, CP #### [facility] [address] [place] [address] Mowing Machine Operator: Kj Lowry MD BUN/CRE Ratio 8 Low 9-20 [facility] Comment on above: Performed By: #### C DP, CP #### [facility] [address] [place] [address] Mowing Machine Operator: Kj Lowry MD Calcium [Mass/Vol] 9.4 mg/dL Normal 8.6-10.4 [facility] Comment on above: Performed By: #### C DP, CP #### [facility] [address] [place] [address] Mowing Machine Operator: Kj Lowry MD Chloride [Moles/Vol] 91 mmol/L Low 98-107 [facility] Comment on above: Performed By: #### C DP, CP #### [facility] [address] [place] [address] Mowing Machine Operator: Kj Lowry MD CO2 [Moles/Vol] 29 mmol/L Normal 20-31 [facility] Comment on above: Performed By: #### C DP, CP #### [facility] [address] [place] [address] Mowing Machine Operator: jK Lowry MD Creatinine [Mass/Vol] 0.6 mg/dL Normal 0.5-0.9 [facility] Comment on above: Performed By: #### C DP, CP #### [facility] [address] [place] [address] Mowing Machine Operator: Kj Lowry MD GFR/1.73 sq M.predicted among non-blacks MDRD (S/P/Bld) [Vol rate/Area] mL/min/{1.73_m2} Normal >60 [facility] Comment on above: Result Comment: These results [...] Performed By: #### C DP, CP #### [facility] [address] [place] [address] Mowing Machine Operator: Kj Lowry MD Glucose [Mass/Vol] 94 mg/dL Normal 70-99 [facility] Comment on above: Performed By: #### C DP, CP #### [facility] [address] [place] [address] Mowing Machine Operator: Kj Lowry MD Potassium [Moles/Vol] 3.3 mmol/L Low 3.7-5.3 [facility] Comment on above: Performed By: #### C DP, CP #### [facility] [address] [place] [address] Mowing Machine Operator: Kj Lowry MD Protein [Mass/Vol] 6.1 g/dL Low 6.4-8.3 [facility] Comment on above: Performed By: #### C DP, CP #### [facility] [address] [place] [address] Mowing Machine Operator: Kj Lowry MD Sodium [Moles/Vol] 132 mmol/L Low 135-144 [facility] Comment on above: Performed By: #### C DP, CP #### [facility] [address] [place] [address] Mowing Machine Operator: Kj Lowry MD Urea nitrogen [Mass/Vol] 5 mg/dL Low 6-20 [facility] Comment on above: Performed By: #### C DP, CP #### [facility] [address] [place] [address] Mowing Machine Operator: Kj Lowry MD US ABDOMEN LIMITEDon US ABDOMEN LIMITED EXAMINATION: RIGHT UPPER QUADRANT [...] Johnathon Baird MD 04/02/23 Final result Normal [facility] Adrenocorticotropinon 2022 Adrenocorticotropin 12 pg/mL Normal 6-58 [facility] Comment on above: Performed By: #### U MICAO, UAX #### [facility] [address] [place] [address] Mowing Machine Operator: Kj Lorwy MD Aldosteroneon 03-18-2023 Aldosterone 6.0 ng/dL Normal [facility] Comment on above: Result Comment: (NOT E) [...] reference intervals for this test in the [employer] Laboratory Test Directory ([employer]). Performed By: [employer] [address] [place] [id number] Crystalizer Operator: Lynn Good MD, PhD CLIA Number: [id number] Performed By: #### U GRAHAM UAX #### [facility] [address] [place] [address] Mowing Machine Operator: Kj Lowry MD B12/Folate Panelon Cobalamin (Vitamin B12) [Mass/Vol] 749 pg/mL Normal 232-1245 [facility] Comment on above: Performed By: #### U GRAHAM, UAX #### [facility] [address] [place] [address] Mowing Machine Operator: Kj Lowry MD Folic Acid 4.2 ng/mL Low >4.8 [facility] Comment on above: Performed By: #### U GRAHAM, UAX #### [facility] [address] [place] [address] Mowing Machine Operator: Kj Lowry MD Comp Metabolic Profon 5310 Albumin [Mass/Vol] 3.3 g/dL Low 3.5-5.2 [facility] Comment on above: Performed By: #### U RC #### [facility] [address] [place] [address] Mowing Machine Operator: Kj Lowry MD [address] [address] Mowing Machine Operator: Kj Lowry MD Albumin/Glob Ratio 1.2 Normal 1.0-2.5 [facility] Comment on above: Performed By: #### U RC #### [facility] [address] [place] [address] Mowing Machine Operator: Kj Lowry MD [facility] [employer] [address] [place] [address] Mowing Machine Operator: Kj Lowry MD Alkaline Phos 151 U/L High 35-104 [facility] Comment on above: Performed By: #### U RC #### [facility] [address] [place] [address] Mowing Machine Operator: Kj Lowry MD [facility] [employer] [address] [place] [address] Mowing Machine Operator: Kj Lowry MD ALT [Catalytic activity/Vol] 99 U/L High 5-33 [facility] Comment on above: Performed By: #### U RC #### [facility] [address] [place] [address] Mowing Machine Operator: Kj Lowry MD [facility] [employer] [address] [place] [address] Mowing Machine Operator: Kj Lowry MD Anion gap [Moles/Vol] 11 mmol/L Normal 9-17 [facility] Comment on above: Performed By: #### U RC #### [facility] [address] [place] [address] Mowing Machine Operator: Kj Lowry MD [facility] [employer] [address] [place] [address] Mowing Machine Operator: Kj Lowry MD AST [Catalytic activity/Vol] 136 U/L High <32 [facility] Comment on above: Performed By: #### U RC #### [facility] [address] [place] [address] Mowing Machine Operator: Kj Lowry MD [facility] [employer] [address] [place] [address] Mowing Machine Operator: Kj Lowry MD Bilirubin [Mass/Vol] 0.6 mg/dL Normal 0.3-1.2 [facility] Comment on above: Performed By: #### U RC #### [facility] [address] [place] [address] Mowing Machine Operator: Kj Lowry MD [facility] [employer] [address] [place] [address] [phone] Mowing Machine Operator: Kj Lowry MD BUN/CRE Ratio 7 Low 9-20 [facility] Comment on above: Performed By: #### U RC #### [facility] [address] [place] [address] Mowing Machine Operator: Kj Lowry MD [facility] [employer] [address] [place] [address] Mowing Machine Operator: Kj Lowry MD Calcium [Mass/Vol] 8.8 mg/dL Normal 8.6-10.4 [facility] Comment on above: Performed By: #### U RC #### [facility] [address] [place] [address] Mowing Machine Operator: Kj Lowry MD [facility] [employer] [address] [place] [address] Mowing Machine Operator: Kj Lowry MD Chloride [Moles/Vol] 107 mmol/L Normal 98-107 [facility] Comment on above: Performed By: #### U RC #### [facility] [address] [place] [address] Mowing Machine Operator: Kj Lowry MD [facility] [employer] [address] [place] [address] Mowing Machine Operator: Kj Lowry MD CO2 [Moles/Vol] 25 mmol/L Normal 20-31 [facility] Comment on above: Performed By: #### U RC #### [facility] [address] [place] [address] Mowing Machine Operator: Kj Lowry MD [facility] [employer] [address] [place] [address] [phone] Mowing Machine Operator: Kj Lowry MD Creatinine [Mass/Vol] 0.6 mg/dL Normal 0.5-0.9 [facility] Comment on above: Performed By: #### U RC #### [facility] [address] [place] [address] Mowing Machine Operator: Kj Lowry MD [address] [phone] Mowing Machine Operator: Kj Lowry MD GFR/1.73 sq M.predicted among non-blacks MDRD (S/P/Bld) [Vol rate/Area] mL/min/{1.73_m2} Normal >60 [facility] Comment on above: Result Comment: These results [...] secretion. Performed By: #### U RC #### [facility] [address] [place] [address] Mowing Machine Operator: Kj Lowry MD [address] [phone] Mowing Machine Operator: Kj Lowry MD Glucose [Mass/Vol] 86 mg/dL Normal 70-99 [facility] Comment on above: Performed By: #### U RC #### [facility] [address] [place] [address] Mowing Machine Operator: Kj Lowry MD [address] [phone] Mowing Machine Operator: Kj Lowry MD Potassium [Moles/Vol] 3.7 mmol/L Normal 3.7-5.3 [facility] Comment on above: Performed By: #### U RC #### [facility] [address] [place] [address] Mowing Machine Operator: Kj Lowry MD [facility] [employer] [address] [place] [address] Mowing Machine Operator: Kj Lowry MD Protein [Mass/Vol] 6.1 g/dL Low 6.4-8.3 [facility] Comment on above: Performed By: #### U RC #### [facility] [address] [place] [address] Mowing Machine Operator: Kj Lowry MD [facility] [employer] [address] [place] [address] [phone] Mowing Machine Operator: Kj Lowry MD Sodium [Moles/Vol] 143 mmol/L Normal 135-144 [facility] Comment on above: Performed By: #### U RC #### [facility] [address] [place] [address] Mowing Machine Operator: Kj Lowry MD [facility] [employer] [address] [place] [address] Mowing Machine Operator: Kj Lowry MD Urea nitrogen [Mass/Vol] 4 mg/dL Low 6-20 [facility] Comment on above: Performed By: #### U RC #### [facility] [address] [place] [address] Mowing Machine Operator: Kj Lowry MD [facility] [employer] [address] [place] [address] Mowing Machine Operator: Kj Lowry MD Cortisolon 0 Cortisol 11.0 ug/dL Normal 2.7-18.4 [facility] Comment on above: Result Comment: Cortisol Reference Range: AM 6.0-18.4 PM 2.7-10.5 Performed By: #### U MICAO, UAX #### [facility] [address] [place] [address] Mowing Machine Operator: Kj Lowry MD Lipaseon 03-16-2023 Lipase [Catalytic activity/Vol] 160 U/L High 13-60 [facility] Comment on above: Performed By: #### U RC #### [facility] [address] [place] [address] Mowing Machine Operator: Kj Lowry MD [employer] [address] [place] [address] [phone] Mowing Machine Operator: Kj Lowry MD TSH w/reflex to FT4on 2022 Thyroid Stim. Horm. 0.97 uIU/mL Normal 0.30-5.00 [facility] Comment on above: Performed By: #### U RC #### [facility] [address] [place] [address] Mowing Machine Operator: Kj Lowry MD [employer] [employer] [address] [place] [address] [phone] Mowing Machine Operator: Kj Lowry MD Vital Signs Date Time Vital Sign Value Performing Clinician Bo chacon 01-27-2025 10:51-0400 Body height 157.48 cm No Primary Care Physician [facility] 01-27-2025 10:51-0400 Body mass index (BMI) [Ratio] 29.2 kg/m2 No Primary Care Physician [facility] 01-27-2025 10:51-0400 Body weight 72.57 kg No Primary Care Physician [facility] 01-16-2025 10:36-0400 Body height 157.48 cm No Primary Care Physician [facility] 01-16-2025 10:36-0400 Body mass index (BMI) [Ratio] 29.2 kg/m2 No Primary Care Physician [facility] 01-16-2025 10:36-0400 Body weight 72.57 kg No Primary Care Physician [facility] 01-14-2025 12:-0400 Body temperature 97.3 [degF] No Primary Care Physician [facility] 01-14-2025 12:260400 Diastolic blood pressure 76 mm[Hg] No Primary Care Physician [facility] 01-14-2025 12:26-0400 Heart rate 72 /min No Primary Care Physician [facility] 01-14-2025 12:26-0400 Respiratory rate 16 /min No Primary Care Physician [facility] 01-14-2025 12:26-0400 SaO2% (BldA) [Mass fraction] 94 % No Primary Care Physician [facility] 01-14-2025 12:26-0400 Systolic blood pressure 127 mm[Hg] No Primary Care Physician [facility] 01-14-2025 08:18-0400 Body height 157.48 cm No Primary Care Physician [facility] 01-14-2025 08:18-0400 Body mass index (BMI) [Ratio] 29.8 kg/m2 No Primary Care Physician [facility] 01-14-2025 08:18-0400 Body weight 74 kg No Primary Care Physician [facility] 01-02-2025 01:45-0400 Body temperature 97.6 [degF] No Primary Care Physician [facility] 01-02-2025 01:45-0400 Diastolic blood pressure 88 mm[Hg] No Primary Care Physician [facility] 01-02-2025 01:45-0400 Heart rate 72 /min No Primary Care Physician [facility] 01-02-2025 01:45-0400 Respiratory rate 16 /min No Primary Care Physician [facility] 01-02-2025 01:45-0400 SaO2% (BldA) [Mass fraction] 97 % No Primary Care Physician [facility] 01-02-2025 01:45-0400 Systolic blood pressure 125 mm[Hg] No Primary Care Physician [facility] 01-02-2025 00:54-0400 Body height 157.48 cm No Primary Care Physician [facility] 01-02-2025 00:54-0400 Body mass index (BMI) [Ratio] 30.9 kg/m2 No Primary Care Physician [facility] 01-02-2025 00:54-0400 Body weight 76.6 kg No Primary Care Physician [facility] 01-01-2025 12:19-0400 Body temperature 98.2 [degF] No Primary Care Physician [facility] 01-01-2025 12:19-0400 Diastolic blood pressure 66 mm[Hg] No Primary Care Physician [facility] 01-01-2025 12:19-0400 Heart rate 73 /min No Primary Care Physician [facility] 01-01-2025 12:19-0400 Respiratory rate 16 /min No Primary Care Physician [facility] 01-01-2025 12:19-0400 SaO2% (BldA) [Mass fraction] 99 % No Primary Care Physician [facility] 01-01-2025 12:19-0400 Systolic blood pressure 110 mm[Hg] No Primary Care Physician [facility] 12-26-2024 10:53-0400 Body temperature 98.7 [degF] No Primary Care Physician [facility] 12-26-2024 10:53-0400 Diastolic blood pressure 58 mm[Hg] No Primary Care Physician [facility] 12-26-2024 10:53-0400 Heart rate 83 /min No Primary Care Physician [facility] 12-26-2024 10:53-0400 Respiratory rate 16 /min No Primary Care Physician [facility] 12-26-2024 10:53-0400 SaO2% (BldA) [Mass fraction] 99 % No Primary Care Physician [facility] 12-26-2024 10:53-0400 Systolic blood pressure 104 mm[Hg] No Primary Care Physician [facility] 10-20-2024 11:13-0400 Body height 157.48 cm No Primary Care Physician [facility] 10-20-2024 11:13-0400 Body mass index (BMI) [Ratio] 30.7 kg/m2 No Primary Care Physician [facility] 10-20-2024 11:13-0400 Body weight 76.31 kg No Primary Care Physician [facility] 10-09-2024 09:40-0400 Body temperature 98.4 [degF] No Primary Care Physician [facility] 10-09-2024 09:40-0400 Diastolic blood pressure 74 mm[Hg] No Primary Care Physician [facility] 10-09-2024 09:40-0400 Heart rate 92 /min No Primary Care Physician [facility] 10-09-2024 09:40-0400 Respiratory rate 16 /min No Primary Care Physician [facility] 10-09-2024 09:40-0400 SaO2% (BldA) [Mass fraction] 99 % No Primary Care Physician [facility] 10-09-2024 09:40-0400 Systolic blood pressure 122 mm[Hg] No Primary Care Physician [facility] 09-25-2024 10:16-0400 Body mass index (BMI) [Ratio] 30.5 kg/m2 No Primary Care Physician [facility] 09-25-2024 10:16-0400 Body temperature 98.4 [degF] No Primary Care Physician [facility] 09-25-2024 10:16-0400 Body weight 75.74 kg No Primary Care Physician [facility] 09-25-2024 10:16-0400 Diastolic blood pressure 82 mm[Hg] No Primary Care Physician [facility] 09-25-2024 10:16-0400 Heart rate 67 /min No Primary Care Physician [facility] 09-25-2024 10:16-0400 Respiratory rate 16 /min No Primary Care Physician [facility] 09-25-2024 10:16-0400 SaO2% (BldA) [Mass fraction] 96 % No Primary Care Physician [facility] 09-25-2024 10:16-0400 Systolic blood pressure 126 mm[Hg] No Primary Care Physician [facility] 03-29-2024 11:12-0400 Body temperature 98.4 [degF] Krislyn Aberegg PA Work Phone: [facility] 03-29-2024 11:12-0400 Body weight 74 kg Krislyn Aberegg PA Work Phone: [facility] 03-29-2024 11:12-0400 Diastolic blood pressure 82 mm[Hg] Krislyn Aberegg PA Work Phone: [facility] 03-29-2024 11:12-0400 Heart rate 84 /min Krislyn Aberegg PA Work Phone: [facility] 03-29-2024 11:12-0400 Respiratory rate 18 /min Krislyn Aberegg PA Work Phone: [facility] 03-29-2024 11:12-0400 SaO2% (BldA) [Mass fraction] 99 % Krislyn Aberegg PA Work Phone: [facility] 03-29-2024 11:12-0400 Systolic blood pressure 128 mm[Hg] Echo SPAULDING Work Phone: [facility] 01-08-2024 14:59-0400 Body height 158.8 cm Nadia Barbi SPAULDING-C Work Phone: [facility] [employer] [facility] 01-08-2024 14:59-0400 Body mass index (BMI) [Ratio] 29.7 kg/m2 Nadia Barbi SPAULDING-C Work Phone: [facility] [employer] [facility] 01-08-2024 14:59-0400 Body weight 74.84 kg Nadia Landon PA-C [facility] 10-23-2023 14:55-0400 Body height 160 cm Shalini Elizondo MD Work Phone: [facility] [employer] [facility] 10-23-2023 14:55-0400 Body mass index (BMI) [Ratio] 29.23 kg/m2 Shalini Elizondo MD Work Phone: [facility] [employer] [facility] 10-23-2023 14:55-0400 Body weight 74.84 kg Shalini Elizondo MD Work Phone: [facility] [employer] [facility] 07-02-2023 16:39-0500 Diastolic blood pressure 94 mm[Hg] Rosanne Herron MD Work Phone: [employer] 07-02-2023 16:39-0500 Heart rate 54 /min Rosanne Herron MD Work Phone: [facility] [employer] 07-02-2023 16:39-0500 Respiratory rate 18 /min Rosanne Herron MD Work Phone: [employer] 07-02-2023 16:39-0500 SaO2% (BldA) [Mass fraction] 100 % Rosanne Herron MD Work Phone: [employer] 07-02-2023 16:39-0500 Systolic blood pressure 119 mm[Hg] Rosanne Herron MD Work Phone: [employer] 07-02-2023 12:22-0500 Body temperature 98.8 [degF] Rosanne Herron MD Work Phone: [employer] 07-02-2023 11:19-0500 Body height 160 cm Rosanne Herron MD Work Phone: [employer] 07-02-2023 03:41-0500 Body mass index (BMI) [Ratio] 26.25 kg/m2 Rosanne Herron MD Work Phone: [employer] 07-02-2023 03:41-0500 Body weight 67.22 kg Rosanne Herron MD Work Phone: [employer] 06-21-2023 10:25-0500 Heart rate 84 /min Rosanne Herron MD Work Phone: [employer] 06-21-2023 10:25-0500 Respiratory rate 16 /min Rosanne Herron MD Work Phone: [employer] 06-21-2023 10:00-0500 SaO2% (BldA) [Mass fraction] 97 % Rosanne Herron MD Work Phone: [employer] 06-21-2023 08:15-0500 Diastolic blood pressure 75 mm[Hg] Rosanne Herron MD Work Phone: [employer] 06-21-2023 08:15-0500 Systolic blood pressure 108 mm[Hg] Rosanne Herron MD Work Phone: [employer] 06-21-2023 06:54-0500 Body height 160 cm Rosanne Herron MD Work Phone: [employer] 06-21-2023 06:54-0500 Body mass index (BMI) [Ratio] 25.69 kg/m2 Rosanne Herron MD Work Phone: [employer] 06-21-2023 06:54-0500 Body temperature 98.1 [degF] Rosanne Herron MD Work Phone: [facility] 06-21-2023 06:54-0500 Body weight 65.77 kg Rosanne Herron MD Work Phone: [facility] Encounters Encounter Date Encounter Type Care Provider Facility Start: 04-03-2025 ambulatory [facility] Facility :[facility] Start: 03-23-2025 ambulatory No Primary Car e Physician Facility:[facility] Start: 03-17-2025 ambulatory [facility] Facility :[facility] Start: 03-12-2025 ambulatory [facility] Facility :[facility] Start: 02-24-2025 End: 02-24-[address] Boyd Lopez MD -[facility] Work Phone: Start: 02-24-2025 End: 02-24-2025 ambulatory No Primary Care Physician -[facility] Start: 01-30-2025 End: 01-30-2025 Patient encounter procedure Shalini Sherwood Work Phone: Podiatry Comment on above: Porokeratosis (Prima ry Dx); Plantar fasciitis; Calcaneal spur of both feet Start: 01-30-2025 End: 01-30-2025 ambulatory SHALINI SHERWOOD Facility:[facility] Start: 01-29-2025 ambulatory SHALINI SHERWOOD Facili ty:[facility] Start: 01-29-2025 End: 01-29-2025 Subsequent hospital visit by physician [facility] Work Phone: Radiology Comment on above: Pain in left foot [M 79.672] Start: 01-28-[address] Boyd Lopez MD -Physical Therapy Work Phone: Start: 01-27-2025 End: 01-27-[address] Boyd Lopez MD -[facility] Work Phone: Start: 01-27-2025 End: 01-27-2025 ambulatory No Primary Care Physician -[facility] Start: 01-16-2025 End: 01-16-[address] Boyd Lopez MD -[facility] Work Phone: Start: 01-16-2025 End: 01-16-2025 ambulatory No Primary Care Physician -[facility] Start: 01-14-2025 ambulatory No Primary Car e Physician Facility:[facility] Start: 01-14-2025 Non-patient / Non-visit Dr. Chandrakant Lopez MD -[facility] Start: 01-14-2025 End: 01-14-2025 Admission to same day surgery center Dr. Boyd Lopez MD [facility] Start: 01-14-2025 End: 01-14-2025 ambulatory No Primary Care Physician -[facility] Start: 01-02-2025 End: 01-02-2025 Emergency department patient visit No Primary Care Physician -Emergency Department Work Phone: Start: 01-01-2025 Non-patient / Non-visit Estrellabrittney Akbra [facility] Start: 01-01-2025 End: 01-01-2025 Patient encounter procedure Corona Frank [place] [facility] Work Phone: Start: 01-01-2025 End: 01-01-2025 ambulatory No Primary Care Physician -[facility] Start: 12-26-2024 End: 12-26-2024 Patient encounter procedure Corona Frank [place] [facility] Work Phone: Start: 12-26-2024 End: 12-26-2024 ambulatory No Primary Care Physician -[facility] Start: 12-15-2024 End: 12-15-[address] Boyd Lopez MD -[facility] Work Phone: Start: 12-15-2024 End: 12-15-2024 ambulatory No Primary Care Physician -[facility] Start: 12-12-2024 End: 12-12-2024 ambulatory No Primary Care Physician -Physical Therapy Start: 12-12-2024 End: 12-12-[address] Boyd Lopez MD -Physical Therapy Work Phone: Start: 12-12-[address] Boyd Lopez MD -Physical Therapy Work Phone: Start: 10-20-2024 End: 10-20-[address] Boyd Lopez MD -[facility] Work Phone: Start: 10-20-2024 End: 10-20-2024 ambulatory No Primary Care Physician [facility] Work Phone: Start: 10-09-2024 End: 10-09-2024 Patient encounter procedure Corona Frank PA -[facility] Work Phone: Start: 10-09-2024 End: 10-09-2024 ambulatory No Primary Care Physician Facility:[facility] Start: 10-03-2024 End: 10-03-2024 ambulatory NONE PHYSICIAN Facility:[facility] Start: 10-03-2024 End: 10-03-2024 Patient encounter procedure CORONA SPAULDING [facility] Start: 09-25-2024 End: 09-25-2024 Patient encounter procedure Corona SPAULDING [facility] Work Phone: Start: 09-25-2024 End: 09-25-2024 ambulatory Corona SPAULDING Facility:[facility] Start: 09-25-2024 End: 09-25-2024 ambulatory Corona SPAULDING Facility:[facility] Start: 03-29-2024 End: 03-29-2024 ambulatory SHALINI SHERWOOD Facility:[facility] Start: 03-29-2024 End: 03-29-2024 Patient encounter procedure Echo SPAULDING Work Phone: [facility] Comment on above: Dental infection (Pr imary Dx) Start: 02-21-2024 End: 02-21-2024 Office outpatient visit 15 minutes Nadia Landon PA-C Work Phone: [facility] Comment on above: S/P carpal tunnel re lease; Post-op pain Start: 02-21-2024 End: 02-21-[address] [facility] Start: 01-22-2024 End: 01-22-2024 Patient encounter procedure Shalini Elizondo MD Work Phone: [facility] Comment on above: Pillar pain, post-op erative (Primary Dx); S/P carpal tunnel release Start: 01-22-2024 End: 01-22-2024 ambulatory [facility] Start: 01-20-2024 End: 01-20-2024 Emergency department patient visit NATHAN TAVERA [facility] Start: 01-08-2024 End: 01-08-2024 Postop follow up visit related to original px Nadia Landon CORA Work Phone: [facility] Comment on above: S/P carpal tunnel re lease (Primary Dx); Post-op pain Start: 01-08-2024 End: 01-08-2024 [facility] Start: 12-26-2023 End: 12-26-2023 Orders Only Nadia Landon CORA Work Phone: [facility] Comment on above: S/P carpal tunnel re lease (Primary Dx); Right carpal tunnel syndrome Start: 12-25-2023 End: 12-25-2023 Postop follow up visit related to original px Nadia Landon PA-C Work Phone: [facility] Comment on above: S/P carpal tunnel re lease (Primary Dx) Start: 12-25-2023 End: 12-25-2023 ambulatory [facility] Start: 11-29-2023 End: 11-29-2023 Patient encounter procedure Shalini Elizondo MD Work Phone: [facility] Comment on above: S/P carpal tunnel re lease (Primary Dx) Start: 11-29-2023 End: 11-29-2023 [facility] Start: 11-14-2023 End: 11-14-2023 Evaluation and management of inpatient [facility] Start: 11-13-2023 End: 11-13-2023 ambulatory TAHMINA Grubbs [facility] Start: 10-23-2023 End: 10-23-2023 Office outpatient new 30 minutes Shalini Elizondo MD Work Phone: [facility] Comment on above: Right carpal tunnel syndrome (Primary Dx) Start: 10-23-2023 End: 10-23-[address] [facility] Start: 10-18-2023 End: 10-18-2023 ambulatory [facility] Start: 10-11-2023 End: 10-11-2023 ambulatory [facility] Start: 10-11-2023 End: 10-13-2023 Subsequent hospital visit by physician Arlene Xr Room [facility] Radiology Comment on above: Muscle weakness; Polyarthralgia Start: 10-11-2023 End: 10-13-2023 ambulatory [facility] Start: 10-05-2023 End: 10-05-2023 ambulatory [facility] Start: 09-20-2023 End: 09-20-2023 [facility] Start: 07-02-2023 End: 07-02-2023 Emergency department patient visit [facility] Start: 06-29-2023 End: 07-02-2023 [facility] Start: 06-29-2023 End: 07-02-2023 Emergency department patient visit Rosanne Herron MD Work Phone: [facility] Comment on above: Nausea and vomiting, unspecified vomiting type (Primary Dx); Dehydration; Hypokalemia; Nonspecific ST-T wave electrocardiographic changes; Urinary tract infection without hematuria, site unspecified; Gastroesophageal reflux disease without esophagitis Start: 06-21-2023 End: 06-21-2023 Emergency department patient visit Rosanne Herron MD Work Phone: [facility] Comment on above: Hypokalemia (Primary Dx); Hypomagnesemia Start: 05-14-2023 End: 05-14-2023 Emergency department patient visit [facility] Start: 05-06-2023 End: 05-06-2023 Emergency department patient visit JAIDEN OAKLEY [facility] Start: 04-12-2023 ambulatory [facility] Start: 04-02-2023 End: 04-04-2023 ambulatory [facility] Start: 03-16-2023 End: 03-16-2023 ambulatory [facility] Start: 06-21-2017 End: 06-21-2017 Emergency department patient visit Cristofer Barraza Facility[facility] Procedures Date Procedure Procedure Detail Performing Clinician Start: 01-14-2025 Procedure on shoulde r joint No Primary Care Physician Start: 09-25-2024 Plain X-ray of shoulder No Primary Care Physician Start: 02-21-2024 Follow-up visit Follow-up NADIA FRAGA Start: 01-22-2024 Injection therapeuti c carpal tunnel Shalini Elizondo MD Work Phone: Start: 10-11-2023 Radex foot complete minimum 3 views Tramariusz Ryan DO Work Phone: Start: 07-02-2023 Basic metabolic pane l calcium total Carlos Owen MD Work Phone: Start: 07-01-2023 Basic metabolic pane l calcium total Carlos Owen MD Work Phone: Start: 06-30-2023 Assay of magnesium Pastor Owen MD Work Phone: Start: 06-30-2023 Assay of magnesium Anit a Patito Cardenas [employer] - [employer] Work Phone: Start: 06-30-2023 BASIC METABOLIC PANE L W/ REFLEX TO MG FOR LOW K Maribel Patito Cardenas [employer] Work Phone: Start: 06-30-2023 Potassium serum plasma/whole [...] Start: 06-21-2023 Assay of troponin quantitative Jaiden Lucho Oakley DO Work Phone: Start: 06-21-2023 Urinalysis microscop [...] Start: 08-13-2026 Diabetes Screening Diabetes Screenin g [facility] Start: 03-02-2025 Registered Recurring Registered Recu rring -Physical Therapy Work Phone: Start: 02-02-2025 Influenza vaccination Influenza Vacc ine (#1) [facility] Start: 01-30-2025 End: 01-30-2025 Patient encounter procedure 01/30/2025 9:45 AM EDT Office Visit Podiatry [address] [place], [place] [id number] Shalini Sherwood [address] [place] [address] Left ft, bunion. Podiatry Comment on above: Left ft, bunion. Start: 01-14-2025 Anes arthrs humeral h/n strnclav & shoulder nos ANESTH SURGERY OF SHOULDER [facility] Start: 01-14-2025 Anterior decompressi on of shoulder joint BERYL ARTHRS SRG DECOMPRESSION [facility] Start: 01-14-2025 Arthroscopy of shoul sushma with biceps tenodesis BERYL ARTHRS SRG [id number] CUF RPR [facility] Start: 01-14-2025 Arthroscopy shoulder rotator cuff repair BERYL ARTHRS SRG RT8TR CUF RPR [facility] Start: 01-14-2025 Arthroscopy shoulder w/coracoacrm ligmnt release BERYL ARTHRS SRG DECOMPRESSION [facility] Start: 01-14-2025 Injection aa&/strd brachial plexus NJX AA&/STRD BRCH PLXS IMG [facility] Start: 01-14-2025 Patient discharge [facility] Start: 01-14-2025 Application of device [facility] Start: 01-14-2025 Application of ice collar, cap or bag [facility] Start: 01-14-2025 Assessment of risk o f venous thromboembolism [facility] Start: 01-14-2025 Catheterization of vein [facility] Start: 01-14-2025 Continuous positive airway pressure ventilation treatment [facility] Start: 01-14-2025 Following clinical pathway protocol [facility] Start: 01-14-2025 Incentive spirometry [facility] Start: 01-14-2025 Introduction of urin ivone catheter [facility] Start: 01-14-2025 Vital signs measurements [facility] Start: 01-14-2025 [facility] Start: 01-07-2025 Adult BMI Screening Adult BMI Screen ing [facility] Start: 01-07-2025 Tobacco Screening Tobacco Screening [facility] Start: 01-02-2025 [facility] Start: 12-24-2024 Tobacco Screening Tobacco Screening [facility] Start: 11-28-2024 Tobacco Screening Tobacco Screening [facility] Start: 11-13-2024 Adult BMI Screening Adult BMI Screen ing [facility] Start: 10-22-2024 Adult BMI Screening Adult BMI Screen ing [facility] Start: 10-22-2024 Tobacco Screening Tobacco Screening [facility] Start: 09-19-2024 Depression Monitoring [facility] Start: 2024 Shingrix Vaccine (1 of 2) Herrera grix Vaccine (1 of 2) [facility] Start: 03-16-2024 Depression [facility] Start: 02-21-2024 End: 02-21-2024 Patient encounter procedure 02/21/2024 3:20 PM EDT Office Visit [facility] [address] [place] [address] Nadia Landon PA-C [address] [place] [address] [facility] Start: 02-03-2024 Covid-19 Vaccine ( season) Covid-19 Vaccine () [facility] Start: 02-03-2024 Influenza vaccination [facility] Start: 01-22-2024 End: 01-22-2024 Patient encounter procedure 01/22/2024 11:15 AM EDT Office Visit [facility] [address] [place] [address] Shalini Elizondo MD [address] [place] [address] [facility] Start: 01-08-2024 End: 01-08-2024 Patient encounter procedure 01/08/2024 3:05 PM EDT Office Visit [facility] [address] [place] [address] Nadia Landon PA-C [address] [facility] [address] [place] [address] [facility] Start: 01-07-2024 End: 01-07-2024 Patient encounter procedure 01/07/2024 9:20 AM EDT Office Visit [facility] [address] [facility] [facility] [address] [place] [address] Nneka Lyons, 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 [address] [facility] [address] [place] [address] 3 month f/u [facility] Comment on above: 3 month f/u Start: 01-03-2024 Influenza vaccination Flu vacc ine (Season Ended) URIEL PALACIOS [facility] Start: 12-27-2023 End: 12-27-2023 Patient encounter procedure 12/27/2023 3:20 PM EDT Office Visit [facility] [address] [facility] [address] [place] [address] Nadia Landon PA-C [address] [facility] [address] [place] [phone] [facility] Start: 12-20-2023 End: 12-20-2023 Patient encounter procedure 12/20/2023 3:00 PM EDT [facility] [address] [facility] [address] Nathan [facility]avera, PLATE MOLDER - [facility] [address] [facility] [place] [address] 3 month [facility] Comment on above: 3 month Start: 11-29-2023 End: 11-29-2023 Patient encounter procedure 11/29/2023 3:45 PM EDT Office Visit [facility] [address] [facility] [address] [place] [address] Shalini Elizondo MD [address] [address] [place] [address] [facility] Start: 11-14-2023 End: 11-14-2023 Admission to same day surgery center 11/14/2023 10:30 AM EDT - 11/14/2023 11:00 AM EDT Surgery [facility] -Surgery [address] [place] [address] Shalini Elizondo MD [address] [place] [address] RE[facility] above: RELEASE CARPAL TUNNE L Start: 11-14-2023 End: 11-14-2023 RELEASE CARPAL TUNNEL RELEASE CARPAL TUNNEL Right carpal tunnel syndrome 11/14/2023 10:[address] [facility] Start: 11-14-2023 Subsequent hospital visit by physician 11/14/2023 10:30 AM EDT [facility] [address] [place] [address] Shalini Elizondo MD [address] [facility] [place] [address] [facility] Start: 09-24-2023 End: 09-24-2023 Patient encounter procedure 09/24/2023 2:00 PM EDT Office Visit [facility] [address] [place], [place] [id number] Jaison Patel, [address] [address] 6 month [facility] Comment on above: 6 month Start: 03-03-2023 DTaP,Tdap and Td Vac cines (3 - Td or Tdap) DTaP,Tdap and Td Vaccines (3 - Td or Tdap) [facility] Start: 03-03-2023 DTaP/Tdap/Td vaccine (2 - Td or Tdap) DTaP/Tdap/Td vaccine (2 - Td or Tdap) [facility] Start: 01-02-2023 Influenza vaccination Flu vaccine (# 1) [facility] Start: 01-31-2021 Lipid panel Lipids [facility] Start: 2019 [facility] Start: 2019 Screening for malign ant neoplasm of colon [facility] Start: 09-11-2016 Screening for malign ant neoplasm of cervix [facility] Start: 2014 Screening for malign ant neoplasm of breast Mammogram Screening [facility] Start: 03-04-2013 Urine microalbumin profile DTaP,Tdap,Td Vaccine (1 - Tdap) [facility] Start: 01-12-2005 Hepatitis B vaccine (2 of 3 - 19+ 3-dose series) Hepatitis B vaccine (2 of 3 - 19+ 3-dose series) [facility] Start: 2004 Screening for malign ant neoplasm of cervix HPV (without or with Pap) [facility] Start: 1995 Screening for malign ant neoplasm of cervix [facility] Start: 1993 Hepatitis B Vaccine (1 of 3 - 19+ 3-dose series) Hepatitis B Vaccine (1 of 3 - 19+ 3-dose series) [facility] Start: 1993 Pneumococcal Vaccine : 50+ (1 of 2 - PCV) Pneumococcal Vaccine: 50+ (1 of 2 - PCV) [facility] Start: 1992 Adult BMI Follow Up Plan Adult BMI Follow Up Plan [facility] Start: 1992 Anxiety Screening Anxiety Screening [facility] Start: 1992 Depression Screening Depression Scre ing [facility] Start: 1992 Hepatitis C screening Hepatitis C sc reen [facility] Start: 1992 HIV screening HIV Screening [facility] Start: 1989 HIV screening HIV screen [facility] Start: 1986 Depression Screening Depression Scre [facility] Start: 1980 Pneumococcal 0-64 ye ars Vaccine (1 - PCV) Pneumococcal 0-64 years Vaccine (1 - PCV) [facility] Start: 1980 Pneumococcal 0-64 ye ars Vaccine (1 of 2 - PCV) Pneumococcal 0-64 years Vaccine (1 of 2 - PCV) [facility] Start: 1980 Pneumococcal vaccination Pneum ococcal Vaccine (1 of 2 - PCV) [facility] Start: 1974 COVID-19 Vaccine (#1) COVID-19 Vacci ne (#1) [facility] Start: 1974 Tobacco Counseling Tobacco Counselin [facility] EKG 12 Lead EKG 12 Lead ECG STAT 06/21/2023 7:03 AM EST [employer] Work Phone: Intermittent pulse oximetry Pulse Oximetry Spot Check Respiratory Care Routine Every 4hr until discontinued starting 06/30/2023 [facility] [employer] Comment on above: Every 4hr until disc ontinued starting 06/30/2023 Oxygen therapy [Mini [facility] Data Set] Initiate Oxygen Therapy Protocol Respiratory Care Routine As Needed until discontinued starting 06/30/2023 [facility] Comment on above: As Needed until disc ontinued starting 06/30/2023 Patient Education [facility] Work Phone: XR Foot - left AP an d Lateral and oblique XR FOOT GENERAL 3V AP/LAT/OBL LEFT Radiology Routine Pain in left foot 01/29/2025 11:20 AM EDT [facility] Work Phone: Immunizations Immunization Date Immunization Notes Care Provider [facility] 04-20-2022 influenza virus vaccine, unspecified formulation Rosanne Herron MD Work Phone: [facility] 04-03-2016 Influenza Vaccine, unspecified formulation Rosanne Herron MD Work Phone: [facility] 04-03-2016 influenza virus vaccine, unspecified formulation Rosanne Herron MD Work Phone: [facility] 04-15-2015 influenza virus vaccine, unspecified formulation Rosanne Herron MD Work Phone: [facility] 03-26-2014 influenza virus vaccine, unspecified formulation Rosanne Herron MD Work Phone: [facility] 03-03-2013 Td, unspecified formulation Rosanne Herron MD Work Phone: [facility] 03-03-2013 tetanus toxoid, redu janine diphtheria toxoid, and acellular pertussis vaccine, adsorbed Rosanne Herron MD Work Phone: [facility] 12-15-2004 hepatitis B vaccine, adult dosage Rosanne Herron MD Work Phone: [facility] [employer] 12-15-2004 hepatitis B vaccine, unspecified formulation Rosanne Herron MD Work Phone: [facility] [employer] 11-28-2000 tuberculin skin test ; purified protein derivative solution, intradermal Rosanne Herron MD Work Phone: [facility] 11-20-2000 tuberculin skin test ; purified protein derivative solution, intradermal Rosanne Herron MD Work Phone: [facility] [employer] Payers Date Payer Category Payer Unknown [id number] 2024 Self-pay 2024 Unknown [id number] 2024 Unknown [id number] 2024 Private Health Insurance [facility] [employer] CHO[employer]US [id number] 2024 Private Health Insurance [id number] 2023 Unknown [id number] 2018 Unknown [id number] 2017 Unknown [id number] 1974 Unknown [id number] 1974 Unknown [id number] 1974 Unknown [id number] 172 1974 Unknown [id number] 172 1974 Unknown [id number] 172 1974 Unknown [id number] 172 1974 Unknown [id number] 172 1974 Unknown [id number] 172 1975 Unknown [id number] 2.16.840.1.131319.3.579.2. 172 1975 Unknown [id number] 2.16.840.1.211485.3.579.2. 172 1975 Unknown [id number] 2.16.840.1.743606.3.579.2. 172 1975 Unknown [id number] 2.16.840.1.173602.3.579.2. 172 1975 Unknown [id number] 2.16.840.1.694833.3.579.2. 172 1975 Unknown [id number] 2.16.840.1.011438.3.579.2. 172 1975 Unknown [id number] 2.16.840.1.259236.3.579.2. 172 1974 Unknown [id number] 2.16.840.1.852328.3.579.2. 1286 1974 Unknown [id number] 2.16.840.1.700669.3.579.2. 6 1974 Unknown [id number] 2.16.840.1.474246.3.579.2. 1286 1974 Unknown [id number] 2..840.1.617495.3.579.2. 128 1974 Unknown [id number] 2..840.1.401971.3.579.2. 1286 1974 Unknown [id number] 2.840.1.647764.3.579.2. 1285 1974 Unknown [id number] 2.840.1.627717.3.579.2. 627 Unknown [id number] 2.840.1.159488.3.579.2. 462 Unknown [id number] 2.840.1.499217.3.579.2. 462 Unknown [id number] 2.840.1.523628.3.579.2. 462 Unknown [id number] 2.840.1.389408.3.579.2. 462 Unknown [id number] 2.840.1.841375.3.579.2. 462 Unknown [id number] 2.840.1.762443.3.579.2. 462 Unknown [id number] 2.840.1.182592.3.579.2. 462 Unknown [id number] 2.840.1.628415.3.579.2. 462 Unknown [id number] .840.1.397544.3.579.2. 462 Unknown [id number] .840.1.281619.3.579.2. 462 Unknown [id number] 2.840.1.660845.3.579.2. 462 Unknown [id number] 2.840.1.642986.3.579.2. 462 Unknown [id number] 2.840.1.177682.3.579.2. 462 Unknown [id number] 2.16.840.1.705105.3.579.2. 462 Unknown [id number] 2.16.840.1.017094.3.579.2. 462 Unknown [id number] 2.16.840.1.527567.3.579.2. 462 Unknown [id number] 2.16.840.1.100862.3.579.2. 462 Unknown [id number] 2.16.840.1.796885.3.579.2. 462 Unknown [id number] 2.16.840.1.034297.3.579.2. 462 Social History Date Type Detail Facility Start: 03-16-2023 End: 03-29-2024 Tobacco smoking status NHIS Smokes tobacco daily [facility] History of tobacco use Cigarette Smoker [facility] Start: 03-16-2023 End: 01-30-2025 Cigarettes smoked current (pack per day) - Reported 0.5 [facility] Start: 03-16-2023 End: 03-29-2024 Tobacco use and exposure Smokeless tobacco non-user [facility] Start: 05-14-2023 End: 10-05-2023 Alcohol intake Ex-drinker (finding) [facility] Start: 06-21-2023 End: 01-30-2025 Alcohol Use Disorder Identification Test - Consumption [AUDIT-C] [facility] How often to you hav e a drink containing alcohol? Never [facility] Start: 03-29-[address] inks containing alcohol do you have on a typical day? Patient does not drink [facility] Start: 10-25-2022 Tobacco Comment Started smokin g when brother was ill. Quit at beginning of 2016, by weaning off, and then used the patch. Stopped using the patch after 1 week. Stopped using the patch around 06/16/16. [facility] Start: 06-30-2016 Alcohol Comment rare - drinks every other week 1-2 glasses of wine [facility] Start: 1975 Sex Assigned At Not on file [facility] Has the electric, ga s, oil, or water [employer] threatened to shut off services in your home in past 12Mo No [facility] (I/We) worried antwan er (my/our) food would run out before (I/we) got money to buy more. Never true [facility] In the past 12 month s, was there a time when you were not able to pay the mortgage or rent on time? Yes [facility] How hard is it for y ou to pay for the very basics like food, housing, medical care, and heating Not very hard [facility] Start: 10-23-2023 End: 02-21-2024 Alcoholic beverage intake Current non-drinker of alcohol (finding) [facility] Tobacco smoking status [facility] Start: 1975 Sex Assigned At Female A [facility] Start: 10-01-2024 Sex Female (finding) [facility] Start: 09-25-2024 End: 01-07-2025 Tobacco smoking status NHIS Current Light tobacco smoker [facility] Medical Equipment Procedure Code Equipment Code Equipment Origin al Text Equipment Identifier Dates Arthroscopy, shoulder FIBERLINK [id number] FDA Start: 01-14-2025 Arthroscopy, shoulder FIBERTAPE FDA Start: 01-14-2025 Arthroscopy, shoulder FIBERLINK [id number] FDA Start: 01-14-2025 Arthroscopy, shoulder FIBERTAPE FDA Start: 01-14-2025 Arthroscopy, shoulder FIBERLINK [id number] FDA Start: 01-14-2025 Arthroscopy, shoulder FIBERTAPE FDA Start: 01-14-2025 Arthroscopy, shoulder FIBERLINK [id number] FDA Start: 01-14-2025 Arthroscopy, shoulder FIBERTAPE FDA Start: 01-14-2025 Goals Date Patient Goal Desired Activity /State Mental Status Date Assessment Result Facility 01-14-2025 Cognitive function Level Of Cons ciousness Awake;Alert;Appropriate [facility] Work Phone: 01-14-2025 Cognitive function Voice/Name [facility] Work Phone: Clinical Notes 06-21-2023 to 02-24-2025 Shalini Sherwood - 01/31/2025 10:44 AM Abdon BrunildaMIGUEL ANGEL - 01/30/2025 9:46 AM EDTPatient DayronYudith, (R) - 01/29/2025 12:30 PM EDT Note Date & Type Note Facility 02-24-2025 Progress note [facility] 01-31-2025 Note HNO ID: [id number] Author: SHALINI SHERWOOD, ? Service: ? Author Type: Physician Type: Progress Notes Filed: 01/31/2025 10:45 Note Text: Subjective The patient is a 49-year-old female presenting with left foot pain secondary to a callus. The patient reports a sensation of stepping on a rock due to a callus on the plantar aspect of the left fifth metatarsal. She has been dealing with this issue for years and previously saw another physician who would shave down the callus every 6-12 months, which provided relief. She also used donut hole pads in her shoes, which helped alleviate the discomfort. However, she has not had the callus treated for about a year and has recently moved to [facility]. In addition to the callus, the patient reports large heel spurs on both the bottom and back of her heels, describing one as like a golf ball. These spurs cause pain, especially when wearing shoes. She also experiences pain on the bottom of her heels upon waking in the morning, which slightly improves with walking. She has been told she has plantar fasciitis and has been performing stretches to manage the condition. 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 She expresses frustration with her foot pain, stating it is not practical for her to work due to the discomfort. She has applied for disability and is awaiting a decision. Musculoskeletal: (+) left plantar foot pain, (+) bilateral heel pain Skin: (+) left plantar foot callus, (+) bilateral plantar foot sores Psychiatric: (+) emotional distress PAST MEDICAL HISTORY Diagnosis Date Anxiety GERD (gastroesophageal reflux disease) Torn rotator cuff Current Outpatient Medications Medication Sig Dispense Refill HYDROcodone-acetaminophen (NORCO) 5-325 mg per tablet Take 1 tablet by mouth every 6 hours as needed. midodrine (PROAMITINE) 5 mg tablet Take 5 mg by mouth two times a day. albuterol HFA (PROVENTIL HFA, VENTOLIN HFA) 90 mcg/actuation inhaler Inhale 2 Puffs as instructed every 6 hours as needed. busPIRone (BUSPAR) 10 mg tablet Take 15 mg by mouth three times a day. cyclobenzaprine (FLEXERIL) 10 mg tablet Take 10 mg by mouth two times a day as needed for pain. omeprazole (PRILOSEC) 40 mg capsule Take 40 mg by mouth once daily. valACYclovir (VALTREX) 500 mg tablet Take 500 mg by mouth as needed (cold sore). celecoxib (CELEBREX) 200 mg capsule Take 200 mg by mouth once daily. (Patient not taking: Reported on 01/30/2025) DULoxetine (CYMBALTA) 20 mg capsule Take 20 mg by mouth two times a day. (Patient not taking: Reported on 01/30/2025) folic acid 1 mg tablet Take 1 mg by mouth once daily. (Patient not taking: Reported on 01/30/2025) gabapentin (NEURONTIN) 600 mg tablet Take 800 mg by mouth three times a day. (Patient not taking: Reported on 01/30/2025) multivitamin tablet Take 1 tablet by mouth once daily. (Patient not taking: Reported on 01/30/2025) thiamine (VITAMIN B1) 100 mg tablet Take 100 mg by mouth once daily. (Patient not taking: Reported on 01/30/2025) No current facility-administered medications for this visit. No family history on file. Objective There were no vitals taken for this visit. - Cardiovascular: Dorsalis pedis and posterior tibial pulses palpable bilaterally. Capillary refill time <5 seconds. - Skin: Warm to cool from proximal to distal; hair growth present to toes bilaterally. - Musculoskeletal: - Left Foot: - Hyperkeratotic lesion on the plantar aspect of the fifth metatarsal with associated pain; large heel spur noted on the posterior heel. pain present to plantar heel b/l. - Right Foot: - Hyperkeratotic lesion on the plantar aspect of the fifth metatarsal; large heel spur noted on the posterior heel. - Neurological: Protective sensation intact bilaterally. Imaging: (01/29) X-ray of the left and right foot: - Three-view of the left foot, one-view of the right foot - Findings: Large posterior and plantar calcaneal spurs, mild arthritic changes at the first metatarsophalangeal joint, minimal bunion deformity at the hallux, and bunion neck deformity of the left fifth metatarsal. No other concerning abnormalities noted. Assessment AND Plan # Porokeratosis (Q82.8) Chronic hyperkeratotic lesions on the plantar aspect of the left and right fifth metatarsals, consistent with porokeratosis, causing significant discomfort. - Shaved down lesions and applied salicylic acid to left 5th metatarsal. no porokeratosis to right 5th metatarsal head. - Advised patient to leave Band-Aid on for approximately 10 hours, then wash off. - Provided gel inserts and instructed on use of donut hole pads to offload pressure from lesions. - Educated on periodic filing of lesions and use of gel inserts and (more content not included)... [facility] 01-31-2025 History of Present illness Narrative Subjective The patient is a 49-year-old female presenting with left foot pain secondary to a callus. The patient reports a sensation of stepping on a rock due to a callus on the plantar aspect of the left fifth metatarsal. She has been dealing with this issue for years and previously saw another physician who would shave down the callus every 6-12 months, which provided relief. She also used donut hole pads in her shoes, which helped alleviate the discomfort. However, she has not had the callus treated for about a year and has recently moved to [facility]. In addition to the callus, the patient reports large heel spurs on both the bottom and back of her heels, describing one as like a golf ball. These spurs cause pain, especially when wearing shoes. She also experiences pain on the bottom of her heels upon waking in the morning, which slightly improves with walking. She has been told she has plantar fasciitis and has been performing stretches to manage the condition. 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 She expresses frustration with her foot pain, stating it is not practical for her to work due to the discomfort. She has applied for disability and is awaiting a decision. Musculoskeletal: (+) left plantar foot pain, (+) bilateral heel pain Skin: (+) left plantar foot callus, (+) bilateral plantar foot sores Psychiatric: (+) emotional distress PAST MEDICAL HISTORY Diagnosis Date Anxiety GERD (gastroesophageal reflux disease) Torn rotator cuff Current Outpatient Medications Medication Sig Dispense Refill HYDROcodone-acetaminophen (NORCO) 5-325 mg per tablet Take 1 tablet by mouth every 6 hours as needed. midodrine (PROAMITINE) 5 mg tablet Take 5 mg by mouth two times a day. albuterol HFA (PROVENTIL HFA, VENTOLIN HFA) 90 mcg/actuation inhaler Inhale 2 Puffs as instructed every 6 hours as needed. busPIRone (BUSPAR) 10 mg tablet Take 15 mg by mouth three times a day. cyclobenzaprine (FLEXERIL) 10 mg tablet Take 10 mg by mouth two times a day as needed for pain. omeprazole (PRILOSEC) 40 mg capsule Take 40 mg by mouth once daily. valACYclovir (VALTREX) 500 mg tablet Take 500 mg by mouth as needed (cold sore). celecoxib (CELEBREX) 200 mg capsule Take 200 mg by mouth once daily. (Patient not taking: Reported on 01/30/2025) DULoxetine (CYMBALTA) 20 mg capsule Take 20 mg by mouth two times a day. (Patient not taking: Reported on 01/30/2025) folic acid 1 mg tablet Take 1 mg by mouth once daily. (Patient not taking: Reported on 01/30/2025) gabapentin (NEURONTIN) 600 mg tablet Take 800 mg by mouth three times a day. (Patient not taking: Reported on 01/30/2025) multivitamin tablet Take 1 tablet by mouth once daily. (Patient not taking: Reported on 01/30/2025) thiamine (VITAMIN B1) 100 mg tablet Take 100 mg by mouth once daily. (Patient not taking: Reported on 01/30/2025) No current facility-administered medications for this visit. No family history on file. Objective There were no vitals taken for this visit. - Cardiovascular: Dorsalis pedis and posterior tibial pulses palpable bilaterally. Capillary refill time <5 seconds. - Skin: Warm to cool from proximal to distal; hair growth present to toes bilaterally. - Musculoskeletal: - Left Foot: - Hyperkeratotic lesion on the plantar aspect of the fifth metatarsal with associated pain; large heel spur noted on the posterior heel. pain present to plantar heel b/l. - Right Foot: - Hyperkeratotic lesion on the plantar aspect of the fifth metatarsal; large heel spur noted on the posterior heel. - Neurological: Protective sensation intact bilaterally. Imaging: (01/29) X-ray of the left and right foot: - Three-view of the left foot, one-view of the right foot - Findings: Large posterior and plantar calcaneal spurs, mild arthritic changes at the first metatarsophalangeal joint, minimal bunion deformity at the hallux, and bunion neck deformity of the left fifth metatarsal. No other concerning abnormalities noted. Assessment & Plan # Porokeratosis (Q82.8) Chronic hyperkeratotic lesions on the plantar aspect of the left and right fifth metatarsals, consistent with porokeratosis, causing significant discomfort. - Shaved down lesions and applied salicylic acid to left 5th metatarsal. no porokeratosis to right 5th metatarsal head. - Advised patient to leave Band-Aid on for approximately 10 hours, then wash off. - Provided gel inserts and instructed on use of donut hole pads to offload pressure from lesions. - Educated on periodic filing of lesions and use of gel inserts and pads to reduce recurrence and discomfort. - Advised to contact via MyChart if lesions recur or become problematic. # Plantar fasciitis (M72.2) # Calcaneal spur of both feet (M77.31) Chronic plantar heel pain consistent with plantar fasciitis, with radiographic evidence of large calcaneal spurs bilaterally. - Reviewed X-ray from 01/29, confirming large heel spurs and mild arthritic changes in the left first MTP joint. - Recommended daily plantar fascia stretching exercises, including wall push-up and step-drop stretches. - Advised use of supportive footwear (New Balance, Hoka, Contreras, Asics) and avoidance of barefoot walking, flip-flops, and non-supportive shoes. - Provided gel inserts to offload pressure from heel spurs and advised on use of orthotics to reduce stress on the Achilles tendon. - Discussed steroid injection as an option if pain persists. Recording using [employer] software for draft documentation of the visit was discussed with the patient/authorized credit and collections representative; all questions welcomed and answered. Patient/authorized credit and collections representative agreed to proceed Shalini Sherwood DPM AMB ROOMING INTAKE FLOWSHEET DATA Pain Pain Level: 3 Pain Location: Foot-Left Description: Sharp Duration Amount of Time: 10 Duration Units: Minutes Frequency: Intermittent Intervention/Comfort measure: Reposition Comments: Pain when stepping on the area feels like stepping on a stone. Also in side if foot in certain shoes Per Nenita Hammond was provided with powerstep gel inserts, size 7-8 1/2, and instructed/educated in its application, wear, and care. All questions were answered, and patient was able to demonstrate competence with the necessary skills to utilize the above equipment. Brunilda Lopez MA documented in this encounter [facility] 01-30-2025 Instructions Shalini Sherwood - 01/30/2025 10:15 AM EDT Powerstep Original Full length. Can purchase at [facility] Runner and boots,shoes and more here in [place], [employer] in [place] or [place]. Also can find in [place] in [facility]. Powersteps can also be purchased online, starting around $45.00 If you have a metatarsal or dancer pad for your feet apply the pad directly to the insole so you can interchange between your shoes. Find a shoe with a removable insole and take this out and replace with your powerstep insole. Always bring powersteps with you when shopping for shoes so that you can make sure that everything fits well together We discussed your foot pain and calluses: - I shaved down the hyperkeratotic lesion (callus) on the plantar aspect of your left fifth metatarsal and applied salicylic acid to help prevent it from returning. Please leave the Band-Aid on for about 10 hours and then wash the area. - You have porokeratosis, which may continue to recur. If it does, you can contact me through [employer] to schedule a visit for further treatment. - I provided you with gel inserts to help alleviate pressure on the affected area. You can use donut hole pads on the inserts to reduce discomfort. To position the pad correctly, noble the callus with a marker or nail gabonese, step on the insert, and align the pad with the marked area. Trim the insert if necessary to ensure a proper fit. - Avoid walking barefoot, wearing flip-flops, or using unsupportive shoes like Hey Dudes. Instead, wear supportive footwear such as New Balance, Hoka, Contreras, or Asics. We discussed your heel pain and plantar fasciitis: - You have large heel spurs on the back and bottom of both feet, which may contribute to your pain. Inserts can help reduce stress on the Achilles tendon and alleviate discomfort, but they will not remove the spurs. Surgical removal is the only way to eliminate the spurs if they become more problematic. - You likely have plantar fasciitis, which can cause pain when you first get out of bed. To manage this: - Perform stretches before getting out of bed and throughout the day. Examples include standing an arm's length from a wall, bending forward like a push-up, or standing on a step and dropping your heels down while holding onto a rail. - Continue using supportive footwear and inserts to reduce strain on your feet. - If pain persists, we can consider a steroid injection in the future. Follow-Up: - If the callus or pain returns, please contact me through [employer] to schedule a follow-up visit. - Continue using the gel inserts and performing stretches as discussed. Let me know if your symptoms do not improve or worsen. documented in this encounter [facility] 01-30-2025 Note HNO ID: [id number] Author: BRUNILDA LOPEZ MA Service: ? Author Type: Toy Painter Type: Progress Notes Filed: 01/31/2025 10:45 Note Text: AMB ROOMING INTAKE FLOWSHEET DATA Pain Pain Level: 3 Pain Location: Foot-Left Description: Sharp Duration Amount of Time: 10 Duration Units: Minutes Frequency: Intermittent Intervention/Comfort measure: Reposition Comments: Pain when stepping on the area feels like stepping on a stone. Also in side if foot in certain shoes Per Dr. Sherwood, Nenita was provided with powerstep gel inserts, size 7-8 1/2, and instructed/educated in its application, wear, and care. All questions were answered, and patient was able to demonstrate competence with the necessary skills to utilize the above equipment. Brunilda Lopez MA [facility] 01-29-2025 History of Present illness Narrative Radiology Service Progress Note PATIENT NAME: Nenita Rosales DATE OF SERVICE: January 29, 2025 TIME: 11:21 AM PATIENT IDENTITY VERIFICATION COMPLETED USING TWO (2) IDENTIFIERS: Name and Date of confirmed by patient verbally. FALL SCREENING: Has the patient had 2 falls in the last year or 1 fall with injury or currently using an Ambulatory Assistive Device (Walker, Cane, Wheelchair, Crutches, etc.)? Yes, Patient High Risk for Falls What interventions were put in place to prevent falls during this visit? Increased Observations by Caregivers PATIENT GENDER DATA: Assigned female at . status: : No status: NO. PATIENT RELEVANT IMPLANT DATA REVIEWED: Not Applicable PATIENT PRESENTS WITH AN IMPLANTABLE OR ATTACHED FIRE TENDER: No RADIOLOGY DEPARTMENT: General X-ray: Exam(s) Completed: Lower Extremity X-Ray(s): Foot, Left and Wt. Bearing PERIPHERAL IV DATA: Not applicable SIGNED BY: TAHIR Gray) January 29, 2025 11:21 AM documented in this encounter [facility] 01-29-2025 Note HNO ID: [id number] Author: YUDITH CARDOZA RT(Lucho) Service: ? Author Type: Technologist Type: Progress Notes Filed: 01/29/2025 11:21 Note Text: Radiology Service Progress Note PATIENT NAME: Nenita Rosales DATE OF SERVICE: January 29, 2025 TIME: 11:21 AM PATIENT IDENTITY VERIFICATION COMPLETED USING TWO (2) IDENTIFIERS: Name and Date of confirmed by patient verbally. FALL SCREENING: Has the patient had 2 falls in the last year or 1 fall with injury or currently using an Ambulatory Assistive Device (Walker, Cane, Wheelchair, Crutches, etc.)? Yes, Patient High Risk for Falls What interventions were put in place to prevent falls during this visit? Increased Observations by Caregivers PATIENT GENDER DATA: Assigned female at . status: : No status: NO. PATIENT RELEVANT IMPLANT DATA REVIEWED: Not Applicable PATIENT PRESENTS WITH AN IMPLANTABLE OR ATTACHED FIRE TENDER: No RADIOLOGY DEPARTMENT: General X-ray: Exam(s) Completed: Lower Extremity X-Ray(s): Foot, Left and Wt. Bearing PERIPHERAL IV DATA: Not applicable SIGNED BY: RT Marina(R) January 29, 2025 11:21 AM [facility] 01-27-2025 Progress note [facility] 01-27-2025 Progress note Note Date/Time January 27, 2025 11:01am [facility] [address] [place] [address] OFFICE VISIT Date of Service: 01/27/25 MR#: [id number] Acct: [id number] Name: NENITA ROSALES Rep #: [id number] : 1975 Provider: Dr. Oni Lopez MD Age/Sex: 49/F Location: [facility] Status: Signed Intake Vital Signs 10/20/24 11:13 01/16/25 10:36 01/27/25 10:51 Height 5 ft 2 in 5 ft 2 in 5 ft 2 in Weight: 160 lb BMI 29.2 Intake Visit Reasons: left shoulder Chief Complaint: 2 week post op left shoulder Accompanied by: Self Is patient in pain?: Yes Pain scale (1-10): 4 Allergies bupropion (From Wellbutrin) Allergy (Mild, Verified 01/27/25 10:53) Rash cephalexin (From Keflex) Allergy (Mild, Verified 01/27/25 10:53) Rash Penicillins (PCN) Allergy (Mild, Verified 01/27/25 10:53) Rash Medications ?Medication ?Instructions ?Recorded ?Confirmed ?Type acetaminophen 500 mg tablet 500 mg PO Q6H PRN fever or pain 09/25/24 01/27/25 History (Tylenol Extra Strength) midodrine 5 mg tablet 5 mg PO TID 09/25/24 5 History omeprazole 40 mg capsule,delayed 40 mg PO BID 09/25/24 01/27/25 History release oxycodone-acetaminophen 5 mg-325 1 tab PO Q4H PRN pain 5 days #30 01/14/25 01/27/25 Rx mg tablet (Endocet) tabs oxycodone-acetaminophen 5 mg-325 1 tab PO Q8H PRN pain 5 days #10 01/23/25 01/27/25 Rx mg tablet (Endocet) tabs Have you fallen in the past year?: No PFSH Medical History Wears glasses Arthritis Excessive bleeding Smoker Impingement of left shoulder Primary osteoarthritis, left [...] substance use type: does not use HPI left shoulder Details: This documentation accurately reflects the service provided and the decisions made by me, Dr. Boyd Lopez MD 01/27/25 0816. Part of today?s visit was documented by [ ], acting as scribe. NENITA ROSALES is a 49 year old F here today for 2 weeks FU Left shoulder arthroscopy, subacromial decompression, rotator cuff repair. C9 is approved, waswaiting on that to get in to start PT. Coding Level of Care Code Global Post Op Diagnoses Impingement of left shoulder M25.812 Primary osteoarthritis, left shoulder M19.012 Left rotator cuff tear M75.102 Left shoulder strain S46.912A Assessment and Plan Assessment and Plan (1) Impingement of left shoulder: Status: Acute Plan: NENITA ROSALES is a 49 year old F here today for 2 weeks FU Left shoulder arthroscopy, subacromial decompression, rotator cuff repair. FU 4 weeks. KENISHA thepatty. OK to shower. Still off work completely filled out the [employer] Phase 1: Initial Protection and Pain Management (Weeks 1-2) Dressing: Keep incisions clean and dry. Change dressing every 1-2 days. Sling: Wearing a sling for comfort and to protect the surgical repair Pain Management: Ice, rest, and pain medication are used to control pain and swelling. Gentle Movement: Early passive range of motion exercises are introduced to prevent stiffness. Perform pendulum exercises 4x/day, where the patient gently swings the arm in a controlled manner. Maintaining range of motion and strength in the elbow, wrist, and hand is important to prevent stiffness and muscle atrophy. Phase 2: Gradual Yarsani of Motion (Weeks 2-6) Gradually discontinue the sling starting 2 weeks after surgery. Active Assisted Range of Motion: Gradually increasing the range of motion with assistance from the unaffected arm or a physical therapist is introduced. Phase 3: Gradual Yarsani of Strength (Weeks 6-12) Light Strengthening: Isometrics and gentle resistance exercises are started to strengthen the rotator cuff muscles. Progression of Exercises: Exercises progress from simple movements like scapularretraction to more complex ones like lateral elevation and external rotation. Phase 4: Functional Exercises and Return to Activity (Weeks 12+) Advanced Strengthening: More challenging exercises are added to further strengthen the shoulder and improve stability. Functional Activities: Exercises that mimic daily activities and sports-specificmovements are incorporated to prepare the patient for a return to their desired level of activity. (2) Primary osteoarthritis, left shoulder: Status: Acute (3) Left rotator cuff tear: Status: Acute (4) Left shoulder strain: Status: Acute Clinical Quality Measures Falls Risk Screening/Assistive Devices Have you fallen in the past year?: No Ortho Exam General General: Yes no acute distress Neurologic: Yes alert and Yes oriented x3 Psychologic: Yes reasonable and appropriate Left Shoulder Skin/Wound: Yes CDI, Yes healed, No ecchymosis, No erythema and No swelling (v minimal) SHOULDER: mild tape irritation from the steri strips. nvi ax, mru and ain/pin. good rad pulse. 01/27/25 1101 <Electronically signed by Boyd marquez MD> Date _ Boyd Lopez MD [facility] Signature: Date (if applicable) CC: ~ [facility] Work Phone: 1(995) 213-569808-15-2025 Progress [facility] [address] [place] [address] OFFICE VISIT Date of Service: 01/16/25 MR#: [id number] Acct: [id number] Name: NENITA ROSALES Rep #: [id number] : 1975 Provider: Dr. Oni Lopez MD Age/Sex: 49/F Location: [facility] Status: Signed Intake Vital Signs 10/20/24 11:13 01/14/25 08:18 01/16/25 10:36 Height 5 ft 2 in 5 ft 2 in 5 ft 2 in Weight: 160 lb BMI 29.2 Intake Visit Reasons: left shoulder Chief Complaint: 2 day post op left shoulder Accompanied by: Is patient in pain?: Yes Pain scale (1-10): 4 Allergies bupropion (From Wellbutrin) Allergy (Mild, Verified 01/16/25 10:39) Rash cephalexin (From Keflex) Allergy (Mild, Verified 01/16/25 10:39) Rash Penicillins (PCN) Allergy (Mild, Verified 01/16/25 10:39) Rash Medications ?Medication ?Instructions ?Recorded ?Confirmed ?Type acetaminophen 500 mg tablet 500 mg PO Q6H PRN fever or pain 09/25/24 01/16/25 History (Tylenol Extra Strength) midodrine 5 mg tablet 5 mg PO TID 09/25/24 5 History omeprazole 40 mg capsule,delayed 40 mg PO BID 09/25/24 01/16/25 History release oxycodone-acetaminophen 5 mg-325 1 tab PO Q4H PRN pain 5 days #30 01/14/25 01/16/25 Rx mg tablet (Endocet) tabs Have you fallen in the past year?: No PFSH Medical History Wears glasses Arthritis Excessive bleeding Smoker Impingement of left shoulder Primary osteoarthritis, left [...] substance use type: does not use HPI left shoulder Details: This documentation accurately reflects the service provided and the decisions made by me, Dr. Noemi MD 01/16/25 08. Part of today?s visit was documented by [ ], acting as scribe. NENITA ROSALES is a 49 year old F here today for POD 2 Left shoulder arthroscopy, subacromial decompression, rotator cuff repair. Doing well the block wore off normal sensation in the upper extremity weaning off the pain medications took only 1 Percocet this morning. Pain is well-controlled. Coding Level of Care Code Global Post Op Diagnoses Impingement of left shoulder M25.812 Left rotator cuff tear M75.102 Assessment and Plan Assessment and Plan (1) Impingement of left shoulder: Status: Acute Plan: NENITA ROSALES is a 49 year old F here today for POD 2 Left shoulder arthroscopy, subacromial decompression, rotator cuff repair. Patient doing well we placed new Mepilex border dressings on the incisions todayrecommend to changedressings every 1 to 2 days keep the incisions clean and dryand follow-up in 2 weeks time okay for gentle pendulum exercises and sling for comfort. Phase 1: Initial Protection and Pain Management (Weeks 1-2) Dressing: Keep incisions clean and dry. Change dressing every 1-2 days. Sling: Wearing a sling for comfort and to protect the surgical repair Pain Management: Ice, rest, and pain medication are used to control pain and swelling. Gentle Movement: Early passive range of motion exercises are introduced to prevent stiffness. Perform pendulum exercises 4x/day, where the patient gently swings the arm in a controlled manner. Maintaining range of motion and strength in the elbow, wrist, and hand is important to prevent stiffness and muscle atrophy. Phase 2: Gradual Yarsani of Motion (Weeks 2-6) Gradually discontinue the sling starting 2 weeks after surgery. Active Assisted Range of Motion: Gradually increasing the range of motion with assistance from the unaffected arm or a physical therapist is introduced. Phase 3: Gradual Yarsani of Strength (Weeks 6-12) Light Strengthening: Isometrics and gentle resistance exercises are started to strengthen the rotator cuff muscles. Progression of Exercises: Exercises progress from simple movements like scapularretraction to more complex ones like lateral elevation and external rotation. Phase 4: Functional Exercises and Return to Activity (Weeks 12+) Advanced Strengthening: More challenging exercises are added to further strengthen the shoulder andimprove stability. Functional Activities: Exercises that mimic daily activities and sports- specificmovements are incorporated to prepare the patient for a return to their desired level of activity. (2) Left rotator cuff tear: Status: Acute Clinical Quality Measures Falls Risk Screening/Assistive Devices Have you fallen in the past year?: No Ortho Exam General General: Yes no acute distress Neurologic: Yes alert and Yes oriented x3 Psychologic: Yes reasonable and appropriate Left Shoulder Skin/Wound: Yes CDI, Yes healing, No ecchymosis, No erythema and Yes swelling (vminimal) SHOULDER: nvi ax, mru and ain/pin. good rad pulse. 01/16/25 1057 n > Date _ Boyd Lopez MD Cosigner Signature: Date (if applicable) CC: ~ [facility]08-15-2025 Progress note Author Boyd Lopez [facility] Note Date/Time January 16, 2025 10 :57am [facility] [address] [place] [address] OFFICE VISIT Date of Service: 01/16/25 MR#: [id number] Acct: [id number] Name: NENITA ROSALES Rep #: [id number] : 1975 Provider: Dr. Oni Lopez MD Age/Sex: 49/F Location: [facility] Status: Signed Intake Vital Signs 10/20/24 11:13 01/14/25 08:18 01/16/25 10:36 Height 5 ft 2 in 5 ft 2 in 5 ft 2 in Weight: 160 lb BMI 29.2 Intake Visit Reasons: left shoulder Chief Complaint: 2 day post op left shoulder Accompanied by: Is patient in pain?: Yes Pain scale (1-10): 4 Allergies bupropion (From Wellbutrin) Allergy (Mild, Verified 01/16/25 10:39) Rash cephalexin (From Keflex) Allergy (Mild, Verified 01/16/25 10:39) Rash Penicillins (PCN) Allergy (Mild, Verified 01/16/25 10:39) Rash Medications ?Medication ?Instructions ?Recorded ?Confirmed ?Type acetaminophen 500 mg tablet 500 mg PO Q6H PRN fever or pain 09/25/24 01/16/25 History (Tylenol Extra Strength) midodrine 5 mg tablet 5 mg PO TID 09/25/24 5 History omeprazole 40 mg capsule,delayed 40 mg PO BID 09/25/24 01/16/25 History release oxycodone-acetaminophen 5 mg-325 1 tab PO Q4H PRN pain 5 days #30 01/14/25 01/16/25 Rx mg tablet (Endocet) tabs Have you fallen in the past year?: No PFSH Medical History Wears glasses Arthritis Excessive bleeding Smoker Impingement of left shoulder Primary osteoarthritis, left [...] substance use type: does not use HPI left shoulder Details: This documentation accurately reflects the service provided and the decisions made by me, Dr. Boyd Lopez MD 01/16/25 08. Part of today?s visit was documented by [ ], acting as scribe. NENITA ROSALES is a 49 year old F here today for POD 2 Left shoulder arthroscopy, subacromial decompression, rotator cuff repair. Doing well the block wore off normal sensation in the upper extremity weaning off the pain medications took only 1 Percocet this morning. Pain is well-controlled. Coding Level of Care Code Global Post Op Diagnoses Impingement of left shoulder M25.812 Left rotator cuff tear M75.102 Assessment and Plan Assessment and Plan (1) Impingement of left shoulder: Status: Acute Plan: NENITA ROSALES is a 49 year old F here today for POD 2 Left shoulder arthroscopy, subacromial decompression, rotator cuff repair. Patient doing well we placed new Mepilex border dressings on the incisions todayrecommend to change dressings every 1 to 2 days keep the incisions clean and dryand follow-up in 2 weeks time okay for gentle pendulum exercises and sling for comfort. Phase 1: Initial Protection and Pain Management (Weeks 1-2) Dressing: Keep incisions clean and dry. Change dressing every 1-2 days. Sling: Wearing a sling for comfort and to protect the surgical repair Pain Management: Ice, rest, and pain medication are used to control pain and swelling. Gentle Movement: Early passive range of motion exercises are introduced to prevent stiffness. Perform pendulum exercises 4x/day, where the patient gently swings the arm in a controlled manner. Maintaining range of motion and strength in the elbow, wrist, and hand is important to prevent stiffness and muscle atrophy. Phase 2: Gradual Yarsani of Motion (Weeks 2-6) Gradually discontinue the sling starting 2 weeks after surgery. Active Assisted Range of Motion: Gradually increasing the range of motion with assistance from the unaffected arm or a physical therapist is introduced. Phase 3: Gradual Yarsani of Strength (Weeks 6-12) Light Strengthening: Isometrics and gentle resistance exercises are started to strengthen the rotator cuff muscles. Progression of Exercises: Exercises progress from simple movements like scapularretraction to more complex ones like lateral elevation and external rotation. Phase 4: Functional Exercises and Return to Activity (Weeks 12+) Advanced Strengthening: More challenging exercises are added to further strengthen the shoulder and improve stability. Functional Activities: Exercises that mimic daily activities and sports-specificmovements are incorporated to prepare the patient for a return to their desired level of activity. (2) Left rotator cuff tear: Status: Acute Clinical Quality Measures Falls Risk Screening/Assistive Devices Have you fallen in the past year?: No Ortho Exam General General: Yes no acute distress Neurologic: Yes alert and Yes oriented x3 Psychologic: Yes reasonable and appropriate Left Shoulder Skin/Wound: Yes CDI, Yes healing, No ecchymosis, No erythema and Yes swelling (vminimal) SHOULDER: nvi ax, mru and ain/pin. good rad pulse. 01/16/25 1057 <Electronically signed by Boyd marquez MD> Date _ Boyd Lopez MD Cosigner Signature: Date (if applicable) CC: ~ [facility] Work Phone: 1(249) 601-592308-13-2025 Consult note [facility] Medical Records Department [address] [address] Anesthesia Postop Eval I 01/14/25 1226 MR#: [id number] Acct: [id number] Name: NENITA ROSALES Rep #:[id number] : 1975 49 From: Alejandro CHOW PCP: Care Physician,No Primary Status :[facility] Y Race: C Location: [place] [address] Anesthesia: Postop Eval I Current Vital Signs Temperature: 97.3 F Pulse Rate: 72 Blood Pressure: 127/76 Respiratory Rate: 16 Pulse Ox: 94 Oxygen Delivery Method: Room Air Assessment Airway patent: Yes Spontaneous unlabored respirations: Yes Mental status: Awake and Calm nausea: No Vomiting: No Anesthesia Complication: No Fluid Hydration Crystalloid volume administer (ml): 1,200 Total IV fluid infused: 1,200 Progress Note Anesthesia document: Postop Eval 1 completed: Yes 01/14/25 1226 STOCK REPAIRER> Date _ Alejandro Patterson STOCK REPAIRER Cosigner Signature: Date CC: ~ Signed [facility]08-13-2025 History and physical note Author Boyd Lopez [facility] Note Date/Time January 14, 2025 9: 39am [facility] Medical Records Department [address] [place] [address] History & Physical Exam 01/14/25 0933 MR#: [id number] Acct: [id number] Name: NENITA ROSALES Rep #:[id number] : 1975 49 From: Boyd Lopez MD PCP: Care Physician,No Primary Status :[facility] Location: [place] [address] HPI - General HPI Narrative NENITA ROSALES, is a 49 F who presents for left shoulder arthroscopy, subacromial decompression, rotator cuff repair. No changes to history and physical exam. Left shoulder marked. Risks alternatives benefits discussed as well as postoperative instructions and narcotic counseling. The patient understands wishes to proceed no further questions or concerns. MR#: [id number] Acct: [id number] Name: NENITA SAXENA Rep #: [id number] : 1975 Provider: Dr. Boyd Lopez MD Age/Sex: 49/F Location: [facility] Status: Signed Intake Vital Signs 10/20/2510:13 Height 5 ft 2 in Weight: 168 lb 4 oz BMI 30.7 Intake Visit Reasons: LEFT SHOULDER Chief Complaint: WC f/u left shoulder injury Accompanied by: Self Is patient in pain?: Yes (left shoulder) Pain scale (1-10): 4 Allergies bupropion (From Wellbutrin) Allergy (Mild, Verified 12/15/24 08:03) Rashcephalexin (From Keflex) Allergy (Mild, Verified 12/15/24 08:03) RashPenicillins (PCN) Allergy (Mild, Verified 12/15/24 08:03) Rash Medications ?Medication ?Instructions ?Recorded ?Confirmed ?Type acetaminophen 500 mg tablet 500 mg PO Q6H PRN 09/25/24 12/15/24 Hist ory (Tylenol Extra Strength) gabapentin 800 mg tablet 800 mg PO TID 09/25/24 12/15/24 History midodrine 5 mg tablet 5 mg PO TID 09/25/24 12/15/24 History omeprazole 40 mg capsule,delayed 40 mg PO BID 09/25/24 12/15/24 History release ibuprofen 200 mg tablet 600 mg PO Q6H PRN 12/15/24 12/15/24 Hist ory PFSH Medical History Impingement of left shoulder [...] Boyd Lopez MD 12/15/24 0756. Part of today?s visit was documented by [...] understands wished to go ahead with surgery nofurther questions or concerns. Pros and cons risks and benefits were discussed with the patient including but not limited to infection, pain, stiffness, bleeding, damage to surrounding structures, neurovascular injury, recurrence or retear, failure or wear of hardware or fixation, instability, fracture, deep vein thrombosis and pulmonary embolism, anesthetic risks, , patient dissatisfaction, need for further surgery and other risks. Patient understood and wished to proceed with surgery,and signed the informed consent documentation. Patient counselled on non-operative and operative means [...] blood flow before exercises. 4. Anti-Inflammatory Medications: Pemf-eya-momoplz medications like ibuprofen ornaproxen can help reduce [...] pain and promote healing by stimulating nerves. Pros and cons risks and benefits were discussed with the patient including but not limited to infection, pain, stiffness, bleeding, damage to surrounding structures, neurovascular injury, recurrence or retear, failure or wear of hardware or fixation, instability, fracture, deep vein thrombosis and pulmonary embolism, anesthetic risks, , patient dissatisfaction, need for further surgery and other risks. Patient understood and wished to proceed with surgery, and signed the informed consent documentation. (2) Primary osteoarthritis, left shoulder: Status: Acute (3) Left rotator cuff tear: Status: Acute [facility] Medical History Wears glasses Arthritis Excessive bleeding Smoker Impingement of left shoulder Primary osteoarthritis, left shoulder Left rotator cuff tear Neuropathy Anxiety IBS (irritable bowel syndrome) GERD (gastroesophageal reflux disease) Von Willebrand disease Environmental allergies History of anemia Knee pain Asthma Andrade disease Osteoarthritis Home Medications ?Medication ?Instructions ?Recorded ?Last Taken ?Type acetaminophen 500 mg tablet 500 mg PO Q6H PRN fever or pain 09/25/24 Unknown History (Tylenol Extra Strength) midodrine 5 mg tablet 5 mg PO TID 09/25/24 Unknown History omeprazole 40 mg capsule,delayed 40 mg PO BID 09/25/24 Unknown History release Allergy/AdvReac Type Severity Reaction Status Date / Time bupropion (From Wellbutrin) Allergy Mild Rash Verified 01/14/25 08:17 cephalexin (From Keflex) Allergy Mild Rash Verified 01/14/25 08:17 Penicillins (PCN) Allergy Mild Rash Verified 01/14/25 08:17 Family History Other Barretts esophagus Breast cancer Cancer Hypertension Surgical History History of cholecystectomy History of hand surgery History of colonoscopy History of esophagogastroduodenoscopy (EGD) History of appendectomy History of gastric restrictive surgery History of breast augmentation History of arthroscopic knee surgery Social History Smoking Status: Light Smoker (<10/day) alcohol intake: never substance use type: does not use Vital Signs Vital Signs Vital Signs: 01/14/25 08:18 01/14/25 08:18 01/14/25 08:43 Temperature 98.8 F 98.8 F Temperature Source Temporal Pulse Rate 67 67 Respiratory Rate 16 16 Respiratory Pattern Normal Blood Pressure 125/65 H 125/65 H Blood Pressure Mean 85 Blood Pressure Source Monitor Blood Pressure Position Semi-Fowlers Blood Pressure Location Left Arm Pulse Ox 99 99 Oxygen Delivery Method Room Air Room Air Weight Weight: 163 lb 2.273 oz Body Mass Index (BMI) 29.8 01/14/25 0939 <Electronically signed by Boyd Lopez MD> Cosigner Signature (if applicable): CC: Dr. Boyd Lopez MD; No Primary Care Physician~ Signed [facility] Work Phone: 1(913) 561-260108-13-[address] [facility] Medical Records Department [address] [place] [address] Instructions for Home/Discharge Instructions 01/14/25 1109 MR#: [id number] Acct: [id number] Name: NENITA ROSALES Rep #:[id number] : 1975 49 From: Boyd Lopez MD PCP: Care Physician,No Primary Status :[facility] Discharge Instructions Diet Discharge Diet: No restrictions Activity Ice area for (Minutes): 10 Lifting Restrictions: pendulums only, ok to remove sling at rest Additional Activity Instructions:: ok for hand wrist elbow rom 4x/day, no lifting over 1 pound Dressing / Incision Call your doctor if your incision/area has: Continuous Slow Oozing, Sudden Increased Bleeding, Increased Pain/ Swelling, Increased Redness, Foul Smelling Discharge and Swelling at the incision site Call your doctor if you observe: Fever of 101 or Higher, Coldness, Increased Pain and Numbness or Tingling Remove Dressing in: leave in place till F/U Cleanse incision/area with: Do not get Incision Wet Follow Up Care Please Follow Up With: Boyd Lopez MD When: within 2 weeks Test Results: Test results from this visit will be discussed in further detail at your follow- up appointment, if applicable. Discharge Plan Admission Attending Provider: Boyd Lopez Primary Care Provider: Care Physician,No Primary Instructions Patient Instructions: After Shoulder Arthroscopy Print Language: Ecuadorean Discharge Orders/Prescriptions Prescriptions: New oxycodone-acetaminophen [Endocet] 5-325 mg tablet 1 tab PO Q4H MDD 6 PRN (Reason: pain) 5 Days Qty: 30 0RF No Action midodrine 5 mg tablet 5 mg PO TID Rx Instructions: do not give last dose of day after 6PM or within 4 hrs of bedtime omeprazole 40 mg capsule,delayed release(DR/EC) 40 mg PO BID acetaminophen [Tylenol Extra Strength] 500 mg tablet 500 mg PO Q6H PRN (Reason: fever or pain) Referrals / Follow Up: Boyd Lopez MD [Med Staff - Active Staff] - Care Physician,No Primary [Primary Care Provider] - Disposition Disposition (needs filled in before D/C Order can be placed): Home, Self Care 01/14/25 1112Sginette Lopez MD CC: No Primary Care Physician ~ Signed [facility]08-13-2025 Procedure note [facility] Medical Records Department [address] [place] [address] Operative Report 01/14/25 1102 MR#: [id number] Acct: [id number] Name: NENITA ROSALES Rep #:[id number] : 1975 49 From: Boyd Lopez MD PCP: Care Physician,No Primary Status :[facility] Location: [place] [address] Problems Associated Problem List Diagnoses (1) Left shoulder strain: (2) Impingement of left shoulder: (3) Left rotator cuff tear: Procedures Musculoskeletal 20xxx-29xxx: Other Procedure See Report Operative Report (Standard) Operative Information Date of Procedure: 01/14/25 Pre-Operative Diagnosis: Left shoulder impingement syndrome and rotator cuff tear Post-Operative Diagnosis: Same Surgery/Procedure Performed: Left shoulder arthroscopy, subacromial decompression, rotator cuff repair. 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: selvin Tasks completed by engineer first assistant: Retracting Type of Anesthesia: Block,Regional and General RN Documented Start/Stop Times: Operation Date: 01/14/25 10:00 Case Time Into Pre-Op 01/14/25 08:11 Anesthesia Start 01/14/25 10:00 Into Room 01/14/25 10:00 Procedure Start 01/14/25 10:29 Procedure Start Time: 10:29 Procedure Stop Time: 11:04 Select all DRAINS/GRAFTS/IMPLANTS that apply: Implanted device Implanted device details: Arthrex 4.75 mm bio composite swivel lock anchor Estimated Blood Loss: 20 Specimen collected: No Description of surgery: Patient brought to the operating room theater. Placed supine on the table. General anesthesia induced. Clindamycin 900 mg IV administered prior to the start of the case due to Keflex allergy. All bony prominences padded. SCDs on the legs. Patient transferred left side up lateral decubitus beanbag po sitionerused as well as axillary roll placed. SCDs on the legs. Upper extremity in traction 10 pounds in line with the arm in 40 degrees of abduction. Upper extremity prepped and draped in the usual sterile fashion with chlorhexidine- based prep solution allowing over 3 minutes drying time prior to draping. Preoperative timeout performed to confirm the site patient and the surgery. Began by inserting the arthroscope into the intra-articular portion of the shoulder. Made a anterior portal through the rotator interval using inside-out spinal needle localization. Did a full diagnostic arthroscopy. Cartilage on the glenoid and humeral head was normal. Normal labrum. Normal infraspinatus. Normal subscapularis stable attachment. Axillary right recess entered no loose bodies. Normal long head of the biceps normal biceps root attachment. There marce full- thickness anterior leading edge tear of the supraspinatus measuring 1 cm x 1 cm. I debrided this from the intra-articular portion of the shoulder and then inserted the arthroscope into the subacromial space. I gently debrided the edge of the tears as well as prepared the tuberosity removing any remaining soft tissue at the tuberosity site as well as using an Arthrex power pick instrument to stimulate healing with multiple small trephination's at the footprint site of the tear. Tear was mobile small darrian cent-shaped tear. I inserted a cannula laterally as well as using a posterolateral viewing portal. I did a complete bursectomy. I did a subacromial decompression there was a calcification at the CA ligament that I removed and made the undersurface the acromion flat and collinear. Used a high-speed bur for this. I then passed an inverted horizontal mattress fiber tape suture at the tear site. I then passed a Arthrex fiber link suture just medial to this for a ripstop configuration to create 3 suture limbs. Just off the footprint site at the greater tuberosity then I inserted the punch for the swivel lock anchor. Passed the sutures through the finish production manager then inserted the Arthrex 4.75 mm bio composite swivel lock anchor down to an appropriate level in line with the cortical bone. Sutures were removed and cut short. The repair was stable solidwatertight good with good compression at the repair site. Final arthroscopy pictures taken and saved onto the system. Arthroscope withdrawn wounds thoroughly cleaned. Wet and dry dressings portal sites closed with 3-0Monocryl sutures. Skin cleaned with wet and dry dressing followed application of Steri-Strips Adaptic 4 x 4 gauze ABD dressing cloth tapewith an abduction pillow sling for the upper extremity. Patient woken up from a general anesthetic transit left operating table taken topostanesthetic careunit in stable condition. All sponge needle instrument counts were correct no complications. Plan for patient discharged home according to day surgery criteria follow-up in the office within 2weeks time. CPT 02296, 62136 Surgical Findings: As above Complications Complications: No Admit VTE Documentation VTE Present on Admission: No VTE Mechan Device Prophylaxis: SCD's VTE Pharm Prophylaxis ordered?: No Reason prophylaxis not ordered: Treatment Not Indicated 01/14/25 1108 Cosigner Signature (if applicable): CC: Dr. Boyd Lopez MD; No Primary Care Physician~ Signed [facility]08-13-2025 Consult note Author Robbin Jimenez [facility] Note Date/Time January 14, 2025 8: 43am [facility] Medical Records Department [address] [place] [address] Pre-Anesthesia Evaluation 01/14/25 0842 MR#: [id number] Acct: [id number] Name: NENITA ROSALES Rep #:[id number] : 1975 49 From: Robbin Naidu PCP: Care Physician,No Primary Status :REG SDC Y Race: C Location: [place] [address] ASA Classification* ASA Classification ASA Classification: 2 Assessment & Plan Anesthesia* Anesthesia Assessment Anesthesia Assessment: Discussed sedation and/or anesthesia options, risks, benefits, and alternatives with patient/parents/legal guardian/POA. Questions invited. The patient/parents/legal guardian/POA seems to understand and agrees to proceedwith anesthesia plan. Reviewed the physical assessment, medical history, allergy history and patient home medications list prior to surgery/procedure/anesthetic and documented any changes. Performed airway and anesthesia risk assessments. Anesthesia Type Anesthesia Type: General and Block History Source History Obtained from:: Patient and Chart Anesthesia Focused Assessment* Temperature: 98.8 F Pulse Rate: 67 Blood Pressure: 125/65 Respiratory Rate: 16 Pulse Ox: 99 Oxygen Delivery Method: Room Air Airway Assessment Mouth opens: >3 cm Mallampati Score: II Teeth Condition: Intact Neck Range of motion (ROM): Full ROM Labs Anesthesia Preop lab: CBC CHEMISTRY COAG Pre-Assessment Diagnosis/Proposed Procedure Planned Operative Procedure(s): (L) Left shoulder Arthroscopy, subacromial decompression, rotator cuff repair Anesthesia History Anesthesia History - form designer: Anesthesia History - form designer Hx Hospitalization No 01/07/25 09:53 Any Problems With Anesthesia No 01/07/25 09:53 Cholinesterase deficiency No 01/07/25 09:53 You/Your Family Experience No 01/07/25 09:53 fever (hyperthermia) with Relationship Recent Exposure to Contagious No 01/14/25 08:18 Disease Does patient have nerve No 01/07/25 09:53 stimulator Patient instructed to have device shut off --Does patient have Pacemaker No 01/14/25 08:18 or ICD? When Was Last Pacemaker Check QUESTION #4 FULL TEXT: You/Your Family Experience fever (hyperthermia) with Anesthesia Last Oral Intake Last Oral intake: Last Oral Intake NPO since 20:00 01/14/25 08:18 Meds taken in AM with sips of water? Meds patient instructed to take am of surgery PONV PONV - form designer: PONV - form designer Female Yes 01/07/25 09:53 HX of Motion Sickness Yes 01/07/25 09:53 HX of N/V After Surgery No 01/07/25 09:53 Non-Smoker No 01/07/25 09:53 Duration of Surgery greater No 01/07/25 09:53 than 60 minutes Number of Risk Factors 2 01/07/25 09:53 PONV Score Moderate Risk 01/07/25 09:53 Height & Weight Height & Weight: Anesthesia: Height & Weight Height 5 ft 2 in 01/14/25 08:18 Weight: 74 kg 01/14/25 08:18 Body Mass Index (BMI) 29.8 01/14/25 08:18 Respiratory Assessment Respiratory Assessment - form designer: Respiratory Tract Infection Hx - form designer Hx Respiratory Tract Infection No 01/07/25 09:53 STOP Sleep Apnea STOP Sleep Apnea - form designer: STOP Sleep Apnea - form designer Hx Hypertension No 01/07/25 09:53 Hx Sleep Apnea No 01/07/25 09:53 CPAP BIPAP Do you snore loudly (louder No 01/07/25 09:53 than talking or can be heard Do you often feel tired/ No 01/07/25 09:53 fatigued/ sleepy during daytime? Has anyone observed you stop No 01/07/25 09:53 breathing during sleep? STOP Results Negative 01/07/25 09:53 QUESTION #5 FULL TEXT : Do you snore loudly (louder than talking or can be heard through closed doors)? Tobacco Use History Tobacco Use History - form designer: Tobacco Use History - form designer Tobacco Use Smoking Status Light Smoker (<10/day) 01/07/25 09:53 Hx Tobacco Use No 01/07/25 09:53 Years Smoking 10 01/07/25 09:53 Packs Smoked per Day Smoking Cessation Date was within the last 15 years Hx Smoking Cessation Date Hx Smoking Cessation No 01/07/25 09:53 Counseling Hematologic Medial History Hematologic Hx - form designer: Hematologic Medical Hx - netbackup engineer Hx of Blood Transfusion No 01/07/25 09:53 Hx of Transfusion in last 3 No 01/07/25 09:53 Months Date of Last Transfusion (if within last 3 months) Ever experience any problems No 01/07/25 09:53 with transfusion(s)? Specify any problems Hx of Preganancy in last 3 No 01/07/25 09:53 Months Nurse Filling Out Transfusion JZOLLINGE 01/07/25 09:53 & Questions: Date: 01/07/25 01/07/25 09:53 Time: 09:55 01/07/25 09:53 Patient unable to answer at this time (ie. confused, unrespo /Reproduction History /Reproductive History - form designer: /Reproductive Hx- form designer Hx Now No 01/07/25 09:53 Gestational Age (in weeks): EDC: Hx Hx Para Hx Section SAB Active Medications Active Medications: Current Medications Generic Name Dose Route Start Last Admin Trade Name Freq PRN Reason Stop Dose Admin Clindamycin Phosphate 900 mg in 50 mls @ 75 mls/hr 01/14/25 10:00 Cleocin IV 01/14/25 10:39 INTRAOP ONE Lactated Ringer's 1,000 mls @ 15 mls/hr 01/14/25 08:15 01/14/25 08:21 IV 15 mls/hr .Q48H JEAN CLAUDE Administration PFSH Medical History Wears glasses Arthritis Excessive bleeding Smoker Impingement of left shoulder Primary osteoarthritis, left shoulder Left rotator cuff tear Neuropathy Anxiety IBS (irritable bowel syndrome) GERD (gastroesophageal reflux disease) Von Willebrand disease Environmental allergies History of anemia Knee pain Asthma Andrade disease Osteoarthritis Home Medications ?Medication ?Instructions ?Recorded ?Last Taken ?Type acetaminophen 500 mg tablet 500 mg PO Q6H PRN fever or pain 09/25/24 Unknown History (Tylenol Extra Strength) midodrine 5 mg tablet 5 mg PO TID 09/25/24 Unknown History omeprazole 40 mg capsule,delayed 40 mg PO BID 09/25/24 Unknown History release Allergy/AdvReac Type Severity Reaction Status Date / Time bupropion (From Wellbutrin) Allergy Mild Rash Verified 01/14/25 08:17 cephalexin (From Keflex) Allergy Mild Rash Verified 01/14/25 08:17 Penicillins (PCN) Allergy Mild Rash Verified 01/14/25 08:17 Family History Other Barretts esophagus Breast cancer Cancer Hypertension Surgical History History of cholecystectomy History of hand surgery History of colonoscopy History of esophagogastroduodenoscopy (EGD) History of appendectomy History of gastric restrictive surgery History of breast augmentation History of arthroscopic knee surgery Social History Smoking Status: Light Smoker (<10/day) alcohol intake: never substance use type: does not use Review of Systems (Anesthesia) ROS Narrative System reviewed and no additional complaints, except as documented. 01/14/25 0843 <Electronically signed by Robbin Jimenez MD> Date _ Robbin Jimenez MD Cosigner Signature: Date CC: ~ Signed [facility] Work Phone: [phone] [phone] History and physical note [facility] Medical Records Department [address] [place] [address] History & Physical Exam 01/14/25 0933 MR#: [id number] Acct: [id number] Name: NENITA ROSALES Rep #:[id number] : 1975 49 From: Boyd Lopez MD PCP: Care Physician,No Primary Status :[facility] Location: [place] [address] HPI - General HPI Narrative NENITA ROSALES, is a 49 F who presents for left shoulder arthroscopy, subacromial decompression, rotator cuff repair. No changes to history and physical exam. Left shoulder marked. Risks alternatives benefits discussed as well as postoperative instructions and narcotic counseling. The patient unde rstands wishes to proceed no further questions or concerns. MR#: [id number] Acct: [id number] Name: NENITA SAXENA Rep #: [id number] : 1975 Provider: Dr. Boyd Lopez MD Age/Sex: 49/F Location: [facility] Status: Signed Intake Vital Signs 10/20/2510:13 Height 5 ft 2 in Weight: 168 lb 4 oz BMI 30.7 Intake Visit Reasons: LEFT SHOULDER Chief Complaint: WC f/u left shoulder injury Accompanied by: Self Is patient in pain?: Yes (left shoulder) Pain scale (1-10): 4 Allergies bupropion (From Wellbutrin) Allergy (Mild, Verified 12/15/24 08:03) Rashcephalexin (From Keflex) Allergy (Mild, Verified 12/15/24 08:03) RashPenicillins (PCN) Allergy (Mild, Verified 12/15/24 08:03) Rash Medications ?Medication ?Instructions ?Recorded ?Confirmed ?Type acetaminophen 500 mg tablet 500 mg PO Q6H PRN 09/25/24 12/15/24 Hist ory (Tylenol Extra Strength) gabapentin 800 mg tablet 800 mg PO TID 09/25/24 12/15/24 History midodrine 5 mg tablet 5 mg PO TID 09/25/24 12/15/24 History omeprazole 40 mg capsule,delayed 40 mg PO BID 09/25/24 12/15/24 History release ibuprofen 200 mg tablet 600 mg PO Q6H PRN 12/15/24 12/15/24 Hist ory PFSH Medical History Impingement of left shoulder [...] and the decisions made by me, Dr. Noemi MD 12/15/24 0756. Part of today?s visit was documented by [ ], acting as scribe. NENITA SAXENA is a 49 year old F here today for follow-up left shoulder pain. Worker's Compensation claim. 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 Still having nighttime pain pain with [...] in external rotation 5/5. Active forward elevation 145degrees passively 170 degrees. Supplemental Info Previous MRI of the left shoulder demonstrated a rim rent 1 cm tear of the supraspinatus tendon andsigns of impingement Coding Level of Care Code [...] understands wished to go ahead with surgery nofurther questions or concerns. Pros and cons risks and benefits were discussed with the patient including but not limited to infection, pain, stiffness, bleeding, damage to surrounding structures, neurovascular injury, recurrence or retear, failure or wear of hardware or fixation, instability, fracture, deep vein thrombosis and pulmonary embolism, anesthetic risks, , patient dissatisfaction, need for further surgery and other risks. Patient understood and wished to proceed with surgery,and signed the informed consent documentation. Patient counselled on non-operative and operative means [...] shoulder can help reduce swelling and pain, especiallyafter activity. Heat can be helpful to relax tense muscles and improve blood flow before exercises. 4. Anti-Inflammatory Medications: Bial-oip-amkmuzz medications like ibuprofen ornaproxen can help reduce [...] pain and promote healing by stimulating nerves. Pros and cons risks and benefits werediscussed with the patient including but not limited to infection, pain, stiffness, bleeding, damage to surrounding structures, neurovascular injury, recurrence or retear, failure or wear of hardwareor fixation, instability, fracture, deep vein thrombosis and pulmonary embolism, anesthetic risks, , patient dissatisfaction, need for further surgery and other risks. Patient understood and wished to proceed with surgery, and signed the informed consent documentation. (2) Primary osteoarthritis, left shoulder: Status: Acute (3) Left rotator cuff tear: Status: Acute [facility] Medical History Wears glasses Arthritis Excessive bleeding Smoker Impingement of left shoulder Primary osteoarthritis, left shoulder Left rotator cuff tear Neuropathy Anxiety IBS (irritable bowel syndrome) GERD (gastroesophageal reflux disease) Von Willebrand disease Environmental allergies History of anemia Knee pain Asthma Andrade disease Osteoarthritis Home Medications ?Medication ?Instructions ?Recorded ?Last Taken ?Type acetaminophen 500 mg tablet 500 mg PO Q6H PRN fever or pain 09/25/24 Unknown History (Tylenol Extra Strength) midodrine 5 mg tablet 5 mg PO TID 09/25/24 Unknown History omeprazole 40 mg capsule,delayed 40 mg PO BID 09/25/24 Unknown History release Allergy/AdvReac Type Severity Reaction Status Date / Time bupropion (From Wellbutrin) Allergy Mild Rash Verified 01/14/25 08:17 cephalexin (From Keflex) Allergy Mild Rash Verified 01/14/25 08:17 Penicillins (PCN) Allergy Mild Rash Verified 01/14/25 08:17 Family History Other Barretts esophagus Breast cancer Cancer Hypertension Surgical History History of cholecystectomy History of hand surgery History of colonoscopy History of esophagogastroduodenoscopy (EGD) History of appendectomy History of gastric restrictive surgery History of breast augmentation History of arthroscopic knee surgery Social History Smoking Status: Light Smoker (<10/day) alcohol intake: never substance use type: does not use Vital Signs Vital Signs Vital Signs: 01/14/25 08:18 01/14/25 08:18 01/14/25 08:43 Temperature 98.8 F 98.8 F Temperature Source Temporal Pulse Rate 67 67 Respiratory Rate 16 16 Respiratory Pattern Normal Blood Pressure 125/65 H 125/65 H Blood Pressure Mean 85 Blood Pressure Source Monitor Blood Pressure Position Semi-Fowlers Blood Pressure Location Left Arm Pulse Ox 99 99 Oxygen Delivery Method Room Air Room Air Weight Weight: 163 lb 2.273 oz Body Mass Index (BMI) 29.8 01/14/25 0939 Cosigner Signature (if applicable): CC: Dr. Boyd Lopez MD; No Primary Care Physician~ Signed [facility]08-13-2025 [facility] Medical Records Department [address] [place] [id number] History Physical Exam 01/14/25 0933 MR#: [id number] Acct: [id number] Name: NENITA ROSALES Rep #: [id number] : 1975 49 From: Boyd Lopez MD PCP: Care Physician,No Primary Status:[facility] Location: [place] [address] HPI - General HPI Narrative NENITA ROSALES, is a 49 F who presents for left shoulder arthroscopy, subacromial decompression, rotator cuff repair. No changes to history and physical exam. Left shoulder marked. Risks alternatives benefits discussed as well as postoperative instructions and narcotic counseling. The patient understands wishes to proceed no further questions or concerns. MR#: [id number] Acct: [id number] Name: NENITA SAXENA Rep #: [id number] : 1975 Provider: Dr. Boyd Lopez MD Age/Sex: 49/F Location: [facility] Status: Signed Intake Vital Signs 10/20/2510:13 Height 5 ft 2 in Weight: 168 lb 4 oz BMI 30.7 Intake Visit Reasons: LEFT SHOULDER Chief Complaint: WC f/u left shoulder injury Accompanied by: Self Is patient in pain?: Yes (left shoulder) Pain scale (1-10): 4 Allergies bupropion (From Wellbutrin) Allergy (Mild, Verified 12/15/24 08:03) Rashcephalexin (From Keflex) Allergy (Mild, Verified 12/15/24 08:03) RashPenicillins (PCN) Allergy (Mild, Verified 12/15/24 08:03) Rash Medications ???Medication ???Instructions ???Recorded ???Confirmed ???Type acetaminophen 500 mg tablet 500 mg PO Q6H PRN 09/25/24 12/15/24 History (Tylenol Extra Strength) gabapentin 800 mg tablet 800 mg PO TID 09/25/24 12/15/24 History midodrine 5 mg tablet 5 mg PO TID 09/25/24 12/15/24 History omeprazole 40 mg capsule,delayed 40 mg PO BID 09/25/24 12/15/24 History release ibuprofen 200 mg tablet 600 mg PO Q6H PRN 12/15/24 12/15/24 History PFSH Medical History Impingement of left [...] by me, Dr. Boyd Lopez MD 12/15/24 5714. Part of today???s visit was documented by [...] (1) Impingement of left shoulder: Status: Acute (more content not included)...[facility]08-13-2025 Consult note [facility] Medical Records Department [address] [place] [address] Pre-Anesthesia Evaluation 01/14/25 0842 MR#: [id number] Acct: [id number] Name: NENITA ROSALES Rep #:[id number] : 1975 49 From: Robbin Naidu PCP: Care Physician,No Primary Status :REG SDC Y Race: C Location: [place] [address]1 ASA Classification* ASA Classification ASA Classification: 2 Assessment & Plan Anesthesia* Anesthesia Assessment Anesthesia Assessment: Discussed sedation and/or anesthesia options, risks, benefits, and alternatives with patient/parents/legal guardian/POA. Questions invited. The patient/parents/legal guardian/POA seems to understand and agrees to proceedwith anesthesia plan. Reviewed the physical assessment, medical history, allergy history and patient home medications list prior to surgery/procedure/anesthetic and documented any changes. Performed airway and anesthesia risk assessments. Anesthesia Type Anesthesia Type: General and Block History Source History Obtained from:: Patient and Chart Anesthesia Focused Assessment* Temperature: 98.8 F Pulse Rate: 67 Blood Pressure: 125/65 Respiratory Rate: 16 Pulse Ox: 99 Oxygen Delivery Method: Room Air Airway Assessment Mouth opens: >3 cm Mallampati Score: II Teeth Condition: Intact Neck Range of motion (ROM): Full ROM Labs Anesthesia Preop lab: CBC CHEMISTRY COAG Pre-Assessment Diagnosis/Proposed Procedure Planned Operative Procedure(s): (L) Left shoulder Arthroscopy, subacromial decompression, rotator cuff repair Anesthesia History Anesthesia History - form designer: Anesthesia History - form designer Hx Hospitalization No 01/07/25 09:53 Any Problems With Anesthesia No 01/07/25 09:53 Cholinesterase deficiency No 01/07/25 09:53 You/Your Family Experience No 01/07/25 09:53 fever (hyperthermia) with Relationship Recent Exposure to Contagious No 01/14/25 08:18 Disease Does patient have nerve No 01/07/25 09:53 stimulator Patient instructed to have device shut off --Does patient have Pacemaker No 01/14/25 08:18 or ICD? When Was Last Pacemaker Check QUESTION #4 FULL TEXT: You/Your Family Experience fever (hyperthermia) with Anesthesia Last Oral Intake Last Oral intake: Last Oral Intake NPO since 20:00 01/14/25 08:18 Meds taken in AM with sips of water? Meds patient instructed to take am of surgery PONV PONV - form designer: PONV - form designer Female Yes 01/07/25 09:53 HX of Motion Sickness Yes 01/07/25 09:53 HX of N/V After Surgery No 01/07/25 09:53 Non-Smoker No 01/07/25 09:53 Duration of Surgery greater No 01/07/25 09:53 than 60 minutes Number of Risk Factors 2 01/07/25 09:53 PONV Score Moderate Risk 01/07/25 09:53 Height & Weight Height & Weight: Anesthesia: Height & Weight Height 5 ft 2 in 01/14/25 08:18 Weight: 74 kg 01/14/25 08:18 Body Mass Index (BMI) 29.8 01/14/25 08:18 Respiratory Assessment Respiratory Assessment - form designer: Respiratory Tract Infection Hx - form designer Hx Respiratory Tract Infection No 01/07/25 09:53 STOP Sleep Apnea STOP Sleep Apnea - form designer: STOP Sleep Apnea - form designer Hx Hypertension No 01/07/25 09:53 Hx Sleep Apnea No 01/07/25 09:53 CPAP BIPAP Do you snore loudly (louder No 01/07/25 09:53 than talking or can be heard Do you often feel tired/ No 01/07/25 09:53 fatigued/ sleepy during daytime? Has anyone observed you stop No 01/07/25 09:53 breathing during sleep? STOP Results Negative 01/07/25 09:53 QUESTION #5 FULL TEXT : Do you snore loudly (louder than talking or can be heard through closeddoors)? Tobacco Use History Tobacco Use History - form designer: Tobacco Use History - form designer Tobacco Use Smoking Status Light Smoker (<10/day) 01/07/25 09:53 Hx Tobacco Use No 01/07/25 09:53 Years Smoking 10 01/07/25 09:53 Packs Smoked per Day Smoking Cessation Date was within the last 15 years Hx Smoking Cessation Date Hx Smoking Cessation No 01/07/25 09:53 Counseling Hematologic Medial History Hematologic Hx - form designer: Hematologic Medical Hx - netbackup engineer Hx of Blood Transfusion No 01/07/25 09:53 Hx of Transfusion in last 3 No 01/07/25 09:53 Months Date of Last Transfusion (if within last 3 months) Ever experience any problems No 01/07/25 09:53 with transfusion(s)? Specify any problems Hx of Preganancy in last 3 No 01/07/25 09:53 Months Nurse Filling Out Transfusion JZOLLHOSSEIN 01/07/25 09:53 & Questions: Date: 01/07/25 01/07/25 09:53 Time: 09:55 01/07/25 09:53 Patient unable to answer at this time (ie. confused, unrespo /Reproduction History /Reproductive History - form designer: /Reproductive Hx- form designer Hx Now No 01/07/25 09:53 Gestational Age (in weeks): EDC: Hx Hx Para Hx Section SAB Active Medications Active Medications: Current Medications Generic Name Dose Route Start Last Admin Trade Name Freq PRN Reason Stop Dose Admin Clindamycin Phosphate 900 mg in 50 mls @ 75 mls/hr 01/14/25 10:00 Cleocin IV 01/14/25 10:39 INTRAOP ONE Lactated Ringer's 1,000 mls @ 15 mls/hr 01/14/25 08:15 01/14/25 08:21 IV 15 mls/hr .Q48H JEAN CLAUDE Administration PFSH Medical History Wears glasses Arthritis Excessive bleeding Smoker Impingement of left shoulder Primary osteoarthritis, left shoulder Left rotator cuff tear Neuropathy Anxiety IBS (irritable bowel syndrome) GERD (gastroesophageal reflux disease) Von Willebrand disease Environmental allergies History of anemia Knee pain Asthma Andrade disease Osteoarthritis Home Medications ?Medication ?Instructions ?Recorded ?Last Taken ?Type acetaminophen 500 mg tablet 500 mg PO Q6H PRN fever or pain 09/25/24 Unknown History (Tylenol Extra Strength) midodrine 5 mg tablet 5 mg PO TID 09/25/24 Unknown History omeprazole 40 mg capsule,delayed 40 mg PO BID 09/25/24 Unknown History release Allergy/AdvReac Type Severity Reaction Status Date / Time bupropion (From Wellbutrin) Allergy Mild Rash Verified 01/14/25 08:17 cephalexin (From Keflex) Allergy Mild Rash Verified 01/14/25 08:17 Penicillins (PCN) Allergy Mild Rash Verified 01/14/25 08:17 Family History Other Barretts esophagus Breast cancer Cancer Hypertension Surgical History History of cholecystectomy History of hand surgery History of colonoscopy History of esophagogastroduodenoscopy (EGD) History of appendectomy History of gastric restrictive surgery History of breast augmentation History of arthroscopic knee surgery Social History Smoking Status: Light Smoker (<10/day) alcohol intake: never substance use type: does not use Review of Systems (Anesthesia) ROS Narrative System reviewed and no additional complaints, except as documented. 01/14/25 0843 > Date _ Robbin Grimaldo Signature: Date CC: ~ Signed [facility]07-14-2025 Evaluation note* Diagnosis Onset Date Resolution Status Admit Date Impingement of left shoulder acute December 15, 2024 7:46am Left rotator cuff tear acute Ju ly 2024 7:46am Primary osteoarthritis, left shoulder acute December 15, 2024 7:46am Dental infection acute December 10:44am Dental infection acute December 12:15pm Impingement of left shoulder acute January 14, 2025 7:48am Left rotator cuff tear acute Au james 2024 7:48am Left shoulder strain acute Augu st 2024 7:48am Impingement of left shoulder acute January 16, 2025 10:35am Left rotator cuff tear acute Au james 2024 10:35am Impingement of left shoulder acute January 27, 2025 10:49am Left rotator cuff tear acute Au james 2024 10:49am Left shoulder strain acute Augu st 2024 10:49am Primary osteoarthritis, left shoulder acute January 27 10:49am Impingement of left shoulder acute February 24, 2025 10:23am Left shoulder strain acute Sept ember 2024 10:23am [facility] Work Phone: 1(730) 646-772205-19-2025 [facility] [address] [place] [id number] OFFICE VISIT Date of Service: 10/20/24 MR#: [id number] Acct: [id number] Name: NENITA ROSALES Rep #: [id number] : 1975 Provider: Dr. Oni Lopez MD Age/Sex: 49/F Location: [facility] Status: Signed Intake Vital Signs 09/25/24 10:16 [...] and the decisions made by me, Dr. Noemi MD 10/20/24 1028. Part of today?s visit was documented by [ ], acting as scribe. NENITA ROSALES is a 49 year old F here today for L shoulder pain. WCB claim. lifting heavy soup above shoulder height. DOI 09/25/24. works for [employer]. 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 stabbing pain with lifting anteriorly inside and posteriorly. feels weaker nowand hurts quite often after getting off work. 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 no PT, no [...] associated symptoms or alleviating/aggravating factors. Supplemental Info [facility] Services [address] [place] [id number] Shoulder min 2 Views MR#: [id number] Acct: [id number] Name: NENITA ROSALES Rep #: [id number] : 1975 F 49 From: Yehuda Lyle MD PCP: Care Physician,No Primary Status: REG CLI Study: Shoulder min 2 Views Date of Exam: 09/25/24 Exam# [id number] Ordering Dr: Corona Frank PROCEDURE: SHOULDER MIN 2 VIEWS 09/25/2024 REASON FOR EXAM: SHOULDER INJURY TECHNIQUE: Four views of the left shoulder COMPARISON: None FINDINGS: Bones: Unremarkable. Joints: Mild degree of joint space narrowing. Soft tissues: Soft tissues are unremarkable. Other: RAD/Shoulder min 2 Views IMPRESSION: Mild degree of joint space narrowing of the glenohumeral joint. Reading Location: [facility] I independently reviewed the imaging. Concur with [...] 4 weeks. I also filled out a [employer] 14 for sedentary lifting only and no [...] shoulder can help reduce swelling and pain, especiallyafter activity. Heat can be helpful to relax tense muscles and improve blood flow before exercises. 4. Anti-Inflammatory Medications: Ucyi-ftq-lpyorlr medications like ibuprofen ornaproxen can help reduce [...] in external rotation 5/5. Active forward elevation 145degrees passively 170 degrees. 10/20/24 1140 n MD> Date _ Boyd Lopez MD Cosigner Signature: Date (if applicable) CC: ~ [facility]05-19-2025 Progress note Author Boyd Lopez [facility] Note Date/Time October 20, 2024 11:40 am [facility] [address] [place] [address] OFFICE VISIT Date of Service: 10/20/24 MR#: [id number] Acct: [id number] Name: NENITA ROSALES Rep #: [id number] : 1975 Provider: Dr. Oni Lopez MD Age/Sex: 49/F Location: [facility] Status: Signed Intake Vital Signs 09/25/24 10:16 [...] above shoulder height. DOI 09/25/24. works for [employer]. 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 Supplemental Info [facility] [address] [place], [place] [id number] Shoulder min 2 Views MR#: [id number] Acct: [id number] Name: NENITA ROSALES Rep #: [id number] : 1975 F 49 From: Yehuda Lyle MD PCP: Care Physician,No Primary Status: REG CLI Study: Shoulder min 2 Views Date of Exam: 09/25/24 Exam# [id number] Ordering Dr: Corona Frank PROCEDURE: SHOULDER MIN 2 VIEWS 09/25/2024 REASON FOR EXAM: SHOULDER INJURY TECHNIQUE: Four views of the left shoulder COMPARISON: None FINDINGS: Bones: Unremarkable. Joints: Mild degree of joint space narrowing. Soft tissues: Soft tissues are unremarkable. Other: RAD/Shoulder min 2 Views IMPRESSION: Mild degree of joint space narrowing of the glenohumeral joint. Reading Location: [facility] I independently reviewed the imaging. Concur with [...] 4 weeks. I also filled out a [employer] 14 for sedentary lifting only and no [...] blood flow before exercises. 4. Anti-Inflammatory Medications: Tqpr-ytp-rzvnxuh medications like ibuprofen ornaproxen can help reduce [...] Cosigner Signature: Date (if applicable) CC: ~ [facility] Work Phone: 1(892) 896-501505-08-2025 Evaluation note* Diagnosis Onset Date Resolution Status Admit Date Left shoulder strain acute October 09, 2024 9:25am Impingement of left shoulder acute October 20, 2024 10:53am Left rotator cuff tear acute Ma y 2024 10:53am Left shoulder strain acute October 20, 2024 10:53am Primary osteoarthritis, left shoulder acute October 20, 2024 1 0:53am Impingement of left shoulder acute December 15, 2024 7:46am Left rotator cuff tear acute Ju ly 2024 7:46am Primary osteoarthritis, left shoulder acute December 15, 2024 7:46am Dental infection acute December 10:44am Dental infection acute December 12:15pm Impingement of left shoulder acute January 14, 2025 7:48am Left rotator cuff tear acute Au james 2024 7:48am Left shoulder strain acute Augu st 2024 7:48am Impingement of left shoulder acute January 16, 2025 10:35am Left rotator cuff tear acute Au james 2024 10:35am Impingement of left shoulder acute January 27, 2025 10:49am Left rotator cuff tear acute Au james 2024 10:49am Left shoulder strain acute Augu st 2024 10:49am Primary osteoarthritis, left shoulder acute January 27 10:49am [facility] [employer] Work Phone: 1([phone]) 851-614604-24-2025 Evaluation note* Diagnosis Onset Date Resolution Status Admit Date Left shoulder strain acute Apri l 2024 9:56am Left shoulder strain acute October 09, 2024 9:25am Impingement of left shoulder acute October 20, 2024 10:53am Left rotator cuff tear acute Ma y 2024 10:53am Left shoulder strain acute October 20, 2024 10:53am Primary osteoarthritis, left shoulder acute October 20, 2024 1 0:53am [facility] Work Phone: 1(720) 315-173704-24-2025 Evaluation note* Diagnosis Onset Date Resolution Status Admit Date Left shoulder strain acute Apri l 2024 9:56am Left shoulder strain acute October 09, 2024 9:25am Impingement of left shoulder acute October 20, 2024 10:53am Left rotator cuff tear acute 2024 10:53am Left shoulder strain acute October 20, 2024 10:53am Primary osteoarthritis, left shoulder acute October 20, 2024 1 0:53am Impingement of left shoulder acute December 15, 2024 7:46am Left rotator cuff tear acute Ju ly 2024 7:46am Primary osteoarthritis, left shoulder acute December 15, 2024 7:46am [facility] Work Phone: 1([phone]) 900-102304-24-2025 Evaluation note* Diagnosis Onset Date Resolution Status Admit Date Left shoulder strain acute Apri l 2024 9:56am Left shoulder strain acute October 09, 2024 9:25am Impingement of left shoulder acute October 20, 2024 10:53am Left rotator cuff tear acute 2024 10:53am Left shoulder strain acute October 20, 2024 10:53am Primary osteoarthritis, left shoulder acute October 20, 2024 1 0:53am Impingement of left shoulder acute December 15, 2024 7:46am Left rotator cuff tear acute Ju ly 2024 7:46am Primary osteoarthritis, left shoulder acute December 15, 2024 7:46am Dental infection acute December 10:44am [facility] Work Phone: 1(952) 490-729104-24-2025 Evaluation note* Diagnosis Onset Date Resolution Status Admit Date Left shoulder strain acute Apri l 2024 9:56am Left shoulder strain acute October 09, 2024 9:25am Impingement of left shoulder acute October 20, 2024 10:53am Left rotator cuff tear acute y 2024 10:53am Left shoulder strain acute October 20, 2024 10:53am Primary osteoarthritis, left shoulder acute October 20, 2024 1 0:53am Impingement of left shoulder acute December 15, 2024 7:46am Left rotator cuff tear acute Ju ly 2024 7:46am Primary osteoarthritis, left shoulder acute December 15, 2024 7:46am Dental infection acute December 10:44am Dental infection acute December 12:15pm [facility] Work Phone: 1(728) 746-738704-24-2025 Evaluation note* Diagnosis Onset Date Resolution Status [...] 2024 7:46am Dental infection acute December 10:44am Dental infection acute December 12:15pm Impingement of left shoulder acute January 14, 2025 7:48am Left rotator cuff tear acute Au james 2024 7:48am Left shoulder strain acute Augu st 2024 7:48am [facility] Work Phone: 1(703) 518-598504-24-2025 Evaluation note* Diagnosis Onset Date Resolution Status [...] 2024 7:46am Left rotator cuff tear acute Ju ly 2024 7:46am Primary osteoarthritis, left shoulder acute December 15, 2024 7:46am Dental infection acute December 10:44am Dental infection acute December 12:15pm Impingement of left shoulder acute January 14, 2025 7:48am Left rotator cuff tear acute Au james 2024 7:48am Left shoulder strain acute Augu 2024 7:48am Impingement of left shoulder acute January 16, 2025 10:35am Left rotator cuff tear acute Au james 2024 10:35am [facility] Work Phone: 1([phone]) 633-178710-26-2024 NoteHNO ID: [id number] Author: ECHO LEONARD PA Service: ? Author Type: Physician Marking Machine Tender Type: Progress Notes Filed: 03/29/2024 11:18 Note Text: This note was created using Pervasipriter. Subjective Nenita Rosales is a 48 year [...] in detail warranting prompt ER evaluation. Echo Leonard, [facility]10-26-2024 History of Present illness Narrative* Echo Leonard PA - 03/29/2024 11:16 AM EDT Images from the original note were not included. This note was created using Pervasipriter. Subjective Nenita Rosales is a 48 year old female. HPI 48-year-old female presents for dental problem. Patient states that she [place] [facility]. She broke her tooth recently and does [...] ER evaluation. JASSON Pabon [facility] History of Present illness Narrative* Nadia Landon [...] Landon PA-C 02/21/24 1544 [facility] History of Present illness Narrative* Shalini Elizondo [...] the presence of SHALINI ELIZONDO MD by NANI WALKER RT. Provider Statement: I, SHALINI ELIZONDO MD personally performed the services described in the documentation, as scribed by aNni in my presence, and it is both accurate and complete. documented in this encounterSt[facility] History of Present illness Narrative* Nadia Landon PA-C - 01/08/2024 3:05 PM EDT Nenita Connie 1975 48 y.o. Chief Complaint Patient presents [...] pain. 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 Patient will get the shanell [employer] Rx as a discount card to make the medication more affordable. I will also give her oral Voltaren gel. Return 2 weeks for RTW evaluation. Nadia Landon PA-C 01/08/24 1527 documented in this encounterSt. [facility]07-[facility]-2024 History of Present illness Narrative* Nadia Landon [...] Landon PA-C 12/25/23 1611 documented in this encounterSt[facility]06-27-2024 History of Present illness Narrative* Shalini Elizondo [...] weeks PO DOS 11/14/23 RT CTR with PA. Scribe Statement: Scribed for and in the presence of SHALINI ELIZONDO MD by NICHELLE Ames. I, Shalini Elizondo MD, personally performed the services described in the documentation, as scribed in my presence, and it is both accurate and complete. documented in this encounterSt. [facility]05-21-2024 History of Present illness Narrative* Shalini Elizondo MD - 10/23/2023 2:45 PM EDT Patient ID: Nenita Rosales is a 48 y.o. female. PCP Nathan Tavera APRN-CONTROL EQUIPMENT ELECTRICIAN Chief Complaint Patient presents with Right Hand [...] test Positive [facility]: Date: 07/12/2023 Where: [facility] Bilateral upper extremity : severe right [...] both accurate and complete. NICHELLE Ames 10/23/23 9955 documented in this encounterSt. [facility]01-31-[address] [address] DISCHARGE SUMMARY PATIENT NAME: NENITA ROSALES : 1975 MED REC NO: [id number] ROOM: 0212 ACCOUNT NO: [id number] ADMIT DATE: 06/29/2023 PROVIDER: Cristofer Neumann MD DISCHARGE DATE: 07/02/2023 ATTENDING PHYSICIAN OF HOSPITALIZATION/DISCHARGE: Glory Neumann MD PERSONAL CARE PROVIDER: Nathan Tavera, nurse practitioner, [facility]. DIAGNOSES: 1. Hypokalemia. 2. Urinary tract infection. 3. Complaints of numbness and tingling, fingers, hands, cramping fingers most likely due to hyperventilation. 4. Irritable bowel syndrome, chronic diarrhea. 5. Stressors, divorce case, pending. 6. POTS (postural orthostatic tachycardia syndrome), stable. 7. Tobacco abuse. 8. Neuropathy. 9. Status post gastric sleeve, 2012. Other medical problems set forth in the [...] patient's personal physician, Nathan Tavera, nurse practitioner, [facility]. Any aspect of the patient's care not [...] with the divorce undergoing. CRISTOFER NEUMANN MD /[email or web address] Doc#: [id number]01-29-2024 History of Present illness Narrative* Cristofer Neumann MD - 07/02/2023 6:09 PM EST Hospitalist Progress Note Patient: Nenita Rosales Date of : 1975 Admit date: 06/29/2023 Acct: [id number] PCP: Nathan Tavera APRN - CONTROL EQUIPMENT ELECTRICIAN CC--Interval History: Hypokalemia--corrected--K = 4.2 UTI---POA---on Macrobid [...] during this hospitalization. Pt was given the [place] Tobacco Quit Line number. Smoking cessation medication [...] she was trying to purposefully fall on Activity Manager. Activity Manager grabbed pt under the arms and held [...] and another nurse came in to assist instructional writer, in which now pt is stating she needs a chair because she is about to poop in her pants. Pt then states, I know you think I'm doing this on purpose but I promise I'm not, instructional writer says I do not think anything but you have not fallen or came close to falling once Pt disagrees and turns to PCT and asks, haven't I already almost fallen several times when going to the bathroom, PCT stated, Um, no not really, nt at all. Activity Manager goes to get a wheelchair, and when instructional writer returned PCT says pt lifted herself into bed using her legs. Hospitalist was informed as well as warehouse traffic supervisor, and manager of software development. Hospitalist still ordered to discharge at this [...] 07/02/2023 3:15 PM EST Nurse Regi approached instructional writer to inform instructional writer that she helped pt to restroom. Nurse stated, she was grabbing on to everything like she was trying to seem unstable. * Angélica Fink RN - 07/02/2023 1:15 PM EST Activity Manager enters rooms and upon entry asks the pt how she's feeling. Pt stated, well I don't really know what the plans gonna be writers asks, what do you mean, what plan?, pt states, well they'rejust going to send me without figuring out what's wrong instructional writer asks pt to go more in depth, Pt says well they're just gonna send me home, and I can't even use my legs instructional writer asks, what do you mean, you have been walking just all day, to the bathroom with no assistive devices just fine. Pt saysI've have been close to falling and I'm just gonna fall when I get home Activity Manager told the pt she has not fallen once since she has been here and she has been walking fine. * Gricel Leigh, RD - 07/02/2023 11:53 AM EST Comprehensive [...] to assess Fluid Accumulation: Unable to assess Equipment Superintendent Strength: Not Performed Nutrition Assessment: Nutrition screen + for poor appetite and weight loss. Admitted with dehydration; electrolyes currently corrected. Pt reports current N/V/D to instructional writer, though she has no V/D noted in [...] Anthropometric Measures: Height: 160 cm (5' 3) [place] Body Weight (IBW): 115 lbs (52 kg) [...] Used for Energy Requirements: Current Energy (kcal/day): 6227-6402 Weight Used for Protein Requirements: Current Protein [...] PM Subjective: Admit Date: 06/29/2023 PCP: Nathan Tavera APRN - CÉSAR DNR-CCA C/c: Chief Complaint Patient presents with [...] potassium chloride, loperamide CBC: Recent Labs 06/29/23 1943 06/30/23 0741 07/01/23 0553 WBC 7.7 4.8 4.1 HGB 12.8 11.6* 10.8* PLT 305 218 215 BMP: Recent Labs 06/29/23 1943 06/30/23 0033 06/30/23 0741 06/30/23 1705 07/01/23 0553 [...] Home [] Home with Home Health [] Custodial Facility [] [facility] Patient is admitted as inpatient status because of co-morbidities listed above, severity of signs and symptoms as outlined, requirement for current medical therapies and most importantly because of direct risk to patient if care not provided in a hospital setting. Carlos Owen MD, MD [facility] Hospitalist documented in [facility] encounterB[facility] [id number] Hospital Discharge instructions* Discharge Instructions* Cristofer Neumann [...] Nitrofurantoin Oral Capsule (NITROFURANTOIN/NITROFURANTOIN MACROCRYSTALS - ORAL) (Ecuadorean) * bifidobacterium and lactobacillus (Ecuadorean) [facility] Discharge instructions* Discharge Instructions* Jaiden Oakley DO - 06/21/2023 9:29 AM EST Return to the emergency department if symptoms worsen or persist. Follow-up with the family doctor in 1 to 2 days. Continue to eat green leafy vegetables as well as bananas to keep your potassium level normal. * Attachments The following attachments cannot be sent through Care Everywhere. * Magnesium Test (Ecuadorean) * Hypokalemia (Ecuadorean) [facility] Author Alejandro Patterson [facility] Note Date/Time January 14, 2025 12 :38pm [facility] Medical Records Department [address] [place] [address] Anesthesia Postop Eval I 01/14/25 1226 MR#: [id number] Acct: [id number] Name: NENITA ROSALES Rep #:[id number] : 1975 49 From: Alejandro CHOW PCP: Care Physician,No Primary Status :REG SD Y Race: C Location: [place] [address] Anesthesia: Postop Eval I Current Vital Signs Temperature: 97.3 F Pulse Rate: 72 Blood Pressure: 127/76 Respiratory Rate: 16 Pulse Ox: 94 Oxygen Delivery Method: Room Air Assessment Airway patent: Yes Spontaneous unlabored respirations: Yes Mental status: Awake and Calm nausea: No Vomiting: No Anesthesia Complication: No Fluid Hydration Crystalloid volume administer (ml): 1,200 Total IV fluid infused: 1,200 Progress Note Anesthesia document: Postop Eval 1 completed: Yes 01/14/251225 <Electronically signed by Alejandro Patterson CRNA> Date _ Alejandro Patterson CRNA Cosigner Signature: Date CC: ~ Signed [facility] Work Phone: Discharge summary Author Boyd Lopez [facility] Note Date/Time January 14, 2025 11 :12am [facility] Medical Records Department [address] [facility] [place] [address] Instructions for Home/Discharge Instructions 01/14/25 1109 MR#: [id number] Acct: [id number] Name: NENITA ROSALES Rep #:[id number] : 1975 49 From: Boyd Lopez MD PCP: Care PhysicianMaggie Primary Status :REG [facility] Discharge Instructions Diet Discharge Diet: No restrictions Activity Ice area for (Minutes): 10 Lifting Restrictions: pendulums only, ok to remove sling at rest Additional Activity Instructions:: ok for hand wrist elbow rom 4x/day, no lifting over 1 pound Dressing / Incision Call your doctor if your incision/area has: Continuous Slow Oozing, Sudden Increased Bleeding, Increased Pain/ Swelling, Increased Redness, Foul Smelling Discharge and Swelling at the incision site Call your doctor if you observe: Fever of 101 or Higher, Coldness, Increased Pain and Numbness or Tingling Remove Dressing in: leave in place till F/U Cleanse incision/area with: Do not get Incision Wet Follow Up Care Please Follow Up With: Boyd Lopez MD When: within 2 weeks Test Results: Test results from this visit will be discussed in further detail at your follow- up appointment, if applicable. Discharge Plan Admission Attending Provider: Boyd Lopez Primary Care Provider: Care Physician,No Primary Instructions Patient Instructions: After Shoulder Arthroscopy Print Language: Ecuadorean Discharge Orders/Prescriptions Prescriptions: New oxycodone-acetaminophen [Endocet] 5-325 mg tablet 1 tab PO Q4H MDD 6 PRN (Reason: pain) 5 Days Qty: 30 0RF No Action midodrine 5 mg tablet 5 mg PO TID Rx Instructions: do not give last dose of day after 6PM or within 4 hrs of bedtime omeprazole 40 mg capsule,delayed release(DR/EC) 40 mg PO BID acetaminophen [Tylenol Extra Strength] 500 mg tablet 500 mg PO Q6H PRN (Reason: fever or pain) Referrals / Follow Up: Boyd Lopez MD [Med Staff - Active Staff] - Care Physician,No Primary [Primary Care Provider] - Disposition Disposition (needs filled in before D/C Order can be placed): Home, Self Care 01/14/25 1112<Electronically signed by Boyd Lopez MD>Boyd Lopez MD CC: No Primary Care Physician ~ Signed [facility] Work Phone: Evaluation + Plan note No data available for this section [facility] Evaluation note* Diagnosis Hypokalemia- Primary Hypopotassemia Hypomagnesemia Disorders of magnesium metabolism documented in this encounter [facility] note* Diagnosis Hypokalemia- Primary Hypopotassemia Nausea and vomiting, unspecified vomiting type Dehydration Hypokalemia Hypopotassemia Nonspecific ST-T wave electrocardiographic changes Nonspecific abnormal electrocardiogram (ECG) (EKG) Urinary tract infection without hematuria, site unspecified Gastroesophageal reflux disease without esophagitis Esophageal reflux UTI (urinary tract infection) Urinary tract infection, site not specified Nausea and vomiting Nausea with vomiting documented in this encounter [facility] note* Diagnosis Muscle weakness Muscle weakness (generalized) Polyarthralgia Pain in joint, multiple sites documented in this encounter [facility] note* Diagnosis Dental infection- Primary Acute apical periodontitis of pulpal origin [facility] Diagnosis Right carpal tunnel syndrome- Primary Carpal tunnel syndrome Right carpal tunnel syndrome- Primary Carpal tunnel syndrome Right carpal tunnel syndrome Carpal tunnel syndrome [facility] Diagnosis S/P carpal tunnel release- Primary Other postprocedural status [facility] Diagnosis S/P carpal tunnel release- Primary Other postprocedural status [facility] Diagnosis S/P carpal tunnel release- Primary Other postprocedural status Right carpal tunnel syndrome Carpal tunnel syndrome [facility] Diagnosis S/P carpal tunnel release- Primary Other postprocedural status Post-op pain Other acute postoperative pain [facility] this [facility] Diagnosis Pillar pain, post-operative- Primary S/P carpal tunnel release Other postprocedural status documented in this [facility] Diagnosis S/P carpal tunnel release Other postprocedural status Post-op pain Other acute postoperative pain documented in this [facility] Diagnosis Pain in left foot Pain in limb [facility] Diagnosis Porokeratosis- Primary Other specified congenital anomaly of skin Plantar fasciitis Plantar fascial fibromatosis Calcaneal spur of both feet [facility] No data available for this section [facility] Hospital Discharge instructionsAdditional Instructions Please continue your doxycycline as resolving the dental infection will resolve the pain. Take the Percocet as directed which was prescribed from the ER to help control pain. Return to the ER should you have any [facility] Work Phone: Hospital Discharge instructionsAmbulatory Orders* PT Referral Location: None Selected [facility] Work Phone: InstructionsNot on filedocumented in this encounter [facility] filed[facility] in [facility] filedocumented in this encounter [facility] filedocumented in this encounter [facility] filedocumented in this encounter [facility] No data available for this section [facility] Progress note Author Boyd Lopez [facility] Note Date/Time February 24, 2025 10:41am [facility] [address] [place] [address] OFFICE VISIT Date of Service: 02/24/25 MR#: [id number] Acct: [id number] Name: NENITA ROSALES Rep #: [id number] : 1975 Provider: Dr. Oni Lopez MD Age/Sex: 49/F Location: [facility] Status: Signed Intake Vital Signs 01/27/25 10:51 Height 5 ft 2 in Weight: 160 lb BMI 29.2 Intake Visit Reasons: LEFT SHOULDER Chief Complaint: 6 week post op left shoulder Accompanied by: Self Is patient in pain?: Yes Allergies bupropion (From Wellbutrin) Allergy (Mild, Verified 02/24/25 10:26) Rash cephalexin (From Keflex) Allergy (Mild, Verified 02/24/25 10:26) Rash Penicillins (PCN) Allergy (Mild, Verified 02/24/25 10:26) Rash Medications ?Medication ?Instructions ?Recorded ?Confirmed ?Type acetaminophen 500 mg tablet 500 mg PO Q6H PRN fever or pain 09/25/24 02/24/25 History (Tylenol Extra Strength) midodrine 5 mg tablet 5 mg PO TID 09/25/24 5 History omeprazole 40 mg capsule,delayed 40 mg PO BID 09/25/24 02/24/25 History release oxycodone-acetaminophen 5 mg-325 1 tab PO Q4H PRN pain 5 days #30 01/14/25 02/24/25 Rx mg tablet (Endocet) tabs PFSH Medical History Wears glasses Arthritis Excessive bleeding Smoker Impingement of left shoulder Primary osteoarthritis, left [...] made by me, Dr. Boyd Lopez MD 02/24/25 0958. Part of today?s visit was documented by [ ], acting as scribe. NENITA ROSALES is a 49 year old F here today for 6 weeks FU Left shoulder arthroscopy, subacromial decompression, rotator cuff repair. Doing well mild pain when the patient does a little bit too much. Some mild morning symptoms. Patient has started physical therapy has weakness no stiffness Coding Level of Care Code Global Post Op Diagnoses Impingement of left shoulder M25.812 Left shoulder strain S46.912A Assessment and Plan Assessment and Plan (1) Impingement of left shoulder: Status: Acute Plan: NENITA ROSALES is a 49 year old F here today for 6 weeks FU Left shoulder arthroscopy, subacromial decompression, rotator cuff repair. Patient progressing as expected no stiffness mild to moderate weakness. Recommend starting strengthening gradually progressed that over the next 6 weeks. Follow-up in 6 weeks time. New [employer] 14 filled out. (2) Left shoulder strain: Status: Acute Ortho Exam General General: Yes no acute distress Neurologic: Yes alert and Yes oriented x3 Psychologic: Yes reasonable and appropriate Left Shoulder Skin/Wound: Yes CDI, Yes healed, No ecchymosis, No erythema and No swelling (v minimal) Testing: No Hawkin's and No Neer's SHOULDER: nvi ax, mru and ain/pin. good rad pulse. Active and passive external rotation 60 degrees. Passive forward elevation 170 degrees active forward elevation 45 degrees 02/24/25 1045 <Electronically signed by Boyd marquez MD> Date _ Boyd Lopez MD Cosigner Signature: Date (if applicable) CC: ~ [facility] Work Phone: reason for referral (narrative)No reason for referral information availableBlValleyCare [facility] Work Phone: Rezucp for visit Narrative* Diagnostic Procedure Only (Routine) - Closed Specialty Diagnoses / Procedures Referred By Contac t Referred To Contact XR IMAGING Diagnoses Pain in left foot Procedures XR FOOT GENERAL 3V AP/LAT/OBL LEFT RADEX FOOT COMPLETE MINIMUM 3 VIEWS Shalini Sherwood [address] [place] [address] Phone: tel: fax: [place] [address] Referral ID Status Reason Start Date Expiration Date V isits Requested Visits Authorized [id number] Closed Auto-Generate d Referral 01/28/2025 02/27/2026 1 1 [facility] Summary Purpose Family History No Family History [...] Documents on File Type Date 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 No January 02, 2025 12:54am Advance Directive Response Recorded Date/ Time Do you have a Healthcare Power of Audio Visual Engineer? No January 07, 2025 9:53am Do you have a Healthcare Power of Audio Visual Engineer? No January 02, 2025 12:54am Reason for Referral Specialty Diagnoses / Procedures Referred By Elizabeth swain Referred To Contact General Surgery / Wound Ostomy Diagnoses Nausea and vomiting, unspecified vomiting type Hypokalemia Urinary tract infection without hematuria, site unspecified [facility] [address] [place] [address] Cristofer Pederson MD [address] [place] [address] Referral ID Status Reason Start Date Expiration Date V isits Requested Visits Authorized [id number] Open Specialty Services Required 07/02/2023 07/01/2024 1 1 Scheduling Instructions [facility] Wound Care Comments Why was [...] Referred By Elizabeth swain Referred To Contact Certified Nurse Practitioner / Family Medicine Diagnoses Nausea and vomiting, unspecified vomiting type Hypokalemia Nonspecific ST-T wave electrocardiographic changes Urinary tract infection without hematuria, site unspecified [facility] [address] [place] [facility] [place] [address] Nathan Tavera, 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 [address] [facility] [place] [address] Referral ID Status Reason Start Date Expiration Date V isits Requested Visits Authorized [id number] Open Specialty Services Required 07/02/2023 07/01/2024 1 1 Scheduling Instructions [facility] Medicine Comments Why was the patient hospitalized? Hypokalemia, [...] S/P carpal tunnel release Nadia Landon PA-C [address] [place] [address] Referral ID Status Reason Start Date Expiration Date V isits Requested Visits Authorized [id number] Pending Review 12/25/2023 12/24/2024 1 1 Specialty Diagnoses / Procedures Referred By Elizabeth swain Referred To Contact Diagnoses S/P carpal tunnel release Post-op pain Nadia Landon PA-C [address] [facility] [address] [place] [address] Referral ID Status Reason Start Date Expiration Date V isits Requested Visits Authorized [id number] Pending Review 01/08/2024 01/07/2025 1 1 Chief [...] 10:4 4am CONCERN FOR TOOTH INFECTION January 01, 025 12:15pm Amb Documentation January 01, 2025 12:1 9pm Reason for Visit Admit Date Left shoulder strain September 25, 2024 9: 56am Left shoulder strain October 09, 2024 9:25a m Impingement of left shoulder October 20 2 025 10:53am Left rotator cuff tear October 20, 2024 10 :53am Left shoulder strain October 20, 2024 10:5 3am Primary osteoarthritis, left shoulder Ma y 2024 10:53am Impingement of left shoulder December 15, 2024 7:46am Left rotator cuff tear December 15, 2024 7 :46am Primary osteoarthritis, left shoulder Ju ly 2024 7:46am Dental infection December 26, 2024 10:4 4am Chief Complaint Admit Date L SHOULDER INJURY/ BUEHLERS September 25, 2024 9:56am L SHOULDER INJURY/ BUEHLERS October 09 9:25am LEFT SHOULDER October 20, 2024 10:53 am L SHOULDER RX HERE December 12, 2024 3:30 pm LEFT SHOULDER December 15, 2024 7:46 am INFECTED TOOTH December 26, 2024 10:4 4am CONCERN FOR TOOTH INFECTION January 01, 2 025 12:15pm Amb Documentation January 01, 2025 12:1 9pm DENTAL January 02, 2025 12: 53am Reason for Visit Admit Date Left shoulder [...] Dental infection December 26, 2024 10:4 4am Dental infection January 01, 2025 12:1 5pm Chief Complaint Admit Date L SHOULDER INJURY/ [...] Amb Documentation January 01, 2025 12:1 9pm DENTAL January 02, 2025 12: 53am Left shoulder Arthroscopy, subacromial d ecompressi January 14, 2025 7:48am Left shoulder Arthroscopy, subacromial d ecompressi January 14, 2025 9:33am Reason for Visit Admit Date Left shoulder strain September 25, 2024 9: 56am Left shoulder strain October 09, 2024 9:25a m Impingement of left shoulder October 20 10:53am Left rotator cuff tear October 20, 2024 10 :53am Left shoulder strain October 20, 2024 10:5 3am Primary osteoarthritis, left shoulder Ma 2024 10:53am Impingement of left shoulder December 15, 2024 7:46am Left rotator cuff tear December 15, 2024 7 :46am Primary osteoarthritis, left shoulder Ju ly 2024 7:46am Dental infection December 26, 2024 10:4 4am Dental infection January 01, 2025 12:1 5pm Impingement of left shoulder January 7:48am Left rotator cuff tear January 14, 2025 7:48am Left shoulder strain January 14, 2025 7 :48am Chief Complaint Admit Date L SHOULDER INJURY/ [...] Amb Documentation January 01, 2025 12:1 9pm DENTAL January 02, 2025 12: 53am Left shoulder Arthroscopy, subacromial d ecompressi January 14, 2025 7:48am Left shoulder Arthroscopy, subacromial d ecompressi January 14, 2025 9:33am left shoulder January 16, 2025 10 :35am Reason for Visit Admit Date Left shoulder strain September 25, 2024 9: 56am Left shoulder strain October 09, 2024 9:25a m Impingement of left shoulder October 20 10:53am Left rotator cuff tear October 20, 2024 10 :53am Left shoulder strain October 20, 2024 10:5 3am Primary osteoarthritis, left shoulder Ma y 2024 10:53am Impingement of left shoulder December 15, 2024 7:46am Left rotator cuff tear December 15, 2024 7 :46am Primary osteoarthritis, left shoulder Ju ly 2024 7:46am Dental infection December 26, 2024 10:4 4am Dental infection January 01, 2025 12:1 5pm Impingement of left shoulder January 7:48am Left rotator cuff tear January 14, 2025 7:48am Left shoulder strain January 14, 2025 7 :48am Impingement of left shoulder January 10:35am Left rotator cuff tear January 16, 2025 10:35am Chief Complaint Admit Date L SHOULDER INJURY/ BUEHLERS October 09 9:25am LEFT SHOULDER October 20, 2024 10:53 am L SHOULDER RX HERE December 12, 2024 3:30 pm LEFT SHOULDER December 15, 2024 7:46 am INFECTED TOOTH December 26, 2024 10:4 4am CONCERN FOR TOOTH INFECTION January 01 12:15pm Amb Documentation January 01, 2025 12:1 9pm DENTAL January 02, 2025 12: 53am Left shoulder Arthroscopy, subacromial d ecompressi January 14, 2025 7:48am Left shoulder Arthroscopy, subacromial d ecompressi January 14, 2025 9:33am left shoulder January 16, 2025 10 :35am left shoulder January 27, 2025 10 :49am Reason for Visit Admit Date Left shoulder strain October 09, 2024 9:25a m Impingement of left shoulder October 20 10:53am Left rotator cuff tear October 20, 2024 10 :53am Left shoulder strain October 20, 2024 10:5 3am Primary osteoarthritis, left shoulder Ma y 2024 10:53am Impingement of left shoulder December 15, 2024 7:46am Left rotator cuff tear December 15, 2024 7 :46am Primary osteoarthritis, left shoulder Ju ly 2024 7:46am Dental infection December 26, 2024 10:4 4am Dental infection January 01, 2025 12:1 5pm Impingement of left shoulder January 7:48am Left rotator cuff tear January 14, 2025 7:48am Left shoulder strain January 14, 2025 7 :48am Impingement of left shoulder January 10:35am Left rotator cuff tear January 16, 2025 10:35am Impingement of left shoulder January 10:49am Left rotator cuff tear January 27, 2025 10:49am Left shoulder strain January 27, 2025 1 0:49am Primary osteoarthritis, left shoulder Au james 2024 10:49am Chief Complaint Admit Date L SHOULDER INJURY/ BUEHLERS October 09 9:25am LEFT SHOULDER October 20, 2024 10:53 am L SHOULDER RX HERE December 12, 2024 3:30 pm LEFT SHOULDER December 15, 2024 7:46 am INFECTED TOOTH December 26, 2024 10:4 4am CONCERN FOR TOOTH INFECTION January 01 12:15pm Amb Documentation January 01, 2025 12:1 9pm DENTAL January 02, 2025 12: 53am Left shoulder Arthroscopy, subacromial d ecompressi January 14, 2025 7:48am Left shoulder Arthroscopy, subacromial d ecompressi January 14, 2025 9:33am left shoulder January 16, 2025 10 :35am left shoulder January 27, 2025 10 :49am ROTATOR CUFF TEAR. RX HERE January 28, 2025 11:12am Chief Complaint Admit Date L SHOULDER RX HERE December 12, 2024 3:30 pm LEFT SHOULDER December 15, 2024 7:46 am INFECTED TOOTH December 26, 2024 10:4 4am CONCERN FOR TOOTH INFECTION January 01 025 12:15pm Amb Documentation January 01, 2025 12:1 9pm DENTAL January 02, 2025 12: 53am Left shoulder Arthroscopy, subacromial d ecompressi January 14, 2025 7:48am Left shoulder Arthroscopy, subacromial d ecompressi January 14, 2025 9:33am left shoulder January 16, 2025 10 :35am left shoulder January 27, 2025 10 :49am LEFT SHOULDER February 24, 2025 10:23am ROTATOR CUFF TEAR. RX HERE February 11:00am Reason for Visit Admit Date Impingement of left shoulder December 15, 2024 7:46am Left rotator cuff tear December 15, 2024 7 :46am Primary osteoarthritis, left shoulder Ju ly 2024 7:46am Dental infection December 26, 2024 10:4 4am Dental infection January 01, 2025 12:1 5pm Impingement of left shoulder January 7:48am Left rotator cuff tear January 14, 2025 7:48am Left shoulder strain January 14, 2025 7 :48am Impingement of left shoulder January 10:35am Left rotator cuff tear January 16, 2025 10:35am Impingement of left shoulder January 10:49am Left rotator cuff tear January 27, 2025 10:49am Left shoulder strain January 27, 2025 1 0:49am Primary osteoarthritis, left shoulder Au james 2024 10:49am Impingement of left shoulder February 032024 10:23am Left shoulder strain February 24 10:23am Additional Source Comments INFORMATION SOURCE (unrecogn ized section and content) DATE CREATED AUTHOR 11/27/2017 [facility] DATE CREATED AUTHOR AUTHOR'S ORGANIZ ATION 04/14/2023 [facility] DATE CREATED AUTHOR AUTHOR'S ORGANIZ ATION 10/06/2023 [facility] DATE CREATED AUTHOR AUTHOR'S ORGANIZ ATION 11/15/[address] [facility] DATE CREATED AUTHOR AUTHOR'S ORGANIZ ATION 01/21/2024 [facility] DATE CREATED AUTHOR AUTHOR'S ORGANIZ ATION 02/24/2024 [facility] DATE CREATED AUTHOR AUTHOR'S ORGANIZ ATION 10/16/2024 [facility] DATE CREATED AUTHOR AUTHOR'S ORGANIZ ATION 02/08/2025 [facility] DATE CREATED AUTHOR AUTHOR'S ORGANIZ ATION 03/24/2025 [facility] Reason for Visit (unrecogniz ed section and content) Reason Comments Shaking States has been pas sing out and is shacking Reason Comments Chest Pain Nausea Specialty Diagnoses / Procedures Referred By Contac t Referred To Contact Diagnoses Dehydration Hypokalemia Nonspecific ST-T wave electrocardiographic changes Nausea and vomiting, unspecified vomiting type Carlos Owen MD [address] [place] [address] [facility] [address] [place] [address] Referral ID Status Reason Start Date Expiration Date Visits Re quested Visits Authorized [id number] 1 1 Reason Comments Dental Problem R side lower tooth x 1 day, states same has broken off has dentist appt next week, swelling and pain Reason Comments Numbness Specialty Diagnoses / Procedures Referred By Contac t Referred To Contact Orthopedic Surgery Diagnoses Carpal tunnel syndrome of right wrist Procedures AMB EXTERNAL REFERRAL TO ORTHOPEDIC SURGERY Nathan Tavera, PLATE MOLDER-CONTROL EQUIPMENT ELECTRICIAN [address] [place] [address] Acosta Caro MD [address] [place] [address] Referral ID Status Reason Start Date Expiration Date V isits Requested Visits Authorized [id number] Pending Review 09/20/2023 03/18/2024 1 1 Reason Comments Post-op Reason Comments Post-op Reason Comments Follow-up Reason Comments New Callous Pain Scheduled Active and Recently Administ ered Medications [...] Administer over 2 Hours, ONCE, On Eva 06/21/23 at 0715, For 1 dose 0720 (New [...] gm/hr 1031 (Not Given - Provider: Yoandy Bruce, ARUN - Reason: Other - Comment: already given. [...] hour. 0918 (New Bag - Provider: Nirali Phan RN)1018 (Stopped - Provider: Nirali Phan RN) midodrine (PROAMATINE) tablet 5 mg 5 mg, Oral, 3 TIMES DAILY, First dose on 06/30/23 at 0900, Until Discontinued, Do not give after 1800 or within 4 hrs of bedtime. 0916 (Given - Provider: Nirali Phan RN)1437 (Given - Provider: Nirali Phan RN)2106 (Given - Provider: Joceline Fernandez, ARUN) 0925 (Given - Provider: Nirali Phan RN)1314 (Not Given - Provider: Alexandre Meza, ARUN - Reason: Nausea)1336 (Given - Provider: Nirali Phan RN)2118 (Not Given - Provider: Mirela Lazaro RN - Reason: Patient/family refused) 1028 (Given - Provider: Yoandy Bruce, ARUN)1503 (Given - Provider: Angélica Fink, ARUN)2100 (Due) nicotine (NICODERM CQ) 14 MG/24HR 1 [...] to facility policy for handling and disposal. 0915 (Not Given - Provider: Nirali Phan RN - Reason: Patient/family refused) 0926 (Not Given - Provider: Nirali Phan RN [...] days 0916 (Given - Provider: Nirali Phan RN)2106 (Given - Provider: Joceline Fernandez RN) 0925 (Given - Provider: Nirali Phan RN)2118 (Not Given - Provider: Mirela Lazaro RN - Reason: Patient/family refused) 1028 (Given - Provider: Yonady Bruce RN - Comment: pt showering)2100 (Due) [...] Yanna Carson, ARUN)0224 (Stopped - Provider: Joceline Fernandez RN)0224 (Stopped - Provider: Joceline Fernandez RN)0224 (Stopped - Provider: Joceline Fernandez RN)0232 (Stopped - Provider: Yanna Carson, ARUN) potassium chloride 10 mEq/100 mL IVPB (Peripheral Line) (COMPLETED) 10 mEq, IntraVENous, ONCE, 1 dose, On 06/30/23 at 0245, at 100 mL/hr 0244 (New Bag - Provider: Ynana Carson, ARUN)0344 (Rate/Dose Change - Provider: Joceline Fernandez RN)0345 [...] Nirali Phan RN - Reason: IV Fluid Infusing) (Given - Provider: Joceline Fernandez RN) 0926 (Not Given - Provider: Nirali Phan RN [...] Fernandez RN)2354 (New Bag - Provider: Joceline Fernandez RN)2356 (Rate/Dose Verify - Provider: Joceline Fernandez RN) 0806 (Rate/Dose Change - Provider: Mirela Lazaro RN)0811 (Stopped - Provider: Mirela Lazaro RN)0811 (New Bag - Provider: Nirali Phan RN)1808 (Stopped - Provider: Mirela Lazaro RN)1808 (New Bag - Provider: Nirali Phan RN)202 (Stopped - Provider: Mirela Lazaro RN)202 (Stopped - Provider: Mirela Lazaro RN) PRN [...] stool. 1437 (Given - Provider: Nirali Phan, ARUN) 1329 (Given - Provider: Angélica Fink, ARUN) ondansetron (ZOFRAN) injection 4 mg(Linked Group 2) 4 mg, IntraVENous, EVERY 6 HOURS PRN, Starting on 06/30/23 at 0530, Until Discontinued, Nausea, Vomiting, Administer if oral route cannot be used. 0921 (Given - Provider: Nirali Phan, ARUN)220 (See Alternative - Provider: Joceline Fernandez, ARUN) 0623 (Given - Provider: Joceline Fernandez RN)1312 (Given - Provider: Alexandre Meza RN)2028 (See Alternative - Provider: Mirela Lazaro, ARUN) ondansetron (ZOFRAN-ODT) disintegrating tablet 4 mg(Linked Group 2) 4 mg, Oral, EVERY 8 HOURS PRN, Starting on 06/30/23 at 0530, Until Discontinued, Nausea, Vomiting 0921 (See Alternative - Provider: Nirali Phan, ARUN)2208 (Given - Provider: Joceline Fernandez RN) 06 (See Alternative - Provider: Joceline Fernandez RN)131 (See Alternative - Provider: Alexandre Meza, ARUN)2028 (Given - Provider: Mirela Lazaro, RN) polyethylene glycol (GLYCOLAX) packet 17 g 17 [...] RN)1216 (Rate/Dose Verify - Provider: Joceline Fernandez RN)1216 (Stopped - Provider: Joceline Fernandez RN)1245 (Stopped - Provider: Nirali Phan RN [...] cabinet override 0926 (Given - Provider: Saurabh Phan RN - Comment: mixed in 100 ml [...]
Care Teams (unrecognized sec tion and content) Silverware Buffing Machine Operator Relationship Specialty Start Date End Date Nathan Tavera APRN - CNP [address] [place] [address] PCP - General Certified Nurse Practitioner 04/02/23 [employer]ware Buffing Machine Operator Relationship Specialty Start Date End Date Nathan Tavera APRN - CNP [address] [place] [address] PCP - General Certified Nurse Practitioner 04/02/23 [employer]ware Buffing Machine Operator Relationship Specialty Start Date End Date Nathan Tavera APRN - CNP [address] [place] [address] PCP - General Certified Nurse Practitioner 04/02/23 Silverware Buffing Machine Operator Relationship Specialty Start Date End Date Nathan Tavera APRN-CNP [address] [place] [address] PCP - General Family Medicine 07/02/23 Silverware Buffing Machine Operator Relationship Specialty Start Date End Date Nathan Tavera APRN-CNP [address] [place] [address] PCP - General Family Medicine 07/02/23 Silverware Buffing Machine Operator Relationship Specialty Start Date End Date Nathan Tavera APRN-CNP [address] [place] [address] PCP - General Family Medicine 07/02/23 Silverware Buffing Machine Operator Relationship Specialty Start Date End Date Nathan Tavera APRN-CNP [address] [place] [address] PCP - General Family Medicine 07/02/23 Silverware Buffing Machine Operator Relationship Specialty Start Date End Date Nathan Tavera APRN-CNP [address] [place] [address] PCP - General Family Medicine 07/02/23 Silverware Buffing Machine Operator Relationship Specialty Start Date End Date Nathan TaveraDAPHNEY [address] [place] [address] PCP - General Family Medicine 07/02/23 Silverware Buffing Machine Operator Relationship Specialty Start Date End Date Nathan Tavera APRN-CONTROL EQUIPMENT ELECTRICIAN [address] [place] [address] PCP - General Family Medicine 07/02/23 Team [...] Attending Provider Active Start: January 01, 2025 Team Status: Inactive Member Role/Relationship Status Dates No Primary Care Physician Primary Care Provider Active Start: January 02, 2025 End: January 02, 2025 Dr. Mendoza Acharya DO Emergency Provider Active Start: January 02, 2025 End: January 02, 2025 Team Status: Inactive Member Role/Relationship Status Dates No Primary Care Physician Primary Care Provider Active Start: January 14, 2025 End: January 14, 2025 Boyd Lopez MD Attending Provider Active St art: January 14, 2025 End: January 14, 2025 Boyd Lopez MD Referring Provider Active St art: January 14, 2025 End: January 14, 2025 Team Status: Active Member Role/Relationship Status Dates No Primary Care Physician Primary Care Provider Active Start: January 14, 2025 Boyd Lopez MD Attending Provider Active St art: January 14, 2025 Boyd Lopez MD Referring Provider Active St art: January 14, 2025 Boyd Lopez MD Other Provider Active Start: January 14, 2025 Team Status: Inactive Member Role/Relationship Status Dates No Primary Care Physician Primary Care Provider Active Start: January 02, 2025 End: January 02, 2025 Dr. Mendoza Acharya DO Attending Provider Active Start: January 02, 2025 End: January 02, 2025 Dr. Mendoza Acharya DO Emergency Provider Active Start: January 02, 2025 End: January 02, 2025 Team Status: Inactive Member Role/Relationship Status Dates No Primary Care Physician Primary Care Provider Active Start: January 16, 2025 End: January 16, 2025 No Primary Care Physician Referring Provider Active Start: January 16, 2025 End: January 16, 2025 Boyd Lopez MD Attending Provider Active St art: January 16, 2025 End: January 16, 2025 Team Status: Inactive Member Role/Relationship Status Dates [...] Attending Provider Active Start: January 01, 2025 Team Status: Inactive Member Role/Relationship Status Dates No Primary Care Physician Primary Care Provider Active Start: January 02, 2025 End: January 02, 2025 Dr. Mendoza Acharya DO Attending Provider Active Start: January 02, 2025 End: January 02, 2025 Dr. Mendoza Acharya DO Emergency Provider Active Start: January 02, 2025 End: January 02, 2025 Team Status: Inactive Member Role/Relationship Status Dates No Primary Care Physician Primary Care Provider Active Start: January 14, 2025 End: January 14, 2025 Boyd Lopez MD Attending Provider Active St art: January 14, 2025 End: January 14, 2025 Boyd Lopez MD Referring Provider Active St art: January 14, 2025 End: January 14, 2025 Team Status: Active Member Role/Relationship Status Dates No Primary Care Physician Primary Care Provider Active Start: January 14, 2025 Boyd Lopez MD Attending Provider Active St art: January 14, 2025 Boyd Lopez MD Referring Provider Active St art: January 14, 2025 Boyd Lopez MD Other Provider Active Start: January 14, 2025 Team Status: Inactive Member Role/Relationship Status Dates No Primary Care Physician Primary Care Provider Active Start: January 16, 2025 End: January 16, 2025 No Primary Care Physician Referring Provider Active Start: January 16, 2025 End: January 16, 2025 Boyd Lopez MD Attending Provider Active St art: January 16, 2025 End: January 16, 2025 Team Status: Inactive Member Role/Relationship Status Dates No Primary Care Physician Primary Care Provider Active Start: January 27, 2025 End: January 27, 2025 No Primary Care Physician Referring Provider Active Start: January 27, 2025 End: January 27, 2025 Boyd Lopez MD Attending Provider Active St art: January 27, 2025 End: January 27, 2025 Team Status: Inactive Member Role/Relationship Status Dates No Primary Care Physician Primary Care Provider Active Start: December 12, 2024 End: December 12, 2024 Boyd Lopez MD Attending Provider Active St art: December 12, 2024 End: December 12, 2024 Boyd Lopez MD Referring Provider Active St art: December 12, 2024 End: December 12, 2024 Team Status: Active Member Role/Relationship Status Dates No Primary Care Physician Primary Care Provider Active Start: January 28, 2025 Boyd Lopez MD Attending Provider Active St art: January 28, 2025 Boyd Lopez MD Referring Provider Active St art: January 28, 2025 Team Status: Active Member Role/Relationship Status Dates No Primary Care Physician Primary care physician Activ e Team Status: Inactive Member Role/Relationship Status Dates No Primary Care Physician Primary care physician Activ e Start: December 12, 2024 End: December 12, 2024 Boyd Lopez MD Attending physician Active S tart: December 12, 2024 End: December 12, 2024 Boyd Lopez MD Referring Provider Active St art: December 12, 2024 End: December 12, 2024 Team Status: Inactive Member Role/Relationship Status Dates No Primary Care Physician Primary care physician Activ e Start: December 15, 2024 End: December 15, 2024 No Primary Care Physician Referring Provider Active Start: December 15, 2024 End: December 15, 2024 Boyd Lopez MD Attending physician Active S tart: December 15, 2024 End: December 15, 2024 Team Status: Inactive Member Role/Relationship Status Dates No Primary Care Physician Primary care physician Activ e Start: December 26, 2024 End: December 26, 2024 No Primary Care Physician Referring Provider Active Start: December 26, 2024 End: December 26, 2024 JASSON Kapoor Attending physician Active St art: December 26, 2024 End: December 26, 2024 Team Status: Inactive Member Role/Relationship Status Dates No Primary Care Physician Primary care physician Activ e Start: January 01, 2025 End: January 01, 2025 No Primary Care Physician Referring Provider Active Start: January 01, 2025 End: January 01, 2025 JASSON Kapoor Attending physician Active St art: January 01, 2025 End: January 01, 2025 Team Status: Active Member Role/Relationship Status Dates No Primary Care Physician Primary care physician Activ e Start: January 01, 2025 Estrella Akbar Attending physician Active Start: January 01, 2025 Team Status: Inactive Member Role/Relationship Status Dates No Primary Care Physician Primary care physician Activ e Start: January 02, 2025 End: January 02, 2025 Dr. Mendoza Acharya DO Attending physician Active Start: January 02, 2025 End: January 02, 2025 Dr. Mendoza Acharya DO Emergency Departme nt Physician Active Start: January 02, 2025 End: January 02, 2025 Team Status: Inactive Member Role/Relationship Status Dates No Primary Care Physician Primary care physician Activ e Start: January 14, 2025 End: January 14, 2025 Boyd Lopez MD Attending physician Active S tart: January 14, 2025 End: January 14, 2025 Boyd Lopez MD Referring Provider Active St art: January 14, 2025 End: January 14, 2025 Team Status: Active Member Role/Relationship Status Dates No Primary Care Physician Primary care physician Activ e Start: January 14, 2025 Boyd Lopez MD Attending physician Active S tart: January 14, 2025 Boyd Lopez MD Referring Provider Active St art: January 14, 2025 Boyd Lopez MD Nurse Practitioner Active St art: January 14, 2025 Team Status: Inactive Member Role/Relationship Status Dates No Primary Care Physician Primary care physician Activ e Start: January 16, 2025 End: January 16, 2025 No Primary Care Physician Referring Provider Active Start: January 16, 2025 End: January 16, 2025 Boyd Lopez MD Attending physician Active S tart: January 16, 2025 End: January 16, 2025 Team Status: Inactive Member Role/Relationship Status Dates No Primary Care Physician Primary care physician Activ e Start: January 27, 2025 End: January 27, 2025 No Primary Care Physician Referring Provider Active Start: January 27, 2025 End: January 27, 2025 Boyd Lopez MD Attending physician Active S tart: January 27, 2025 End: January 27, 2025 Team Status: Inactive Member Role/Relationship Status Dates No Primary Care Physician Primary care physician Activ e Start: February 24, 2025 End: February 24, 2025 No Primary Care Physician Referring Provider Active Start: February 24, 2025 End: February 24, 2025 Boyd Lopez MD Attending physician Active S tart: February 24, 2025 End: February 24, 2025 Team Status: Active Member Role/Relationship Status Dates No Primary Care Physician Primary care physician Activ e Start: March 02, 2025 Body Lopez MD Attending physician Active S tart: March 02, 2025 Boyd Lopez MD Referring Provider Active St art: March 02, 2025 Ordered Prescriptions (unrec ognized section and [...] or prosecute any alcohol or drug abuse patient.[facility] the event this information is protected by the Federal Confidentiality of Alcohol and Drug Abuse Patient Records regulations: The Federal rules restrict any use of the information to criminally investigate or prosecute any alcohol or drug abuse patient.[facility] the event this information is protected by the Federal Confidentiality of Alcohol and Drug Abuse Patient Records regulations: The Federal rules restrict any use of the information to criminally investigate or prosecute any alcohol or drug abuse patient.[facility] Goals (unrecognized section and content) Goals may [...] BE BASED ON THE PRIMARY CLINICAL RECORDS. [facility] [employer] [facility]. provides no warranty or guarantee of the accuracy or completeness of information in this document.
[2025-03-26] MEDS: DiphenhydrAMINE 50 MG/ML Syringe 25 MG IV (20:06)
[2025-03-26] MEDS: 0.9% Normal Saline (1000mL) 1,000 ML 999 ML IV (20:06)
[2025-03-26 20:44] VITALS: BP 111/78; PULSE 63; RESP 16; O2SAT 97
[2025-03-26 21:31] VITALS: BP 111/78; PULSE 63; RESP 16; TEMP 36.7; O2SAT 97
== END 2025-03-26 21:55 | disposition home or self-care (01) ==
PROVIDERS: Emergency Provider Emergency Medicine; PCP Nurse Practitioner Family; Visit Provider Emergency Medicine
DX: G43.109 Migraine with aura, not intractable, without status migrainosus (principal); R11.0 Nausea; K21.9 Gastro-esophageal reflux disease without esophagitis; Z79.899 Other long term (current) drug therapy; F41.9 Anxiety disorder, unspecified; Z90.49 Acquired absence of other specified parts of digestive tract; F17.200 Nicotine dependence, unspecified, uncomplicated
CPT/HCPCS: 96361; 96374; 96375; 99283; A4216; J2405

== ENCOUNTER → 2025-04-02 | Outpatient (CLI) | payer OTHER, SELFPAY | END | disposition home or self-care (01) | LOC: LABSPEC 11:28 | PROVIDERS: PCP Nurse Practitioner Family; Visit Provider Surgery | DX: D36.7 Benign neoplasm of other specified sites (principal) | CPT/HCPCS: 88305 ==

== ENCOUNTER 2025-04-03 09:00 | Outpatient (RCR) | payer OTHER, SELFPAY ==
--- NOTE | 2025-02-03 08:39 | HP.PTEVAL_ITS ---
Patient's Visit Information Visit Information Visit Information: NABIL ROSALES is a 49 year old F referred to Physical Therapy by Dr. Boyd Lopez MD with a diagnosis of L RTC repair, DOS: 01/14/25. Date of Evaluation: 01/28/25 Physical Therapist: Kendall French DPT Visit Plan Frequency: 2-3x /Week Duration: 6 Weeks Plan: 1) PROM of L shoulder progressing towards end range Progress per proctol. (in folder) ice/heat as needed. Subjective Subjective: Pt. is here today for her initial evaluation with diagnosis of L RTC repair, DOS: 01/14/25. Pt. arrives without sling on today. Physician allowed her to remove sling and wean away from it. Pt. reports overall doing well. She has 4/10 pain currently. No chest pain, SHe is currently off work. 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 No N/T noted. She reports no issues with incisions. Pt. had been doing pendulums at home as well. Pt. is sleeping okay, but still has issues with falling asleep. She is hopeful to improve her ROM, strength and get back to all work and recreational activities without limitations. Pain L shoulder: Pain Intensity (Out of 10): 4 Pain Intensity Range: 2 and 6 Objective Objective: POSTURE: Pt. has fairly normal posture in stance. Shoulder height is equal. L UE in guarded positioning. PALPATION: Pt. has normal healing port holes no signs of infection. NEURO: normal ROM: PROM: L elbow: full motion. L shoulder: flexion 80deg, abd 60deg, ER 15deg. MMT: RUE 5/5 throughout. LUE: DNT due to surgery. Balance/Special Test Scores Quick DASH Score: 75.0000 Goals Goal 1:: LTG: pt. to be I with HEP. Goal Time Frame: 4-6 Weeks Goal 2:: STG: Pt. to have full PROM of L shoulder. Goal Time Frame: 2-4 Weeks Goal 3:: LTG: Pt. to have full AROM of L shoulder. Goal Time Frame: 4-6 Weeks Goal 4:: STG: pt. to sleep throughout the night without increase in L shoulder pain. Goal Time Frame: 2-4 Weeks Goal 5:: LTG: Pt. to have symetrical strength between BUEs. Goal Time Frame: 8-12 Weeks Goal 6:: LTG: pt. to complete all ADLs without limitations. Goal Time Frame: 6-8 Weeks Rehabilitation Potential Physical Therapy Diagnosis: Pt. has signs and symptoms consistent with L RTC repair, DOS: 01/14/25. Pt. has marked hypomobility, weakness, increased pain. Pt. would benefit from PT to address the above limitations progressing back to all work and recreational activities without limitations. Rehabilitation Potential: Excellent Anticipated Interventions Patient/Client Instruction: Educate patient on: Condition, Plan of Care, Risk Factors and Benefits of Fitness Program For the Purpose of:: To improve health and function, To foster healthy habits, To improve decision making, To facilitate caregiver knowledge, To improve self management, To prevent re-injury and To improve ability to perform tasks related to life management Therapeutic Exercise to Include: Strength training, Power training, Flexibilty training, Passive ROM, Active ROM and Scapular Strength/Stabilization For the Purpose of:: To decrease pain, To increase ROM, To improve nutrient d elivery to tissue, To increase oxygenation perfusion, To improve muscle performance and motor function, To improve ability to perform ADL's, To improve health of tissue, To decrease soft tissue restriction and To increase flexibility/ROM Manual Therapy Techniques to Include: Mobilization and Passive ROM For the Purpose of:: To decrease pain, To decrease swelling/inflammation and To increase ROM Cryotherapy (ice pack, ice massage): Yes Thermo therapy (hot pack): Yes For the Purpose of:: To decrease pain, To increase ROM, To improve nutrient delivery to tissue, To increase oxygenation perfusion, To improve health of tissue, To decrease soft tissue restriction and To increase flexibility/ROM Text: Thank you for the opportunity to evaluate your patient. For Medicare and Medicare HMO plans, please review the plan of care and approve it. It will need to be FAXED BACK to us at [phone] for Medicare purposes. For Medicare only, by signing this I certify the plan of care. Please let me know if there are questions or concerns regarding this plan of care. Physician Signature: Date:
--- NOTE | 2025-04-03 10:10 | HP.PTREVAL ---
Re-Evaluation Intro: Dr. Boyd Lopez MD, It has been my pleasure to treat NABIL SAXENA over the last 18 visits for L RTC repair, DOS: 01/14/25. Please see the progress note below for an update on the physical therapy plan of care! Subjective Subjective: Pt. reports having 1-2/10 pain currently prior to PT. Pt. being ~70% better overall. I still feel weak and there is one spot when I reach my arm out to the side that is painful. Objective Objective/Function: AROM: L shoulder: flexion 140deg, abd 130deg, functional IR L1, functional ER C6 aberrant motion. PROM flexion 155deg increase NW, abd 140deg increase NW, ER at 90deg 75deg tighness, IR at 90deg of abd 50deg increase NW. MMT: L shoulder: ER at side 6.6#, IR 11.9#, exy 17.9#, abd 6.2#, flex 4.5# R shoulder: ER 13.3#, IR 14.7#, ext 22.7#, abd 18.3#, flex 15.6# She is improving, but still has limited end range ROM especially into OH movements. She also has marked weakness. Pt. is to add in prone deltoid strengthening, ER strengthening to HEP as well as continue with end range stretching. Plan Plan Plan: Pt, is to see physician next week. I would recommend that she continue with PT with focus on end range stretching as well as progressive deltoid and RTC strenthening. Balance/Gait/Functional tests Balance/Special Test Scores Quick DASH Score: 75.0000 Goals Goals Goal 1:: LTG: pt. to be I with HEP. Goal Time Frame: 4-6 Weeks Goal Progress: Progressing Goal 2:: STG: Pt. to have full PROM of L shoulder. Goal Time Frame: 2-4 Weeks Goal Progress: Progressing Goal 3:: LTG: Pt. to have full AROM of L shoulder. Goal Time Frame: 4-6 Weeks Goal Progress: Progressing Goal 4:: STG: pt. to sleep throughout the night without increase in L shoulder pain. Goal Time Frame: 2-4 Weeks Goal Progress: Goal Met Goal 5:: LTG: Pt. to have symetrical strength between BUEs. Goal Time Frame: 8-12 Weeks Goal Progress: Progressing Goal 6:: LTG: pt. to complete all ADLs without limitations. Goal Time Frame: 6-8 Weeks Goal Progress: Progressing Anticipated Interventions Anticipated Interventions Patient/Client Instruction: Educate patient on: Condition, Plan of Care, Risk Factors and Benefits of Fitness Program For the Purpose of:: To improve health and function, To foster healthy habits, To improve decision making, To facilitate caregiver knowledge, To improve self management, To prevent re-injury and To improve ability to perform tasks related to life management Therapeutic Exercise to Include: Strength training, Power training, Flexibilty training, Passive ROM, Active ROM and Scapular Strength/Stabilization For the Purpose of:: To decrease pain, To increase ROM, To improve nutrient delivery to tissue, To increase oxygenation perfusion, To improve muscle performance and motor function, To improve ability to perform ADL's, To improve health of tissue, To decrease soft tissue restriction and To increase flexibility/ROM Manual Therapy Techniques to Include: Mobilization and Passive ROM For the Purpose of:: To decrease pain, To decrease swelling/inflammation and To increase ROM Cryotherapy (ice pack, ice massage): Yes Thermo therapy (hot pack): Yes For the Purpose of:: To decrease pain, To increase ROM, To improve nutrient delivery to tissue, To increase oxygenation perfusion, To improve health of tissue, To decrease soft tissue restriction and To increase flexibility/ROM Re-Evaluation Ending Re-evaluation ending: Please do not hesitate to contact me at [phone] by phone or if you have questions or concerns regarding this new plan of care! Sincerely, Kendall French DPT
== END 2025-04-03 19:00 | disposition home or self-care (01) ==
LOC: PT 09:00
PROVIDERS: Referring Provider Orthopaedic Surgery Sports Medicine; Visit Provider Orthopaedic Surgery Sports Medicine
DX: M75.102 Unspecified rotator cuff tear or rupture of left shoulder, not specified as traumatic (principal)
CPT/HCPCS: 97110; 97140; 97161; 97530